=== PATIENT | female | born 1960 | race Caucasian/White ===

== ENCOUNTER 2016-10-07 18:36 | Emergency (ER) | payer OTHER ==
[2016-10-07 18:45] VITALS: BMI 38.7
[2016-10-07] MEDS ORDERED: ONDANSETRON 4 MG/2 ML VIAL IVPUSH STA (19:44)
[2016-10-07] MEDS ORDERED: morphine CARPU-JECT 2 MG/1 ML DISP.SYRIN IVPUSH ONE (19:44)
--- NOTE | 2016-10-07 19:44 | PDOC ---
History of Present Illness - General History Source: Patient Exam Limitations: No Limitations - History of Present Illness Initial Comments: 10/07/16 19:47 The patient is a 56-year-old female, with a significant past medical history of HTN and DM, who presents to the ED s/p slip and fall at pool today. There is question of loss of consciousness because she hit her head. Pt is complaining of headache, neck pain, right thoracic region pain, left knee pain, and difficulty breathing. She denies being dizzy prior to the fall. She denies having any other injuries or symptoms. <Nela Manning - Last Filed: 10/08/16 00:27> - General History Source: Patient <WillisHarley arce - Last Filed: 10/08/16 05:41> - General Chief Complaint: Injury Stated Complaint: PAIN Time Seen by Provider: 10/07/16 19:36 Past History <Nela Manning - Last Filed: 10/08/16 00:27> - Past Medical History Asthma: Yes Diabetes: Yes HTN: Yes - Surgical History Abdominal Surgery: Yes (HERNIA REPAIR X2) Appendectomy: Yes - Psycho/Social/Smoking Cessation Hx Anxiety: No Suicidal Ideation: No Smoking History: Current some day smoker Have you smoked in the past 12 months: Yes Number of Cigarettes Smoked Daily: 1 Information on smoking cessation initiated: No Hx Alcohol Use: No Drug/Substance Use Hx: No <Harley Hensley - Last Filed: 10/08/16 05:41> - Past Medical History Allergies/Adverse Reactions: Allergies Allergy/AdvReac Type Severity Reaction Status Date / Time No Known Allergies Allergy Verified 10/07/16 18:41 Home Medications: Ambulatory Orders Oxycodone HCl/Acetaminophen [Percocet 5-325 mg Tablet -] 1 - 2 tab PO Q4H #6 tablet 11/25/13 Amlodipine Besylate [Norvasc -] 2.5 mg PO DAILY 10/07/16 Canagliflozin/Metformin HCl [Invokamet 150-500 mg Tablet] 2 each PO DAILY Celecoxib [Celebrex] 200 mg PO DAILY 10/07/16 Gabapentin 800 mg PO TID 10/07/16 Insulin Glargine,Hum.rec.anlog [Lantus Solostar PEN (NF)] 56 units SQ BID Lisinopril/Hydrochlorothiazide [Lisinopril-Hctz 20-25 mg Tab] 1 each PO DAILY Metformin HCl [Metformin HCl ER] 1,000 mg PO BID 10/07/16 Repaglinide 2 mg PO TID 10/07/16 Albuterol Sulfate Inhaler - [Ventolin HFA Inhaler -] 2 inh IH Q6H #1 inh Azithromycin [Zithromax -] 250 mg PO UTDICT #6 tab 10/08/16 Ibuprofen 800 mg PO TID #30 tablet 10/08/16 Methylprednisolone [Medrol Dose Song] 4 mg PO ASDIR #21 tablet 10/08/16 Oxycodone HCl/Acetaminophen [Percocet 10-325 mg Tablet] 1 each PO QID #20 tablet MDD 4 10/08/16 Review of Systems - Review of Systems Able to Perform ROS?: Yes Comments:: 10/07/16 19:48 CONSTITUTIONAL: Absent: fever, chills, diaphoresis, generalized weakness, malaise, loss of appetite HEENT: Absent: rhinorrhea, nasal congestion, throat pain, throat swelling, difficulty swallowing, mouth swelling, ear pain, eye pain, visual Changes CARDIOVASCULAR: Absent: chest pain, syncope, palpitations, irregular heart rate, lightheadedness , peripheral edema RESPIRATORY: Present: shortness of breath Absent: cough, dyspnea with exertion, orthopnea, wheezing, stridor, hemoptysis GASTROINTESTINAL: Absent: abdominal pain, abdominal distension, nausea, vomiting, diarrhea, constipation, melena, hematochezia GENITOURINARY: Absent: dysuria, frequency, urgency, hesitancy, hematuria, flank pain, genital pain MUSCULOSKELETAL: Present: neck pain, right thoracic region pain, left knee pain Absent: arthralgia, joint swelling SKIN: Absent: rash, itching, pallor HEMATOLOGIC/IMMUNOLOGIC: Absent: easy bleeding, easy bruising, lymphadenopathy, frequent infections ENDOCRINE: Absent: unexplained weight gain, unexplained weight loss, heat intolerance, cold intolerance NEUROLOGIC: Present: headache Absent: focal weakness or paresthesias, dizziness, unsteady gait, seizure, mental status changes, bladder or bowel incontinence PSYCHIATRIC: Absent: anxiety, depression, suicidal or homicidal ideation, hallucinations. <Nela Manning - Last Filed: 10/08/16 00:27> *Physical Exam - Vital Signs Last Vital Signs Temp Pulse Resp BP Pulse Ox 97.8 F 83 20 120/54 94 L 10/07/16 18:42 10/07/16 18:42 10/07/16 18:42 10/07/16 18:42 10/07/16 18:42 - Physical Exam Comments: 10/07/16 19:49 Well developed, well nourished. Awake and alert. Mild distress. HEENT: Normocephalic, atraumatic. PERRLA, EOMI. No conjunctival pallor. Sclera are non- icteric. Moist mucous membranes. Oropharynx is clear. No racoon or magaña signs. NECK: Supple. No JVD. Carotid pulses 2+ and symmetric, without bruits. No thyromegaly. No lymphadenopathy. +Pt is wearing a c-collar but is experiencing mild paraspinal tenderness to the cervical spine. CARDIOVASCULAR: Regular rate and rhythm. No murmurs, rubs, or gallops. Distal pulses are 2+ and symmetric. PULMONARY: No evidence of respiratory distress. Lungs clear to auscultation bilaterally. No wheezing, rales or rhonchi. ABDOMINAL: Soft. Non-tender. Non-distended. No rebound or guarding. No organomegaly. Normoactive bowel sounds. MUSCULOSKELETAL Normal range of motion at all joints. +Pt is experiencing tenderness in the right lower thoracic region anteriorly but has no bony crepitus. EXTREMITIES: No cyanosis. No clubbing. No edema. No calf tenderness. SKIN: Warm and dry. Normal capillary refill. No rashes. No jaundice. NEUROLOGICAL: Alert, awake, appropriate. PSYCHIATRIC: Cooperative. Good eye contact. Appropriate mood and affect. <Nela Manning - Last Filed: 10/08/16 00:27> - Vital Signs Last Vital Signs Temp Pulse Resp BP Pulse Ox 97.8 F 83 20 120/54 94 L 10/07/16 18:42 10/07/16 18:42 10/07/16 18:42 10/07/16 18:42 10/07/16 18:42 <Harley Hensley - Last Filed: 10/08/16 05:41> Heart Score/ECG Review - ECG Intrepretation Comment:: 10/08/16 00:27 EKG was reviewed by Dr. Hensley at 22:42. Impression: Normal sinus rhythm. Low voltage QRS. Vent. rate: 60 bpm AK interval 142 ms QTc: 412 ms <Nela Manning - Last Filed: 10/08/16 00:27> ED Treatment Course - LABORATORY CBC & Chemistry Diagram: 10/07/16 22:35 10/07/16 22:35 <Nela Manning - Last Filed: 10/08/16 00:27> - LABORATORY CBC & Chemistry Diagram: 10/07/16 22:35 10/07/16 22:35 <Harley Hensley - Last Filed: 10/08/16 05:41> Medical Decision Making - Medical Decision Making 10/08/16 05:40 Dr. Hensley: The scribe's documentation has been prepared under my direction and personally reviewed by me in its entirery. I confirm that the note above accurately reflects all work, treatment, procedures, and medical decision making performed by me. Pt feeling better an would like to go home. Pt to follow up with her pcp and start medications for pain and Zpak for prophylaxis <Harley Hensley - Last Filed: 10/08/16 05:41> *DC/Admit/Observation/Transfer - Attestations Scribe Attestion: 10/07/16 19:51 Documentation prepared by Nela Manning, acting as medical screener for Harley Hensley MD. <Nela Manning - Last Filed: 10/08/16 00:27> - Discharge Dispostion Admit: No <Harley Hensley - Last Filed: 10/08/16 05:41> Diagnosis at time of Disposition: Asthma exacerbation Fall Qualifiers: Encounter type: initial encounter Qualified Code(s): W19.XXXA - Unspecified fall, initial encounter Right rib fracture Qualifiers: Encounter type: initial encounter Rib fracture type: single rib Fracture type: closed Qualified Code(s): S22.31XA - Fracture of one rib, right side, initial encounter for closed fracture - Prescriptions Prescriptions: Ibuprofen 800 mg PO TID #30 tablet Methylprednisolone [Medrol Dose Song] 4 mg PO ASDIR #21 tablet Oxycodone HCl/Acetaminophen [Percocet 10-325 mg Tablet] 1 each PO QID #20 tablet MDD 4 Albuterol Sulfate Inhaler - [Ventolin HFA Inhaler -] 2 inh IH Q6H #1 inh Azithromycin [Zithromax -] 250 mg PO UTDICT #6 tab - Referrals Referrals: STAFF,NOT ON [Primary Care Provider] -
[2016-10-07] MEDS ORDERED: morphine CARPU-JECT 2 MG/1 ML DISP.SYRIN ONE (19:50)
[2016-10-07] MEDS ORDERED: morphine CARPU-JECT 4 MG/1 ML DISP.SYRIN ONE (19:51)
[2016-10-07] MEDS ORDERED: ONDANSETRON 4 MG/2 ML VIAL ONE (19:51)
[2016-10-07] MEDS ORDERED: KETOROLAC TROMETHAMINE 30 MG/1 ML VIAL IVPUSH ONE (21:39)
[2016-10-07] MEDS ORDERED: KETOROLAC TROMETHAMINE 30 MG/1 ML VIAL ONE (21:43)
[2016-10-07] MEDS ORDERED: HYDROmorphone HCL CARPU-JECT 1 MG/1 ML DISP.SYRIN IVPUSH ONE (22:03)
[2016-10-07] MEDS ORDERED: HYDROmorphone HCL CARPU-JECT 1 MG/1 ML DISP.SYRIN ONE (22:35)
[2016-10-07 23:08] LABS: BASOPHIL 1.1 % (0-2.0); EOSINOPHIL 7.3 % (0-4.5); MCH 28.3 pg (25.7-33.7); MCHC 31.9 g/dl (32.0-36.0); MEAN CELL VOLUME 88.7 fl (80-96); MEAN PLT VOLUME 8.6 fl (7.5-11.1); NEUTROPHILS 55.8 % (42.8-82.8); PLATELET COUNT 296 K/MM3 (134-434); RDW 14.1 % (11.6-15.6); WHITE BLOOD COUNT 5.4 K/mm3 (4.0-10.0)
[2016-10-07 23:36] LABS: ALBUMIN 3.2 g/dl (3.4-5.0); ALK PHOS 111 U/L (45-117); ANION GAP 9 (8-16); BILIRUBIN,TOTAL 0.3 mg/dL (0.2-1.0); CALCIUM 9.4 mg/dL (8.5-10.1); CO2 26 mmol/L (21-32); CREATININE 1.6 mg/dL (0.55-1.02); GLUCOSE,RANDOM 289 mg/dL (74-106); SGOT/AST 15 U/L (15-37); SGPT/ALT 17 U/L (12-78); TOT PROT 6.7 g/dl (6.4-8.2)
[2016-10-08] MEDS ORDERED: methylPREDNISolone NA SUCC 125 MG/2 ML VIAL IVPB ONE (00:07)
[2016-10-08] MEDS ORDERED: ALBUTEROL SO4 2.5/IPRATROPIUM 0.5 INH SOL 3 ML VIAL.NEB. NEB STA (00:09)
[2016-10-08] MEDS ORDERED: methylPREDNISolone NA SUCC 125 MG/2 ML VIAL ONE (00:10)
[2016-10-08] MEDS ORDERED: HYDROmorphone HCL CARPU-JECT 1 MG/1 ML DISP.SYRIN IVPUSH ONE ×2 (01:36→05:40)
[2016-10-08] MEDS ORDERED: HYDROmorphone HCL CARPU-JECT 1 MG/1 ML DISP.SYRIN ONE (01:58)
--- NOTE | 2016-10-08 09:14 | EKG ---
Test Reason : Blood Pressure : / mmHG Vent. Rate : 073 BPM Atrial Rate : 073 BPM P-R Int : 148 ms QRS Dur : 086 ms QT Int : 414 ms P-R-T Axes : 066 -23 007 degrees QTc Int : 456 ms NORMAL SINUS RHYTHM WITH SINUS ARRHYTHMIA LOW VOLTAGE QRS NONSPECIFIC T WAVE ABNORMALITY NO PREVIOUS ECGS AVAILABLE Confirmed by YENNY PACHECO MD ([id number]) on 10/08/2016 9:13:54 AM Referred By: Confirmed By:YENNY PACHECO MD
[2016-10-08 09:24] VITALS: BP 121/60; PULSE 65; TEMP 97.4
== END 2016-10-08 09:24 | disposition home or self-care (01) ==
LOC: JER 18:36 → JERBED 10-08 00:10 → UNDOADMOB 10-08 00:10 → JERBED 10-08 00:21 → UNDOADMOB 10-08 00:21 → JER 10-08 09:24
PROC: 3E0F7GC Introduction of Other Therapeutic Substance into Respiratory Tract, Via Natural or Artificial Opening (ICD-10-PCS; principal; 2016-10-07)
PROC: 3E033NZ Introduction of Analgesics, Hypnotics, Sedatives into Peripheral Vein, Percutaneous Approach (ICD-10-PCS; 2016-10-07)
PROC: 3E0333Z Introduction of Anti-inflammatory into Peripheral Vein, Percutaneous Approach (ICD-10-PCS; 2016-10-07)
PROC: 3E033GC Introduction of Other Therapeutic Substance into Peripheral Vein, Percutaneous Approach (ICD-10-PCS; 2016-10-07)
DX: S22.31XA Fracture of one rib, right side, initial encounter for closed fracture (principal); J45.901 Unspecified asthma with (acute) exacerbation; W01.0XXA Fall on same level from slipping, tripping and stumbling without subsequent striking against object, initial encounter; Y93.11 Activity, swimming; Y92.34 Swimming pool (public) as the place of occurrence of the external cause; Y99.8 Other external cause status; I10 Essential (primary) hypertension; E11.9 Type 2 diabetes mellitus without complications; Z79.4 Long term (current) use of insulin; Z79.84 Long term (current) use of oral hypoglycemic drugs; J45.909 Unspecified asthma, uncomplicated
CPT/HCPCS: 36415; 70450-TC; 71010-TC; 71250-TC; 72125-TC; 73562-TC-LT; 80053; 85025; 85610; 86850; 86900; 86901; 93005; 93010; 99283-25

== ENCOUNTER 2016-12-22 04:21 | Emergency (ER) | payer OTHER ==
[2016-12-22 05:00] VITALS: BP 92/65; PULSE 86; TEMP 98.3; BMI 39.5
[2016-12-22 05:41] LABS: BASOPHIL 1.1 % (0-2.0); EOSINOPHIL 1.4 % (0-4.5); MCH 26.5 pg (25.7-33.7); MCHC 31.8 g/dl (32.0-36.0); MEAN CELL VOLUME 83.2 fl (80-96); MEAN PLT VOLUME 8.3 fl (7.5-11.1); NEUTROPHILS 72.7 % (42.8-82.8); PLATELET COUNT 485 K/MM3 (134-434); RDW 15.4 % (11.6-15.6); WHITE BLOOD COUNT 12.4 K/mm3 (4.0-10.0)
--- NOTE | 2016-12-22 05:53 | PDOC ---
History of Present Illness - General Chief Complaint: Pain Stated Complaint: RIB PAIN, CONGESTION Time Seen by Provider: 12/22/16 04:49 - History of Present Illness Initial Comments: 12/22/16 05:33 CHIEF COMPLAINT: cough, rib pain HISTORY OF PRESENT ILLNESS: 56 yo F with hx of insulin dependent DM and HTN presents to ED with cough and rib pain x "11 weeks." Patient states she slipped and fell at the pool 11 weeks ago and was diagnosed with a fractured rib on the right side. She reports that she has "not felt better ever since then " and states that she has seen her PCP "but he didn't do anything, he told me it would just get better on its own." She denies any fever but reports chills. PAST MEDICAL HISTORY: Denies past medical history FAMILY HISTORY: Denies SOCIAL HISTORY: Denies tobacco, alcohol, illicit drug use. SURGICAL HISTORY: Denies ALLERGIES: No known drug allergies REVIEW OF SYSTEMS General/Constitutional: Denies fever or chills. Denies weakness, weight change. HEENT: Denies change in vision. Denies ear pain or discharge. Denies sore throat. Cardiovascular: Denies chest pain or shortness of breath. Respiratory: Cough x 11 weeks. Gastrointestinal: Denies nausea, vomiting, diarrhea or constipation. Denies rectal bleeding. Genitourinary: Denies dysuria, frequency, or change in urination. Musculoskeletal: Rib pain s/p fall. Neurologic: Denies headache, vertigo, loss of consciousness, or loss of sensation. PHYSICAL EXAM General Appearance: Well-appearing, appropriately dressed. No apparent distress. HEENT: EOMI, PERRLA Respiratory/Chest: Lungs CTAB. No shortness of breath, chest tenderness, respiratory distress, accessory muscle use. No crackles, rales, rhonchi, stridor , wheezing, dullness Cardiovascular: RRR. S1, S2. Musculoskeletal/Extremities: Normal inspection. FROM of all extremities, normal capillary refill. Pelvis Stable. No CVA tenderness. No tenderness to extremities, pedal edema, swelling, erythema or deformity. Integumentary: Appropriate color, dry, warm. No cyanosis, erythema, jaundice or rash Neurologic: orthodontic laboratory technician II-XII intact. Fully oriented, alert. Appropriate mood/affect. Motor strength 5/5. No appreciable EOM palsy, facial droop or sensory deficit. 12/22/16 06:54 Past History - Past Medical History Allergies/Adverse Reactions: Allergies Allergy/AdvReac Type Severity Reaction Status Date / Time No Known Allergies Allergy Verified 12/22/16 05:04 Home Medications: Ambulatory Orders Amlodipine Besylate [Norvasc -] 2.5 mg PO DAILY 10/07/16 Canagliflozin/Metformin HCl [Invokamet 150-500 mg Tablet] 2 each PO DAILY Celecoxib [Celebrex] 200 mg PO DAILY 10/07/16 Gabapentin 800 mg PO TID 10/07/16 Insulin Glargine,Hum.rec.anlog [Lantus Solostar PEN (NF)] 56 units SQ BID Lisinopril/Hydrochlorothiazide [Lisinopril-Hctz 20-25 mg Tab] 1 each PO DAILY Metformin HCl [Metformin HCl ER] 1,000 mg PO BID 10/07/16 Repaglinide 2 mg PO TID 10/07/16 Albuterol Sulfate Inhaler - [Ventolin HFA Inhaler -] 2 inh IH Q6H #1 inh Ibuprofen 800 mg PO TID #30 tablet 10/08/16 Guaifenesin AC [Robitussin AC] 5 ml PO Q6H PRN #60 ml MDD 20 mL 12/22/16 Asthma: Yes Diabetes: Yes HTN: Yes - Surgical History Abdominal Surgery: Yes (HERNIA REPAIR X2) Appendectomy: Yes - Suicide/Smoking/Psychosocial Hx Smoking History: Never smoked Have you smoked in the past 12 months: Yes Number of Cigarettes Smoked Daily: 1 Hx Alcohol Use: No Drug/Substance Use Hx: No *Physical Exam - Vital Signs Last Vital Signs Temp Pulse Resp BP Pulse Ox 98.3 F 86 22 92/65 97 12/22/16 04:59 12/22/16 04:59 12/22/16 04:59 12/22/16 04:59 12/22/16 04:59 ED Treatment Course - LABORATORY CBC & Chemistry Diagram: 12/22/16 05:32 12/22/16 05:32 - RADIOLOGY Radiology Studies Ordered: Category Date Time Status CHEST PA & LAT [RAD] Stat Radiology 12/22/16 05:18 Taken Medical Decision Making - Medical Decision Making 12/22/16 06:56 56 yo F with hx of insulin dependent DM and HTN presents to ED with cough and rib pain x "11 weeks." -CXR -CBC, CMP Labs: WBC 12.4, otherwise unremarkable. Creatinine noted to be elevated to 1.5 but at baseline. CXR negative for infiltrate. Robitussin AC sent to pharm for symptomatic relief. Advised pt to f/u with PCP and of signs and symptoms for return to ER; patient verbalized understanding and agrees to plan. *DC/Admit/Observation/Transfer Diagnosis at time of Disposition: Cough Right rib fracture Qualifiers: Encounter type: sequela Rib fracture type: single rib Fracture type: closed Qualified Code(s): S22.31XS - Fracture of one rib, right side, sequela - Discharge Dispostion Admit: No - Prescriptions Prescriptions: Guaifenesin AC [Robitussin AC] 5 ml PO Q6H PRN #60 ml MDD 20 mL PRN Reason: Cough - Patient Instructions Printed Discharge Instructions: DI for Cough -- Adult, DI for Rib Fracture Additional Instructions: Please take medication as prescribed. Do not drive, drink alcohol, or operate machinery while taking this medication. Follow up with your primary care doctor by the end of the week. If you develop any new or worsening symptoms, please return to the ER.
[2016-12-22 06:10] LABS: ALBUMIN 3.4 g/dl (3.4-5.0); ANION GAP 12 (8-16); BILIRUBIN,TOTAL 0.3 mg/dL (0.2-1.0); CALCIUM 10.3 mg/dL (8.5-10.1); CO2 24 mmol/L (21-32); CREATININE 1.5 mg/dL (0.55-1.02); GLUCOSE,RANDOM 251 mg/dL (74-106); SGPT/ALT 16 U/L (12-78); TOT PROT 7.5 g/dl (6.4-8.2)
[2016-12-22 06:11] LABS: ALK PHOS 131 U/L (45-117)
[2016-12-22 06:12] LABS: SGOT/AST 23 U/L (15-37)
[2016-12-22] MEDS ORDERED: KETOROLAC TROMETHAMINE 30 MG/1 ML VIAL IVPUSH ONE (06:22)
[2016-12-22] MEDS ORDERED: KETOROLAC TROMETHAMINE 30 MG/1 ML VIAL ONE (06:31)
[2016-12-22] MEDS ORDERED: guaiFENesin/CODEINE 10 ML UNIT-DOSE CUPS PO ONE (06:37)
[2016-12-22] MEDS ORDERED: guaiFENesin/CODEINE 5 ML UNIT-DOSE CUPS PO ONE (06:54)
== END 2016-12-22 07:07 | disposition home or self-care (01) ==
LOC: JER 04:21
PROC: 3E0333Z Introduction of Anti-inflammatory into Peripheral Vein, Percutaneous Approach (ICD-10-PCS; principal; 2016-12-22)
DX: S22.31XD Fracture of one rib, right side, subsequent encounter for fracture with routine healing (principal); W18.39XD Other fall on same level, subsequent encounter; E11.9 Type 2 diabetes mellitus without complications; Z79.4 Long term (current) use of insulin; Z79.84 Long term (current) use of oral hypoglycemic drugs; J45.909 Unspecified asthma, uncomplicated
CPT/HCPCS: 36415; 71020-TC; 80053; 85025; 99281-25

== ENCOUNTER 2018-04-04 15:49 | Emergency (ER) | payer OTHER ==
--- NOTE | 2018-04-04 16:27 | PDOC ---
History of Present Illness - General Chief Complaint: Headache Stated Complaint: Blood Pressure Problem Time Seen by Provider: 04/04/18 16:27 History Source: Patient Exam Limitations: No Limitations - History of Present Illness Initial Comments: 04/04/18 17:17 58 year old female with PMH HTN, HLD, DM, atrial fibrillation (no AC), GERD, CVA with right sided weakness, osteoarthritis presented to ED for headache since last night. Pt stated her headache is located to her left lower head, radiating to her left neck, constant, no alleviating or aggravating factors, pounding. She admitted to chest pain since last night, left sided, intermittent , unable to quantify how long it lasts, described as heavy/sharp, no alleviating or aggravating factors. She stated her BP has been elevated to the 160s yesterday and today, she stated she took all of her prescribed medications for blood pressure. Allergies: NKDA PCP: Dr. Maza Past History - Past Medical History Allergies/Adverse Reactions: Allergies Allergy/AdvReac Type Severity Reaction Status Date / Time No Known Allergies Allergy Verified 12/22/16 05:04 Home Medications: Ambulatory Orders Albuterol Sulfate Inhaler - [Ventolin HFA Inhaler -] 2 inh IH Q6H #1 inh Aspirin 81 mg PO DAILY 04/04/18 Atorvastatin Calcium 80 mg PO HS 04/04/18 Celecoxib [Celebrex -] 200 mg PO BID 04/04/18 Cholecalciferol (Vitamin D3) [Vitamin D3 -] 5,000 unit PO DAILY 04/04/18 Fluoxetine HCl [Prozac -] 20 mg PO DAILY 04/04/18 Fluticasone/Salmeterol [Advair 250-50 Diskus] 1 each IH BID 04/04/18 Gabapentin [Neurontin -] 200 mg PO DAILY 04/04/18 Hydrochlorothiazide [Hctz -] 12.5 mg PO DAILY 04/04/18 Insulin (Levemir) [Levemir Vial] 22 unit SQ DAILY 04/04/18 Insulin Regular [NOVOLIN R VIAL *IVPUSH / ER / ICU Only*] 6 units SQ TID Linaclotide [Linzess] 290 mcg PO DAILY 04/04/18 Metformin HCl [Metformin HCl ER] 500 mg PO BID 04/04/18 Metoprolol Succinate [Toprol Xl -] 25 mg PO DAILY 04/04/18 Oxycodone HCl/Acetaminophen [Endocet 10-325 mg Tablet] 2 each PO QID PRN Pantoprazole Sodium [Protonix -] 40 mg PO DAILY 04/04/18 Polyethylene Glycol 3350 [Miralax (For Bowel Prep) -] 17 gm PO DAILY 04/04/18 Asthma: Yes Diabetes: Yes HTN: Yes - Surgical History Abdominal Surgery: Yes (HERNIA REPAIR X2) Appendectomy: Yes - Suicide/Smoking/Psychosocial Hx Smoking History: Never smoked Have you smoked in the past 12 months: Yes Number of Cigarettes Smoked Daily: 1 Hx Alcohol Use: No Drug/Substance Use Hx: No Review of Systems - Review of Systems Able to Perform ROS?: Yes Comments:: 04/04/18 17:20 General: denied fever, chills, night sweats. HEENT: denied sore throat, rhinorrhea, ear pain. Neck: admitted to neck pain. Heart: admitted to chest pain. denied palpitations, syncope, lower extremity swelling, diaphoresis. Respiratory: denied shortness of breath, cough, sputum production, hemoptysis. Abdomen: denied abdominal pain, nausea, vomiting, diarrhea, constipation, blood in stool. : denied dysuria, increased urinary frequency, hematuria, urinary incontinence , flank pain. Back: denied back pain. Musculoskeletal: denied joint pain, muscle pain, joint swelling. Neurological: admitted to headache. denied dizziness, numbness, tingling, weakness. Skin: denied rash, laceration, abrasion. *Physical Exam - Physical Exam Comments: 04/04/18 17:22 Constitutional: Well-nourished, Well-developed, appearing stated age. HEENT: head is normocephalic, atraumatic. EOMI. PERRLA. Neck: supple. Full ROM. no rigidity. brudinsky and kernigs negative. Heart: regular rhythm. no murmurs, rubs or gallops. Lungs: clear to auscultation bilaterally. no crackles, rhonchi or wheezing. no stridor. Abdomen: soft, nontender. normal bowel sounds. no rebound, guarding, masses. Extremities: Peripheral pulses intact. No lower extremity edema. Neurological: Alert. Oriented x3. CN2-12 intact. 5/5 strength all left extremities. Full sensation left extremities. No sensation to right side of body. decreased strength to RUE and RLE. Psych: awake, alert, oriented x3. Follows commands. Answers questions appropriately. Vital Signs - Vital Signs #2 Blood Pressure: 140/70 MAP: 93 BP Location: Right Arm Blood Pressure Position: Sitting ED Treatment Course - LABORATORY CBC & Chemistry Diagram: 04/04/18 17:13 04/04/18 17:13 Medical Decision Making - Medical Decision Making 04/04/18 17:14 58 year old female with above PMH presented to ED for headache associated with left sided neck pain and intermittent chest pain. Initial Vital Signs Temp Pulse Resp BP Pulse Ox 98.2 F 59 L 18 133/113 H 100 04/04/18 16:00 04/04/18 16:00 04/04/18 16:00 04/04/18 16:00 04/04/18 16:00 Afebrile. Mild bradycardia. No tachypnea. Diastolic HTN. No hypoxia on room air. EKG performed at 1805: rate 52, regular rhythm, left axis, normal intervals, nonspecific ST changes. Similar to prior 10/07/16. BP repeated: Vital Signs Temperature 98.2 F 04/04/18 16:00 Pulse Rate 59 L 04/04/18 16:00 Respiratory Rate 18 04/04/18 16:00 Blood Pressure 140/70 04/04/18 17:16 O2 Sat by Pulse Oximetry (%) 100 04/04/18 16:00 Mild systolic HTN. No diastolic HTN. Labs ordered: CBC, CMP, troponin Medications ordered: tylenol, reglan, benadryl, normal saline 1000 cc bolus Imaging ordered: CXR 04/04/18 18:01 CBC WBC 4.5 K/mm3 (4.0-10.0) 04/04/18 17:13 RBC 4.47 M/mm3 (3.60-5.2) 04/04/18 17:13 Hgb 11.1 GM/dL (10.7-15.3) 04/04/18 17:13 Hct 33.9 % (32.4-45.2) 04/04/18 17:13 MCV 76.0 fl (80-96) L 04/04/18 17:13 MCH 24.8 pg (25.7-33.7) L 04/04/18 17:13 MCHC 32.6 g/dl (32.0-36.0) 04/04/18 17:13 RDW 18.2 % (11.6-15.6) H 04/04/18 17:13 Plt Count 280 K/MM3 (134-434) D 04/04/18 17:13 MPV 9.7 fl (7.5-11.1) D 04/04/18 17:13 Absolute Neuts (auto) 2.2 K/mm3 (1.5-8.0) 04/04/18 17:13 Neutrophils % 49.9 % (42.8-82.8) D 04/04/18 17:13 Lymphocytes % 37.2 % (8-40) D 04/04/18 17:13 Monocytes % 8.2 % (3.8-10.2) 04/04/18 17:13 Eosinophils % 3.3 % (0-4.5) D 04/04/18 17:13 Basophils % 1.4 % (0-2.0) 04/04/18 17:13 Nucleated RBC % 0 % (0-0) 04/04/18 17:13 No leukocytosis. No anemia. CMP Sodium 137 mmol/L (136-145) 04/04/18 17:13 Potassium 4.7 mmol/L (3.5-5.1) 04/04/18 17:13 Chloride 102 mmol/L (98-107) 04/04/18 17:13 Carbon Dioxide 25 mmol/L (21-32) 04/04/18 17:13 Anion Gap 9 MMOL/L (8-16) 04/04/18 17:13 BUN 13 mg/dL (7-18) 04/04/18 17:13 Creatinine 0.9 mg/dL (0.55-1.3) 04/04/18 17:13 Creat Clearance w eGFR > 60 (>60) 04/04/18 17:13 Random Glucose 190 mg/dL (74-106) H 04/04/18 17:13 Calcium 9.9 mg/dL (8.5-10.1) 04/04/18 17:13 Troponin I < 0.02 ng/ml (0.00-0.05) 04/04/18 17:13 Normal electrolytes. No MICAELA. Normal troponin. Chest pain unlikely to be cardiac in origin. Troponin would be elevated by now since chest pain began last night. 04/04/18 18:23 Pt takes two 10/325 percocet daily. Stated she did not take it today. Complaining of chronic right sided pain secondary to stroke. - Morphine 4 mg ordered CXR report: cardiomegaly. no acute disease. 04/04/18 19:06 Pt reported 0/10 headache, 0/10 chest pain. Pt stated she would like to go home. Pt eating pretzels. Repeat BP: Vital Signs Temperature 98.2 F 04/04/18 16:00 Pulse Rate 51 L 04/04/18 19:07 Respiratory Rate 16 04/04/18 19:07 Blood Pressure 140/70 04/04/18 19:07 O2 Sat by Pulse Oximetry (%) 100 04/04/18 16:00 Right arm BP: 132/73 Pt is now pain free, BP is stable in both arms, dissection unlikely. Pt informed of results and need to follow up with PCP. Pt stated that she will follow up tomorrow. Pt discharged. *DC/Admit/Observation/Transfer Diagnosis at time of Disposition: Chest pain, Headache - Discharge Dispostion Disposition: HOME Condition at time of disposition: Improved Decision to Admit order: No - Referrals Referrals: ON STAFF,NOT [Primary Care Provider] - - Patient Instructions Printed Discharge Instructions: DI for Headache, DI for Atypical Chest Pain Additional Instructions: You were seen today for headache and chest pain. Your lab results were normal. Your chest X-ray showed no pneumonia. Take tylenol over the counter for your headache, take as advised on label. Follow up with your primary care doctor in 1 -2 days. Your care is not complete until you follow up. Return to the Emergency Department for chest pain, shortness of breath, increasing pain, pain radiating to your back, vomiting, blood pressure greater than 180/100 or any other new, worsening or concerning symptoms. - Post Discharge Activity Forms/Work/School Notes: Back to Work Vital Signs - Vital Signs Pulse Rate: 51 Respiratory Rate: 16 Blood Pressure: 142/76 BP Location: Left Arm
[2018-04-04 16:44] VITALS: TEMP 98.2; BMI 33.9
[2018-04-04] MEDS ORDERED: ACETAMINOPHEN 1000 MG/100 ML VIAL (NON FORMULARY) IVPB ONE (17:11)
[2018-04-04] MEDS ORDERED: METOCLOPRAMIDE HCL INJECTION 10 MG/2 ML VIAL IVPUSH ONE (17:11)
[2018-04-04] MEDS ORDERED: SODIUM CHLORIDE 1,000 ML IV STA (17:12)
[2018-04-04 17:19] LABS: BASO % 1.4 % (0-2.0); EOS % 3.3 % (0-4.5); HEMATOCRIT 33.9 % (32.4-45.2); HEMOGLOBIN 11.1 GM/dL (10.7-15.3); LYMPH % 37.2 % (8-40); MCH 24.8 pg (25.7-33.7); MCHC 32.6 g/dl (32.0-36.0); MEAN PLT VOLUME 9.7 fl (7.5-11.1); MONO % 8.2 % (3.8-10.2); NEUT % 49.9 % (42.8-82.8); PLATELET COUNT 280 K/MM3 (134-434); RBC 4.47 M/mm3 (3.60-5.2); RDW 18.2 % (11.6-15.6); WHITE BLOOD COUNT 4.5 K/mm3 (4.0-10.0)
--- NOTE | 2018-04-04 17:41 | PDOC ---
Attending Attestation - Resident Resident Name: Trini Liu - ED Attending Attestation I have performed the following: I have examined & evaluated the patient, The case was reviewed & discussed with the resident, I agree w/resident's findings & plan, Exceptions are as noted - Physicial Exam PE: 04/04/18 17:42 GENERAL: The patient is awake, alert, and fully oriented, Nontoxic - in no acute distress. HEAD: Normocephalic, atraumatic. EYES: extraocular movements intact, sclera anicteric, conjunctiva clear. ENT: Normal voice, Moist mucous membranes. NECK: Normal range of motion, supple LUNGS: Breath sounds equal, clear to auscultation bilaterally. No wheezes, no rhonchi, no rales. HEART: Regular rate and rhythm, normal S1 and S2 without murmur, rub or gallop. ABDOMEN: Soft, nontender, No guarding, no rebound. . No CVA tenderness EXTREMITIES: Normal range of motion, NEUROLOGICAL: No facial assymetry, moving all 4 extremities spontaneouisly, 5-/ 5 on RUE/RLE, 5/5 on LLE/LUE, deminsihed sensation on R arm and R leg, some + mild dysarthria noted (word finding difficulty - at baseline) PSYCH: Normal mood, normal affect. SKIN: Warm, Dry, normal turgor, - Medical Decision Making 04/04/18 18:31 58y F hx of pAfib, htn, glaucoma, tia with residual R sided sypmtoms, presents with complaint of hypertension. She had a mild headache that was gradualy onset in the L scalp that resolved, then came back again last night, without any new focal neuro complaints. pt also endorses mild chest pain since last night that has substantially improved that started at rest without associated sob, diaphresis, hemoptysis, leg swelling. she had her BP checked by a visitng nurse and was noted to be elevated at 160SBP so was referred to the ER. exam seems to be at baseline weakness (RLE/RUE) will treat her headche with tylenol, reglan will screen for acs with trop/ekg x 1 (cp started yesterday and has largely resolved) will eval for acute pulm disase with cxr will reassess if pt feeling improved anticipate dc with pmd fu 04/04/18 18:41 A portion of this note was documented by scribe services under my direction. I have reviewed the details of the note, within reason, and agree with the documentation with the following case summary and management plan written by me <Enrique Coker - Last Filed: 04/04/18 18:41> - HPI HPI: 04/04/18 19:18 The patient is a 58 year old female with a significant past medical history of diabetes, hypertension, asthma, afib, GERD, and TIA who presents to the emergency department with increased blood pressure this morning . The patient reports an increase in her blood pressure (160/90) this morning as checked by her home nurse. The patient also reports an episode of headache and chest pain since yesterday. She states that her headache is left sided, is mild, constant and gradual onset and she feels it on the inside. No associated n/v, vision changes, new focal neuro complaints. She reports that her chest pain feels pressure-like and sharp since yesterday is in the mid chest and is gradually improving, no associaetd sob, small, hemoptysis, leg swelling, diaphoresis, n/v. She denies any photophobia/phonophobia. It is noted that the patient had a stroke and subsequently has experienced chronic right sided pain and weakness which is unchanged from baseline. The patient denies any other symptoms. She denies any fever, chills, nausea, vomiting, diarrhea, constipation or urinary symptoms. She denies any shortness of breath, or dizziness. The patient denies any other complaints. Documentation prepared by Valeriano Bowers, acting as chief medical technologist for Enrique Coker MD. <Valeriano Bowers - Last Filed: 04/04/18 19:18> Heart Score/ECG Review - ECG Impressions Comment:: 04/04/18 18:40 Twelve-lead EKG was performed and reviewed by me. There is normal sinus rhythm with a HR of 52 TWI in inferior leads no signs of ZULEIKA or STD imp: sinus bradycardia <Enrique Coker - Last Filed: 04/04/18 18:41>
[2018-04-04 17:42] LABS: ANION GAP 9 MMOL/L (8-16); BLOOD UREA NITROGEN 13 mg/dL (7-18); CALCIUM 9.9 mg/dL (8.5-10.1); CHLORIDE 102 mmol/L (98-107); CO2 25 mmol/L (21-32); CREATININE 0.9 mg/dL (0.55-1.3); GLUCOSE,RANDOM 190 mg/dL (74-106); POTASSIUM 4.7 mmol/L (3.5-5.1); SODIUM 137 mmol/L (136-145)
[2018-04-04] MEDS ORDERED: morphine CARPU-JECT 4 MG/1 ML DISP.SYRIN IVPUSH ONE (18:23)
[2018-04-04 19:07] VITALS: BP 142/76; PULSE 51
--- NOTE | 2018-04-05 13:09 | EKG ---
Test Reason : Blood Pressure : / mmHG Vent. Rate : 052 BPM Atrial Rate : 052 BPM P-R Int : 160 ms QRS Dur : 084 ms QT Int : 454 ms P-R-T Axes : 021 -25 -11 degrees QTc Int : 422 ms SINUS BRADYCARDIA NONSPECIFIC T WAVE ABNORMALITY ABNORMAL ECG WHEN COMPARED WITH ECG OF 07-OCT-2016 22:42, T WAVE INVERSION NOW EVIDENT IN ANTERIOR LEADS Confirmed by YOLIS JAY, RADHA ([id number]) on 04/05/2018 1:08:52 PM Referred By: Confirmed By:RADHA LAGOS MD
== END 2018-04-04 19:18 | disposition home or self-care (01) ==
LOC: JER 15:49
PROC: 3E033NZ Introduction of Analgesics, Hypnotics, Sedatives into Peripheral Vein, Percutaneous Approach (ICD-10-PCS; principal; 2018-04-04)
PROC: 3E033NZ Introduction of Analgesics, Hypnotics, Sedatives into Peripheral Vein, Percutaneous Approach (ICD-10-PCS; 2018-04-04)
PROC: 3E033GC Introduction of Other Therapeutic Substance into Peripheral Vein, Percutaneous Approach (ICD-10-PCS; 2018-04-04)
PROC: 3E033GC Introduction of Other Therapeutic Substance into Peripheral Vein, Percutaneous Approach (ICD-10-PCS; 2018-04-04)
DX: R07.9 Chest pain, unspecified (principal); R51 Headache; I10 Essential (primary) hypertension; E11.9 Type 2 diabetes mellitus without complications; Z79.4 Long term (current) use of insulin; Z79.84 Long term (current) use of oral hypoglycemic drugs; E78.00 Pure hypercholesterolemia, unspecified; Z86.73 Personal history of transient ischemic attack (TIA), and cerebral infarction without residual deficits; K21.9 Gastro-esophageal reflux disease without esophagitis
CPT/HCPCS: 36415; 71045-TC-FY; 80048; 84484; 85025; 93005; 93010; 99282-25; J0131; J7030

== ENCOUNTER 2018-07-06 11:36 | Inpatient (IN) | payer OTHER ==
--- NOTE | 2018-07-06 11:56 | PDOC ---
History of Present Illness - General Chief Complaint: CVA/TIA Stated Complaint: R/O STROKE Time Seen by Provider: 07/06/18 11:55 History Source: Patient, Family Exam Limitations: Clinical Condition - History of Present Illness Initial Comments: 07/06/18 12:18 58 year old female with PMH CVA with residual right sided weakness, right sided facial droop, right sided numbness and expressive aphasia (2018), atrial fibrillation on Eliquis, HTN, HLD, IDDM, asthma presented to ED for increased right sided weakness after a fall out of bed this morning. Pt stated she woke up with increased right sided weakness at 1045 AM this morning, tried to get out of bed, and fell and hit her head. She denied LOC or vomiting. She then called her daughter to come see her. Daughter stated from the time that she spoke with her on the phone to the time she saw her the patient had increased expressive aphasia and was becoming increasingly tired. Daughter stated she feels her right sided weakness and facial drooping is increased from baseline. Per daughter, pt's baseline is A&Ox3, ambulates with a cane/walker, is able to shower/bath herself, but does not make her own meals. Daughter reported pt was palced on Amitryptiline x1 week ago, and it makes her drowsy. PCP: Neuro: Hattie Past History - Past Medical History Allergies/Adverse Reactions: Allergies Allergy/AdvReac Type Severity Reaction Status Date / Time No Known Allergies Allergy Verified 07/06/18 12:34 Home Medications: Ambulatory Orders Albuterol Sulfate Inhaler - [Ventolin HFA Inhaler -] 2 inh IH Q6H #1 inh Atorvastatin Calcium 80 mg PO HS 04/04/18 Celecoxib [Celebrex -] 200 mg PO BID 04/04/18 Fluoxetine HCl [Prozac -] 20 mg PO DAILY 04/04/18 Fluticasone/Salmeterol [Advair 250-50 Diskus] 1 each IH BID 04/04/18 Gabapentin [Neurontin -] 800 mg PO TID 04/04/18 Insulin (Levemir) [Levemir Vial] 25 unit SQ BID 04/04/18 Insulin Regular [NOVOLIN R VIAL *IVPUSH / ER / ICU Only*] 6 units SQ TID Linaclotide [Linzess] 290 mcg PO DAILY 04/04/18 Metoprolol Succinate [Toprol Xl -] 25 mg PO DAILY 04/04/18 Oxycodone HCl/Acetaminophen [Endocet 10-325 mg Tablet] 2 each PO QID PRN Pantoprazole Sodium [Protonix -] 40 mg PO DAILY 04/04/18 Polyethylene Glycol 3350 [Miralax (For Bowel Prep) -] 17 gm PO DAILY 04/04/18 metFORMIN HCL [Metformin HCl ER] 500 mg PO BID 04/04/18 Amitriptyline HCl [Elavil -] 50 mg PO HS 07/06/18 Apixaban [Eliquis] 5 mg PO BID 07/06/18 Chlorzoxazone 750 mg PO BID 07/06/18 Lisinopril 20 mg PO DAILY 07/06/18 Asthma: Yes CVA: Yes (09/12 rt sided residual) COPD: No Diabetes: Yes HTN: Yes Hypercholesterolemia: Yes - Surgical History Abdominal Surgery: Yes (HERNIA REPAIR X2) Appendectomy: Yes - Suicide/Smoking/Psychosocial Hx Smoking History: Never smoked Have you smoked in the past 12 months: Yes Number of Cigarettes Smoked Daily: 1 Hx Alcohol Use: No Drug/Substance Use Hx: No Review of Systems - Review of Systems Able to Perform ROS?: Yes Comments:: 07/06/18 12:29 General: denied fever, chills, generalized weakness. HEENT: denied sore throat, rhinorrhea, ear pain. Heart: denied chest pain, palpitations, syncope, diaphoresis. Respiratory: denied shortness of breath, cough, sputum production, hemoptysis. Abdomen: denied abdominal pain, nausea, vomiting, diarrhea, constipation, blood in stool. : denied dysuria, increased urinary frequency, hematuria, urinary incontinence , flank pain. Back: denied back pain. Musculoskeletal: denied joint pain, muscle pain, joint swelling. Neurological: admitted to weakness, facial drooping, aphasia, numbness. denied headache, dizziness, tingling. Skin: denied rash, laceration, abrasion. *Physical Exam - Physical Exam Comments: 07/06/18 12:29 Constitutional: Well-nourished, Well-developed, appearing stated age. obese. HEENT: head is normocephalic, atraumatic. EOMI. PERRLA. Neck: supple. Full ROM. Heart: regular rhythm. no murmurs, rubs or gallops. Lungs: clear to auscultation bilaterally. no crackles, rhonchi or wheezing. no stridor. Abdomen: soft, nontender. normal bowel sounds. no rebound, guarding, masses. Extremities: peripheral pulses intact. no lower extremity edema. Neurological: alert. oriented to person and place. CN2-12 intact. right sided facial drooping. 5/5 strength LUE and LLE. 0/5 strength RLE. 4/5 strength RUE. full sensation left sided extremities and left face. no sensation to right extremities or right face. gait not observed. Psych: intermittently drowsy, oriented x3. follows commands. answers questions appropriately intermittently. intermittent expressive aphasia. ED Treatment Course - LABORATORY CBC & Chemistry Diagram: 07/07/18 05:30 07/07/18 05:30 Medical Decision Making - Medical Decision Making 07/06/18 12:31 58 year old female with above PMH presented to ED for increasing right sided weakness, expressive aphasia and right sided facial droop since 1045 AM this morning, which resulted in her falling out of bed and hitting her head. Initial Vital Signs Temp Pulse Resp BP Pulse Ox 98.0 F 60 16 149/79 100 07/06/18 11:36 07/06/18 11:36 07/06/18 11:36 07/06/18 11:36 07/06/18 11:36 Afebrile. Borderline bradycardia. No tachypnea. Mild hypertension. No hypoxia on room air. Labs ordered: CBC, CMP, Mag, Phos, UA/UC, troponin, cholesterol, lipids, VBG Medications ordered: none Imaging ordered: CT head, CXR EKG performed at 1204: rate 54, regular rhythm, left axis, normal intervals, flipped T in III, biphasic T in aVF, otherwise no ST changes. 07/06/18 12:34 CBC WBC 6.6 K/mm3 (4.0-10.0) 07/06/18 12:14 RBC 3.94 M/mm3 (3.60-5.2) 07/06/18 12:14 Hgb 10.0 GM/dL (10.7-15.3) L 07/06/18 12:14 Hct 32.2 % (32.4-45.2) L 07/06/18 12:14 MCV 81.7 fl (80-96) 07/06/18 12:14 MCH 25.3 pg (25.7-33.7) L 07/06/18 12:14 MCHC 31.0 g/dl (32.0-36.0) L 07/06/18 12:14 RDW 19.4 % (11.6-15.6) H 07/06/18 12:14 Plt Count 325 K/MM3 (134-434) 07/06/18 12:14 MPV 8.4 fl (7.5-11.1) D 07/06/18 12:14 Absolute Neuts (auto) 4.2 K/mm3 (1.5-8.0) 07/06/18 12:14 Neutrophils % 62.8 % (42.8-82.8) D 07/06/18 12:14 Lymphocytes % 26.4 % (8-40) D 07/06/18 12:14 Monocytes % 7.8 % (3.8-10.2) 07/06/18 12:14 Eosinophils % 2.3 % (0-4.5) 07/06/18 12:14 Basophils % 0.7 % (0-2.0) 07/06/18 12:14 Nucleated RBC % 0 % (0-0) 07/06/18 12:14 No leukocytosis. Mild anemia. 07/06/18 13:00 CMP Sodium 144 mmol/L (136-145) 07/06/18 12:14 Potassium 3.8 mmol/L (3.5-5.1) 07/06/18 12:14 Chloride 110 mmol/L (98-107) H 07/06/18 12:14 Carbon Dioxide 27 mmol/L (21-32) 07/06/18 12:14 Anion Gap 7 MMOL/L (8-16) L 07/06/18 12:14 BUN 15 mg/dL (7-18) 07/06/18 12:14 Creatinine 0.9 mg/dL (0.55-1.3) 07/06/18 12:14 Creat Clearance w eGFR 64.31 (>60) 07/06/18 12:14 POC Glucometer 68 UNITS (80-120) 07/06/18 12:53 Random Glucose 64 mg/dL (74-106) L 07/06/18 12:14 Calcium 8.7 mg/dL (8.5-10.1) 07/06/18 12:14 Magnesium 1.7 mg/dL (1.8-2.4) L 07/06/18 12:14 Total Bilirubin 0.3 mg/dL (0.2-1) 07/06/18 12:14 AST 26 U/L (15-37) 07/06/18 12:14 ALT 20 U/L (13-61) 07/06/18 12:14 Alkaline Phosphatase 112 U/L (45-117) 07/06/18 12:14 Troponin I < 0.02 ng/ml (0.00-0.05) 07/06/18 12:14 Total Protein 6.7 g/dl (6.4-8.2) 07/06/18 12:14 Albumin 3.3 g/dl (3.4-5.0) L 07/06/18 12:14 Triglycerides 116 mg/dL (0-150) 07/06/18 12:14 Cholesterol 202 mg/dL (50-200) H 07/06/18 12:14 Total LDL Cholesterol 112 mg/dL (5-100) H 07/06/18 12:14 HDL Cholesterol 68 mg/dL (40-60) H 07/06/18 12:14 TSH 1.09 uIU/ml (0.358-3.74) 07/06/18 12:14 Mild hypomagnesmia. Normal sodium. No Martha. Hypoglycemia. Normal troponin. Elevated lipids. Normal TSH. CXR report: cardiomegaly with interstitial fluid. 07/06/18 13:43 Urine Test Results Urine Color Yellow 07/06/18 12:25 Urine Appearance Clear 07/06/18 12:25 Urine pH 6.5 (5.0-8.0) 07/06/18 12:25 Ur Specific [place] 1.015 (1.010-1.035) 07/06/18 12:25 Urine Protein Negative (NEGATIVE) 07/06/18 12:25 Urine Glucose (UA) Negative (NEGATIVE) 07/06/18 12:25 Urine Ketones Negative (NEGATIVE) 07/06/18 12:25 Urine Blood Negative (NEGATIVE) 07/06/18 12:25 Urine Nitrite Negative (NEGATIVE) 07/06/18 12:25 Urine Bilirubin Negative (NEGATIVE) 07/06/18 12:25 Ur Leukocyte Esterase Negative (NEGATIVE) 07/06/18 12:25 UA negative for UTI. 07/06/18 15:04 Pt now complaining of headache. 07/06/18 15:20 CT head no acute intracranial findings. No acute intracranial bleed. ASA ordered. I spoke with Dr. Ruiz about the patient, pt to be admitted to Dr. Moise' s service. Pending admission. *DC/Admit/Observation/Transfer Diagnosis at time of Disposition: Right sided weakness, Expressive aphasia, Altered mental status - Discharge Dispostion Condition at time of disposition: Stable Decision to Admit order: Yes - Referrals - Patient Instructions - Post Discharge Activity
--- NOTE | 2018-07-06 11:59 | PDOC ---
Attending Attestation - HPI HPI: 07/06/18 12:55 The patient is a 58-year-old female, with a past medical history of CVA (2018 with residual RT-sided weakness and RT-sided facial droop), afib (on Eliquis), HTN, HLD, IDDM, asthma, who presents to the ED s/p falling out of bed this morning. Daughter is at bedside and states that she received a call from the patient at 10:30 AM informing her of the fall. Daughter notes that the patient s RT-sided weakness and facial droop is worse than her baseline. On exam, the patient states that she woke up not feeling normal today and noted that she was having trouble speaking fluently. Daughter spoke to the patient on the phone last night and states that she was fine at that time. Patient is complaining of increased RT-sided weakness and pain to the LT side. The patient denies any fevers, chills, nausea, vomiting, diarrhea, constipation , or abdominal pain. Denies any chest pain or shortness of breath. Allergies: NKA Social History: None reported. Surgical History: Appendectomy, hernia repair. Neurologist: Dr. Kuhn - Physicial Exam PE: 07/06/18 12:55 GENERAL: Awake, alert, and fully oriented, in no acute distress HEAD: No signs of trauma EYES: PERRLA, EOMI, sclera anicteric, conjunctiva clear ENT: Auricles normal inspection, hearing grossly normal, nares patent, oropharynx clear without exudates. Moist mucosa NECK: Normal ROM, supple, no lymphadenopathy, JVD, or masses LUNGS: Breath sounds equal, clear to auscultation bilaterally. No wheezes, and no crackles HEART: Regular rate and rhythm, normal S1 and S2, no murmurs, rubs or gallops ABDOMEN: Soft, nontender, normoactive bowel sounds. No guarding, no rebound. No masses EXTREMITIES: Normal range of motion, no edema. No clubbing or cyanosis. No cords, erythema, or tenderness NEUROLOGICAL: Cranial nerves II through XII grossly intact. Normal speech. SKIN: Warm, Dry, normal turgor, no rashes or lesions noted <Nela Manning - Last Filed: 07/06/18 12:55> - Resident Resident Name: Trini Liu - Medical Decision Making 07/06/18 13:12 Pt presents to the ED complaining of worsening of her chronic R arm and leg weakness and increased sleepiness. Differential includes CVA, intracranial bleed , infection, electrolye imbalance will check labs and CT head, likely admit to medicine for CVA work up. 07/06/18 15:21 <Maisha Barker - Last Filed: 07/06/18 16:17> Attestations - Attestations 07/06/18 12:56 Documentation prepared by Nela Manning, acting as director of medical education for Maisha Barker MD. <Nela Manning - Last Filed: 07/06/18 12:55>
[2018-07-06 12:23] LABS: BASO % 0.7 % (0-2.0); EOS % 2.3 % (0-4.5); HEMATOCRIT 32.2 % (32.4-45.2); LYMPH % 26.4 % (8-40); MCH 25.3 pg (25.7-33.7); MEAN CELL VOLUME 81.7 fl (80-96); MEAN PLT VOLUME 8.4 fl (7.5-11.1); MONO % 7.8 % (3.8-10.2); NEUT % 62.8 % (42.8-82.8); PLATELET COUNT 325 K/MM3 (134-434); RBC 3.94 M/mm3 (3.60-5.2); RDW 19.4 % (11.6-15.6); WHITE BLOOD COUNT 6.6 K/mm3 (4.0-10.0)
[2018-07-06 12:34] VITALS: BMI 33.9
[2018-07-06 12:40] LABS: INR 0.89 (0.83-1.09); PROTHROMBIN TIME (PATIENT) 10.5 SEC (9.7-13.0)
[2018-07-06 12:43] LABS: ACTIVATED PTT 30.6 SECONDS (25.2-36.5)
[2018-07-06 12:56] LABS: ALBUMIN 3.3 g/dl (3.4-5.0); ALK PHOS 112 U/L (45-117); ANION GAP 7 MMOL/L (8-16); BILIRUBIN,TOTAL 0.3 mg/dL (0.2-1); BLOOD UREA NITROGEN 15 mg/dL (7-18); CALCIUM 8.7 mg/dL (8.5-10.1); CHLORIDE 110 mmol/L (98-107); CHOLESTEROL 202 mg/dL (50-200); CO2 27 mmol/L (21-32); CREATININE 0.9 mg/dL (0.55-1.3); GLUCOSE,RANDOM 64 mg/dL (74-106); HDL CHOLESTEROL 68 mg/dL (40-60); MAGNESIUM 1.7 mg/dL (1.8-2.4); POTASSIUM 3.8 mmol/L (3.5-5.1); SGOT/AST 26 U/L (15-37); SGPT/ALT 20 U/L (13-61); SODIUM 144 mmol/L (136-145); TOT PROT 6.7 g/dl (6.4-8.2); TRIGLYCERIDES 116 mg/dL (0-150)
[2018-07-06] MEDS ORDERED: DEXTROSE 50%-WATER - 25 GM/50 ML VIAL IVPUSH ONE (13:00)
[2018-07-06 13:37] LABS: PH,URINE 6.5 (5.0-8.0); URINE APPEARANCE CLEAR; URINE BILIRUBIN NEGATIVE (NEGATIVE); URINE COLOR YELLOW; URINE GLUCOSE (UA) NEGATIVE (NEGATIVE); URINE KETONE NEGATIVE (NEGATIVE); URINE LEUK ESTERASE NEGATIVE (NEGATIVE); URINE NITRITE NEGATIVE (NEGATIVE); URINE PROTEIN NEGATIVE (NEGATIVE); URINE UROBILINOGEN 0.2 mg/dL (0.2-1.0)
[2018-07-06] MEDS ORDERED: DEXTROSE 50%-WATER 25 GM/50 ML DISP.SYRIN ONE (15:02)
[2018-07-06] MEDS ORDERED: ACETAMINOPHEN 1000 MG/100 ML VIAL (NON FORMULARY) IVPB ONE (15:03)
[2018-07-06] MEDS ORDERED: ACETAMINOPHEN INJECTION 100 ML IVPB ONE (15:06)
[2018-07-06 15:13] LABS: VENOUS PC02 52.4 mmHg (41-51); VENOUS PH 7.36 (7.31-7.41)
[2018-07-06] MEDS ORDERED: ACETAMINOPHEN 325 MG TABLET (FP) PO PRN (15:13)
[2018-07-06 15:17] LABS: VENOUS PO2 28.1 mmHg (30-40)
[2018-07-06] MEDS ORDERED: ASPIRIN 81 MG CHEWABLE TABLETS PO ONE (15:19)
--- NOTE | 2018-07-06 16:18 | HP ---
CHIEF COMPLAINT: weakness HISTORY OF PRESENT ILLNESS: 58 year old female wit [place] hx of CVA (residual R sided weakness, expressive aphasia and facial droop) 1 year ago at [facility] on eliquis, hypertension, hyperlipidemia, diabetes mellitus, asthma was brought to the hospital for exacerbated R sided weakness and aphasia. Patient reports waking up this morning, getting out of bed and falling, hitting her head in the process. At baseline, patient reports that she is able to ambulate with a walker. She noticed that she was unable to use the right side of her body at all when she woke up, with increasing difficulty speaking. Also reports not being able to feel anything on the right side of the body. States that she has some mild epigastric discomfort and pain on her L arm and back. States that she has some urinary incontinence from years ago. Denies fevers, chills, nausea, vomiting, diarrhea, dysuria, fecal incontinence, shortness of breath, chest pain. Recently started amitriptyline ER course was notable for: (1) CT - for bleed, chronic cortical infarcts (2) troponin negative (3) elevated cholesterol Recent Travel: denies PAST MEDICAL HISTORY: CVA (residual R sided weakness, expressive aphasia and facial droop) 1 year ago at [facility] on eliquis, hypertension, hyperlipidemia, diabetes mellitus, asthma PAST SURGICAL HISTORY: L knee replacement last year, appendectomy many years ago , breast reduction Social History: Smoking: current smoker, smoked 35 years, reports 4-5 cigarettes a day Alcohol: social drinker Drugs: denies Family History: father with heart disease, mother diabetes, no history of cancer or strokes in the family 6 healthy siblings, 3 healthy children Allergies No Known Allergies Allergy (Verified 07/06/18 12:34) HOME MEDICATIONS: Home Medications Medication Instructions Recorded Albuterol Sulfate Inhaler - 2 inh IH Q6H #1 inh 10/08/16 [Ventolin HFA Inhaler -] Atorvastatin Calcium 80 mg PO HS 04/04/18 Celecoxib [Celebrex -] 200 mg PO BID 04/04/18 Fluoxetine HCl [Prozac -] 20 mg PO DAILY 04/04/18 Fluticasone/Salmeterol [Advair 1 each IH BID 04/04/18 250-50 Diskus] Gabapentin [Neurontin -] 800 mg PO TID 04/04/18 Insulin (Levemir) [Levemir Vial] 0 unit SQ ASDIR 04/04/18 Insulin Regular [NOVOLIN R VIAL 6 units SQ TID 04/04/18 *IVPUSH / ER / ICU Only*] Linaclotide [Linzess] 290 mcg PO DAILY 04/04/18 Metoprolol Succinate [Toprol Xl -] 25 mg PO DAILY 04/04/18 Oxycodone HCl/Acetaminophen 2 each PO QID PRN 04/04/18 [Endocet 10-325 mg Tablet] Pantoprazole Sodium [Protonix -] 40 mg PO DAILY 04/04/18 Polyethylene Glycol 3350 [Miralax 17 gm PO DAILY 04/04/18 (For Bowel Prep) -] metFORMIN HCL [Metformin HCl ER] 500 mg PO BID 04/04/18 Amitriptyline HCl [Elavil -] 50 mg PO HS 07/06/18 Apixaban [Eliquis] 5 mg PO BID 07/06/18 Chlorzoxazone 750 mg PO BID 07/06/18 Lisinopril 20 mg PO DAILY 07/06/18 REVIEW OF SYSTEMS CONSTITUTIONAL: Absent: fever, chills, diaphoresis, generalized weakness, malaise, loss of appetite, weight change HEENT: Absent: rhinorrhea, nasal congestion, throat pain, throat swelling, difficulty swallowing, mouth swelling, ear pain, eye pain, visual changes CARDIOVASCULAR: Absent: chest pain, syncope, palpitations, irregular heart rate, lightheadedness , peripheral edema RESPIRATORY: Absent: cough, shortness of breath, dyspnea with exertion, orthopnea, wheezing, stridor, hemoptysis GASTROINTESTINAL:abdominal pain Absent: abdominal distension, nausea, vomiting, diarrhea, constipation, melena , hematochezia GENITOURINARY: Absent: dysuria, frequency, urgency, hesitancy, hematuria, flank pain, genital pain MUSCULOSKELETAL: Absent: myalgia, arthralgia, joint swelling, back pain, neck pain SKIN: Absent: rash, itching, pallor HEMATOLOGIC/IMMUNOLOGIC: Absent: easy bleeding, easy bruising, lymphadenopathy, frequent infections ENDOCRINE: Absent: unexplained weight gain, unexplained weight loss, heat intolerance, cold intolerance NEUROLOGIC: headache, focal weakness or paresthesias, dizziness, unsteady gait, bladder or bowel incontinence Absent: seizure, mental status changes, PSYCHIATRIC: Absent: anxiety, depression, suicidal or homicidal ideation, hallucinations. PHYSICAL EXAMINATION Vital Signs - 24 hr 07/06/18 07/06/18 07/06/18 11:36 12:13 12:33 Temperature 98.0 F 98.0 F Pulse Rate 60 72 Pulse Rate [ 74 Apical] Respiratory 16 16 Rate Blood Pressure 149/79 Blood Pressure 179/93 H [Left Arm] O2 Sat by Pulse 100 98 98 Oximetry (%) GENERAL: A&Ox3, no acute distress EYES: pupils sluggish, EOMI ENT: Moist mucus membranes NECK: No JVD, no lymphadenopathy LUNGS: CTA, no wheezes HEART: RRR, no murmurs ABDOMEN: Soft, nontender, BS present MUSCULOSKELETAL: No CVA Tenderness EXTREMITIES: 2+ pulses, no edema. NEUROLOGICAL: CN II, V, VII NOT intact, decreased facial muscle strength on right, decreased sensation on R side of face, -4/5 motor strength RUE, decreased commissioned sales associate strength on right, decreased sensation on R 5/5 motor strength LUE -2/5 motor strength RLE, decreased sensation on R, 5/5 motor strength LLE -reflexes 2/4 LUE, 1/4 RUE, decreased in bilateral legs - (+) Dysmetria on Right - decreased response entirely to babinski on right -decreased pain response on right side of body, arm, face, and leg Laboratory Results - last 24 hr 07/06/18 07/06/18 07/06/18 12:14 12:14 12:14 WBC 6.6 RBC 3.94 Hgb 10.0 L Hct 32.2 L MCV 81.7 MCH 25.3 L MCHC 31.0 L RDW 19.4 H Plt Count 325 MPV 8.4 D Absolute Neuts (auto) 4.2 Neutrophils % 62.8 D Lymphocytes % 26.4 D Monocytes % 7.8 Eosinophils % 2.3 Basophils % 0.7 Nucleated RBC % 0 PT with INR 10.50 INR 0.89 PTT (Actin FS) 30.6 VBG pH POC VBG pCO2 POC VBG pO2 VBG HCO3 VBG O2 Sat (Mariela) VBG Base Excess Sodium 144 Potassium 3.8 Chloride 110 H Carbon Dioxide 27 Anion Gap 7 L BUN 15 Creatinine 0.9 Creat Clearance w eGFR 64.31 POC Glucometer Random Glucose 64 L Calcium 8.7 Magnesium 1.7 L Total Bilirubin 0.3 AST 26 ALT 20 Alkaline Phosphatase 112 Troponin I < 0.02 Total Protein 6.7 Albumin 3.3 L Triglycerides 116 Cholesterol 202 H Total LDL Cholesterol 112 H HDL Cholesterol 68 H TSH 1.09 Urine Color Urine Appearance Urine pH Ur Specific [place] Urine Protein Urine Glucose (UA) Urine Ketones Urine Blood Urine Nitrite Urine Bilirubin Urine Urobilinogen Ur Leukocyte Esterase 07/06/18 07/06/18 07/06/18 12:25 12:53 14:59 WBC RBC Hgb Hct MCV MCH MCHC RDW Plt Count MPV Absolute Neuts (auto) Neutrophils % Lymphocytes % Monocytes % Eosinophils % Basophils % Nucleated RBC % PT with INR INR PTT (Actin FS) VBG pH 7.36 POC VBG pCO2 52.4 H POC VBG pO2 28.1 L VBG HCO3 28.6 VBG O2 Sat (Mariela) 45.1 L VBG Base Excess 3.0 H Sodium Potassium Chloride Carbon Dioxide Anion Gap BUN Creatinine Creat Clearance w eGFR POC Glucometer 68 Random Glucose Calcium Magnesium Total Bilirubin AST ALT Alkaline Phosphatase Troponin I Total Protein Albumin Triglycerides Cholesterol Total LDL Cholesterol HDL Cholesterol TSH Urine Color Yellow Urine Appearance Clear Urine pH 6.5 Ur Specific [place] 1.015 Urine Protein Negative Urine Glucose (UA) Negative Urine Ketones Negative Urine Blood Negative Urine Nitrite Negative Urine Bilirubin Negative Urine Urobilinogen 0.2 Ur Leukocyte Esterase Negative ASSESSMENT/PLAN: 58 year old female wit [place] hx of CVA (residual R sided weakness, expressive aphasia and facial droop) 1 year ago at [facility] on eliquis, hypertension, hyperlipidemia, diabetes mellitus, asthma admitted for evaluation of acute CVA #Acute Cerebrovascular Accident: patient has an NIH SS of 9 due to exacerbated R sided weakness, sensory deficits, and positional deficits -CT showed no acute bleed, chronic cortical infarct sin superior aspect of frontal lobe -BP was 179/93 on admission, 139/80 during my exam -EKG - sinus bradycardia rate 56, T wave inversion in V3, V4 - unknown baseline -troponins negative -hold BP meds and can resume in AM -asa not given in ED -consulted neuro Dr. Kuhn, will get stat MRI/MRA brain and neck - if positive for ischemic CVA would start ASA -echo ordered -carotid duplex ordered -cholesterol high at 202 -atorvastatin 80 -physical therapy -speech and swallow consultation -passed bedside swallow evaluation in my presence -will trial puree diet until swallow evaluation #Atrial fibrillation: likely paroxysmal since patient is currnetly in sinus rhythm -on eliquis 5 PO BID -on metoprolol XL 25 daily #Diabetes: per patient, patient is on long acting insulin 25U BID and 6 U short acting TID before meals, as well as metformin 500 BID -keep patient on insulin but hold metformin -will start long acting in AM, hold PM dose until sugars are better known in hospital -keep on sliding scale ACHS -BGM ACHS -A1C in AM #Anemia: normocytic anemia -order iron studies, reticulocyte count #Hypertension: latest BP 139/80 -held antihypertensives #Hyperlipidemia: cholesterol high with a high LDL -atorvastatin 80 #FEN no standing fluids lytes: replete magnesium, then recheck in AM puree diet as patient passed bedside swallow #Prophylaxis -on eliquis 5 BID #Disposition -admit tele, anticipate discharge within 1-2 days -continue rest of home meds Visit type - Emergency Visit Emergency Visit: Yes Care time: The patient presented to the Emergency Department on the above date and was hospitalized for further evaluation of their emergent condition. - New Patient This patient is new to me today: Yes Date on this admission: 07/06/18 - Critical Care Critical Care patient: No
[2018-07-06] MEDS ORDERED: PATIENT'S OWN MEDICATION (NON-FORMULARY) (Oxycodone Hcl/Acetaminophen [Endocet 10-325 Mg T PO PRN ×2 (16:24→16:58)
[2018-07-06] MEDS: SODIUM CHLORIDE 1,000 ML IV SCH (16:26)
[2018-07-06] MEDS ORDERED: ASPIRIN 81 MG CHEWABLE TABLETS ONE (16:28)
[2018-07-06] MEDS ORDERED: PATIENT'S OWN MEDICATION (NON-FORMULARY) (Linaclotide [Linzess] 290 MCG) PO SCH (16:30)
[2018-07-06] MEDS ORDERED: INSULIN SLIDING SCALE (NOVOLOG) 1 VIAL SQ SCH (16:30)
[2018-07-06] MEDS ORDERED: ALBUTEROL SO4 8 GM HFA INHALER IH PRN (16:30)
--- NOTE | 2018-07-06 16:34 | EKG ---
Test Reason : Blood Pressure : / mmHG Vent. Rate : 056 BPM Atrial Rate : 056 BPM P-R Int : 146 ms QRS Dur : 090 ms QT Int : 412 ms P-R-T Axes : 034 -22 005 degrees QTc Int : 397 ms SINUS BRADYCARDIA POSSIBLE ANTERIOR INFARCT , AGE UNDETERMINED ABNORMAL ECG WHEN COMPARED WITH ECG OF 04-APR-2018 18:05, NO SIGNIFICANT CHANGE WAS FOUND Confirmed by SPEEDY KIRKLAND MD ([id number]) on 07/06/2018 4:34:25 PM Referred By: Confirmed By:SPEEDY KIRKLAND MD
[2018-07-06] MEDS ORDERED: MAGNESIUM SULF 50% (8.12 MEQ/2 ML-1 GM VIAL) IVPB ONE (16:55)
[2018-07-06] MEDS ORDERED: PANTOPRAZOLE 40 MG TABLET (FP) ONE (17:43)
[2018-07-06] MEDS ORDERED: LISINOPRIL 20 MG TABLET (FP) ONE (17:43)
[2018-07-06] MEDS ORDERED: MAGNESIUM 1GM/D5W - 1 GM/100 ML IVPB IVPB ONE (17:43)
[2018-07-06] MEDS: PANTOPRAZOLE 40 MG TABLET (FP) PO SCH (17:48)
[2018-07-06] MEDS: metoPROLOL SUCCINATE 25 MG TAB.SR.24H (FP) PO SCH (17:49)
[2018-07-06] MEDS: FLUoxetine HCL 20 MG CAPSULE (FP) PO SCH (17:49)
[2018-07-06] MEDS: LISINOPRIL 20 MG TABLET (FP) PO SCH (17:49)
--- NOTE | 2018-07-06 19:14 | PN ---
Teaching Attending Note Name of Resident: Zain Ruiz ATTENDING PHYSICIAN STATEMENT I saw and evaluated the patient. I reviewed the resident's note and discussed the case with the resident. I agree with the resident's findings and plan as documented. SUBJECTIVE: Complains of worsening R facial droop, abnormal speech, RUE/RLE weakness and altered sensation. Also coplains fo headache. no visual disturbance. Fall today - HI - no seizure, syncope, LOC. No preceding chest pain /palpitations OBJECTIVE: Afebrile, Hemodynamically Stable. Last Vital Signs Temp Pulse Resp BP Pulse Ox 98.0 F 72 16 124/78 100 07/06/18 12:33 07/06/18 18:10 07/06/18 18:10 07/06/18 18:10 07/06/18 18:10 HEENT- L facial brusiing just below lip. No bony tenderness. R facial droop, some drooling, abnormal speech, no receptve/expressive dysphasia Heart - S1, S2, RRR lungs - clear to auscultation Abdomen - High BMI, Soft, non-tender. Bowel Sounds normal. Extremities - no edema, no calf tendernes. Neuro - AAO x 3. HONEY. EOMI. R facial droop. Power 4/5 RUE/RLE. Altered sensation RUE/RLE Laboratory Results - last 24 hr 07/06/18 07/06/18 07/06/18 12:14 12:14 12:14 WBC 6.6 RBC 3.94 Hgb 10.0 L Hct 32.2 L MCV 81.7 MCH 25.3 L MCHC 31.0 L RDW 19.4 H Plt Count 325 MPV 8.4 D Absolute Neuts (auto) 4.2 Neutrophils % 62.8 D Lymphocytes % 26.4 D Monocytes % 7.8 Eosinophils % 2.3 Basophils % 0.7 Nucleated RBC % 0 PT with INR 10.50 INR 0.89 PTT (Actin FS) 30.6 VBG pH POC VBG pCO2 POC VBG pO2 VBG HCO3 VBG O2 Sat (Mariela) VBG Base Excess Sodium 144 Potassium 3.8 Chloride 110 H Carbon Dioxide 27 Anion Gap 7 L BUN 15 Creatinine 0.9 Creat Clearance w eGFR 64.31 POC Glucometer Random Glucose 64 L Calcium 8.7 Magnesium 1.7 L Total Bilirubin 0.3 AST 26 ALT 20 Alkaline Phosphatase 112 Troponin I < 0.02 Total Protein 6.7 Albumin 3.3 L Triglycerides 116 Cholesterol 202 H Total LDL Cholesterol 112 H HDL Cholesterol 68 H TSH 1.09 Urine Color Urine Appearance Urine pH Ur Specific [place] Urine Protein Urine Glucose (UA) Urine Ketones Urine Blood Urine Nitrite Urine Bilirubin Urine Urobilinogen Ur Leukocyte Esterase 07/06/18 07/06/18 07/06/18 12:25 12:53 14:59 WBC RBC Hgb Hct MCV MCH MCHC RDW Plt Count MPV Absolute Neuts (auto) Neutrophils % Lymphocytes % Monocytes % Eosinophils % Basophils % Nucleated RBC % PT with INR INR PTT (Actin FS) VBG pH 7.36 POC VBG pCO2 52.4 H POC VBG pO2 28.1 L VBG HCO3 28.6 VBG O2 Sat (Mariela) 45.1 L VBG Base Excess 3.0 H Sodium Potassium Chloride Carbon Dioxide Anion Gap BUN Creatinine Creat Clearance w eGFR POC Glucometer 68 Random Glucose Calcium Magnesium Total Bilirubin AST ALT Alkaline Phosphatase Troponin I Total Protein Albumin Triglycerides Cholesterol Total LDL Cholesterol HDL Cholesterol TSH Urine Color Yellow Urine Appearance Clear Urine pH 6.5 Ur Specific [place] 1.015 Urine Protein Negative Urine Glucose (UA) Negative Urine Ketones Negative Urine Blood Negative Urine Nitrite Negative Urine Bilirubin Negative Urine Urobilinogen 0.2 Ur Leukocyte Esterase Negative 07/06/18 18:00 WBC RBC Hgb Hct MCV MCH MCHC RDW Plt Count MPV Absolute Neuts (auto) Neutrophils % Lymphocytes % Monocytes % Eosinophils % Basophils % Nucleated RBC % PT with INR INR PTT (Actin FS) VBG pH POC VBG pCO2 POC VBG pO2 VBG HCO3 VBG O2 Sat (Mariela) VBG Base Excess Sodium Potassium Chloride Carbon Dioxide Anion Gap BUN Creatinine Creat Clearance w eGFR POC Glucometer Random Glucose Calcium Magnesium Total Bilirubin AST ALT Alkaline Phosphatase Troponin I < 0.02 Total Protein Albumin Triglycerides Cholesterol Total LDL Cholesterol HDL Cholesterol TSH Urine Color Urine Appearance Urine pH Ur Specific [place] Urine Protein Urine Glucose (UA) Urine Ketones Urine Blood Urine Nitrite Urine Bilirubin Urine Urobilinogen Ur Leukocyte Esterase Current Medications Generic Name Dose Route Start Last Admin Trade Name Freq PRN Reason Stop Dose Admin Acetaminophen 650 mg 07/06/18 15:13 Tylenol - PO Q4H PRN PAIN SCALE 1-5 Acetaminophen 650 mg 07/06/18 17:01 Tylenol - PO Q6H PRN PAIN SCALE 7-10 Albuterol Sulfate 2 puff 07/06/18 16:30 Ventolin Hfa Inhaler - IH Q6H PRN SHORTNESS OF BREATH/WHEEZING Amitriptyline HCl 50 mg 07/06/18 22:00 Elavil - PO HS [facility] Apixaban 5 mg 07/06/18 22:00 Eliquis - PO BID [facility] Atorvastatin Calcium 80 mg 07/06/18 22:00 Lipitor - PO HS [facility] Budesonide/Formoterol Fumarate 2 puff 07/06/18 22:00 Symbicort 80/4.5mcg - IH BID [facility] Celecoxib 200 mg 07/06/18 22:00 Celebrex - PO BID [facility] Cyclobenzaprine HCl 5 mg 07/06/18 22:00 Cyclobenzaprine Hcl PO TID [facility] Fluoxetine HCl 20 mg 07/06/18 16:45 07/06/18 17:49 Prozac - PO Not Given DAILY [facility] Gabapentin 800 mg 07/06/18 22:00 Neurontin - PO TID [facility] Sodium Chloride 1,000 mls @ 125 mls/hr 07/06/18 15:15 07/06/18 16:26 Normal Saline - IV 125 mls/hr ASDIR [facility] Administration Insulin Aspart 1 vial 07/06/18 22:00 Novolog Vial Sliding Scale - SQ ACHS [facility] Protocol Insulin Detemir 25 units 07/07/18 07:00 Levemir Vial SQ AM [facility] Lisinopril 20 mg 07/06/18 16:45 07/06/18 17:49 Prinivil PO 20 mg DAILY [facility] Administration Metoprolol Succinate 25 mg 07/06/18 16:30 07/06/18 17:49 Toprol Xl - PO 25 mg DAILY [facility] Administration Non-Formulary Medication 290 mcg 07/06/18 16:30 Linaclotide [Linzess] PO DAILY [facility] Oxycodone HCl 10 mg 07/06/18 17:01 Roxicodone - PO Q6H PRN PAIN SCALE 7-10 Pantoprazole Sodium 40 mg 07/06/18 16:30 07/06/18 17:48 Protonix - PO 40 mg DAILY [facility] Administration Home Medications Medication Instructions Recorded Albuterol Sulfate Inhaler - 2 inh IH Q6H #1 inh 10/08/16 [Ventolin HFA Inhaler -] Atorvastatin Calcium 80 mg PO HS 04/04/18 Celecoxib [Celebrex -] 200 mg PO BID 04/04/18 Fluoxetine HCl [Prozac -] 20 mg PO DAILY 04/04/18 Fluticasone/Salmeterol [Advair 1 each IH BID 04/04/18 250-50 Diskus] Gabapentin [Neurontin -] 800 mg PO TID 04/04/18 Insulin (Levemir) [Levemir Vial] 25 unit SQ BID 04/04/18 Insulin Regular [NOVOLIN R VIAL 6 units SQ TID 04/04/18 *IVPUSH / ER / ICU Only*] Linaclotide [Linzess] 290 mcg PO DAILY 04/04/18 Metoprolol Succinate [Toprol Xl -] 25 mg PO DAILY 04/04/18 Oxycodone HCl/Acetaminophen 2 each PO QID PRN 04/04/18 [Endocet 10-325 mg Tablet] Pantoprazole Sodium [Protonix -] 40 mg PO DAILY 04/04/18 Polyethylene Glycol 3350 [Miralax 17 gm PO DAILY 04/04/18 (For Bowel Prep) -] metFORMIN HCL [Metformin HCl ER] 500 mg PO BID 04/04/18 Amitriptyline HCl [Elavil -] 50 mg PO HS 07/06/18 Apixaban [Eliquis] 5 mg PO BID 07/06/18 Chlorzoxazone 750 mg PO BID 07/06/18 Lisinopril 20 mg PO DAILY 07/06/18 ASSESSMENT AND PLAN: 58 year old female with history of CVA (residual R sided weakness, dysarthria, R facial droop), Atrial fibrillation (on eliquis), HLD, DM 2, Asthma, IBS, brought to ED with complaints of worsening R facial droop, worsening dysarthria , altered R sided sensation, and power RUE/RLE, and slip of of bed with head injury to left face. No preceding chest pain/palpitations/ lightheadedness. No LOC. Normally ambulated with cane/walker and lives with her daughter. 1. Worsening lateralizing Neurological Signs - rule out new CVA CT Head - no acute intracranial findings. Chronic cortical infarcts. Will pursue CVA work-up with MRI/MRA, Carotid Duplex, Echo Neurology consulted - advised to hold off intensification of AC regimen pending MRI result. Continue Eliquis. Speech Eval and PT requested. Neurochecks. Permissive Hypertension - for resumption of BP meds in AM. Continue Atorvastatin 80mg. Urine Culture requested. 2. Paroxysmal Atrial Fibrillation Now in SR Continue Eliquis Resume Metoprolol in AM 3. DM 2 - Normally on Metformin and Levemir 25 units BID and 6 units TIDAC. Will resume in AM with Novolog sliding scale coverage. 4. HTN - will allow for uncontrolled BP up to SBP 180/105 Resume anti-hypertensives in AM - Metoprolol, Lisinopril 5. HLD - Continue Atorvastatin 6. COPD - Stable, no evidence of acute exacerbation. Continue Advair, Albuterol PRN. 7. Smoker - counselled. Will prescribe Nicotine Patch. DVT Px - on Eliquis
[2018-07-06] MEDS: INSULIN SLIDING SCALE (NOVOLOG) 1 VIAL SQ SCH (21:43)
[2018-07-06] MEDS ORDERED: AMITRIPTYLINE HCL 25 MG TABLET (FP) PO SCH (22:00)
[2018-07-06] MEDS ORDERED: AMITRIPTYLINE HCL 50 MG TABLET PO SCH (22:00)
[2018-07-06] MEDS ORDERED: ATORVASTATIN CA 80 MG TABLET (FP) PO SCH (22:00)
[2018-07-06] MEDS ORDERED: CHLORZOXAZONE 750 MG PO SCH (22:00)
[2018-07-06] MEDS: GABAPENTIN 400 MG CAPSULE (FP) PO SCH (22:02)
[2018-07-06] MEDS: oxyCODONE HCL 5 MG TABLET PO PRN (22:02)
[2018-07-06] MEDS: ATORVASTATIN CA 80 MG TABLET (FP) PO SCH (22:02)
[2018-07-06] MEDS: CELECOXIB 200 MG CAPSULE PO SCH (22:03)
[2018-07-06] MEDS: APIXABAN 5 MG TABLET PO SCH (22:03)
[2018-07-06] MEDS: CYCLOBENZAPRINE HCL 5 MG TABLET PO SCH (22:03)
[2018-07-06] MEDS: NICOTINE 7 MG/24 HOURS TOPICAL PATCH TD SCH (22:04)
[2018-07-06] MEDS ORDERED: POLYETHYLENE GLYCOL 3350 119 GM BTL PO ONE (23:12)
[2018-07-06] MEDS: BUDESONIDE/FORMETEROL FUMARATE 80/4.5 mcg INHALER IH SCH (23:47)
[2018-07-07] MEDS: GABAPENTIN 400 MG CAPSULE (FP) PO SCH ×3 (06:24→22:15)
[2018-07-07] MEDS: oxyCODONE HCL 5 MG TABLET PO PRN ×3 (06:25→16:58)
[2018-07-07] MEDS: ACETAMINOPHEN 325 MG TABLET (FP) PO PRN ×2 (06:26→16:59)
[2018-07-07] MEDS: INSULIN SLIDING SCALE (NOVOLOG) 1 VIAL SQ SCH ×4 (06:30→22:17)
[2018-07-07] MEDS: INSULIN (LEVEMIR) 100 UNITS/ML UNITS SQ SCH (06:30)
[2018-07-07] MEDS: CYCLOBENZAPRINE HCL 5 MG TABLET PO SCH ×3 (06:36→22:15)
[2018-07-07 06:58] LABS: INR 1.04 (0.83-1.09); PROTHROMBIN TIME (PATIENT) 12.3 SEC (9.7-13.0)
[2018-07-07 07:39] LABS: ALBUMIN 2.8 g/dl (3.4-5.0); ALK PHOS 89 U/L (45-117); ANION GAP 7 MMOL/L (8-16); BILIRUBIN,TOTAL 0.3 mg/dL (0.2-1); BLOOD UREA NITROGEN 11 mg/dL (7-18); CALCIUM 8.3 mg/dL (8.5-10.1); CHLORIDE 109 mmol/L (98-107); CO2 28 mmol/L (21-32); CREATININE 0.9 mg/dL (0.55-1.3); GLUCOSE,RANDOM 131 mg/dL (74-106); MAGNESIUM 1.8 mg/dL (1.8-2.4); PHOSPHOROUS 3.1 mg/dL (2.5-4.9); POTASSIUM 3.4 mmol/L (3.5-5.1); SGOT/AST 19 U/L (15-37); SGPT/ALT 15 U/L (13-61); SODIUM 143 mmol/L (136-145); TOT PROT 5.7 g/dl (6.4-8.2)
[2018-07-07 08:11] LABS: CHOLESTEROL 166 mg/dL (50-200); HDL CHOLESTEROL 48 mg/dL (40-60); TRIGLYCERIDES 190 mg/dL (0-150)
[2018-07-07 08:56] LABS: EOS % 3.3 % (0-4.5); HEMATOCRIT 29.1 % (32.4-45.2); HEMOGLOBIN 9.2 GM/dL (10.7-15.3); LYMPH % 40.4 % (8-40); MCH 25.2 pg (25.7-33.7); MCHC 31.6 g/dl (32.0-36.0); MEAN CELL VOLUME 79.7 fl (80-96); MEAN PLT VOLUME 8.9 fl (7.5-11.1); MONO % 8.3 % (3.8-10.2); PLATELET COUNT 312 K/MM3 (134-434); RBC 3.66 M/mm3 (3.60-5.2); RDW 19.1 % (11.6-15.6); RETICULOCYTES 1.66 % (0.5-1.5); WHITE BLOOD COUNT 5.2 K/mm3 (4.0-10.0)
[2018-07-07] MEDS ORDERED: POTASSIUM CHLORIDE TABS 20 MEQ TABLET.ER (FP) PO ONE (09:00)
--- NOTE | 2018-07-07 10:04 | CONSULT ---
Admitting History and Physical - Primary Care Physician PCP: Joaquin Moise - Admission History of Present Illness: Per EMR- 58 year old female with history of CVA (residual R sided weakness, dysarthria, R facial droop), Atrial fibrillation (on eliquis), HLD, DM 2, Asthma, IBS, brought to ED with complaints of worsening R facial droop, worsening dysarthria , altered R sided sensation, and power RUE/RLE, and slip of of bed with head injury to left face. CT/MRI head (-) acute CVA Selected Entries 07/06/18 07/06/18 07/06/18 11:36 12:33 19:30 Temperature 98.0 F 98.0 F 98.2 F 07/07/18 03:37 Temperature 98.3 F Laboratory Tests 07/07/18 05:30 WBC 5.2 This is my first consult with this pt. History Source: Patient, Medical Record Limitations to Obtaining History: Clinical Condition - Smoking History Smoking history: Never smoked Have you smoked in the past 12 months: Yes Aproximately how many cigarettes per day: 1 - Alcohol/Substance Use Hx Alcohol Use: No History - Admission Reason For Visit: EXPRESSIVE APHASIA,AMS, WEAKNESS OF RT SIDE OF BOD - Diagnostics X-ray: Report Reviewed CT Scan: Report Reviewed MRI: Report Reviewed - General Mental Status: Alert and Oriented, Awake and Alert, Able to Follow Commands Attention: Intact Ability to Follow Directions: Good Head/Neck Control: WFL - Hearing Hearing: Normal Speech Evaluation - Communication Primary Language: PRYDEINIG Communication: Yes: Aphasia Oral Expression Ability: Yes: Mild Impairment - Speech Production Able to Make Needs Known: Yes: Mildly Impaired, Moderately Impaired Intelligibility: Yes: WNL - Speech Characteristics Voice Loudness: Normal Voice Pitch: Yes: Normal Voice Phonatory-based Quality: Yes: Normal Speech Pattern: Impaired Speech Clarity: < 100% Nasal Resonance: Normal Articulation: Yes: Precise Dysfluency: Yes: Clonic Rate of Speech: Too Slow - Language/Auditory Comprehension Follows: Yes: 1 Stage Simple Commands Observation: Able to respond to yes/no queries: Yes, Yes/No Confusion: No, Comprehends Conversational Speech: Yes - Language/Verbal Expression Aphasia: Yes: Nonfluent Able to Respond to Simple Queries: Yes: Mildly Impaired, Moderately Impaired Able to Communicate Wants and Needs: Yes: Mildly Impaired, Moderately Impaired Functional Communication Status: Yes: Mildly Impaired, Moderately Impaired - Memory/Perception residential Memory: Yes: WNL Short Term Memory: Yes: WNL - Swallow Evaluation/Bedside Assessment Current Nutritional Intake: Dysphagia Pureed, Thin Liquids Oral Secretions: Yes: WFL Facial Symmetry at Rest: Facial Droop Right (slight) Facial Symmetry on Retraction: Symmetrical Against Resistance Opening: Normal Against Resistance Closing: Normal Pucker Lips: Normal Smile: Normal Lingual Movement: Normal, Symmetric Lingual Speed of Movement: Normal Lingual Movement Strgth Against Opposition: Normal Lingual Movement Characteristics: Normal Velopharyngeal Movement: Normal Laryngeal Elevation: WFL Laryngeal Movement: Able to Palpate Rate of Intake: WFL Labial Seal: WFL Chewing: WFL Oral Prep Time: WFL A-P Transit: WFL Pocketing: None Timing of Swallow: Delayed Coughing/Throat Clear: No Change in Voice: No Recommendations - Speech Evaluation, Impression/Plan Impression: Pt with h/o CVA/Aphasia, admitted following fall with reported speech changes.MRI/CT head (-). Speech fluency is impaired with anomia and fair functional communication.Swallowing is intact. Pt appears depressed and admitted to feeling depressed when asked, becoming tearful. - Disposition Discharge to: Home with Assist, Rehabilitation Center, To be Determined (Pt would like continued speech therapy/PT upon d/c. She recieves speech tx 1 day a week at home.) - Dysphagia Impressions/Plan Swallowing Skills: WFL Dysphagia Impressions: No Impairment *Silent aspiration: cannot be R/O at bedside - Recommendations Diet Consistency: Regular Medication Administration: Whole with water Liquids: Thin Liquids
[2018-07-07] MEDS: BUDESONIDE/FORMETEROL FUMARATE 80/4.5 mcg INHALER IH SCH ×2 (10:09→22:16)
[2018-07-07] MEDS: metoPROLOL SUCCINATE 25 MG TAB.SR.24H (FP) PO SCH (10:39)
[2018-07-07] MEDS: PANTOPRAZOLE 40 MG TABLET (FP) PO SCH (10:40)
[2018-07-07] MEDS: FLUoxetine HCL 20 MG CAPSULE (FP) PO SCH (10:40)
[2018-07-07] MEDS: APIXABAN 5 MG TABLET PO SCH ×2 (10:40→22:14)
[2018-07-07] MEDS: NICOTINE 7 MG/24 HOURS TOPICAL PATCH TD SCH (10:41)
[2018-07-07] MEDS: LISINOPRIL 20 MG TABLET (FP) PO SCH (11:57)
[2018-07-07] MEDS: CELECOXIB 200 MG CAPSULE PO SCH ×2 (11:58→22:15)
--- NOTE | 2018-07-07 14:33 | ECHO ---
Name: GRASTY, BHARGAV Exam:Adult Echocardiogram Study Date: 07/07/2018 11:27 AM Age: 58 yrs Reason For Study: CVA hx stroke Height: 66 in Weight: 210 lb BSA: 2.0 m2 MMode/2D Measurements & Calculations IVSd: 0.88 cm Ao root diam: 2.5 cm LVIDd: 5.7 cm LA dimension: 3.7 cm LVIDs: 3.2 cm LVPWd: 0.90 cm LVPWs: 1.9 cm EDV(Teich): 157.1 ml ESV(Teich): 42.3 ml LVOT diam: 2.1 cm Doppler Measurements & Calculations MV E max ferny: 112.5 cm/sec Ao V2 max: 167.2 cm/sec MV A max ferny: 70.6 cm/sec Ao max P.2 mmHg MV E/A: 1.6 Ao V2 mean: 108.4 cm/sec MV dec time: 0.22 sec Ao mean P.6 mmHg Ao V2 VTI: 38.5 cm KIYA(I,D): 2.2 cm2 KIYA(V,D): 2.1 cm2 LV V1 max P.8 mmHg SV(LVOT): 84.9 ml LV V1 mean P.2 mmHg LV V1 max: 97.7 cm/sec LV V1 mean: 69.7 cm/sec LV V1 VTI: 23.8 cm TR max ferny: 256.9 cm/sec PA V2 max: 98.4 cm/sec TR max P.4 mmHg PA max P.9 mmHg PA acc slope: 175.5 cm/sec2 PA acc time: 0.32 sec Med Peak E' Ferny: 4.9 cm/sec PA pr(Accel): -65.2 mmHg Med E/e': 22.8 Lat Peak E' Ferny: 10.2 cm/sec Lat E/e': 11.0 Procedure A two-dimensional transthoracic echocardiogram with color flow and Doppler was performed. Left Ventricle The left ventricular size, thickness and function are normal. The left ventricular ejection fraction is normal. Left Ventricular Filling pattern is normal for age. The left ventricular wall motion is elma l. Right Ventricle The right ventricle is normal in size and function. Atria Normal left and right atrial size and function. Mitral Valve There is moderate mitral valve thickening. There is no mitral valve stenosis. There is trace to mild mitral regurgitation. Tricuspid Valve There is mild tricuspid valve thickening. There is no tricuspid stenosis. There is mild to moderate t ricuspid regurgitation. Right ventricular systolic pressure is normal. Aortic Valve The aortic valve is normal in structure and function. No hemodynamically significant valvular aortic stenosis. Trace aortic regurgitation. Pulmonic Valve The pulmonic valve is not well visualized. Great Vessels The aortic root is normal size. There is aortic root sclerosis/calcification. Pericardium/Pleura There is no pericardial effusion. Interpretation Summary The left ventricular size, thickness and function are normal The left ventricular ejection fraction is normal. The left ventricular wall motion is normal. There is trace to mild mitral regurgitation. There is aortic root sclerosis/calcification. There is mild to moderate tricuspid regurgitation. Right ventricular systolic pressure is normal. There is moderate mitral valve thickening. Left Ventricular Filling pattern is normal for age. MD Lenny Girard 07/07/2018 02:33 PM
--- NOTE | 2018-07-07 15:05 | DS ---
Physical Exam: SUBJECTIVE: Patient seen and examined OBJECTIVE: Vital Signs Period Temp Pulse Resp BP Sys/Stokes Pulse Ox Last 24 Hr 98.2 F-98.3 F 16-78 16-20 122-162/62-83 98-100 PHYSICAL EXAM GENERAL: The patient is awake, alert, and fully oriented, in no acute distress. HEAD: Normal with no signs of trauma. EYES: PERRL, extraocular movements intact, sclera anicteric, conjunctiva clear. ENT: Ears normal, nares patent, oropharynx clear without exudates, moist mucous membranes. NECK: Trachea midline, full range of motion, supple. LUNGS: Breath sounds equal, clear to auscultation bilaterally, no wheezes, no crackles, no accessory muscle use. HEART: Regular rate and rhythm, S1, S2 without murmur, rub or gallop. ABDOMEN: Soft, nontender, nondistended, normoactive bowel sounds, no guarding, no rebound, no hepatosplenomegaly, no masses. EXTREMITIES: 2+ pulses, warm, well-perfused, no edema. NEUROLOGICAL: Cranial nerves II through XII grossly intact. Normal speech, gait not observed. PSYCH: Normal mood, normal affect. SKIN: Warm, dry, normal turgor, no rashes or lesions noted. LABS Laboratory Results - last 24 hr 07/06/18 07/06/18 07/06/18 14:59 18:00 21:23 WBC RBC Hgb Hct MCV MCH MCHC RDW Plt Count MPV Absolute Neuts (auto) Neutrophils % Lymphocytes % Monocytes % Eosinophils % Basophils % Nucleated RBC % Retic Count PT with INR INR PTT (Actin FS) VBG pH 7.36 POC VBG pCO2 52.4 H POC VBG pO2 28.1 L VBG HCO3 28.6 VBG O2 Sat (Mariela) 45.1 L VBG Base Excess 3.0 H Sodium Potassium Chloride Carbon Dioxide Anion Gap BUN Creatinine Creat Clearance w eGFR POC Glucometer 63 Random Glucose Hemoglobin A1c % Calcium Phosphorus Magnesium Ferritin Total Bilirubin AST ALT Alkaline Phosphatase Troponin I < 0.02 Total Protein Albumin Triglycerides Cholesterol Total LDL Cholesterol HDL Cholesterol Vitamin B12 TSH 07/06/18 07/07/18 07/07/18 23:46 05:30 05:30 WBC RBC Hgb Hct MCV MCH MCHC RDW Plt Count MPV Absolute Neuts (auto) Neutrophils % Lymphocytes % Monocytes % Eosinophils % Basophils % Nucleated RBC % Retic Count PT with INR 12.30 INR 1.04 PTT (Actin FS) 33.0 VBG pH POC VBG pCO2 POC VBG pO2 VBG HCO3 VBG O2 Sat (Mariela) VBG Base Excess Sodium 143 Potassium 3.4 L Chloride 109 H Carbon Dioxide 28 Anion Gap 7 L BUN 11 Creatinine 0.9 Creat Clearance w eGFR 64.31 POC Glucometer 142 Random Glucose 131 H Hemoglobin A1c % Calcium 8.3 L Phosphorus 3.1 Magnesium 1.8 Ferritin 5.9 L Total Bilirubin 0.3 AST 19 ALT 15 Alkaline Phosphatase 89 Troponin I Total Protein 5.7 L Albumin 2.8 L Triglycerides 190 H Cholesterol 166 Total LDL Cholesterol 92 HDL Cholesterol 48 Vitamin B12 318 TSH 1.55 07/07/18 07/07/18 07/07/18 05:30 05:30 06:19 WBC 5.2 RBC 3.66 Hgb 9.2 L Hct 29.1 L MCV 79.7 L MCH 25.2 L MCHC 31.6 L RDW 19.1 H Plt Count 312 MPV 8.9 Absolute Neuts (auto) 2.4 Neutrophils % 47.0 D Lymphocytes % 40.4 H D Monocytes % 8.3 Eosinophils % 3.3 Basophils % 1.0 Nucleated RBC % 0 Retic Count 1.66 H PT with INR INR PTT (Actin FS) VBG pH POC VBG pCO2 POC VBG pO2 VBG HCO3 VBG O2 Sat (Mariela) VBG Base Excess Sodium Potassium Chloride Carbon Dioxide Anion Gap BUN Creatinine Creat Clearance w eGFR POC Glucometer 139 Random Glucose Hemoglobin A1c % 8.0 H Calcium Phosphorus Magnesium Ferritin Total Bilirubin AST ALT Alkaline Phosphatase Troponin I Total Protein Albumin Triglycerides Cholesterol Total LDL Cholesterol HDL Cholesterol Vitamin B12 TSH 07/07/18 11:56 WBC RBC Hgb Hct MCV MCH MCHC RDW Plt Count MPV Absolute Neuts (auto) Neutrophils % Lymphocytes % Monocytes % Eosinophils % Basophils % Nucleated RBC % Retic Count PT with INR INR PTT (Actin FS) VBG pH POC VBG pCO2 POC VBG pO2 VBG HCO3 VBG O2 Sat (Mariela) VBG Base Excess Sodium Potassium Chloride Carbon Dioxide Anion Gap BUN Creatinine Creat Clearance w eGFR POC Glucometer 175 Random Glucose Hemoglobin A1c % Calcium Phosphorus Magnesium Ferritin Total Bilirubin AST ALT Alkaline Phosphatase Troponin I Total Protein Albumin Triglycerides Cholesterol Total LDL Cholesterol HDL Cholesterol Vitamin B12 TSH HOSPITAL COURSE: Date of Admission:07/06/18 Date of Discharge: 07/07/18 Discharge Summary Reason For Visit: EXPRESSIVE APHASIA,AMS, WEAKNESS OF RT SIDE OF BOD Current Active Problems Altered mental status (Acute) Expressive aphasia (Acute) Right sided weakness (Acute) Condition: Stable - Instructions Diet, Activity, Other Instructions: You came in for increased weakness, numbness and expressive dysphasia. We observed you and continued to your home medications We imaged your head and found no acute or immediate causes for concern. We have started you on a new medication Aspirin 81 mg Daily Please follow up with your Primary Care Physician in 1 week. If you do not have one we have provided one (Dr. Bonilla) for you. Please follow up with your Neurologist within 1 week. Please return to the ED if you are having worsening weakness, numbness, dysphasia, or any concerning symptoms. Referrals: Gurpreet Bonilla MD [Staff Physician] - 1 Week Marcel Kuhn MD [Staff Physician] - 1 Week Disposition: HOME - Home Medications Comprehensive Discharge Medication List: Ambulatory Orders Albuterol Sulfate Inhaler - [Ventolin HFA Inhaler -] 2 inh IH Q6H #1 inh Atorvastatin Calcium 80 mg PO HS 04/04/18 Celecoxib [Celebrex -] 200 mg PO BID 04/04/18 Fluoxetine HCl [Prozac -] 20 mg PO DAILY 04/04/18 Fluticasone/Salmeterol [Advair 250-50 Diskus] 1 each IH BID 04/04/18 Gabapentin [Neurontin -] 800 mg PO TID 04/04/18 Insulin (Levemir) [Levemir Vial] 25 unit SQ BID 04/04/18 Insulin Regular [NOVOLIN R VIAL *IVPUSH / ER / ICU Only*] 6 units SQ TID Linaclotide [Linzess] 290 mcg PO DAILY 04/04/18 Metoprolol Succinate [Toprol Xl -] 25 mg PO DAILY 04/04/18 Oxycodone HCl/Acetaminophen [Endocet 10-325 mg Tablet] 2 each PO QID PRN Pantoprazole Sodium [Protonix -] 40 mg PO DAILY 04/04/18 Polyethylene Glycol 3350 [Miralax (For Bowel Prep) -] 17 gm PO DAILY 04/04/18 metFORMIN HCL [Metformin HCl ER] 500 mg PO BID 04/04/18 Amitriptyline HCl [Elavil -] 50 mg PO HS 07/06/18 Apixaban [Eliquis] 5 mg PO BID 07/06/18 Chlorzoxazone 750 mg PO BID 07/06/18 Lisinopril 20 mg PO DAILY 07/06/18 Aspirin [ASA -] 81 mg PO DAILY #30 tab.chew 07/07/18
[2018-07-07] MEDS ORDERED: traMADol HCL 50 MG TABLET PO ONE (15:40)
--- NOTE | 2018-07-07 16:37 | PN ---
Physical Exam: SUBJECTIVE: Patient seen and examined. Pt. endorses mild headache. Pt. endorses sensation weakness in right upper and lower extremities got better. Pt. denies nausea, vomiting. Pt. denies worsening or improving expressive dysphasia. Pt. denies fever chills or difficulty swallowing. Pt. later endorsed worsening headache and decreased vision out of left eye. Stat Head CT and 100mg Tramadol ordered. OBJECTIVE: Vital Signs Period Temp Pulse Resp BP Sys/Stokes Pulse Ox Last 24 Hr 98.2 F-98.3 F 66-78 16-20 124-162/62-83 98-100 GENERAL: The patient is in no acute distress, sleeping on arrival. HEAD: Normal with no signs of trauma. EYES: Sclera anicteric, conjunctiva clear. No ptosis. ENT: Ears normal, nares patent, oropharynx clear without exudates, moist mucous membranes. NECK: No carotid bruit. LUNGS: Breath sounds equal, clear to auscultation bilaterally, no wheezes, no crackles, no accessory muscle use. HEART: Regular rate and rhythm, S1, S2 without murmur ABDOMEN: Soft, nontender, nondistended, normoactive bowel sounds, no guarding, no rebound EXTREMITIES: 2+ radial pulses, warm, well-perfused, no edema. NEUROLOGICAL: Dysphasic speech same as yesterday, Decreased sensation on right side of face, improved but not not back to previous baseline of sensation in right upper and lower extremities. Improved sensation. Motor function: 2/5 RLE, 4/5 RUE, 5/5 LLE, 2/5 LUE; Dysmetria improved on right as compared to yesterday gait not observed. PSYCH: Appropriate mood and affect for condition Laboratory Results - last 24 hr 07/06/18 07/06/18 07/06/18 18:00 21:23 23:46 WBC RBC Hgb Hct MCV MCH MCHC RDW Plt Count MPV Absolute Neuts (auto) Neutrophils % Lymphocytes % Monocytes % Eosinophils % Basophils % Nucleated RBC % Retic Count PT with INR INR PTT (Actin FS) Sodium Potassium Chloride Carbon Dioxide Anion Gap BUN Creatinine Creat Clearance w eGFR POC Glucometer 63 142 Random Glucose Hemoglobin A1c % Calcium Phosphorus Magnesium Ferritin Total Bilirubin AST ALT Alkaline Phosphatase Troponin I < 0.02 Total Protein Albumin Triglycerides Cholesterol Total LDL Cholesterol HDL Cholesterol Vitamin B12 TSH 07/07/18 07/07/1819 05:30 05:30 05:30 WBC RBC Hgb Hct MCV MCH MCHC RDW Plt Count MPV Absolute Neuts (auto) Neutrophils % Lymphocytes % Monocytes % Eosinophils % Basophils % Nucleated RBC % Retic Count PT with INR 12.30 INR 1.04 PTT (Actin FS) 33.0 Sodium 143 Potassium 3.4 L Chloride 109 H Carbon Dioxide 28 Anion Gap 7 L BUN 11 Creatinine 0.9 Creat Clearance w eGFR 64.31 POC Glucometer Random Glucose 131 H Hemoglobin A1c % 8.0 H Calcium 8.3 L Phosphorus 3.1 Magnesium 1.8 Ferritin 5.9 L Total Bilirubin 0.3 AST 19 ALT 15 Alkaline Phosphatase 89 Troponin I Total Protein 5.7 L Albumin 2.8 L Triglycerides 190 H Cholesterol 166 Total LDL Cholesterol 92 HDL Cholesterol 48 Vitamin B12 318 TSH 1.55 07/07/18 07/07/18 07/07/18 05:30 06:19 11:56 WBC 5.2 RBC 3.66 Hgb 9.2 L Hct 29.1 L MCV 79.7 L MCH 25.2 L MCHC 31.6 L RDW 19.1 H Plt Count 312 MPV 8.9 Absolute Neuts (auto) 2.4 Neutrophils % 47.0 D Lymphocytes % 40.4 H D Monocytes % 8.3 Eosinophils % 3.3 Basophils % 1.0 Nucleated RBC % 0 Retic Count 1.66 H PT with INR INR PTT (Actin FS) Sodium Potassium Chloride Carbon Dioxide Anion Gap BUN Creatinine Creat Clearance w eGFR POC Glucometer 139 175 Random Glucose Hemoglobin A1c % Calcium Phosphorus Magnesium Ferritin Total Bilirubin AST ALT Alkaline Phosphatase Troponin I Total Protein Albumin Triglycerides Cholesterol Total LDL Cholesterol HDL Cholesterol Vitamin B12 TSH Home Medications Medication Instructions Recorded Albuterol Sulfate Inhaler - 2 inh IH Q6H #1 inh 10/08/16 [Ventolin HFA Inhaler -] Atorvastatin Calcium 80 mg PO HS 04/04/18 Celecoxib [Celebrex -] 200 mg PO BID 04/04/18 Fluoxetine HCl [Prozac -] 20 mg PO DAILY 04/04/18 Fluticasone/Salmeterol [Advair 1 each IH BID 04/04/18 250-50 Diskus] Gabapentin [Neurontin -] 800 mg PO TID 04/04/18 Insulin (Levemir) [Levemir Vial] 25 unit SQ BID 04/04/18 Insulin Regular [NOVOLIN R VIAL 6 units SQ TID 04/04/18 *IVPUSH / ER / ICU Only*] Linaclotide [Linzess] 290 mcg PO DAILY 04/04/18 Metoprolol Succinate [Toprol Xl -] 25 mg PO DAILY 04/04/18 Oxycodone HCl/Acetaminophen 2 each PO QID PRN 04/04/18 [Endocet 10-325 mg Tablet] Pantoprazole Sodium [Protonix -] 40 mg PO DAILY 04/04/18 Polyethylene Glycol 3350 [Miralax 17 gm PO DAILY 04/04/18 (For Bowel Prep) -] metFORMIN HCL [Metformin HCl ER] 500 mg PO BID 04/04/18 Amitriptyline HCl [Elavil -] 50 mg PO HS 07/06/18 Apixaban [Eliquis] 5 mg PO BID 07/06/18 Chlorzoxazone 750 mg PO BID 07/06/18 Lisinopril 20 mg PO DAILY 07/06/18 Aspirin [ASA -] 81 mg PO DAILY #30 tab.chew 07/07/18 Active Medications Current Medications Acetaminophen (Tylenol -) 650 mg PO Q4H PRN PRN Reason: PAIN SCALE 1-5 Acetaminophen (Tylenol -) 650 mg PO Q6H PRN PRN Reason: PAIN SCALE 7-10 Last Admin: 07/07/18 06:26 Dose: 650 mg Albuterol Sulfate (Ventolin Hfa Inhaler -) 2 puff IH Q6H PRN PRN Reason: SHORTNESS OF BREATH/WHEEZING Amitriptyline HCl (Elavil -) 50 mg PO [facility] Last Admin: 07/06/18 22:02 Dose: 50 mg Apixaban (Eliquis -) 5 mg PO BID [facility] Last Admin: 07/07/18 10:40 Dose: 5 mg Atorvastatin Calcium (Lipitor -) 80 mg PO [facility] Last Admin: 07/06/18 22:02 Dose: 80 mg Budesonide/Formoterol Fumarate (Symbicort 80/4.5mcg -) 2 puff IH BID [facility] Last Admin: 07/07/18 10:09 Dose: 2 puff Celecoxib (Celebrex -) 200 mg PO BID [facility] Last Admin: 07/07/18 11:58 Dose: 200 mg Cyclobenzaprine HCl (Cyclobenzaprine Hcl) 5 mg PO TID [facility] Last Admin: 07/07/18 13:52 Dose: 5 mg Fluoxetine HCl (Prozac -) 20 mg PO DAILY [facility] Last Admin: 07/07/18 10:40 Dose: 20 mg Gabapentin (Neurontin -) 800 mg PO TID [facility] Last Admin: 07/07/18 13:51 Dose: 800 mg Sodium Chloride (Normal Saline -) 1,000 mls @ 125 mls/hr IV ASDIR [facility] Last Admin: 07/06/18 16:26 Dose: 125 mls/hr Insulin Aspart (Novolog Vial Sliding Scale -) 1 vial SQ ACHS [facility]; Protocol Last Admin: 07/07/18 12:09 Dose: 2 units Insulin Detemir (Levemir Vial) 25 units SQ AM [facility] Last Admin: 07/07/18 06:30 Dose: Not Given Lisinopril (Prinivil) 20 mg PO DAILY [facility] Last Admin: 07/07/18 11:57 Dose: 20 mg Metoprolol Succinate (Toprol Xl -) 25 mg PO DAILY [facility] Last Admin: 07/07/18 10:39 Dose: 25 mg Nicotine (Nicoderm Patch -) 7 mg TD DAILY [facility] Last Admin: 07/07/18 10:41 Dose: 7 mg Non-Formulary Medication (Linaclotide [Linzess]) 290 mcg PO DAILY [facility] Oxycodone HCl (Roxicodone -) 10 mg PO Q6H PRN PRN Reason: PAIN SCALE 7-10 Last Admin: 07/07/18 11:53 Dose: 10 mg Pantoprazole Sodium (Protonix -) 40 mg PO DAILY [facility] Last Admin: 07/07/18 10:40 Dose: 40 mg ASSESSMENT/PLAN: A 58 y.o. F with Hx. of CVA (residual R sided weakness, expressive dysphasia and facial droop in 2018), Afib(on Eliquis), HTN, HLD, DM, admitted for evaluation of acute CVA #Acute Cerebrovascular Accident: Patient has an NIHSS of 9-->9 due to exacerbated R sided weakness, sensory deficits, and positional deficits Initial Head CT showed no acute bleed, chronic cortical infarct sin superior aspect of frontal lobe, No change on Rpt. Head CT EKG -sinus bradycardia rate 56, T wave inversion in V3, V4 - unknown baseline troponins negative C/w antihypertensives Neuro consult Dr. Kuhn appreciated - will start ASA 81 mg on D/c MRI brain and neck negative for acute pathology, MRA showed faint vertebral artery flow, dominant left vertebral artery Echo: mild-mod TR, mod mitral valve thickening, normal LVEF Carotid duplex negative for acute pathology Cholesterol high at 202 Atorvastatin 80 Physical therapy Speech and swallow consultation appreciated can advance diet #Atrial fibrillation: likely paroxysmal since patient was currently in sinus rhythm on initial examination C/w Eliquis 5mg PO BID C/w Metoprolol XL 25mg daily #Diabetes: per patient, patient is on long acting insulin 25U BID and 6 U short acting TID before meals, as well as metformin 500 BID Hold home oral medications c/w long acting in AM, hold PM dose until sugars are better known in hospital c/w sliding scale ACHS BGM ACHS A1c: 8.0% #Anemia: normocytic anemia f/u iron studies, reticulocyte count #Hypertension: latest BP 139/80 held antihypertensives #Hyperlipidemia: cholesterol high with a high LDL atorvastatin 80 #FEN no standing fluids monitor electrolytes and replete as needed puree diet as patient passed bedside swallow #Prophylaxis c/w eliquis 5 BID Visit type - Emergency Visit Emergency Visit: Yes ED Registration Date: 07/06/18 Care time: The patient presented to the Emergency Department on the above date and was hospitalized for further evaluation of their emergent condition. - New Patient This patient is new to me today: No - Critical Care Critical Care patient: No - Discharge Referral Referred to [facility] No
--- NOTE | 2018-07-07 18:11 | PN ---
Teaching Attending Note Name of Resident: Kem Neville ATTENDING PHYSICIAN STATEMENT I saw and evaluated the patient. I reviewed the resident's note and discussed the case with the resident. I agree with the resident's findings and plan as documented. SUBJECTIVE: Feeling much improved. Symptoms resolving. Feels back to baseline. OBJECTIVE: Afebrile, Hemodynamically Stable. Last Vital Signs Temp Pulse Resp BP Pulse Ox 99.3 F 63 20 126/77 98 07/07/18 14:00 07/07/18 14:00 07/07/18 14:00 07/07/18 14:00 07/07/18 09:00 HEENT- L facial bruising just below lip. No bony tenderness. Mild R facial droop Heart - S1, S2, RRR lungs - clear to auscultation Abdomen - High BMI, Soft, non-tender. Bowel Sounds normal. Extremities - no edema, no calf tendernes. Neuro - AAO x 3. HONEY. EOMI. R facial droop. Power 4/5 RUE/RLE. Altered sensation RUE/RLE Laboratory Results - last 24 hr 07/06/18 07/06/18 07/06/18 18:00 21:23 23:46 WBC RBC Hgb Hct MCV MCH MCHC RDW Plt Count MPV Absolute Neuts (auto) Neutrophils % Lymphocytes % Monocytes % Eosinophils % Basophils % Nucleated RBC % Retic Count PT with INR INR PTT (Actin FS) Sodium Potassium Chloride Carbon Dioxide Anion Gap BUN Creatinine Creat Clearance w eGFR POC Glucometer 63 142 Random Glucose Hemoglobin A1c % Calcium Phosphorus Magnesium Ferritin Total Bilirubin AST ALT Alkaline Phosphatase Troponin I < 0.02 Total Protein Albumin Triglycerides Cholesterol Total LDL Cholesterol HDL Cholesterol Vitamin B12 TSH 07/07/18 07/07/18 07/07/18 05:30 05:30 05:30 WBC RBC Hgb Hct MCV MCH MCHC RDW Plt Count MPV Absolute Neuts (auto) Neutrophils % Lymphocytes % Monocytes % Eosinophils % Basophils % Nucleated RBC % Retic Count PT with INR 12.30 INR 1.04 PTT (Actin FS) 33.0 Sodium 143 Potassium 3.4 L Chloride 109 H Carbon Dioxide 28 Anion Gap 7 L BUN 11 Creatinine 0.9 Creat Clearance w eGFR 64.31 POC Glucometer Random Glucose 131 H Hemoglobin A1c % 8.0 H Calcium 8.3 L Phosphorus 3.1 Magnesium 1.8 Ferritin 5.9 L Total Bilirubin 0.3 AST 19 ALT 15 Alkaline Phosphatase 89 Troponin I Total Protein 5.7 L Albumin 2.8 L Triglycerides 190 H Cholesterol 166 Total LDL Cholesterol 92 HDL Cholesterol 48 Vitamin B12 318 TSH 1.55 07/07/18 07/07/18 07/07/18 05:30 06:19 11:56 WBC 5.2 RBC 3.66 Hgb 9.2 L Hct 29.1 L MCV 79.7 L MCH 25.2 L MCHC 31.6 L RDW 19.1 H Plt Count 312 MPV 8.9 Absolute Neuts (auto) 2.4 Neutrophils % 47.0 D Lymphocytes % 40.4 H D Monocytes % 8.3 Eosinophils % 3.3 Basophils % 1.0 Nucleated RBC % 0 Retic Count 1.66 H PT with INR INR PTT (Actin FS) Sodium Potassium Chloride Carbon Dioxide Anion Gap BUN Creatinine Creat Clearance w eGFR POC Glucometer 139 175 Random Glucose Hemoglobin A1c % Calcium Phosphorus Magnesium Ferritin Total Bilirubin AST ALT Alkaline Phosphatase Troponin I Total Protein Albumin Triglycerides Cholesterol Total LDL Cholesterol HDL Cholesterol Vitamin B12 TSH 07/07/18 16:45 WBC RBC Hgb Hct MCV MCH MCHC RDW Plt Count MPV Absolute Neuts (auto) Neutrophils % Lymphocytes % Monocytes % Eosinophils % Basophils % Nucleated RBC % Retic Count PT with INR INR PTT (Actin FS) Sodium Potassium Chloride Carbon Dioxide Anion Gap BUN Creatinine Creat Clearance w eGFR POC Glucometer 201 Random Glucose Hemoglobin A1c % Calcium Phosphorus Magnesium Ferritin Total Bilirubin AST ALT Alkaline Phosphatase Troponin I Total Protein Albumin Triglycerides Cholesterol Total LDL Cholesterol HDL Cholesterol Vitamin B12 TSH Current Medications Generic Name Dose Route Start Last Admin Trade Name Freq PRN Reason Stop Dose Admin Acetaminophen 650 mg 07/06/18 15:13 Tylenol - PO Q4H PRN PAIN SCALE 1-5 Acetaminophen 650 mg 07/06/18 17:01 07/07/18 16:59 Tylenol - PO 650 mg Q6H PRN Administration PAIN SCALE 7-10 Albuterol Sulfate 2 puff 07/06/18 16:30 Ventolin Hfa Inhaler - IH Q6H PRN SHORTNESS OF BREATH/WHEEZING Amitriptyline HCl 50 mg 07/06/18 22:00 07/06/18 22:02 Elavil - PO 50 mg HS [facility] Administration Apixaban 5 mg 07/06/18 22:00 07/07/18 10:40 Eliquis - PO 5 mg BID [facility] Administration Atorvastatin Calcium 80 mg 07/06/18 22:00 07/06/18 22:02 Lipitor - PO 80 mg HS [facility] Administration Budesonide/Formoterol Fumarate 2 puff 07/06/18 22:00 07/07/18 10:09 Symbicort 80/4.5mcg - IH 2 puff BID [facility] Administration Celecoxib 200 mg 07/06/18 22:00 07/07/18 11:58 Celebrex - PO 200 mg BID [facility] Administration Cyclobenzaprine HCl 5 mg 07/06/18 22:00 07/07/18 13:52 Cyclobenzaprine Hcl PO 5 mg TID [facility] Administration Fluoxetine HCl 20 mg 07/06/18 16:45 07/07/18 10:40 Prozac - PO 20 mg DAILY [facility] Administration Gabapentin 800 mg 07/06/18 22:00 07/07/18 13:51 Neurontin - PO 800 mg TID [facility] Administration Sodium Chloride 1,000 mls @ 125 mls/hr 07/06/18 15:15 07/06/18 16:26 Normal Saline - IV 125 mls/hr ASDIR [facility] Administration Insulin Aspart 1 vial 07/06/18 22:00 07/07/18 16:58 Novolog Vial Sliding Scale - SQ 4 units ACHS [facility] Administration Protocol Insulin Detemir 25 units 07/07/18 07:00 07/07/18 06:30 Levemir Vial SQ Not Given AM [facility] Lisinopril 20 mg 07/06/18 16:45 07/07/18 11:57 Prinivil PO 20 mg DAILY [facility] Administration Metoprolol Succinate 25 mg 07/06/18 16:30 07/07/18 10:39 Toprol Xl - PO 25 mg DAILY [facility] Administration Nicotine 7 mg 07/06/18 19:30 07/07/18 10:41 Nicoderm Patch - TD 7 mg DAILY [facility] Administration Non-Formulary Medication 290 mcg 07/06/18 16:30 Linaclotide [Linzess] PO DAILY [facility] Oxycodone HCl 10 mg 07/06/18 17:01 07/07/18 16:58 Roxicodone - PO 10 mg Q6H PRN Administration PAIN SCALE 7-10 Pantoprazole Sodium 40 mg 07/06/18 16:30 07/07/18 10:40 Protonix - PO 40 mg DAILY [facility] Administration ASSESSMENT AND PLAN: 58 year old female with history of CVA (residual R sided weakness, dysarthria, R facial droop), Atrial fibrillation (on eliquis), HLD, DM 2, Asthma, IBS, brought to ED with complaints of worsening R facial droop, worsening dysarthria , altered R sided sensation, and power RUE/RLE, and slip of of bed with head injury to left face. No preceding chest pain/palpitations/ lightheadedness. No LOC. Normally ambulated with cane/walker and lives with her daughter. 1. Worsening lateralizing Neurological Signs - new CVA excluded - lateralizing symptoms resolved CT Head - no acute intracranial findings. Chronic cortical infarcts. MRI/MRA Brain - Chronic infarcts L frontal/parietal lobes, Faint flow R vertebral artery Carotid Duplex - plaques without significant stenosis. Echo - normal LV function. Awaiting Neurology consult. Continue Eliquis. Urine Cx neg Continue Atorvastatin 2. Headache Repeat CT Brain - no acute findings, chronic infarct/encephalomalacia L frontal lobe. 3. Paroxysmal Atrial Fibrillation In SR Continue Eliquis Resumed on Metoprolol. 3. DM 2 - Normally on Metformin and Levemir 25 units BID and 6 units TIDAC. Will slowly up-titrate insulin requirements. 4. HTN - resumed on Metoprolol, Lisinopril 5. HLD - Continue Atorvastatin 6. COPD - Stable, no evidence of acute exacerbation. Continue Advair, Albuterol PRN. 7. Smoker - counselled. Will prescribe Nicotine Patch. 8. B12 and Iron deficiency Anemia - for out-patient follow up and work-up. Will supplement with cyanocobalamin and Ferous Sulfate. Neurological Stale. Awaiting Neuro eval, and Neurology review of MRI/MRA Brain prior to DC.
--- NOTE | 2018-07-07 19:39 | PN ---
Progress Note, Physician History of Present Illness: EVENTS NOTED AND CHART REVIEWED i SPOKE TO THE RESIDENT THIS MORNING REGARDING THE PATIENT He informed me that the patient will be discharged this afternoon and there is no need for me to come and see the patient He informed me that the patient had no further events neurologically and she stable I instructed the resident to start the patient on baby aspirin I reviewed the MRI of the brain which showed no evidence of acute pathology The reading of the MRA is totally out of control and does not reflect the real pathology to the patient presented with I called the head of radiology to put an addendum for the reading - Current Medication List Current Medications: Active Medications Acetaminophen (Tylenol -) 650 mg PO Q4H PRN PRN Reason: PAIN SCALE 1-5 Acetaminophen (Tylenol -) 650 mg PO Q6H PRN PRN Reason: PAIN SCALE 7-10 Last Admin: 07/07/18 16:59 Dose: 650 mg Albuterol Sulfate (Ventolin Hfa Inhaler -) 2 puff IH Q6H PRN PRN Reason: SHORTNESS OF BREATH/WHEEZING Amitriptyline HCl (Elavil -) 50 mg PO HS [facility] Last Admin: 07/06/18 22:02 Dose: 50 mg Apixaban (Eliquis -) 5 mg PO BID [facility] Last Admin: 07/07/18 10:40 Dose: 5 mg Atorvastatin Calcium (Lipitor -) 80 mg PO [facility] Last Admin: 07/06/18 22:02 Dose: 80 mg Budesonide/Formoterol Fumarate (Symbicort 80/4.5mcg -) 2 puff IH BID [facility] Last Admin: 07/07/18 10:09 Dose: 2 puff Celecoxib (Celebrex -) 200 mg PO BID [facility] Last Admin: 07/07/18 11:58 Dose: 200 mg Cyclobenzaprine HCl (Cyclobenzaprine Hcl) 5 mg PO TID [facility] Last Admin: 07/07/18 13:52 Dose: 5 mg Fluoxetine HCl (Prozac -) 20 mg PO DAILY [facility] Last Admin: 07/07/18 10:40 Dose: 20 mg Gabapentin (Neurontin -) 800 mg PO TID [facility] Last Admin: 07/07/18 13:51 Dose: 800 mg Sodium Chloride (Normal Saline -) 1,000 mls @ 125 mls/hr IV ASDIR [facility] Last Admin: 07/06/18 16:26 Dose: 125 mls/hr Insulin Aspart (Novolog Vial Sliding Scale -) 1 vial SQ ACHS [facility]; Protocol Last Admin: 07/07/18 16:58 Dose: 4 units Insulin Detemir (Levemir Vial) 25 units SQ AM [facility] Last Admin: 07/07/18 06:30 Dose: Not Given Lisinopril (Prinivil) 20 mg PO DAILY [facility] Last Admin: 07/07/18 11:57 Dose: 20 mg Metoprolol Succinate (Toprol Xl -) 25 mg PO DAILY [facility] Last Admin: 07/07/18 10:39 Dose: 25 mg Nicotine (Nicoderm Patch -) 7 mg TD DAILY [facility] Last Admin: 07/07/18 10:41 Dose: 7 mg Non-Formulary Medication (Linaclotide [Linzess]) 290 mcg PO DAILY [facility] Oxycodone HCl (Roxicodone -) 10 mg PO Q6H PRN PRN Reason: PAIN SCALE 7-10 Last Admin: 07/07/18 16:58 Dose: 10 mg Pantoprazole Sodium (Protonix -) 40 mg PO DAILY [facility] Last Admin: 07/07/18 10:40 Dose: 40 mg - Objective Vital Signs: Vital Signs Temperature 99.3 F 07/07/18 14:00 Pulse Rate 63 07/07/18 14:00 Respiratory Rate 20 07/07/18 14:00 Blood Pressure 126/77 07/07/18 14:00 O2 Sat by Pulse Oximetry (%) 98 07/07/18 09:00 Labs: CBC, BMP 07/07/18 05:30 07/07/18 05:30 INR, PTT INR 1.04 (0.83-1.09) 07/07/18 05:30 Problem List - Problems (1) Altered mental status Assessment/Plan: neurologically stable to go home Baby ASA AC Neuro follow up in one week Code(s): R41.82 - ALTERED MENTAL STATUS, UNSPECIFIED
[2018-07-07] MEDS: SODIUM CHLORIDE 1,000 ML IV SCH (21:50)
[2018-07-07] MEDS ORDERED: AMITRIPTYLINE HCL 25 MG TABLET (FP) PO SCH (22:00)
[2018-07-07] MEDS: ACETAMINOPHEN/CAFFEINE/BUTALBITAL 1 TAB PO PRN (22:15)
[2018-07-07] MEDS: ATORVASTATIN CA 80 MG TABLET (FP) PO SCH (22:15)
[2018-07-08 04:12] LABS: SERUM IRON SATURATION 6 % (15-55); TOTAL IRON BINDING CAPACITY 416 ug/dL (250-450); UIBC 390 ug/dL (131-425)
[2018-07-08] MEDS: CYCLOBENZAPRINE HCL 5 MG TABLET PO SCH ×2 (07:03→13:10)
[2018-07-08] MEDS: ACETAMINOPHEN/CAFFEINE/BUTALBITAL 1 TAB PO PRN (07:03)
[2018-07-08] MEDS: GABAPENTIN 400 MG CAPSULE (FP) PO SCH ×2 (07:04→13:11)
[2018-07-08] MEDS: INSULIN (LEVEMIR) 100 UNITS/ML UNITS SQ SCH (07:04)
[2018-07-08] MEDS: INSULIN SLIDING SCALE (NOVOLOG) 1 VIAL SQ SCH ×2 (07:04→11:16)
[2018-07-08 08:16] LABS: BASO % 1.6 % (0-2.0); EOS % 3.1 % (0-4.5); HEMATOCRIT 28.8 % (32.4-45.2); LYMPH % 43.5 % (8-40); MCHC 31.4 g/dl (32.0-36.0); MEAN CELL VOLUME 79.8 fl (80-96); MEAN PLT VOLUME 8.5 fl (7.5-11.1); MONO % 9.5 % (3.8-10.2); NEUT % 42.3 % (42.8-82.8); PLATELET COUNT 352 K/MM3 (134-434); RBC 3.61 M/mm3 (3.60-5.2); RDW 19.2 % (11.6-15.6); WHITE BLOOD COUNT 4.9 K/mm3 (4.0-10.0)
[2018-07-08 08:29] LABS: ANION GAP 6 MMOL/L (8-16); BLOOD UREA NITROGEN 14 mg/dL (7-18); CALCIUM 9.1 mg/dL (8.5-10.1); CHLORIDE 108 mmol/L (98-107); CO2 28 mmol/L (21-32); GLUCOSE,RANDOM 157 mg/dL (74-106); MAGNESIUM 1.6 mg/dL (1.8-2.4); PHOSPHOROUS 3.8 mg/dL (2.5-4.9); POTASSIUM 4.2 mmol/L (3.5-5.1); SODIUM 141 mmol/L (136-145)
[2018-07-08] MEDS ORDERED: MAGNESIUM OXIDE 400 MG TABLET (FP) PO ONE (08:56)
[2018-07-08] MEDS ORDERED: MAGNESIUM SULF 50% (8.12 MEQ/2 ML-1 GM VIAL) IVPB ONE (09:10)
[2018-07-08] MEDS: PANTOPRAZOLE 40 MG TABLET (FP) PO SCH (09:32)
[2018-07-08] MEDS: metoPROLOL SUCCINATE 25 MG TAB.SR.24H (FP) PO SCH (09:32)
[2018-07-08] MEDS: LISINOPRIL 20 MG TABLET (FP) PO SCH (09:32)
[2018-07-08] MEDS: FLUoxetine HCL 20 MG CAPSULE (FP) PO SCH (09:32)
[2018-07-08] MEDS: APIXABAN 5 MG TABLET PO SCH (09:33)
[2018-07-08] MEDS: NICOTINE 7 MG/24 HOURS TOPICAL PATCH TD SCH (09:33)
[2018-07-08 10:29] VITALS: BP 149/78; PULSE 65; TEMP 98
[2018-07-08] MEDS: CELECOXIB 200 MG CAPSULE PO SCH (11:08)
[2018-07-08] MEDS: BUDESONIDE/FORMETEROL FUMARATE 80/4.5 mcg INHALER IH SCH (11:09)
[2018-07-08] MEDS: ACETAMINOPHEN 325 MG TABLET (FP) PO PRN (11:14)
[2018-07-08] MEDS: oxyCODONE HCL 5 MG TABLET PO PRN (11:15)
--- NOTE | 2018-07-08 13:20 | PN ---
Teaching Attending Note Name of Resident: Kem Neville ATTENDING PHYSICIAN STATEMENT I saw and evaluated the patient. I reviewed the resident's note and discussed the case with the resident. I agree with the resident's findings and plan as documented. SUBJECTIVE: Feeling much improved, back to baseline. Symptoms resolved. OBJECTIVE: Afebrile, Hemodynamically Stable. Last Vital Signs Temp Pulse Resp BP Pulse Ox 98 F 65 18 149/78 96 07/08/18 10:00 07/08/18 10:00 07/08/18 10:00 07/08/18 10:00 07/08/18 09:00 HEENT- L facial bruising just below lip. No bony tenderness. Mild R facial droop Heart - S1, S2, RRR lungs - clear to auscultation Abdomen - High BMI, Soft, non-tender. Bowel Sounds normal. Extremities - no edema, no calf tenderness. Neuro - AAO x 3. HONEY. EOMI. R facial droop. Power 4/5 RUE/RLE. Altered sensation RUE/RLE Laboratory Results - last 24 hr 07/07/18 07/07/18 07/07/18 05:30 16:45 22:13 WBC RBC Hgb Hct MCV MCH MCHC RDW Plt Count MPV Absolute Neuts (auto) Neutrophils % Lymphocytes % Monocytes % Eosinophils % Basophils % Nucleated RBC % Sodium Potassium Chloride Carbon Dioxide Anion Gap BUN Creatinine Creat Clearance w eGFR POC Glucometer 201 257 Random Glucose Calcium Phosphorus Magnesium Iron 26 L TIBC 416 Iron Saturation 6 L 07/08/18 07/08/18 07/08/18 05:53 06:40 06:40 WBC 4.9 RBC 3.61 Hgb 9.0 L Hct 28.8 L MCV 79.8 L MCH 25.0 L MCHC 31.4 L RDW 19.2 H Plt Count 352 MPV 8.5 Absolute Neuts (auto) 2.1 Neutrophils % 42.3 L Lymphocytes % 43.5 H Monocytes % 9.5 Eosinophils % 3.1 Basophils % 1.6 Nucleated RBC % 0 Sodium 141 Potassium 4.2 Chloride 108 H Carbon Dioxide 28 Anion Gap 6 L BUN 14 Creatinine 1.0 Creat Clearance w eGFR 56.95 POC Glucometer 151 Random Glucose 157 H Calcium 9.1 Phosphorus 3.8 Magnesium 1.6 L Iron TIBC Iron Saturation 07/08/18 10:56 WBC RBC Hgb Hct MCV MCH MCHC RDW Plt Count MPV Absolute Neuts (auto) Neutrophils % Lymphocytes % Monocytes % Eosinophils % Basophils % Nucleated RBC % Sodium Potassium Chloride Carbon Dioxide Anion Gap BUN Creatinine Creat Clearance w eGFR POC Glucometer 222 Random Glucose Calcium Phosphorus Magnesium Iron TIBC Iron Saturation Current Medications Generic Name Dose Route Start Last Admin Trade Name Freq PRN Reason Stop Dose Admin Acetaminophen 650 mg 07/06/18 15:13 Tylenol - PO Q4H PRN PAIN SCALE 1-5 Acetaminophen 650 mg 07/06/18 17:01 07/08/18 11:14 Tylenol - PO 650 mg Q6H PRN Administration PAIN SCALE 7-10 Acetaminophen/Butalbital/Caffeine 1 tablet 07/07/18 20:25 07/08/18 07:03 Fioricet - PO 07/10/18 20:25 1 tablet Q6H PRN Administration FEVER Albuterol Sulfate 2 puff 07/06/18 16:30 Ventolin Hfa Inhaler - IH Q6H PRN SHORTNESS OF BREATH/WHEEZING Amitriptyline HCl 100 mg 07/07/18 22:00 07/07/18 22:14 Elavil - PO 100 mg HS [facility] Administration Apixaban 5 mg 07/06/18 22:00 07/08/18 09:33 Eliquis - PO 5 mg BID [facility] Administration Atorvastatin Calcium 80 mg 07/06/18 22:00 07/07/18 22:15 Lipitor - PO 80 mg HS [facility] Administration Budesonide/Formoterol Fumarate 2 puff 07/06/18 22:00 07/08/18 11:09 Symbicort 80/4.5mcg - IH 2 puff BID [facility] Administration Cyclobenzaprine HCl 5 mg 07/06/18 22:00 07/08/18 13:10 Cyclobenzaprine Hcl PO 5 mg TID [facility] Administration Fluoxetine HCl 20 mg 07/06/18 16:45 07/08/18 09:32 Prozac - PO 20 mg DAILY [facility] Administration Gabapentin 800 mg 07/06/18 22:00 07/08/18 13:11 Neurontin - PO 800 mg TID [facility] Administration Sodium Chloride 1,000 mls @ 125 mls/hr 07/06/18 15:15 07/07/18 21:50 Normal Saline - IV Not Given ASDIR [facility] Insulin Aspart 1 vial 07/06/18 22:00 07/08/18 11:16 Novolog Vial Sliding Scale - SQ 4 units ACHS [facility] Administration Protocol Insulin Detemir 25 units 07/07/18 07:00 07/08/18 07:04 Levemir Vial SQ 25 units AM [facility] Administration Lisinopril 20 mg 07/06/18 16:45 07/08/18 09:32 Prinivil PO 20 mg DAILY [facility] Administration Metoprolol Succinate 25 mg 07/06/18 16:30 07/08/18 09:32 Toprol Xl - PO 25 mg DAILY [facility] Administration Nicotine 7 mg 07/06/18 19:30 07/08/18 09:33 Nicoderm Patch - TD 7 mg DAILY [facility] Administration Non-Formulary Medication 290 mcg 07/06/18 16:30 Linaclotide [Linzess] PO DAILY [facility] Oxycodone HCl 10 mg 07/06/18 17:01 07/08/18 11:15 Roxicodone - PO 10 mg Q6H PRN Administration PAIN SCALE 7-10 Pantoprazole Sodium 40 mg 07/06/18 16:30 07/08/18 09:32 Protonix - PO 40 mg DAILY [facility] Administration ASSESSMENT AND PLAN: 58 year old female with history of CVA (residual R sided weakness, dysarthria, R facial droop), Atrial fibrillation (on eliquis), HLD, DM 2, Asthma, IBS, brought to ED with complaints of worsening R facial droop, worsening dysarthria/ expressive dysphasia, altered R sided sensation, and power RUE/RLE, and slip of of bed with head injury to left face. No preceding chest pain/ palpitations/lightheadedness. No LOC. Normally ambulated with cane/walker and lives with her daughter. 1. Worsening lateralizing Neurological Signs - new CVA excluded - lateralizing symptoms resolved, back at baseline CT Head - no acute intracranial findings. Chronic cortical infarcts. MRI/MRA Brain - Chronic infarcts L frontal/parietal lobes, Faint flow R vertebral artery - incorrect interpretation as per Neurology. Carotid Duplex - plaques without significant stenosis. Echo - normal LV function. Neurology evaluated, Aspirin added to Eliquis and patient cleared for discharge home with out-patient Neuro follow up. Urine Cx neg Continue Atorvastatin 2. Headache Repeat CT Brain - no acute findings, chronic infarct/encephalomalacia L frontal lobe. Started on Amitriptylline and Fioricet prn by Neuro 3. Paroxysmal Atrial Fibrillation In SR Continue Eliquis Resumed on Metoprolol. 3. DM 2 - Normally on Metformin and Levemir 25 units BID and 6 units TIDAC. Can continue on discharge. 4. HTN - resumed on Metoprolol, Lisinopril 5. HLD - Continue Atorvastatin 6. COPD - Stable, no evidence of acute exacerbation. Continue Advair, Albuterol PRN. 7. Smoker - counselled. 8. B12 and Iron deficiency Anemia - for out-patient follow up and work-up. Will supplement with cyanocobalamin and Ferrous Sulfate. 9. Hypomagnesemia - repleted. Neurological Stale. Medically stable for discharge.
[2018-07-08] MEDS ORDERED: PT OWN MED DRAWER 7, Y5N ONE (14:22)
== END 2018-07-08 14:38 | disposition home or self-care (01) | DRG 914 ==
LOC: JER 11:36 → JERBED 14:53 → J4W 20:05
DX: S09.8XXA Other specified injuries of head, initial encounter (principal); I69.351 Hemiplegia and hemiparesis following cerebral infarction affecting right dominant side; R29.810 Facial weakness; R53.1 Weakness; R47.02 Dysphasia; I10 Essential (primary) hypertension; J44.9 Chronic obstructive pulmonary disease, unspecified; I48.0 Paroxysmal atrial fibrillation; E78.5 Hyperlipidemia, unspecified; E11.9 Type 2 diabetes mellitus without complications; R51 Headache; I69.322 Dysarthria following cerebral infarction; D50.9 Iron deficiency anemia, unspecified; E83.42 Hypomagnesemia; R41.82 Altered mental status, unspecified; W19.XXXA Unspecified fall, initial encounter; Y93.9 Activity, unspecified; Y92.092 Bedroom in other non-institutional residence as the place of occurrence of the external cause; Y99.9 Unspecified external cause status; E66.9 Obesity, unspecified; Z68.33 Body mass index [BMI] 33.0-33.9, adult
CPT/HCPCS: 36415; 70450-TC; 70544-TC; 70551-TC; 71045-TC-FY; 80048; 80053; 80061; 81003; 82607; 82728; 82803; 82962; 83036; 83540; 83550; 83721; 83735; 84100; 84443; 84484; 85025; 85044; 85610; 85730; 87086; 93005; 93010; 93306-TC; 93880-TC; 97116-GP; 97161-GP; 99285-25; J0131; J7030

== ENCOUNTER 2019-04-03 12:00 | Inpatient (IN) | payer OTHER ==
[2019-04-03] MEDS ORDERED: EPHEDRINE SULFATE/0.9% NACL/PF 50 MG/10 ML SYRINGE NR ONE (15:26)
[2019-04-03] MEDS ORDERED: LIDOCAINE HCL/PF 2% SDV 5ML VIAL ONE ×3 (15:26→17:24)
[2019-04-03] MEDS ORDERED: LIDOCAINE HCL 2% JELLY (5 ML/TUBE) ONE ×2 (15:26→17:24)
[2019-04-03] MEDS ORDERED: PROPOFOL 20 ML ONE ×2 (15:27)
[2019-04-03] MEDS ORDERED: MIDAZOLAM HCL 2 MG/2 ML SINGLE DOSE VIAL ONE (15:27)
--- NOTE | 2019-04-03 16:02 | CONS ---
DATE OF CONSULTATION: DATE OF DISCHARGE: 04/03/2019 The patient is a 59-year-old female with history of frequency, urgency and dyspareunia. The patient also has a history of diabetes, high blood pressure, asthma and glaucoma. She is status post a CVA with some right-sided somewhat. She has history of bilateral knee replacements. She does smoke daily. Denies ethanol. The patient is on multiple medications, including Advair, atorvastatin, Celebrex, Eliquis, Zoloft, Flonase, Neurontin, lisinopril, metformin, metoprolol, a PPI and MiraLAX. She has been off Eliquis for the past week. She has taken a Celebrex for her knee pain. PHYSICAL EXAMINATION: General: She is well-developed and oriented. Chest: Clear. Heart: Regular. Abdomen: Globus and soft. There is no CVA tenderness. Pelvic: Exam revealed normal vaginal mucosa. There were posterior adhesions, mostly at the level of the right ureterovesical junction. There is tenderness to deep palpation. There is no evidence of cystorectocele. Steven test is negative. IMPRESSION: Vaginal adhesions and possible suture granuloma. PLAN: Vaginal exploration and excision of granuloma. Josi [id number]
[2019-04-03] MEDS ORDERED: ceFAZolin SODIUM 1 GM VIAL IVPB ONE (16:45)
[2019-04-03] MEDS ORDERED: LIDOCAINE 1%/EPI 1:100000 (20 ML MULTI DOSE VIAL) INF ONE (17:05)
[2019-04-03] MEDS ORDERED: BACITRACIN 15 GM TUBE TOPICAL OINTMENT ONE (17:08)
[2019-04-03] MEDS ORDERED: PROMETHAZINE HCL 25 MG/1 ML VIAL IVPUSH PRN (17:13)
[2019-04-03] MEDS ORDERED: ONDANSETRON 4 MG/2 ML VIAL IVPUSH PRN (17:13)
[2019-04-03] MEDS ORDERED: oxyCODONE HCL 5 MG TABLET PO PRN (17:13)
[2019-04-03] MEDS ORDERED: ceFAZolin SODIUM 1 GM VIAL ONE (17:24)
--- NOTE | 2019-04-03 17:30 | PN ---
Progress Note (short form) - Note Progress Note: Consult dictated. Pt s/p cystocele repair and lysis of adhesions. Campbell is patent and urine is clear. Abdomen is soft/NT. Plan: Will observe patient for 24 hours. Will d/c vaginal packing in am and keep Campbell to leg bag. Will follow in office on 04/05/2019 3 pm. Pt may commence her anticoagulation medication as of tomorrow am.
--- NOTE | 2019-04-03 17:30 | OP ---
Operative Note - Note: Operative Date: 04/03/19 Pre-Operative Diagnosis: Cystocele/Vaginal adhesions and vaginal stenosis. Operation: Vaginal exploration/lysis of adhesions/repair of cystocele Findings: Vaginal stenosis with multiple posterior roof adhesions Post-Operative Diagnosis: Same as Pre-op Surgeon: Travis Sifuentes Anesthesia: General Estimated Blood Loss (mls): 200 Drains & Tubes with Location: 18 fr camacho to gravity. 1 inch idoform vaginal packing Operative Report Dictated: Yes
--- NOTE | 2019-04-03 17:59 | HP ---
DATE OF ADMISSION: 04/03/2019 PREOPERATIVE DIAGNOSIS: Stress urinary incontinence and vaginal discomfort. POSTOPERATIVE DIAGNOSIS: Vaginal adhesions and cystocele. OPERATIVE PROCEDURE: Lysis of vaginal adhesions and cystocele repair. ANESTHESIA: General. DESCRIPTION OF PROCEDURE: Under the above stated anesthesia, the patient was prepped and draped in the usual sterile manner. She was placed in the dorsal lithotomy position. Stay sutures were placed on either side of the labia majora. An 18-[place] Campbell catheter was placed into the urethra. A weighted vaginal speculum was placed on the floor of the vagina. Inspection of the roof of the vagina revealed a grade 2 cystocele. There were adhesions in the posterior vault that connected the roof of the vagina to the lateral pelvic wall. Using sharp dissection, the adhesions were lysed. Hemostasis was secured with electrocoagulation. A midline incision was made in the roof of the vagina. This was done after injecting Vasopressin for control of bleeding. Using both blunt and sharp dissection, right and left vaginal flaps were performed. The dissection was carried to the tendinous arc on the right and left sides of the vaginal roof. No. 2-Vicryl sutures were placed into the right tendinous arc and then into the left side and tied down, approximating both the right and left tendinous arcs. Three sutures in total were done. No active bleeding was noted. The roof of the vagina was closed with running 3-0 Vicryl suture ligatures. A vaginal pack was placed. The Campbell was connected to a leg bag. The patient tolerated the procedure well. Josi [id number]
[2019-04-03] MEDS ORDERED: LACTATED RINGERS SOLUTION 1,000 ML IV SCH (19:30)
[2019-04-03] MEDS ORDERED: POLYETHYLENE GLYCOL 3350 119 GM BTL PO ONE (20:04)
[2019-04-03] MEDS ORDERED: ALBUTEROL SO4 0.083% IH SOL 2.5 MG/3 ML VIAL.NEB. NEB PRN (20:07)
[2019-04-03] MEDS ORDERED: SODIUM CHLORIDE 0.9% 1000 ML INFUS.BAG IV SCH (20:15)
--- NOTE | 2019-04-03 20:15 | CONSULT ---
Consultation: REQUESTING PROVIDER: Dr Will Sifuentes CONSULT REQUEST: We have been asked to medically evaluate this patient for management of her comorbidities. HISTORY OF PRESENT ILLNESS: 59 F h/o CVA w/ R sided residual deficit, T2DM, HTN, HLD, obesity, peptic ulcer disease UGIB requiring sclerotherapy in 02/2019, DVT and PE several years ago, recently taken off of Eliquis due to UGIB requiring ICU hospitalization at [facility], presents s/p cystocele repair and removal of adhesions POD 0. Patient endorses adequate pain control, sitting up in bed, NAD. Denies SOB/CP /dizziness/abdominal pain. Her last BM 3-4 days ago, suffers from chronic constipation. Of note, patient was admitted to ICU at [facility] due to UGIB, on EGD was found multiple ulcers that required sclerotherapy, she was also treated for aspiration PNA and was discharged 4 days later. At that time patient was taking her Eliquis and Ibuprofen for joint pain. Patient currently denies hematochezia, hemoptysis, hematuria. REVIEW OF SYSTEMS: CONSTITUTIONAL: Absent: fever, chills, diaphoresis, generalized weakness, malaise, loss of appetite, weight change HEENT: Absent: rhinorrhea, nasal congestion, throat pain, throat swelling, difficulty swallowing, mouth swelling, ear pain, eye pain, visual changes CARDIOVASCULAR: Absent: chest pain, syncope, palpitations, irregular heart rate, lightheadedness , peripheral edema RESPIRATORY: Absent: cough, shortness of breath, dyspnea with exertion, orthopnea, wheezing, stridor, hemoptysis GASTROINTESTINAL: Absent: abdominal pain, abdominal distension, nausea, vomiting, diarrhea, constipation, melena, hematochezia GENITOURINARY: Absent: dysuria, frequency, urgency, hesitancy, hematuria, flank pain, genital pain MUSCULOSKELETAL: Absent: myalgia, arthralgia, joint swelling, back pain, neck pain SKIN: Absent: rash, itching, pallor HEMATOLOGIC/IMMUNOLOGIC: Absent: easy bleeding, easy bruising, lymphadenopathy, frequent infections ENDOCRINE: Absent: unexplained weight gain, unexplained weight loss, heat intolerance, cold intolerance NEUROLOGIC: Absent: headache, focal weakness or paresthesias, dizziness, unsteady gait, seizure, mental status changes, bladder or bowel incontinence PSYCHIATRIC: Absent: anxiety, depression, suicidal or homicidal ideation, hallucinations. PHYSICAL EXAMINATION Vital Signs - 24 hr 04/03/19 04/03/19 04/03/19 13:38 17:30 17:45 Temperature 97.5 F L 98.1 F Pulse Rate 71 92 H 98 H Respiratory 16 16 21 H Rate Blood Pressure 134/78 113/87 100/60 O2 Sat by Pulse 98 100 98 Oximetry (%) 04/03/19 04/03/19 04/03/19 18:00 18:15 18:30 Temperature Pulse Rate 89 93 H 96 H Respiratory 11 10 17 Rate Blood Pressure 100/80 100/73 100/69 O2 Sat by Pulse 98 96 100 Oximetry (%) 04/03/19 04/03/19 04/03/19 18:45 19:00 19:15 Temperature Pulse Rate 91 H 84 83 Respiratory 10 10 12 Rate Blood Pressure 98/62 111/60 112/65 O2 Sat by Pulse 98 98 100 Oximetry (%) GA: comfortable, AAox3, speaking in full sentences HEENT NC/AT, EOMI, no scleral icterus, dry MM, neck supple Chest CTAB, no wheezing or crackles CVS S1, S2+, RRR, no m/r/g appreciated Abd obese, Soft, NT, no guarding, no HSM Ext NO LE edema, no calf tenderness, moving all 4 ext. camacho to gravity draining yellow-clear urine, no suprapubic tenderness Laboratory Results - last 24 hr 04/03/19 13:17 POC Glucometer 146 Active Medications Generic Name Dose Route Start Last Admin Trade Name Freq PRN Reason Stop Dose Admin Albuterol Sulfate 1 amp 04/03/19 20:07 Ventolin 0.083% Nebulizer Soln - NEB Q4H PRN SHORT OF BREATH/WHEEZING Atorvastatin Calcium 80 mg 04/04/19 10:00 Lipitor - PO DAILY [facility] Docusate Sodium 100 mg 04/03/19 20:15 Colace - PO DAILY [facility] Fentanyl 50 mcg 04/03/19 17:13 04/03/19 17:55 Sublimaze Injection - IVPUSH 50 mcg Q5M PRN Administration PAIN-PACU ORDER X 4 DOSES ONLY Fluoxetine HCl 20 mg 04/04/19 10:00 Prozac - PO DAILY [facility] Lisinopril 20 mg 04/04/19 10:00 Prinivil PO DAILY [facility] Metoprolol Succinate 25 mg 04/04/19 10:00 Toprol Xl - PO DAILY [facility] Ondansetron HCl 4 mg 04/03/19 17:13 Zofran Injection IVPUSH Q6H PRN NAUSEA AND/OR VOMITING Oxycodone HCl 5 mg 04/03/19 17:13 Roxicodone - PO Q4H PRN PAIN LEVEL 1-5 Oxycodone HCl 10 mg 04/03/19 17:13 Roxicodone - PO Q4H PRN PAIN LEVEL 6-10 Pantoprazole Sodium 40 mg 04/03/19 20:15 Protonix - PO DAILY [facility] Polyethylene Glycol 17 gm 04/03/19 20:04 Miralax (For Daily Use) - PO 04/03/19 20:05 ONCE ONE Promethazine HCl 12.5 mg 04/03/19 17:13 Phenergan Injection - IVPUSH Q6H PRN NAUSEA-FOR RESCUE AFTER 15 MIN Senna 1 tab 04/03/19 22:00 Senna - PO HS [facility] Sodium Chloride 75 ml 04/03/19 20:15 Normal Saline - IV DAILY [facility] ASSESSMENT/PLAN: 59 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 S/p cystocele and removal of adhesions POD 0 comfortable, denies pain, cont. PO pain meds, IV tylenol for breakthrough pain AVOID NSAID medications keep camacho to gravity, vaginal packing to be removed in AM as per Urology recommendations DVT/PE previously on Eliquis SCD/TEDs for now for DVT ppx AVOID anticoagulation and NSAIDs in view of recent UGIB, will start PPI for GI prophylaxis Follow up with outside PCP on discharge HTN resume home medications Metoprolol, Lisinopril Depression No SI/HI COnt. Prozac HLD resume Atorvastatin Chronic constipation Judicious use of opioids for pain control, utilize IV tylenol instead aggressive bowel regimen senna, docusate, Miralax and fleet enema if patient doesn't go by the morning Asthma not in acute exacerbation Albuterol PRN T2DM ISS for now, monitor FS Diabetic/Na restricted diet DVT ppx: SCD/MIGUEL's, early ambulation, avoid anticoagulation GI ppx: PPI FEN: IVF/chem/DM/Na diet Dispo: We will continue to follow the patient. Thank you for this consultative opportunity. Guille Singh M.D. [facility] Medical Visit type - Emergency Visit Emergency Visit: No - New Patient This patient is new to me today: Yes Date on this admission: 04/03/19 - Critical Care Critical Care patient: No
[2019-04-03] MEDS: PANTOPRAZOLE 40 MG TABLET PO SCH (21:54)
[2019-04-03] MEDS: DOCUSATE SODIUM 100 MG CAPSULE (FP) PO SCH (21:54)
[2019-04-03] MEDS: SENNOSIDES 8.6MG TABLET (FP) PO SCH (21:54)
[2019-04-03] MEDS: oxyCODONE HCL 5 MG TABLET PO PRN (21:59)
[2019-04-03] MEDS ORDERED: SODIUM CHLORIDE 1,000 ML IV SCH (22:45)
[2019-04-04] MEDS: oxyCODONE HCL 5 MG TABLET PO PRN ×3 (01:39→17:00)
[2019-04-04 08:22] LABS: BASO % 0.9 % (0-2.0); EOS % 3.8 % (0-4.5); HEMATOCRIT 33.8 % (32.4-45.2); HEMOGLOBIN 10.9 GM/dL (10.7-15.3); LYMPH % 26.1 % (8-40); MCH 27.9 pg (25.7-33.7); MCHC 32.2 g/dl (32.0-36.0); MEAN CELL VOLUME 86.7 fl (80-96); MEAN PLT VOLUME 11.4 fl (7.5-11.1); MONO % 7.3 % (3.8-10.2); NEUT % 61.9 % (42.8-82.8); PLATELET COUNT 92 K/MM3 (134-434); RDW 17.8 % (11.6-15.6)
[2019-04-04] MEDS: PANTOPRAZOLE 40 MG TABLET PO SCH ×2 (08:36→09:54)
[2019-04-04] MEDS: FLUoxetine HCL 20 MG CAPSULE PO SCH ×2 (08:37→09:54)
[2019-04-04] MEDS: DOCUSATE SODIUM 100 MG CAPSULE (FP) PO SCH ×2 (08:37→09:54)
[2019-04-04] MEDS: metoPROLOL SUCCINATE 25 MG TAB.SR.24H (FP) PO SCH ×2 (08:37→09:54)
[2019-04-04] MEDS: LISINOPRIL 20 MG TABLET (FP) PO SCH ×2 (08:37→09:54)
[2019-04-04 09:06] LABS: BLOOD UREA NITROGEN 13.6 mg/dL (7-18); CALCIUM 8.4 mg/dL (8.5-10.1); CREATININE 0.8 mg/dL (0.55-1.3); POTASSIUM 3.2 mmol/L (3.5-5.1)
[2019-04-04] MEDS ORDERED: POTASSIUM CHLORIDE TABS 20 MEQ TABLET.ER (FP) PO ONE (10:45)
[2019-04-04] MEDS ORDERED: MORPHINE SULFATE 2 MG/ML VIAL IVPUSH ONE (11:00)
--- NOTE | 2019-04-04 11:44 | PN ---
Progress Note (short form) - Note Progress Note: POD#1 S/P VAGINAL EXPLORATION AND CYSTOCELE REPAIR,VSS, WBC=7,000, AFEBRILE, COSTA IS PATENT AND URINE IS CLEAR .PLAN-D/C VAGINAL PACK AND COSTA. WILL D/C HOME AFTER PT. VOIDS.
--- NOTE | 2019-04-04 12:36 | PN ---
Physical Exam: SUBJECTIVE: Patient seen and examined at the bedside. denies any shortness of breath, no chest pain or malaise. pain improving. OBJECTIVE: hypokalemia repleted thrombocytopenia of unknown etiology, patient had normal platelet count last year. Patient is a 59 year old female with a significant past medical history of CVA with right sided sided residual deficit, diabetes II (on home insulin), hypertension, hld, morbid obesity, peptic ulcer disease UGIB requiring sclerotherapy in 02/2019 at [facility]. Her other history includes DVT and PE several years ago and recently taken off of Eliquis due to UGIB requiring ICU hospitalization at [facility]. She is s/p cystocele repair and removal of adhesions POD [address] Sifuentes. Patient had surgical packing removed today by Dr. Sifuentes and her vaginal pad is currently dry without any evidence of bleeding. She has not yet urinated and therefore will bladder and monitor output. Period Temp Pulse Resp BP Sys/Stokes Pulse Ox Last 24 Hr 97.4 F-98.1 F 58-98 10-21 98-141/55-87 96-100 GENERAL: The patient is awake, alert, and fully oriented, in no acute distress. tolerating room air. HEAD: Normal with no signs of trauma. EYES: PERRL, extraocular movements intact, sclera anicteric, conjunctiva clear. No ptosis. ENT: Ears normal, nares patent, oropharynx clear without exudates, moist mucous membranes. NECK: Trachea midline, full range of motion, supple. LUNGS: Breath sounds equal, clear to auscultation bilaterally, no wheezes HEART: Regular rate and rhythm ABDOMEN: Soft, nontender, nondistended, normoactive bowel sounds EXTREMITIES: no edema. NEUROLOGICAL: Normal speech, gait not observed. PSYCH: Normal mood, normal affect. SKIN: Warm, dry, normal turgor, no rashes or lesions noted Laboratory Results - last 24 hr 04/03/19 04/03/19 04/04/19 13:17 22:17 06:08 WBC RBC Hgb Hct MCV MCH MCHC RDW Plt Count MPV Absolute Neuts (auto) Neutrophils % Lymphocytes % Monocytes % Eosinophils % Basophils % Nucleated RBC % Sodium Potassium Chloride Carbon Dioxide Anion Gap BUN Creatinine Est GFR (CKD-EPI)AfAm Est GFR (CKD-EPI)NonAf POC Glucometer 146 245 110 Random Glucose Calcium 04/04/19 04/04/19 04/04/19 07:05 07:05 11:40 WBC 7.0 RBC 3.90 Hgb 10.9 Hct 33.8 D MCV 86.7 MCH 27.9 D MCHC 32.2 RDW 17.8 H Plt Count 92 L D MPV 11.4 H D Absolute Neuts (auto) 4.3 Neutrophils % 61.9 D Lymphocytes % 26.1 D Monocytes % 7.3 Eosinophils % 3.8 Basophils % 0.9 Nucleated RBC % 0 Sodium 139 Potassium 3.2 L Chloride 106 Carbon Dioxide 24 Anion Gap 9 BUN 13.6 Creatinine 0.8 Est GFR (CKD-EPI)AfAm 93.53 Est GFR (CKD-EPI)NonAf 80.70 POC Glucometer 133 Random Glucose 114 H Calcium 8.4 L Active Medications Generic Name Dose Route Start Last Admin Trade Name Freq PRN Reason Stop Dose Admin Albuterol Sulfate 1 amp 04/03/19 20:07 04/03/19 22:13 Ventolin 0.083% Nebulizer Soln - NEB 1 amp Q4H PRN Administration SHORT OF BREATH/WHEEZING Atorvastatin Calcium 80 mg 04/04/19 22:00 Lipitor - PO HS [facility] Docusate Sodium 100 mg 04/03/19 20:15 04/04/19 09:54 Colace - PO Not Given DAILY [facility] Fluoxetine HCl 20 mg 04/04/19 10:00 04/04/19 09:54 Prozac - PO Not Given DAILY [facility] Sodium Chloride 1,000 mls @ 75 mls/hr 04/03/19 22:45 04/03/19 21:00 Normal Saline - IV 75 mls/hr ASDIR [facility] Administration Lisinopril 20 mg 04/04/19 10:00 04/04/19 09:54 Prinivil PO Not Given DAILY [facility] Metoprolol Succinate 25 mg 04/04/19 10:00 04/04/19 09:54 Toprol Xl - PO Not Given DAILY [facility] Ondansetron HCl 4 mg 04/03/19 17:13 Zofran Injection IVPUSH Q6H PRN NAUSEA AND/OR VOMITING Oxycodone HCl 5 mg 04/03/19 17:13 Roxicodone - PO Q4H PRN PAIN LEVEL 1-5 Oxycodone HCl 10 mg 04/03/19 17:13 04/04/19 08:38 Roxicodone - PO 10 mg Q4H PRN Administration PAIN LEVEL 6-10 Pantoprazole Sodium 40 mg 04/03/19 20:15 04/04/19 09:54 Protonix - PO Not Given DAILY [facility] Promethazine HCl 12.5 mg 04/03/19 17:13 Phenergan Injection - IVPUSH Q6H PRN NAUSEA-FOR RESCUE AFTER 15 MIN Senna 1 tab 04/03/19 22:00 04/03/19 21:54 Senna - PO 1 tab HS [facility] Administration ASSESSMENT/PLAN: Problem List - Problems (1) Cystocele Assessment/Plan: POD#1 Patient is s/p vaginal exploration and cystocele repair post op monitoring: pain management, incentive spirometer, monitor urine output , monitor for any signs of bleeding. early ambulation, physical therapy camacho removed by urologist Code(s): TRI2609 - (2) Diabetes Assessment/Plan: reports elevated blood sugars at home, hmga1c ordered mantain bgms <180 fasting Code(s): E11.9 - TYPE 2 DIABETES MELLITUS WITHOUT COMPLICATIONS (3) Thrombocytopenia Assessment/Plan: platelets 92, repeat labs to confirm show them at 94. platelets within normal limits on last admission 05/2018. Unclear etiology. will need hematology consult as an outpatient. repeat cbc in a.m. and monitor bleeding precautions. hmg/hct stable. Code(s): D69.6 - THROMBOCYTOPENIA, UNSPECIFIED (4) History of CVA (cerebrovascular accident) Assessment/Plan: on lipitor 80 hs not on asa due to recent history of upper gi bleed will order physical therapy for right sided weakness Code(s): Z86.73 - PRSNL HX OF TIA (TIA), AND CEREB INFRC W/O RESID DEFICITS (5) DVT (deep venous thrombosis) Assessment/Plan: was on eliquis but stopped recently at [facility] due to acute upper gi bleed. Code(s): I82.409 - ACUTE EMBOLISM AND THOMBOS UNSP DEEP VN UNSP LOWER EXTREMITY Qualifiers: Laterality: unspecified laterality (6) Pulmonary embolism Assessment/Plan: was on eliquis but stopped recently at [facility] due to acute upper gi bleed no shortness of breath will refer to her PCP to determine if and when patient can restart anticoagulation hematology outpatient follow up Code(s): I26.99 - OTHER PULMONARY EMBOLISM WITHOUT ACUTE COR PULMONALE (7) Hypertension Assessment/Plan: controlled on Metoprolol, Lisinopril Code(s): I10 - ESSENTIAL (PRIMARY) HYPERTENSION (8) HLD (hyperlipidemia) Assessment/Plan: on lipitor 80 Code(s): E78.5 - HYPERLIPIDEMIA, UNSPECIFIED (9) DVT prophylaxis Assessment/Plan: SCDs only, had recent ugib last month and now with thrombocytopenia Code(s): Z29.9 - ENCOUNTER FOR PROPHYLACTIC MEASURES, UNSPECIFIED (10) Prophylactic measure Assessment/Plan: fen diabetic diet repeat labs in a.m. monitor K full code protonix daily Code(s): Z29.9 - ENCOUNTER FOR PROPHYLACTIC MEASURES, UNSPECIFIED Visit type - Emergency Visit Emergency Visit: No - New Patient This patient is new to me today: Yes Date on this admission: 04/04/19 - Critical Care Critical Care patient: No - Discharge Referral Referred to [facility] Med P.C.: No
[2019-04-04 13:57] LABS: BILIRUBIN,TOTAL 0.3 mg/dL (0.2-1); BLOOD UREA NITROGEN 13.6 mg/dL (7-18); CALCIUM 8.2 mg/dL (8.5-10.1); CREATININE 0.9 mg/dL (0.55-1.3); POTASSIUM 3.5 mmol/L (3.5-5.1); TOT PROT 6.2 g/dl (6.4-8.2)
[2019-04-04] MEDS: SODIUM CHLORIDE 1,000 ML IV SCH (18:38)
[2019-04-04] MEDS: MORPHINE SULFATE 2 MG/ML VIAL IVPUSH ONE (21:25)
[2019-04-04] MEDS: ATORVASTATIN CA 80 MG TABLET (FP) PO SCH (21:25)
[2019-04-04] MEDS: SENNOSIDES 8.6MG TABLET (FP) PO SCH (21:25)
[2019-04-05] MEDS: MORPHINE SULFATE 2 MG/ML VIAL IVPUSH ONE (00:44)
[2019-04-05] MEDS: SODIUM CHLORIDE 1,000 ML IV SCH (04:32)
[2019-04-05 10:06] LABS: BASO % 0.9 % (0-2.0); EOS % 2.9 % (0-4.5); HEMATOCRIT 32.7 % (32.4-45.2); HEMOGLOBIN 10.5 GM/dL (10.7-15.3); LYMPH % 24.6 % (8-40); MCH 28.1 pg (25.7-33.7); MCHC 32.2 g/dl (32.0-36.0); MEAN CELL VOLUME 87.3 fl (80-96); MEAN PLT VOLUME 11.8 fl (7.5-11.1); MONO % 6.8 % (3.8-10.2); NEUT % 64.8 % (42.8-82.8); PLATELET COUNT 74 K/MM3 (134-434); RBC 3.74 M/mm3 (3.60-5.2); RDW 17.8 % (11.6-15.6)
[2019-04-05] MEDS: FLUoxetine HCL 20 MG CAPSULE PO SCH (10:35)
[2019-04-05] MEDS: metoPROLOL SUCCINATE 25 MG TAB.SR.24H (FP) PO SCH (10:35)
[2019-04-05] MEDS: PANTOPRAZOLE 40 MG TABLET PO SCH (10:35)
[2019-04-05] MEDS: LISINOPRIL 20 MG TABLET (FP) PO SCH (10:35)
[2019-04-05] MEDS: DOCUSATE SODIUM 100 MG CAPSULE (FP) PO SCH (10:35)
[2019-04-05 10:38] LABS: ALBUMIN 2.8 g/dl (3.4-5.0); BILIRUBIN,TOTAL 0.3 mg/dL (0.2-1); BLOOD UREA NITROGEN 13.5 mg/dL (7-18); CALCIUM 8.3 mg/dL (8.5-10.1); CREATININE 0.8 mg/dL (0.55-1.3); MAGNESIUM 1.5 mg/dL (1.8-2.4); POTASSIUM 3.6 mmol/L (3.5-5.1); TOT PROT 5.8 g/dl (6.4-8.2)
[2019-04-05] MEDS: oxyCODONE HCL 5 MG TABLET PO PRN ×2 (10:46→22:05)
[2019-04-05] MEDS ORDERED: MAGNESIUM OXIDE 400 MG TABLET (FP) PO ONE (10:48)
--- NOTE | 2019-04-05 11:16 | PN ---
Physical Exam: SUBJECTIVE: Patient seen and examined at the bedside. awake, no difficulty urinating, having some cramps. denies shortness of breath. OBJECTIVE: platelets continue to trend down, will attempt to obtain records from her previous admission at [facility] patient urinated twice but voids not measured, does not have a vaginal pad and oneyda on bed without evidence of blood. thrombocytopenia of unknown etiology, patient had normal platelet count last year. platelets now 74. patient with recent episode of gi bleed at [facility]. ordered b12, folate, tsh, t4. may need imaging of spleen, abd ct 06/13 with normal spleen. Patient is a 59 year old female with a significant past medical history of CVA with right sided sided residual deficit, diabetes II (on home insulin), hypertension, hld, morbid obesity, peptic ulcer disease UGIB requiring sclerotherapy in 02/2019 at [facility]. Her other history includes DVT and PE several years ago and recently taken off of Eliquis due to UGIB requiring ICU hospitalization at [facility]. She is s/p cystocele repair and removal of adhesions POD [address] Sifuentes. Patient had surgical packing removed on 04/04/[address] Sifuentes Vital Signs Period Temp Pulse Resp BP Sys/Stokes Pulse Ox Last 24 Hr 98.0 F-98.1 F 60-80 14-20 92-146/43-70 96-96 GENERAL: The patient is awake, alert, and fully oriented, in no acute distress. tolerating room air. denies any bleeding. HEAD: Normal with no signs of trauma. EYES: PERRL, extraocular movements intact, sclera anicteric, conjunctiva clear. No ptosis. ENT: Ears normal, nares patent, oropharynx clear without exudates, moist mucous membranes. NECK: Trachea midline, full range of motion, supple. LUNGS: Breath sounds equal, clear to auscultation bilaterally, no wheezes HEART: Regular rate and rhythm ABDOMEN: Soft, nontender, nondistended, normoactive bowel sounds EXTREMITIES: no edema. NEUROLOGICAL: Normal speech, gait not observed. PSYCH: Normal mood, normal affect. SKIN: Warm, dry, normal turgor, no rashes or lesions noted Laboratory Results - last 24 hr 04/04/19 04/04/19 04/04/19 11:40 12:48 12:48 WBC RBC Hgb Hct MCV MCH MCHC RDW Plt Count 94 L MPV Absolute Neuts (auto) Neutrophils % Lymphocytes % Monocytes % Eosinophils % Basophils % Nucleated RBC % Sodium 140 Potassium 3.5 Chloride 107 Carbon Dioxide 28 Anion Gap 5 L BUN 13.6 Creatinine 0.9 Est GFR (CKD-EPI)AfAm 81.11 Est GFR (CKD-EPI)NonAf 69.99 POC Glucometer 133 Random Glucose 113 H Hemoglobin A1c % Calcium 8.2 L Magnesium Total Bilirubin 0.3 AST 14 L ALT 14 Alkaline Phosphatase 103 Total Protein 6.2 L Albumin 3.0 L 04/04/19 04/04/19 04/04/19 12:48 16:32 21:28 WBC RBC Hgb Hct MCV MCH MCHC RDW Plt Count MPV Absolute Neuts (auto) Neutrophils % Lymphocytes % Monocytes % Eosinophils % Basophils % Nucleated RBC % Sodium Potassium Chloride Carbon Dioxide Anion Gap BUN Creatinine Est GFR (CKD-EPI)AfAm Est GFR (CKD-EPI)NonAf POC Glucometer 124 164 Random Glucose Hemoglobin A1c % 7.0 H Calcium Magnesium Total Bilirubin AST ALT Alkaline Phosphatase Total Protein Albumin 04/05/19 04/05/19 04/05/19 06:19 09:13 09:13 WBC 7.0 RBC 3.74 Hgb 10.5 L Hct 32.7 MCV 87.3 MCH 28.1 MCHC 32.2 RDW 17.8 H Plt Count 74 L D MPV 11.8 H Absolute Neuts (auto) 4.5 Neutrophils % 64.8 Lymphocytes % 24.6 Monocytes % 6.8 Eosinophils % 2.9 Basophils % 0.9 Nucleated RBC % 0 Sodium 140 Potassium 3.6 Chloride 109 H Carbon Dioxide 25 Anion Gap 6 L BUN 13.5 Creatinine 0.8 Est GFR (CKD-EPI)AfAm 93.53 Est GFR (CKD-EPI)NonAf 80.70 POC Glucometer 120 Random Glucose 163 H Hemoglobin A1c % Calcium 8.3 L Magnesium 1.5 L Total Bilirubin 0.3 AST 11 L ALT 12 L Alkaline Phosphatase 97 Total Protein 5.8 L Albumin 2.8 L 04/05/19 11:12 WBC RBC Hgb Hct MCV MCH MCHC RDW Plt Count MPV Absolute Neuts (auto) Neutrophils % Lymphocytes % Monocytes % Eosinophils % Basophils % Nucleated RBC % Sodium Potassium Chloride Carbon Dioxide Anion Gap BUN Creatinine Est GFR (CKD-EPI)AfAm Est GFR (CKD-EPI)NonAf POC Glucometer 135 Random Glucose Hemoglobin A1c % Calcium Magnesium Total Bilirubin AST ALT Alkaline Phosphatase Total Protein Albumin Active Medications Generic Name Dose Route Start Last Admin Trade Name Freq PRN Reason Stop Dose Admin Albuterol Sulfate 1 amp 04/03/19 20:07 04/03/19 22:13 Ventolin 0.083% Nebulizer Soln - NEB 1 amp Q4H PRN Administration SHORT OF BREATH/WHEEZING Atorvastatin Calcium 80 mg 04/04/19 22:00 04/04/19 21:25 Lipitor - PO 80 mg HS [facility] Administration Docusate Sodium 100 mg 04/03/19 20:15 04/05/19 10:35 Colace - PO 100 mg DAILY [facility] Administration Fluoxetine HCl 20 mg 04/04/19 10:00 04/05/19 10:35 Prozac - PO 20 mg DAILY [facility] Administration Sodium Chloride 1,000 mls @ 100 mls/hr 04/04/19 18:27 04/05/19 04:32 Normal Saline - IV 100 mls/hr ASDIR [facility] Administration Lisinopril 20 mg 04/04/19 10:00 04/05/19 10:35 Prinivil PO 20 mg DAILY [facility] Administration Metoprolol Succinate 25 mg 04/04/19 10:00 04/05/19 10:35 Toprol Xl - PO 25 mg DAILY [facility] Administration Ondansetron HCl 4 mg 04/03/19 17:13 Zofran Injection IVPUSH Q6H PRN NAUSEA AND/OR VOMITING Oxycodone HCl 5 mg 04/03/19 17:13 Roxicodone - PO Q4H PRN PAIN LEVEL 1-5 Oxycodone HCl 10 mg 04/03/19 17:13 04/05/19 10:46 Roxicodone - PO 10 mg Q4H PRN Administration PAIN LEVEL 6-10 Pantoprazole Sodium 40 mg 04/03/19 20:15 04/05/19 10:35 Protonix - PO 40 mg DAILY [facility] Administration Promethazine HCl 12.5 mg 04/03/19 17:13 Phenergan Injection - IVPUSH Q6H PRN NAUSEA-FOR RESCUE AFTER 15 MIN Senna 1 tab 04/03/19 22:00 04/04/19 21:25 Senna - PO 1 tab HS [facility] Administration ASSESSMENT/PLAN: Problem List - Problems (1) Cystocele Assessment/Plan: POD#2 Patient is s/p vaginal exploration and cystocele repair post op monitoring: pain management, incentive spirometer, monitor urine output , monitor for any signs of bleeding. early ambulation, physical therapy camacho removed by urologist and patient is voiding Code(s): [id number] - (2) Diabetes Assessment/Plan: reports elevated blood sugars at home, hmga1c 7.0 mantain bgms <180 fasting on novolog ss Code(s): E11.9 - TYPE 2 DIABETES MELLITUS WITHOUT COMPLICATIONS (3) Thrombocytopenia Assessment/Plan: platelets 92>74, no signs of bleeding noted. ordered b12, folate, tsh normal spleen on 05/2018 abd/ct hematology consulted. obtain records from [facility] (recent admission 02/2019) Code(s): D69.6 - THROMBOCYTOPENIA, UNSPECIFIED (4) History of CVA (cerebrovascular accident) Assessment/Plan: on lipitor 80 hs not on asa due to recent history of upper gi bleed will order physical therapy for right sided weakness Code(s): Z86.73 - PRSNL HX OF TIA (TIA), AND CEREB INFRC W/O RESID DEFICITS (5) DVT (deep venous thrombosis) Assessment/Plan: was on eliquis but stopped recently at [facility] due to acute upper gi bleed. Code(s): I82.409 - ACUTE EMBOLISM AND THOMBOS UNSP DEEP VN UNSP LOWER EXTREMITY Qualifiers: Laterality: unspecified laterality (6) Pulmonary embolism Assessment/Plan: was on eliquis but stopped recently at [facility] due to acute upper gi bleed no shortness of breath will refer to her PCP to determine if and when patient can restart anticoagulation Code(s): I26.99 - OTHER PULMONARY EMBOLISM WITHOUT ACUTE COR PULMONALE (7) Hypertension Assessment/Plan: controlled on Metoprolol, Lisinopril Code(s): I10 - ESSENTIAL (PRIMARY) HYPERTENSION (8) HLD (hyperlipidemia) Assessment/Plan: on lipitor 80 Code(s): E78.5 - HYPERLIPIDEMIA, UNSPECIFIED (9) DVT prophylaxis Assessment/Plan: SCDs only, had recent ugib last month and now with thrombocytopenia Code(s): Z29.9 - ENCOUNTER FOR PROPHYLACTIC MEASURES, UNSPECIFIED (10) Prophylactic measure Assessment/Plan: fen diabetic diet repeat labs in a.m. monitor K full code protonix daily Code(s): Z29.9 - ENCOUNTER FOR PROPHYLACTIC MEASURES, UNSPECIFIED Visit type - Emergency Visit Emergency Visit: Yes ED Registration Date: 04/03/19 Care time: The patient presented to the Emergency Department on the above date and was hospitalized for further evaluation of their emergent condition. - New Patient This patient is new to me today: No - Critical Care Critical Care patient: No - Discharge Referral Referred to [facility] Med P.C.: No
[2019-04-05] MEDS ORDERED: POLYETHYLENE GLYCOL 3350 119 GM BTL PO ONE (13:15)
--- NOTE | 2019-04-05 14:16 | CONSULT ---
Consultation: REQUESTING PROVIDER:Amara Oconnor [employer] CONSULT REQUEST: We have been asked to medically evaluate this patient for ( Thrombocytopenia ). HISTORY OF PRESENT ILLNESS: 59 F h/o CVA w/ R sided residual deficit, T2DM, HTN, HLD, obesity, peptic ulcer disease UGIB requiring sclerotherapy in 02/2019, DVT and PE several years ago, recently taken off of Eliquis due to UGIB requiring ICU hospitalization at [facility], presents s/p cystocele repair and removal of adhesions POD 0. Patient endorses adequate pain control, sitting up in bed, NAD. Denies SOB/CP /dizziness/abdominal pain. Her last BM 3-4 days ago, suffers from chronic constipation. Of note, patient was admitted to ICU at [facility] due to UGIB, on EGD was found multiple ulcers that required sclerotherapy, she was also treated for aspiration PNA and was discharged 4 days later. At that time patient was taking her Eliquis and Ibuprofen for joint pain. Patient currently denies hematochezia, hemoptysis, hematuria. reports easy bleedinga nd easy bruising was on Eliquis for PE/DVT that stop recently due to GI bleed deneis any family history of cancer or blood disease she used to have heavy periods due to fibroid improve with ablation per pt she reports smoking 1/2 PPD since age 16 but denies any drug or alcohol use she work office job , live with her daughter denies any fever , chills, N/V/D/ but reports constipation. deneis any chest pain or sob , dnies any abdominal pain REVIEW OF SYSTEMS: CONSTITUTIONAL: Absent: fever, chills, diaphoresis, generalized weakness, malaise, loss of appetite, weight change lost 100 pound HEENT: Absent: rhinorrhea, nasal congestion, throat pain, throat swelling, difficulty swallowing, mouth swelling, ear pain, eye pain, visual changes CARDIOVASCULAR: Absent: chest pain, syncope, palpitations, irregular heart rate, lightheadedness , peripheral edema RESPIRATORY: Absent: cough, shortness of breath, dyspnea with exertion, orthopnea, wheezing, stridor, hemoptysis GASTROINTESTINAL: Absent: abdominal pain, abdominal distension, nausea, vomiting, diarrhea, constipation, melena, hematochezia GENITOURINARY: Absent: dysuria, frequency, urgency, hesitancy, hematuria, flank pain, genital pain MUSCULOSKELETAL: Absent: myalgia, arthralgia, joint swelling, back pain, neck pain SKIN: Absent: rash, itching, pallor HEMATOLOGIC/IMMUNOLOGIC: Absent: easy bleeding, easy bruising, lymphadenopathy, frequent infections ENDOCRINE: Absent: unexplained weight gain, unexplained weight loss, heat intolerance, cold intolerance NEUROLOGIC: Absent: headache, focal weakness or paresthesias, dizziness, unsteady gait, seizure, mental status changes, bladder or bowel incontinence PSYCHIATRIC: Absent: anxiety, depression, suicidal or homicidal ideation, hallucinations. PHYSICAL EXAMINATION Vital Signs - 24 hr 04/04/19 04/04/19 04/04/19 14:33 14:46 21:00 Temperature 98.0 F 98.0 F Pulse Rate 65 65 Respiratory 18 18 20 Rate Blood Pressure 113/62 113/62 O2 Sat by Pulse 96 96 Oximetry (%) 04/04/19 04/05/19 04/05/19 23:47 00:44 05:50 Temperature 98.1 F 98.0 F Pulse Rate 60 80 63 Respiratory 20 20 20 Rate Blood Pressure 92/43 L 146/67 102/70 O2 Sat by Pulse Oximetry (%) 04/05/19 04/05/19 07:50 09:00 Temperature 98.0 F Pulse Rate 79 Respiratory 14 Rate Blood Pressure 116/63 O2 Sat by Pulse 96 Oximetry (%) GA: comfortable, AAox3, HEENT NC/AT, EOMI, no scleral icterus, M MM, neck supple, no lyphadenopathy appreciated Chest: CTAB, no wheezing or crackles CVS :S1, S2+, RRR, no m/r/g appreciated Abd: obese, Soft, NT,RUQ tenderness no guarding, Ext : NO LE edema, no calf tenderness, moving all 4 ext. 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 , residual right side weakness breast surgery scar B/L , some Later breast fibrosis and tenderness to palpation B/L Laboratory Results - last 24 hr 04/04/19 04/04/19 04/04/19 12:48 16:32 21:28 WBC RBC Hgb Hct MCV MCH MCHC RDW Plt Count MPV Absolute Neuts (auto) Neutrophils % Lymphocytes % Monocytes % Eosinophils % Basophils % Nucleated RBC % Sodium Potassium Chloride Carbon Dioxide Anion Gap BUN Creatinine Est GFR (CKD-EPI)AfAm Est GFR (CKD-EPI)NonAf POC Glucometer 124 164 Random Glucose Hemoglobin A1c % 7.0 H Calcium Magnesium Total Bilirubin AST ALT Alkaline Phosphatase Total Protein Albumin Vitamin B12 Serum Folate TSH Free T4 04/05/19 04/05/19 04/05/19 06:19 09:13 09:13 WBC 7.0 RBC 3.74 Hgb 10.5 L Hct 32.7 MCV 87.3 MCH 28.1 MCHC 32.2 RDW 17.8 H Plt Count 74 L D MPV 11.8 H Absolute Neuts (auto) 4.5 Neutrophils % 64.8 Lymphocytes % 24.6 Monocytes % 6.8 Eosinophils % 2.9 Basophils % 0.9 Nucleated RBC % 0 Sodium 140 Potassium 3.6 Chloride 109 H Carbon Dioxide 25 Anion Gap 6 L BUN 13.5 Creatinine 0.8 Est GFR (CKD-EPI)AfAm 93.53 Est GFR (CKD-EPI)NonAf 80.70 POC Glucometer 120 Random Glucose 163 H Hemoglobin A1c % Calcium 8.3 L Magnesium 1.5 L Total Bilirubin 0.3 AST 11 L ALT 12 L Alkaline Phosphatase 97 Total Protein 5.8 L Albumin 2.8 L Vitamin B12 296 Serum Folate 7 TSH 2.12 Free T4 1.18 04/05/19 11:12 WBC RBC Hgb Hct MCV MCH MCHC RDW Plt Count MPV Absolute Neuts (auto) Neutrophils % Lymphocytes % Monocytes % Eosinophils % Basophils % Nucleated RBC % Sodium Potassium Chloride Carbon Dioxide Anion Gap BUN Creatinine Est GFR (CKD-EPI)AfAm Est GFR (CKD-EPI)NonAf POC Glucometer 135 Random Glucose Hemoglobin A1c % Calcium Magnesium Total Bilirubin AST ALT Alkaline Phosphatase Total Protein Albumin Vitamin B12 Serum Folate TSH Free T4 Active Medications Generic Name Dose Route Start Last Admin Trade Name Freq PRN Reason Stop Dose Admin Albuterol Sulfate 1 amp 04/03/19 20:07 04/03/19 22:13 Ventolin 0.083% Nebulizer Soln - NEB 1 amp Q4H PRN Administration SHORT OF BREATH/WHEEZING Atorvastatin Calcium 80 mg 04/04/19 22:00 04/04/19 21:25 Lipitor - PO 80 mg HS [facility] Administration Docusate Sodium 100 mg 04/03/19 20:15 04/05/19 10:35 Colace - PO 100 mg DAILY [facility] Administration Fluoxetine HCl 20 mg 04/04/19 10:00 04/05/19 10:35 Prozac - PO 20 mg DAILY [facility] Administration Lisinopril 20 mg 04/04/19 10:00 04/05/19 10:35 Prinivil PO 20 mg DAILY [facility] Administration Metoprolol Succinate 25 mg 04/04/19 10:00 04/05/19 10:35 Toprol Xl - PO 25 mg DAILY [facility] Administration Ondansetron HCl 4 mg 04/03/19 17:13 Zofran Injection IVPUSH Q6H PRN NAUSEA AND/OR VOMITING Oxycodone HCl 5 mg 04/03/19 17:13 Roxicodone - PO Q4H PRN PAIN LEVEL 1-5 Oxycodone HCl 10 mg 04/03/19 17:13 04/05/19 10:46 Roxicodone - PO 10 mg Q4H PRN Administration PAIN LEVEL 6-10 Pantoprazole Sodium 40 mg 04/03/19 20:15 04/05/19 10:35 Protonix - PO 40 mg DAILY [facility] Administration Promethazine HCl 12.5 mg 04/03/19 17:13 Phenergan Injection - IVPUSH Q6H PRN NAUSEA-FOR RESCUE AFTER 15 MIN Senna 1 tab 04/03/19 22:00 04/04/19 21:25 Senna - PO 1 tab HS [facility] Administration CBC, BMP 04/05/19 09:13 04/05/19 09:13 ASSESSMENT/PLAN: 59 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 we were cosnulted for thrombocytopenia # Thrombocytopenia Acute , R.O infection process will send UA , urine cx , CAR , , VS hIT and SHAKIRA , can not R.O MEdiciation side effects like Fluxitine as some cases reports thrombocytopenia , Cannot rule out post-transfusion thrombocytopenia B12, FA WNL TSH WNL PT, PTT Fibrinogen ESR, CRP monitor CBC daily Avoid NSAIDS or AC # left renal angiomyolipoma from CT [address] [facility] to [facility] any change s in size or texture # B/L breast tenderness on the lateral side with some fibrosis could be due to breast reduction surgery will do Mammogram to R.O any nodularity #S/p cystocele and removal of adhesions POD 2 #history of DVT/PE previously on Eliquis SCD/TEDs for now for DVT ppx AVOID anticoagulation and NSAIDs in view of recent UGIB, will start PPI for GI prophylaxis # HTN #Depression on Prozac which might cause thrombocytopenia #HLD #Chronic constipation #Asthma #T2DM per primary team Dispo: We will continue to follow the patient. Thank you for this consultative opportunity. Visit type - Emergency Visit Emergency Visit: Yes ED Registration Date: 04/03/19 Care time: The patient presented to the Emergency Department on the above date and was hospitalized for further evaluation of their emergent condition. - New Patient This patient is new to me today: Yes Date on this admission: 04/04/19 - Critical Care Critical Care patient: No ATTENDING PHYSICIAN STATEMENT I saw and evaluated the patient. I reviewed the resident's note and discussed the case with the resident. I agree with the resident's findings and plan as documented. SUBJECTIVE: OBJECTIVE: ASSESSMENT AND PLAN:
--- NOTE | 2019-04-05 21:13 | PN ---
Teaching Attending Note Name of Resident: Edi Baptiste ATTENDING PHYSICIAN STATEMENT I saw and evaluated the patient. I reviewed the resident's note and discussed the case with the resident. I agree with the resident's findings and plan as documented. SUBJECTIVE: Doing well. Very nice, pleasant and cooperative OBJECTIVE: Last Vital Signs Temp Pulse Resp BP Pulse Ox 98.1 F 63 17 114/64 96 04/05/19 14:47 04/05/19 14:47 04/05/19 14:47 04/05/19 14:47 04/05/19 09:00 Gen: NAD HEENT: MMM CVS: S1,S2 Lungs: CTAB, Ant Extremities: No edema Neuro: RUE 4/ Psych: Conversant 04/05/19 09:13 04/05/19 09:13 Current Medications Albuterol Sulfate (Ventolin 0.083% Nebulizer Soln -) 1 amp NEB Q4H PRN PRN Reason: SHORT OF BREATH/WHEEZING Last Admin: 04/03/19 22:13 Dose: 1 amp Atorvastatin Calcium (Lipitor -) 80 mg PO HS [facility] Last Admin: 04/04/19 21:25 Dose: 80 mg Docusate Sodium (Colace -) 100 mg PO DAILY [facility] Last Admin: 04/05/19 10:35 Dose: 100 mg Fluoxetine HCl (Prozac -) 20 mg PO DAILY [facility] Last Admin: 04/05/19 10:35 Dose: 20 mg Lisinopril (Prinivil) 20 mg PO DAILY [facility] Last Admin: 04/05/19 10:35 Dose: 20 mg Metoprolol Succinate (Toprol Xl -) 25 mg PO DAILY [facility] Last Admin: 04/05/19 10:35 Dose: 25 mg Ondansetron HCl (Zofran Injection) 4 mg IVPUSH Q6H PRN PRN Reason: NAUSEA AND/OR VOMITING Oxycodone HCl (Roxicodone -) 5 mg PO Q4H PRN PRN Reason: PAIN LEVEL 1-5 Oxycodone HCl (Roxicodone -) 10 mg PO Q4H PRN PRN Reason: PAIN LEVEL 6-10 Last Admin: 04/05/19 10:46 Dose: 10 mg Pantoprazole Sodium (Protonix -) 40 mg PO DAILY [facility] Last Admin: 04/05/19 10:35 Dose: 40 mg Promethazine HCl (Phenergan Injection -) 12.5 mg IVPUSH Q6H PRN PRN Reason: NAUSEA-FOR RESCUE AFTER 15 MIN Senna (Senna -) 1 tab PO HS [facility] Last Admin: 04/04/19 21:25 Dose: 1 tab ASSESSMENT/PLAN: 59 F h/o DVT/PE 10-15 years ago, previously on Eliquis but was stopped due to UGIB, HTN, HLD, obesity, CVA w/ R side deficits, asthma, s/p cystocele and removal of adhesion, tolerated surgery well, denies pain at present. Hematology consulted for thrombocytopenia Recommend: 1) Will repeat platelet count in AM in Blue Tube (citrate) to rule out pseudothrombocytopenia (due to EDTA) 2) HIT testing, PT/INR, PTT, Fibrinogen, Antiphospholipid syndrome testing (anti -cardiolipin antibodies, anti-beta2 glycoprotein I, Lupus anticoagulant with dRVVT), HIV and Hepatitis C testing if not done before. May need to consider outpatient follow-up for hypercoagulable syndrome testing. 3) Cannot rule out medication induced, post-surgery. 4) LDH, Haptoglobin 5) Cannot rule out post-transfusion thrombocytopenia (although rare) 6) Will consider PB flow if no improvement 7) If deeper thrombocytopenia (~ 60,000) and any evidence of acute thrombosis with enhanced suspicion for HIT will need to strongly consider Argatroban (risk benefit given recent GI bleed). We could not calculate 4T score appropriately due to lack of prior labs 8) Rest as per Dr. Baptiste's note 9) Thank you for this consultation
[2019-04-05] MEDS: ATORVASTATIN CA 80 MG TABLET (FP) PO SCH (21:50)
[2019-04-05] MEDS: SENNOSIDES 8.6MG TABLET (FP) PO SCH (21:50)
[2019-04-06] MEDS: oxyCODONE HCL 5 MG TABLET PO PRN ×3 (08:39→21:06)
[2019-04-06 08:57] LABS: BASO % 0.6 % (0-2.0); EOS % 2.7 % (0-4.5); HEMATOCRIT 35.4 % (32.4-45.2); HEMOGLOBIN 11.4 GM/dL (10.7-15.3); LYMPH % 12.4 % (8-40); MCH 27.9 pg (25.7-33.7); MCHC 32.2 g/dl (32.0-36.0); MEAN CELL VOLUME 86.4 fl (80-96); MEAN PLT VOLUME 11.7 fl (7.5-11.1); MONO % 4.1 % (3.8-10.2); NEUT % 80.2 % (42.8-82.8); PLATELET COUNT 80 K/MM3 (134-434); RDW 17.4 % (11.6-15.6); WHITE BLOOD COUNT 8.6 K/mm3 (4.0-10.0)
[2019-04-06 09:16] LABS: ALBUMIN 3.1 g/dl (3.4-5.0); BILIRUBIN,TOTAL 0.4 mg/dL (0.2-1); BLOOD UREA NITROGEN 12.8 mg/dL (7-18); CALCIUM 9.4 mg/dL (8.5-10.1); CREATININE 0.8 mg/dL (0.55-1.3); MAGNESIUM 1.5 mg/dL (1.8-2.4); POTASSIUM 3.4 mmol/L (3.5-5.1); TOT PROT 6.3 g/dl (6.4-8.2)
[2019-04-06 09:19] LABS: INR 0.93 (0.83-1.09)
[2019-04-06 09:22] LABS: ACTIVATED PTT 32.3 SECONDS (25.2-36.5)
[2019-04-06] MEDS ORDERED: POTASSIUM CHLORIDE TABS 20 MEQ TABLET.ER (FP) PO ONE (09:37)
[2019-04-06] MEDS: LISINOPRIL 20 MG TABLET (FP) PO SCH (10:20)
[2019-04-06] MEDS: PANTOPRAZOLE 40 MG TABLET PO SCH (10:20)
[2019-04-06] MEDS: metoPROLOL SUCCINATE 25 MG TAB.SR.24H (FP) PO SCH (10:20)
[2019-04-06] MEDS: DOCUSATE SODIUM 100 MG CAPSULE (FP) PO SCH (10:20)
[2019-04-06] MEDS: FLUoxetine HCL 20 MG CAPSULE PO SCH (10:20)
--- NOTE | 2019-04-06 11:33 | PN ---
Physical Exam: SUBJECTIVE: Patient seen and examined at the bedside. feels well, denies any vaginal bleeding, only scant amount overnight, none now. + constipation OBJECTIVE: Patient is a 59 year old female with a significant past medical history of CVA with right sided sided residual deficit, diabetes II (on home insulin), hypertension, hld, morbid obesity, peptic ulcer disease UGIB requiring sclerotherapy in 02/2019 at [facility]. Her other history includes DVT and PE several years ago and recently taken off of Eliquis due to UGIB requiring ICU hospitalization at [facility]. She is s/p cystocele repair and removal of adhesions POD with Dr. Sifuentes. Incidentally found to have thrombocytopenia on routine labs. Platelets continued to trend down and being monitored closely as she is a high risk for bleeding. Hematology following and labs pending. Patient reports incomplete emptying of her bladder, will have primary RN check post void residual. cancelled mammogram for patient as it can be done as an outpatient Vital Signs Period Temp Pulse Resp BP Sys/Stokes Pulse Ox Last 24 Hr 97.8 F-98.1 F 54-63 17-20 114-126/60-78 96 GENERAL: The patient is awake, alert, and fully oriented, in no acute distress. tolerating room air. denies any bleeding. eating well, HEAD: Normal with no signs of trauma. EYES: PERRL, extraocular movements intact, sclera anicteric, conjunctiva clear. No ptosis. ENT: Ears normal, nares patent, oropharynx clear without exudates, moist mucous membranes. NECK: Trachea midline, full range of motion, supple. LUNGS: Breath sounds equal, clear to auscultation bilaterally, no wheezes HEART: Regular rate and rhythm ABDOMEN: Soft, nontender, nondistended, normoactive bowel sounds EXTREMITIES: no edema. NEUROLOGICAL: Normal speech, gait not observed. PSYCH: Normal mood, normal affect. SKIN: Warm, dry, normal turgor, no rashes or lesions noted Laboratory Results - last 24 hr 04/05/19 04/05/19 04/05/19 09:13 09:13 16:27 WBC RBC Hgb Hct MCV MCH MCHC RDW Plt Count MPV Absolute Neuts (auto) Neutrophils % Lymphocytes % Monocytes % Eosinophils % Basophils % Nucleated RBC % Plt Clumps, Citrate Platelet Comment ESR PT with INR INR PTT (Actin FS) Fibrinogen Sodium 140 Potassium 3.6 Chloride 109 H Carbon Dioxide 25 Anion Gap 6 L BUN 13.5 Creatinine 0.8 Est GFR (CKD-EPI)AfAm 93.53 Est GFR (CKD-EPI)NonAf 80.70 POC Glucometer 175 Random Glucose 163 H Calcium 8.3 L Magnesium 1.5 L Total Bilirubin 0.3 AST 11 L ALT 12 L Alkaline Phosphatase 97 C-Reactive Protein Total Protein 5.8 L Albumin 2.8 L Vitamin B12 296 Serum Folate 7 TSH 2.12 Free T4 1.18 04/06/19 04/06/19 04/06/19 06:17 08:00 08:00 WBC RBC Hgb Hct MCV MCH MCHC RDW Plt Count MPV Absolute Neuts (auto) Neutrophils % Lymphocytes % Monocytes % Eosinophils % Basophils % Nucleated RBC % Plt Clumps, Citrate Platelet Comment ESR 39 H PT with INR INR PTT (Actin FS) Fibrinogen Sodium 138 Potassium 3.4 L Chloride 105 Carbon Dioxide 27 Anion Gap 6 L BUN 12.8 Creatinine 0.8 Est GFR (CKD-EPI)AfAm 93.53 Est GFR (CKD-EPI)NonAf 80.70 POC Glucometer 80 Random Glucose 195 H Calcium 9.4 Magnesium 1.5 L Total Bilirubin 0.4 AST 16 ALT 15 Alkaline Phosphatase 113 C-Reactive Protein 1.7 H Total Protein 6.3 L Albumin 3.1 L Vitamin B12 Serum Folate TSH Free T4 04/06/19 04/06/19 04/06/19 08:00 08:00 08:00 WBC 8.6 RBC 4.10 Hgb 11.4 Hct 35.4 MCV 86.4 MCH 27.9 MCHC 32.2 RDW 17.4 H Plt Count 80 L MPV 11.7 H Absolute Neuts (auto) 6.9 Neutrophils % 80.2 D Lymphocytes % 12.4 D Monocytes % 4.1 Eosinophils % 2.7 Basophils % 0.6 Nucleated RBC % 0 Plt Clumps, Citrate Platelet Comment ESR PT with INR 11.00 INR 0.93 PTT (Actin FS) 32.3 Fibrinogen > 500.0 H Sodium Potassium Chloride Carbon Dioxide Anion Gap BUN Creatinine Est GFR (CKD-EPI)AfAm Est GFR (CKD-EPI)NonAf POC Glucometer Random Glucose Calcium Magnesium Total Bilirubin AST ALT Alkaline Phosphatase C-Reactive Protein Total Protein Albumin Vitamin B12 Serum Folate TSH Free T4 04/06/19 08:00 WBC RBC Hgb Hct MCV MCH MCHC RDW Plt Count MPV Absolute Neuts (auto) Neutrophils % Lymphocytes % Monocytes % Eosinophils % Basophils % Nucleated RBC % Plt Clumps, Citrate 57.0 L Platelet Comment ESR PT with INR INR PTT (Actin FS) Fibrinogen Sodium Potassium Chloride Carbon Dioxide Anion Gap BUN Creatinine Est GFR (CKD-EPI)AfAm Est GFR (CKD-EPI)NonAf POC Glucometer Random Glucose Calcium Magnesium Total Bilirubin AST ALT Alkaline Phosphatase C-Reactive Protein Total Protein Albumin Vitamin B12 Serum Folate TSH Free T4 Active Medications Generic Name Dose Route Start Last Admin Trade Name Freq PRN Reason Stop Dose Admin Albuterol Sulfate 1 amp 04/03/19 20:07 04/03/19 22:13 Ventolin 0.083% Nebulizer Soln - NEB 1 amp Q4H PRN Administration SHORT OF BREATH/WHEEZING Atorvastatin Calcium 80 mg 04/04/19 22:00 04/05/19 21:50 Lipitor - PO 80 mg HS [facility] Administration Docusate Sodium 100 mg 04/03/19 20:15 04/06/19 10:20 Colace - PO 100 mg DAILY [facility] Administration Fluoxetine HCl 20 mg 04/04/19 10:00 04/06/19 10:20 Prozac - PO 20 mg DAILY [facility] Administration Lisinopril 20 mg 04/04/19 10:00 04/06/19 10:20 Prinivil PO 20 mg DAILY [facility] Administration Metoprolol Succinate 25 mg 04/04/19 10:00 04/06/19 10:20 Toprol Xl - PO 25 mg DAILY [facility] Administration Ondansetron HCl 4 mg 04/03/19 17:13 Zofran Injection IVPUSH Q6H PRN NAUSEA AND/OR VOMITING Oxycodone HCl 5 mg 04/03/19 17:13 Roxicodone - PO Q4H PRN PAIN LEVEL 1-5 Oxycodone HCl 10 mg 04/03/19 17:13 04/06/19 08:39 Roxicodone - PO 10 mg Q4H PRN Administration PAIN LEVEL 6-10 Pantoprazole Sodium 40 mg 04/03/19 20:15 04/06/19 10:20 Protonix - PO 40 mg DAILY [facility] Administration Promethazine HCl 12.5 mg 04/03/19 17:13 Phenergan Injection - IVPUSH Q6H PRN NAUSEA-FOR RESCUE AFTER 15 MIN Senna 1 tab 04/03/19 22:00 04/05/19 21:50 Senna - PO 1 tab HS [facility] Administration ASSESSMENT/PLAN: Problem List - Problems (1) Cystocele Assessment/Plan: POD#3 Patient is s/p vaginal exploration and cystocele repair post op monitoring: pain management, incentive spirometer, monitor urine output , monitor for any signs of bleeding. early ambulation, physical therapy camacho removed by urologist and patient is voiding will do a post void residual Code(s): VLK1413 - (2) Diabetes Assessment/Plan: reports elevated blood sugars at home, hmga1c 7.0 mantain bgms <180 fasting on novolog ss Code(s): E11.9 - TYPE 2 DIABETES MELLITUS WITHOUT COMPLICATIONS (3) Thrombocytopenia Assessment/Plan: platelets 92>74>80, no signs of bleeding noted. normal spleen on 05/2018 abd/ct hematology consulted, notes reviewed attemptiong to obtain records from [facility] (recent admission 2018) Code(s): D69.6 - THROMBOCYTOPENIA, UNSPECIFIED (4) History of CVA (cerebrovascular accident) Assessment/Plan: on lipitor 80 hs not on asa due to recent history of upper gi bleed will order physical therapy for right sided weakness Code(s): Z86.73 - PRSNL HX OF TIA (TIA), AND CEREB INFRC W/O RESID DEFICITS (5) DVT (deep venous thrombosis) Assessment/Plan: was on eliquis but stopped recently at [facility] due to acute upper gi bleed. Code(s): I82.409 - ACUTE EMBOLISM AND THOMBOS UNSP DEEP VN UNSP LOWER EXTREMITY Qualifiers: Laterality: unspecified laterality (6) Pulmonary embolism Assessment/Plan: was on eliquis but stopped recently at [facility] due to acute upper gi bleed no shortness of breath will refer to her PCP to determine if and when patient can restart anticoagulation Code(s): I26.99 - OTHER PULMONARY EMBOLISM WITHOUT ACUTE COR PULMONALE (7) Hypertension Assessment/Plan: controlled on Metoprolol, Lisinopril Code(s): I10 - ESSENTIAL (PRIMARY) HYPERTENSION (8) HLD (hyperlipidemia) Assessment/Plan: on lipitor 80 Code(s): E78.5 - HYPERLIPIDEMIA, UNSPECIFIED (9) DVT prophylaxis Assessment/Plan: SCDs only, had recent ugib last month and now with thrombocytopenia Code(s): Z29.9 - ENCOUNTER FOR PROPHYLACTIC MEASURES, UNSPECIFIED (10) Prophylactic measure Assessment/Plan: fen diabetic diet repeat labs in a.m. monitor K full code protonix daily Code(s): Z29.9 - ENCOUNTER FOR PROPHYLACTIC MEASURES, UNSPECIFIED Visit type - Emergency Visit Emergency Visit: Yes ED Registration Date: 04/03/19 Care time: The patient presented to the Emergency Department on the above date and was hospitalized for further evaluation of their emergent condition. - New Patient This patient is new to me today: No - Critical Care Critical Care patient: No - Discharge Referral Referred to [facility] Med P.C.: No
[2019-04-06] MEDS ORDERED: BISACODYL 10 MG SUPP.RECT RC ONE (11:48)
[2019-04-06] MEDS: CEPHALEXIN MONOHYDRATE 500 MG CAPSULE (UD) PO SCH ×2 (14:40→21:06)
--- NOTE | 2019-04-06 16:41 | PN ---
Progress Note (short form) - Note Progress Note: Patient seen and examined Previously in 06/2018 - normal platelet count on 04/04/2019 at 7:05 AM ( pre surgery- platelets -92K) Current platelets remain at 80K In blue toe --> no change - i.e. not pseudothrombocytopenia Normal coags- against DIC remainder of work up pending Timing against HIT Last Vital Signs Temp Pulse Resp BP Pulse Ox 97.8 F 60 20 111/61 100 04/06/19 14:37 04/06/19 14:37 04/06/19 14:37 04/06/19 14:37 04/06/19 09:00 Cor: RSR, No murmurs, No gallops Lungs: Clear to P&A Abd: Soft, Normal bowel sounds, No organomegaly Ext:No significant edema Skin: No rashes, Integument intact Current Medications Generic Name Dose Route Start Last Admin Trade Name Freq PRN Reason Stop Dose Admin Albuterol Sulfate 1 amp 04/03/19 20:07 04/03/19 22:13 Ventolin 0.083% Nebulizer Soln - NEB 1 amp Q4H PRN Administration SHORT OF BREATH/WHEEZING Atorvastatin Calcium 80 mg 04/04/19 22:00 04/05/19 21:50 Lipitor - PO 80 mg HS [facility] Administration Cephalexin HCl 500 mg 04/06/19 14:00 04/06/19 14:40 Keflex - PO 500 mg TID [facility] Administration Docusate Sodium 100 mg 04/03/19 20:15 04/06/19 10:20 Colace - PO 100 mg DAILY [facility] Administration Fluoxetine HCl 20 mg 04/04/19 10:00 04/06/19 10:20 Prozac - PO 20 mg DAILY [facility] Administration Insulin Aspart 1 vial 04/06/19 16:30 Novolog Vial Sliding Scale - SQ ACHS [facility] Protocol Lisinopril 20 mg 04/04/19 10:00 04/06/19 10:20 Prinivil PO 20 mg DAILY [facility] Administration Metoprolol Succinate 25 mg 04/04/19 10:00 04/06/19 10:20 Toprol Xl - PO 25 mg DAILY [facility] Administration Ondansetron HCl 4 mg 04/03/19 17:13 Zofran Injection IVPUSH Q6H PRN NAUSEA AND/OR VOMITING Oxycodone HCl 5 mg 04/03/19 17:13 Roxicodone - PO Q4H PRN PAIN LEVEL 1-5 Oxycodone HCl 10 mg 04/03/19 17:13 04/06/19 15:05 Roxicodone - PO 10 mg Q4H PRN Administration PAIN LEVEL 6-10 Pantoprazole Sodium 40 mg 04/03/19 20:15 04/06/19 10:20 Protonix - PO 40 mg DAILY [facility] Administration Promethazine HCl 12.5 mg 04/03/19 17:13 Phenergan Injection - IVPUSH Q6H PRN NAUSEA-FOR RESCUE AFTER 15 MIN Senna 1 tab 04/03/19 22:00 04/05/19 21:50 Senna - PO 1 tab HS [facility] Administration Impression: Thrombocytopenia which seems to have been present PRIOR to surgery and before any exposures to anticoagulants. Past hx of DVT Past hx of GI bleed S/P surgery. Plan: as before - work up for thrombocytopenia underway.
[2019-04-06] MEDS: INSULIN SLIDING SCALE (NOVOLOG) 1 VIAL SQ SCH ×2 (17:06→21:07)
[2019-04-06 18:10] LABS: EPI CELLS 5.6 /HPF (0-5/HPF); HYALINE CASTS 9 /lpf (0-8); PH,URINE 6.5 (5.0-8.0); URINE APPEARANCE CLEAR; URINE BACTERIA 86.4 /hpf (NEGATIVE); URINE BILIRUBIN NEGATIVE (NEGATIVE); URINE COLOR YELLOW; URINE GLUCOSE (UA) 2+ (NEGATIVE); URINE KETONE NEGATIVE (NEGATIVE); URINE LEUK ESTERASE 1+ (NEGATIVE); URINE NITRITE NEGATIVE (NEGATIVE); URINE PROTEIN 1+ (NEGATIVE); URINE RBC 58 /hpf (0-4); URINE WBC 22 /hpf (0-5)
[2019-04-06] MEDS: ATORVASTATIN CA 80 MG TABLET (FP) PO SCH (21:06)
[2019-04-06] MEDS: SENNOSIDES 8.6MG TABLET (FP) PO SCH (21:06)
[2019-04-07] MEDS: oxyCODONE HCL 5 MG TABLET PO PRN ×3 (02:05→14:54)
[2019-04-07] MEDS: CEPHALEXIN MONOHYDRATE 500 MG CAPSULE (UD) PO SCH ×3 (06:07→21:20)
[2019-04-07] MEDS: INSULIN SLIDING SCALE (NOVOLOG) 1 VIAL SQ SCH ×4 (06:07→21:20)
[2019-04-07 08:10] LABS: BASO % 0.9 % (0-2.0); HEMATOCRIT 33.3 % (32.4-45.2); HEMOGLOBIN 10.9 GM/dL (10.7-15.3); LYMPH % 32.7 % (8-40); MCH 28.2 pg (25.7-33.7); MCHC 32.7 g/dl (32.0-36.0); MEAN CELL VOLUME 86.2 fl (80-96); MEAN PLT VOLUME 11.5 fl (7.5-11.1); NEUT % 53.4 % (42.8-82.8); PLATELET COUNT 78 K/MM3 (134-434); RBC 3.86 M/mm3 (3.60-5.2); RDW 17.3 % (11.6-15.6); WHITE BLOOD COUNT 5.5 K/mm3 (4.0-10.0)
[2019-04-07 08:41] LABS: ALBUMIN 3.1 g/dl (3.4-5.0); BILIRUBIN,TOTAL 0.4 mg/dL (0.2-1); BLOOD UREA NITROGEN 15.6 mg/dL (7-18); CREATININE 0.8 mg/dL (0.55-1.3); MAGNESIUM 1.4 mg/dL (1.8-2.4); POTASSIUM 3.9 mmol/L (3.5-5.1); TOT PROT 6.1 g/dl (6.4-8.2)
[2019-04-07] MEDS: PANTOPRAZOLE 40 MG TABLET PO SCH (10:04)
[2019-04-07] MEDS: metoPROLOL SUCCINATE 25 MG TAB.SR.24H (FP) PO SCH (10:04)
[2019-04-07] MEDS: MAGNESIUM OXIDE 400 MG TABLET (FP) PO SCH ×2 (10:04→21:20)
[2019-04-07] MEDS: LISINOPRIL 20 MG TABLET (FP) PO SCH (10:04)
[2019-04-07] MEDS: DOCUSATE SODIUM 100 MG CAPSULE (FP) PO SCH (10:04)
[2019-04-07] MEDS: FLUoxetine HCL 20 MG CAPSULE PO SCH (10:04)
--- NOTE | 2019-04-07 15:18 | PN ---
Physical Exam: SUBJECTIVE: Patient seen and examined, she reports vaginal bleeding but only changed her pad 3 times yesterday. her pcp: shmuel phelps [phone]. 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 Her other history includes DVT (1988) and PE (1990) and recently taken off of Eliquis due to UGIB requiring ICU hospitalization at [facility]. She is s/p cystocele repair and removal of adhesions POD with Dr. Sifuentes. found to have thrombocytopenia on routine labs. Platelets trend down and being monitored closely as she is a high risk for bleeding. Hematology following and labs pending. ----- Patient admitted at [facility] from 03/02/2019 to 03/07/2019 for coffee ground emesis in the setting of hypotension. Was on eliquis for dvt/pe and ibuprophen for chronic pain. noted to have multiple episodes of dark/coffee ground emesis and was intubated for worsening mentation and to protect airway and for hypovolemic/hemorrhagic shock 2/2 to massive upper gi bleed. she was transfused a total of 5 units of prbc and 2 units of ffp and 1 unit of platelets. also treated with protonix drip. hospital stay complicated with aspiration pneumonia. she was subsequently discharged on 03/07/2019 with GI close follow up but has not yet seen GI. Platelets were within normal ranges during that stay. Vital Signs Period Temp Pulse Resp BP Sys/Stokes Pulse Ox Last 24 Hr 97.8 F-99.1 F 57-73 19-20 115-134/64-76 100-100 GENERAL: The patient is awake, alert, and fully oriented, in no acute distress. tolerating room air. denies any bleeding. eating well, HEAD: Normal with no signs of trauma. EYES: PERRL, extraocular movements intact, sclera anicteric, conjunctiva clear. No ptosis. ENT: Ears normal, nares patent, oropharynx clear without exudates, moist mucous membranes. NECK: Trachea midline, full range of motion, supple. LUNGS: Breath sounds equal, clear to auscultation bilaterally, no wheezes HEART: Regular rate and rhythm ABDOMEN: Soft, nontender, nondistended, normoactive bowel sounds EXTREMITIES: no edema. NEUROLOGICAL: Normal speech, gait not observed. PSYCH: Normal mood, normal affect. SKIN: Warm, dry, normal turgor, no rashes or lesions noted Laboratory Results - last 24 hr 04/06/19 04/06/19 04/06/19 12:30 17:04 21:04 WBC RBC Hgb Hct MCV MCH MCHC RDW Plt Count MPV Absolute Neuts (auto) Neutrophils % Lymphocytes % Monocytes % Eosinophils % Basophils % Nucleated RBC % Sodium Potassium Chloride Carbon Dioxide Anion Gap BUN Creatinine Est GFR (CKD-EPI)AfAm Est GFR (CKD-EPI)NonAf POC Glucometer 149 233 Random Glucose Calcium Magnesium Total Bilirubin AST ALT Alkaline Phosphatase Total Protein Albumin Urine Color Yellow Urine Appearance Clear Urine pH 6.5 Ur Specific Zullinger 1.025 Urine Protein 1+ H Urine Glucose (UA) 2+ H Urine Ketones Negative Urine Blood 2+ H Urine Nitrite Negative Urine Bilirubin Negative Urine Urobilinogen 1.0 Ur Leukocyte Esterase 1+ H Urine WBC (Auto) 22 Urine RBC (Auto) 58 Urine Casts (Auto) 9 U Epithel Cells (Auto) 5.6 Urine Bacteria (Auto) 86.4 04/07/19 04/07/19 04/07/19 05:52 07:25 07:25 WBC 5.5 RBC 3.86 Hgb 10.9 Hct 33.3 MCV 86.2 MCH 28.2 MCHC 32.7 RDW 17.3 H Plt Count 78 L MPV 11.5 H Absolute Neuts (auto) 2.9 Neutrophils % 53.4 D Lymphocytes % 32.7 D Monocytes % 8.0 D Eosinophils % 5.0 H D Basophils % 0.9 Nucleated RBC % 0 Sodium 139 Potassium 3.9 Chloride 106 Carbon Dioxide 27 Anion Gap 6 L BUN 15.6 Creatinine 0.8 Est GFR (CKD-EPI)AfAm 93.53 Est GFR (CKD-EPI)NonAf 80.70 POC Glucometer 301 Random Glucose 153 H Calcium 9.0 Magnesium 1.4 L Total Bilirubin 0.4 AST 14 L ALT 17 Alkaline Phosphatase 120 H Total Protein 6.1 L Albumin 3.1 L Urine Color Urine Appearance Urine pH Ur Specific Zullinger Urine Protein Urine Glucose (UA) Urine Ketones Urine Blood Urine Nitrite Urine Bilirubin Urine Urobilinogen Ur Leukocyte Esterase Urine WBC (Auto) Urine RBC (Auto) Urine Casts (Auto) U Epithel Cells (Auto) Urine Bacteria (Auto) 04/07/19 11:10 WBC RBC Hgb Hct MCV MCH MCHC RDW Plt Count MPV Absolute Neuts (auto) Neutrophils % Lymphocytes % Monocytes % Eosinophils % Basophils % Nucleated RBC % Sodium Potassium Chloride Carbon Dioxide Anion Gap BUN Creatinine Est GFR (CKD-EPI)AfAm Est GFR (CKD-EPI)NonAf POC Glucometer 119 Random Glucose Calcium Magnesium Total Bilirubin AST ALT Alkaline Phosphatase Total Protein Albumin Urine Color Urine Appearance Urine pH Ur Specific Zullinger Urine Protein Urine Glucose (UA) Urine Ketones Urine Blood Urine Nitrite Urine Bilirubin Urine Urobilinogen Ur Leukocyte Esterase Urine WBC (Auto) Urine RBC (Auto) Urine Casts (Auto) U Epithel Cells (Auto) Urine Bacteria (Auto) Active Medications Generic Name Dose Route Start Last Admin Trade Name Freq PRN Reason Stop Dose Admin Albuterol Sulfate 1 amp 04/03/19 20:07 04/03/19 22:13 Ventolin 0.083% Nebulizer Soln - NEB 1 amp Q4H PRN Administration SHORT OF BREATH/WHEEZING Atorvastatin Calcium 80 mg 04/04/19 22:00 04/06/19 21:06 Lipitor - PO 80 mg HS CHINMAY Administration Cephalexin HCl 500 mg 04/06/19 14:00 04/07/19 14:54 Keflex - PO 500 mg TID CHINMAY Administration Docusate Sodium 100 mg 04/03/19 20:15 04/07/19 10:04 Colace - PO 100 mg DAILY CHINMAY Administration Fluoxetine HCl 20 mg 04/04/19 10:00 04/07/19 10:04 Prozac - PO 20 mg DAILY CHINMAY Administration Insulin Aspart 1 vial 04/06/19 16:30 04/07/19 11:05 Novolog Vial Sliding Scale - SQ Not Given ACHS CHINMAY Protocol Lisinopril 20 mg 04/04/19 10:00 04/07/19 10:04 Prinivil PO 20 mg DAILY CHINMAY Administration Magnesium Oxide 400 mg 04/07/19 10:00 04/07/19 10:04 Mag-Ox - PO 400 mg BID CHINMAY Administration Metoprolol Succinate 25 mg 04/04/19 10:00 04/07/19 10:04 Toprol Xl - PO 25 mg DAILY CHINMAY Administration Ondansetron HCl 4 mg 04/03/19 17:13 Zofran Injection IVPUSH Q6H PRN NAUSEA AND/OR VOMITING Oxycodone HCl 5 mg 04/03/19 17:13 Roxicodone - PO Q4H PRN PAIN LEVEL 1-5 Oxycodone HCl 10 mg 04/03/19 17:13 04/07/19 14:54 Roxicodone - PO 10 mg Q4H PRN Administration PAIN LEVEL 6-10 Pantoprazole Sodium 40 mg 04/03/19 20:15 04/07/19 10:04 Protonix - PO 40 mg DAILY CHINMAY Administration Promethazine HCl 12.5 mg 04/03/19 17:13 Phenergan Injection - IVPUSH Q6H PRN NAUSEA-FOR RESCUE AFTER 15 MIN Senna 1 tab 04/03/19 22:00 04/06/19 21:06 Senna - PO 1 tab HS CHINMAY Administration ASSESSMENT/PLAN: Problem List - Problems (1) Cystocele Assessment/Plan: POD#4 Patient is s/p vaginal exploration and cystocele repair camacho removed by urologist and patient is voiding Code(s): [id number] - (2) Diabetes Assessment/Plan: reports elevated blood sugars at home, hmga1c 7.0 mantain bgms <180 fasting on novolog ss Code(s): E11.9 - TYPE 2 DIABETES MELLITUS WITHOUT COMPLICATIONS (3) Thrombocytopenia Assessment/Plan: platelets 78, some vaginal bleeding post surgery, hmg/hmt stable. repeat labs in a.m. and refer to hematology outpatient. will need to follow up with pcp Code(s): D69.6 - THROMBOCYTOPENIA, UNSPECIFIED (4) History of CVA (cerebrovascular accident) Assessment/Plan: on lipitor 80 hs not on asa due to recent history of upper gi bleed will order physical therapy for right sided weakness Code(s): Z86.73 - PRSNL HX OF TIA (TIA), AND CEREB INFRC W/O RESID DEFICITS (5) DVT (deep venous thrombosis) Assessment/Plan: was on eliquis but stopped recently at [facility] due to acute upper gi bleed. Code(s): I82.409 - ACUTE EMBOLISM AND THOMBOS UNSP DEEP VN UNSP LOWER EXTREMITY Qualifiers: Laterality: unspecified laterality (6) Pulmonary embolism Assessment/Plan: was on eliquis but stopped recently at [facility] due to acute upper gi bleed Code(s): I26.99 - OTHER PULMONARY EMBOLISM WITHOUT ACUTE COR PULMONALE (7) Hypertension Assessment/Plan: controlled on Metoprolol, Lisinopril Code(s): I10 - ESSENTIAL (PRIMARY) HYPERTENSION (8) HLD (hyperlipidemia) Assessment/Plan: on lipitor 80 Code(s): E78.5 - HYPERLIPIDEMIA, UNSPECIFIED (9) DVT prophylaxis Assessment/Plan: SCDs only, had recent ugib last month and now with thrombocytopenia Code(s): Z29.9 - ENCOUNTER FOR PROPHYLACTIC MEASURES, UNSPECIFIED (10) Prophylactic measure Assessment/Plan: fen diabetic diet repeat labs in a.m. monitor K full code protonix daily Code(s): Z29.9 - ENCOUNTER FOR PROPHYLACTIC MEASURES, UNSPECIFIED Visit type - Emergency Visit Emergency Visit: Yes ED Registration Date: 04/03/19 Care time: The patient presented to the Emergency Department on the above date and was hospitalized for further evaluation of their emergent condition. - New Patient This patient is new to me today: No - Critical Care Critical Care patient: No - Discharge Referral Referred to [facility] Med P.C.: No
[2019-04-07] MEDS: SENNOSIDES 8.6MG TABLET (FP) PO SCH (21:20)
[2019-04-07] MEDS: ATORVASTATIN CA 80 MG TABLET (FP) PO SCH (21:20)
[2019-04-08] MEDS: oxyCODONE HCL 5 MG TABLET PO PRN ×4 (00:47→22:02)
[2019-04-08] MEDS: CEPHALEXIN MONOHYDRATE 500 MG CAPSULE (UD) PO SCH ×3 (05:35→22:03)
[2019-04-08] MEDS: INSULIN SLIDING SCALE (NOVOLOG) 1 VIAL SQ SCH ×4 (06:25→22:03)
[2019-04-08 07:36] LABS: BILIRUBIN,TOTAL 0.2 mg/dL (0.2-1); BLOOD UREA NITROGEN 17.2 mg/dL (7-18); CALCIUM 9.1 mg/dL (8.5-10.1); CREATININE 0.9 mg/dL (0.55-1.3); MAGNESIUM 1.5 mg/dL (1.8-2.4); POTASSIUM 3.9 mmol/L (3.5-5.1); TOT PROT 6.2 g/dl (6.4-8.2)
[2019-04-08 07:49] LABS: BASO % 0.9 % (0-2.0); HEMATOCRIT 32.3 % (32.4-45.2); HEMOGLOBIN 10.4 GM/dL (10.7-15.3); MCH 27.8 pg (25.7-33.7); MCHC 32.2 g/dl (32.0-36.0); MEAN CELL VOLUME 86.4 fl (80-96); MONO % 8.6 % (3.8-10.2); NEUT % 55.5 % (42.8-82.8); PLATELET COUNT 79 K/MM3 (134-434); RBC 3.74 M/mm3 (3.60-5.2); RDW 16.9 % (11.6-15.6); WHITE BLOOD COUNT 6.2 K/mm3 (4.0-10.0)
[2019-04-08] MEDS: FLUoxetine HCL 20 MG CAPSULE PO SCH (09:22)
[2019-04-08] MEDS: MAGNESIUM OXIDE 400 MG TABLET (FP) PO SCH ×2 (09:22→22:03)
[2019-04-08] MEDS: PANTOPRAZOLE 40 MG TABLET PO SCH (09:22)
[2019-04-08] MEDS: LISINOPRIL 20 MG TABLET (FP) PO SCH (09:22)
[2019-04-08] MEDS: DOCUSATE SODIUM 100 MG CAPSULE (FP) PO SCH (09:22)
[2019-04-08] MEDS: metoPROLOL SUCCINATE 25 MG TAB.SR.24H (FP) PO SCH (09:22)
[2019-04-08 13:51] LABS: ANISOCYTOSIS 1+; MACROCYTOSIS 0; PLATELET ESTIMATE DECREASED
--- NOTE | 2019-04-08 15:53 | PN ---
Physical Exam: SUBJECTIVE: Patient seen and examined OBJECTIVE: Patient is a 59 year old female with a significant past medical history of CVA with right sided sided residual deficit, diabetes II (on home insulin), hypertension, hld, morbid obesity, peptic ulcer disease UGIB requiring sclerotherapy in 02/2019 at [facility]. Her other history includes DVT (1988) and PE (1990) and recently taken off of Eliquis due to UGIB requiring ICU hospitalization at [facility]. She is s/p cystocele repair and removal of adhesions POD with Dr. Sifuentes. found to have thrombocytopenia on routine labs. Platelets trend down and being monitored closely as she is a high risk for bleeding. Hematology following. Vital Signs Period Temp Pulse Resp BP Sys/Stokes Pulse Ox Last 24 Hr 98.3 F-98.8 F 57-65 18-20 112-117/62-66 98-100 GENERAL: The patient is awake, alert, and fully oriented, in no acute distress. tolerating room air. denies any bleeding. eating well, HEAD: Normal with no signs of trauma. EYES: PERRL, extraocular movements intact, sclera anicteric, conjunctiva clear. No ptosis. ENT: Ears normal, nares patent, oropharynx clear without exudates, moist mucous membranes. NECK: Trachea midline, full range of motion, supple. LUNGS: Breath sounds equal, clear to auscultation bilaterally, no wheezes HEART: Regular rate and rhythm ABDOMEN: Soft, nontender, nondistended, normoactive bowel sounds EXTREMITIES: no edema. NEUROLOGICAL: Normal speech, gait not observed. PSYCH: Normal mood, normal affect. SKIN: Warm, dry, normal turgor, no rashes or lesions noted Laboratory Results - last 24 hr 04/07/19 04/07/19 04/08/19 17:12 21:17 05:33 WBC RBC Hgb Hct MCV MCH MCHC RDW Plt Count MPV Absolute Neuts (auto) Neutrophils % Neutrophils % (Manual) Band Neutrophils % Lymphocytes % Lymphocytes % (Manual) Monocytes % Monocytes % (Manual) Eosinophils % Eosinophils % (Manual) Basophils % Basophils % (Manual) Myelocytes % (Man) Promyelocytes % (Man) Blast Cells % (Manual) Nucleated RBC % Metamyelocytes Hypochromia Platelet Estimate Polychromasia Poikilocytosis Anisocytosis Microcytosis Macrocytosis Sodium Potassium Chloride Carbon Dioxide Anion Gap BUN Creatinine Est GFR (CKD-EPI)AfAm Est GFR (CKD-EPI)NonAf POC Glucometer 175 188 197 Random Glucose Calcium Magnesium Total Bilirubin AST ALT Alkaline Phosphatase Total Protein Albumin 04/08/19 04/08/19 04/08/19 06:38 06:38 11:00 WBC 6.2 RBC 3.74 Hgb 10.4 L Hct 32.3 L MCV 86.4 MCH 27.8 MCHC 32.2 RDW 16.9 H Plt Count 79 L MPV 12.0 H Absolute Neuts (auto) 3.5 Neutrophils % 55.5 Neutrophils % (Manual) 58.7 Band Neutrophils % 1.0 Lymphocytes % 30.0 Lymphocytes % (Manual) 29.8 Monocytes % 8.6 Monocytes % (Manual) 7 Eosinophils % 5.0 H Eosinophils % (Manual) 3.8 Basophils % 0.9 Basophils % (Manual) 0.0 Myelocytes % (Man) 0 Promyelocytes % (Man) 0 Blast Cells % (Manual) 0 Nucleated RBC % 1 H Metamyelocytes 0 Hypochromia 1+ Platelet Estimate Decreased Polychromasia 1+ Poikilocytosis 1+ Anisocytosis 1+ Microcytosis 0 Macrocytosis 0 Sodium 137 Potassium 3.9 Chloride 104 Carbon Dioxide 28 Anion Gap 5 L BUN 17.2 Creatinine 0.9 Est GFR (CKD-EPI)AfAm 81.11 Est GFR (CKD-EPI)NonAf 69.99 POC Glucometer 179 Random Glucose 163 H Calcium 9.1 Magnesium 1.5 L Total Bilirubin 0.2 AST 18 ALT 18 Alkaline Phosphatase 116 Total Protein 6.2 L Albumin 3.0 L Active Medications Generic Name Dose Route Start Last Admin Trade Name Freq PRN Reason Stop Dose Admin Albuterol Sulfate 1 amp 04/03/19 20:07 04/03/19 22:13 Ventolin 0.083% Nebulizer Soln - NEB 1 amp Q4H PRN Administration SHORT OF BREATH/WHEEZING Amitriptyline HCl 50 mg 04/08/19 22:00 Elavil - PO HS CHINMAY Atorvastatin Calcium 80 mg 04/04/19 22:00 04/07/19 21:20 Lipitor - PO 80 mg HS CHINMAY Administration Buspirone HCl 30 mg 04/08/19 22:00 Buspar - PO BID CHINMAY Cephalexin HCl 500 mg 04/06/19 14:00 04/08/19 13:01 Keflex - PO 500 mg TID CHINMAY Administration Docusate Sodium 100 mg 04/03/19 20:15 04/08/19 09:22 Colace - PO 100 mg DAILY CHINMAY Administration Fluoxetine HCl 20 mg 04/04/19 10:00 04/08/19 09:22 Prozac - PO 20 mg DAILY CHINMAY Administration Insulin Aspart 1 vial 04/06/19 16:30 04/08/19 11:09 Novolog Vial Sliding Scale - SQ 2 units ACHS CHINMAY Administration Protocol Lisinopril 20 mg 04/04/19 10:00 04/08/19 09:22 Prinivil PO 20 mg DAILY CHINMAY Administration Magnesium Oxide 400 mg 04/07/19 10:00 04/08/19 09:22 Mag-Ox - PO 400 mg BID CHINMAY Administration Metoprolol Succinate 25 mg 04/04/19 10:00 04/08/19 09:22 Toprol Xl - PO 25 mg DAILY CHINMAY Administration Ondansetron HCl 4 mg 04/03/19 17:13 Zofran Injection IVPUSH Q6H PRN NAUSEA AND/OR VOMITING Oxycodone HCl 5 mg 04/03/19 17:13 Roxicodone - PO Q4H PRN PAIN LEVEL 1-5 Oxycodone HCl 10 mg 04/03/19 17:13 04/08/19 15:04 Roxicodone - PO 10 mg Q4H PRN Administration PAIN LEVEL 6-10 Pantoprazole Sodium 40 mg 04/03/19 20:15 04/08/19 09:22 Protonix - PO 40 mg DAILY CHINMAY Administration Promethazine HCl 12.5 mg 04/03/19 17:13 Phenergan Injection - IVPUSH Q6H PRN NAUSEA-FOR RESCUE AFTER 15 MIN Senna 1 tab 04/03/19 22:00 04/07/19 21:20 Senna - PO 1 tab HS CHINMAY Administration ASSESSMENT/PLAN: Problem List - Problems (1) Cystocele Assessment/Plan: POD#5 Patient is s/p vaginal exploration and cystocele repair camacho removed by urologist and patient is voiding Code(s): GXT1205 - (2) Diabetes Assessment/Plan: reports elevated blood sugars at home, hmga1c 7.0 mantain bgms <180 fasting on novolog ss Code(s): E11.9 - TYPE 2 DIABETES MELLITUS WITHOUT COMPLICATIONS (3) Thrombocytopenia Assessment/Plan: platelets 78, some vaginal bleeding post surgery, hmg/hmt stable. repeat labs in a.m. and refer to hematology outpatient. will need to follow up with pcp Code(s): D69.6 - THROMBOCYTOPENIA, UNSPECIFIED (4) History of CVA (cerebrovascular accident) Assessment/Plan: on lipitor 80 hs not on asa due to recent history of upper gi bleed will order physical therapy for right sided weakness Code(s): Z86.73 - PRSNL HX OF TIA (TIA), AND CEREB INFRC W/O RESID DEFICITS (5) DVT (deep venous thrombosis) Assessment/Plan: was on eliquis but stopped recently at [facility] due to acute upper gi bleed. Code(s): I82.409 - ACUTE EMBOLISM AND THOMBOS UNSP DEEP VN UNSP LOWER EXTREMITY Qualifiers: Laterality: unspecified laterality (6) Pulmonary embolism Assessment/Plan: was on eliquis but stopped recently at [facility] due to acute upper gi bleed Code(s): I26.99 - OTHER PULMONARY EMBOLISM WITHOUT ACUTE COR PULMONALE (7) Hypertension Assessment/Plan: controlled on Metoprolol, Lisinopril Code(s): I10 - ESSENTIAL (PRIMARY) HYPERTENSION (8) HLD (hyperlipidemia) Assessment/Plan: on lipitor 80 Code(s): E78.5 - HYPERLIPIDEMIA, UNSPECIFIED (9) DVT prophylaxis Assessment/Plan: SCDs only, had recent ugib last month and now with thrombocytopenia Code(s): Z29.9 - ENCOUNTER FOR PROPHYLACTIC MEASURES, UNSPECIFIED (10) Prophylactic measure Assessment/Plan: fen diabetic diet repeat labs in a.m. monitor K full code protonix daily Code(s): Z29.9 - ENCOUNTER FOR PROPHYLACTIC MEASURES, UNSPECIFIED Visit type - Emergency Visit Emergency Visit: Yes ED Registration Date: 04/03/19 Care time: The patient presented to the Emergency Department on the above date and was hospitalized for further evaluation of their emergent condition. - New Patient This patient is new to me today: No - Critical Care Critical Care patient: No - Discharge Referral Referred to [facility] Med P.C.: No
[2019-04-08] MEDS ORDERED: busPIRone HCL 10 MG TABLET (FP) PO SCH (22:00)
[2019-04-08] MEDS ORDERED: AMITRIPTYLINE HCL 25 MG TABLET PO SCH (22:00)
[2019-04-08] MEDS: SENNOSIDES 8.6MG TABLET (FP) PO SCH (22:02)
[2019-04-08] MEDS: ATORVASTATIN CA 80 MG TABLET (FP) PO SCH (22:03)
[2019-04-09] MEDS: oxyCODONE HCL 5 MG TABLET PO PRN ×4 (02:23→21:57)
[2019-04-09] MEDS: CEPHALEXIN MONOHYDRATE 500 MG CAPSULE (UD) PO SCH ×3 (05:27→21:45)
[2019-04-09] MEDS: INSULIN SLIDING SCALE (NOVOLOG) 1 VIAL SQ SCH ×4 (07:13→21:45)
[2019-04-09 08:17] LABS: BASO % 1.3 % (0-2.0); EOS % 5.6 % (0-4.5); HEMATOCRIT 33.2 % (32.4-45.2); LYMPH % 27.7 % (8-40); MCH 28.5 pg (25.7-33.7); MCHC 33.1 g/dl (32.0-36.0); MEAN CELL VOLUME 86.2 fl (80-96); MEAN PLT VOLUME 11.6 fl (7.5-11.1); MONO % 7.2 % (3.8-10.2); NEUT % 58.2 % (42.8-82.8); PLATELET COUNT 64 K/MM3 (134-434); RBC 3.85 M/mm3 (3.60-5.2); RDW 17.4 % (11.6-15.6); WHITE BLOOD COUNT 5.8 K/mm3 (4.0-10.0)
[2019-04-09 08:53] LABS: ALBUMIN 3.1 g/dl (3.4-5.0); BILIRUBIN,TOTAL 0.3 mg/dL (0.2-1); BLOOD UREA NITROGEN 17.8 mg/dL (7-18); CALCIUM 9.1 mg/dL (8.5-10.1); CREATININE 0.9 mg/dL (0.55-1.3); MAGNESIUM 1.6 mg/dL (1.8-2.4); TOT PROT 6.5 g/dl (6.4-8.2)
[2019-04-09] MEDS: PANTOPRAZOLE 40 MG TABLET PO SCH (09:26)
[2019-04-09] MEDS: metoPROLOL SUCCINATE 25 MG TAB.SR.24H (FP) PO SCH (09:26)
[2019-04-09] MEDS: FLUoxetine HCL 20 MG CAPSULE PO SCH (09:26)
[2019-04-09] MEDS: MAGNESIUM OXIDE 400 MG TABLET (FP) PO SCH ×2 (09:27→21:45)
[2019-04-09] MEDS: LISINOPRIL 20 MG TABLET (FP) PO SCH (09:27)
[2019-04-09] MEDS: DOCUSATE SODIUM 100 MG CAPSULE (FP) PO SCH (09:27)
[2019-04-09 11:02] LABS: ANISOCYTOSIS 0; MACROCYTOSIS 0; PLATELET ESTIMATE DECREASED
[2019-04-09] MEDS ORDERED: ACETAMINOPHEN 1000 MG/100 ML VIAL (NON FORMULARY) IVPB ONE (11:28)
--- NOTE | 2019-04-09 11:29 | PN ---
Physical Exam: SUBJECTIVE: Patient seen and examined, denies any further vaginal bleeding. having a flare of RA of left hand. will give tylenol iv x 1 now. 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 Her other history includes DVT (1988) and PE (1990) and recently taken off of Eliquis due to UGIB requiring ICU hospitalization at [facility]. She is s/p cystocele repair and removal of adhesions POD with Dr. Sifuentes. found to have thrombocytopenia on routine labs. Platelets trend down and being monitored closely as she is a high risk for bleeding. Hematology following. Patient admitted at [facility] ([facility]) from 03/02/2019 to 03/07/2019 for coffee ground emesis in the setting of hypotension. Was on eliquis for dvt/pe and ibuprophen for chronic pain. noted to have multiple episodes of dark/coffee ground emesis and was intubated for worsening mentation and to protect airway and for hypovolemic/hemorrhagic shock 2/2 to massive upper gi bleed. she was transfused a total of 5 units of prbc and 2 units of ffp and 1 unit of platelets. also treated with protonix drip. hospital stay complicated with aspiration pneumonia. she was subsequently discharged on 03/07/2019 with GI close follow up but has not yet seen GI. Platelets were within normal ranges during that stay. platelets 94>64. no signs of bleeding. no past hx of itp, has hx of cva, and recent ugib at [facility] Vital Signs Period Temp Pulse Resp BP Sys/Stokes Pulse Ox Last 24 Hr 98.1 F-98.6 F 58-75 16-20 99-114/54-75 98 GENERAL: The patient is awake, alert, and fully oriented, in no acute distress. tolerating room air. denies any bleeding. eating well, HEAD: Normal with no signs of trauma. EYES: PERRL, extraocular movements intact, sclera anicteric, conjunctiva clear. No ptosis. ENT: Ears normal, nares patent, oropharynx clear without exudates, moist mucous membranes. NECK: Trachea midline, full range of motion, supple. LUNGS: Breath sounds equal, clear to auscultation bilaterally, no wheezes HEART: Regular rate and rhythm ABDOMEN: Soft, nontender, nondistended, normoactive bowel sounds EXTREMITIES: no edema. left hand pain NEUROLOGICAL: Normal speech, gait not observed. PSYCH: Normal mood, normal affect. SKIN: Warm, dry, normal turgor, no rashes or lesions noted Laboratory Results - last 24 hr 04/06/19 04/08/19 04/08/19 08:00 06:38 16:20 WBC RBC Hgb Hct MCV MCH MCHC RDW Plt Count MPV Absolute Neuts (auto) Neutrophils % Neutrophils % (Manual) 58.7 Band Neutrophils % 1.0 Lymphocytes % Lymphocytes % (Manual) 29.8 Monocytes % Monocytes % (Manual) 7 Eosinophils % Eosinophils % (Manual) 3.8 Basophils % Basophils % (Manual) 0.0 Myelocytes % (Man) 0 Promyelocytes % (Man) 0 Blast Cells % (Manual) 0 Nucleated RBC % 1 H Metamyelocytes 0 Hypochromia 1+ Platelet Estimate Decreased Polychromasia 1+ Poikilocytosis 1+ Anisocytosis 1+ Microcytosis 0 Macrocytosis 0 Sodium Potassium Chloride Carbon Dioxide Anion Gap BUN Creatinine Est GFR (CKD-EPI)AfAm Est GFR (CKD-EPI)NonAf POC Glucometer 154 Random Glucose Calcium Magnesium Total Bilirubin AST ALT Alkaline Phosphatase Total Protein Albumin Heparin-Ind Plt Ab Scrn 0.388 04/08/19 04/09/19 04/09/19 22:01 05:23 07:39 WBC 5.8 RBC 3.85 Hgb 11.0 Hct 33.2 MCV 86.2 MCH 28.5 MCHC 33.1 RDW 17.4 H Plt Count 64 L MPV 11.6 H Absolute Neuts (auto) 3.4 Neutrophils % 58.2 Neutrophils % (Manual) 52.6 Band Neutrophils % 0.0 Lymphocytes % 27.7 Lymphocytes % (Manual) 20.6 D Monocytes % 7.2 Monocytes % (Manual) 7 Eosinophils % 5.6 H Eosinophils % (Manual) 12.4 H D Basophils % 1.3 Basophils % (Manual) 0.0 Myelocytes % (Man) 1 D Promyelocytes % (Man) 0 Blast Cells % (Manual) 0 Nucleated RBC % 0 Metamyelocytes 0 Hypochromia 0 Platelet Estimate Decreased Polychromasia 0 Poikilocytosis 0 Anisocytosis 0 Microcytosis 0 Macrocytosis 0 Sodium Potassium Chloride Carbon Dioxide Anion Gap BUN Creatinine Est GFR (CKD-EPI)AfAm Est GFR (CKD-EPI)NonAf POC Glucometer 236 262 Random Glucose Calcium Magnesium Total Bilirubin AST ALT Alkaline Phosphatase Total Protein Albumin Heparin-Ind Plt Ab Scrn 04/09/19 04/09/19 07:39 10:51 WBC RBC Hgb Hct MCV MCH MCHC RDW Plt Count MPV Absolute Neuts (auto) Neutrophils % Neutrophils % (Manual) Band Neutrophils % Lymphocytes % Lymphocytes % (Manual) Monocytes % Monocytes % (Manual) Eosinophils % Eosinophils % (Manual) Basophils % Basophils % (Manual) Myelocytes % (Man) Promyelocytes % (Man) Blast Cells % (Manual) Nucleated RBC % Metamyelocytes Hypochromia Platelet Estimate Polychromasia Poikilocytosis Anisocytosis Microcytosis Macrocytosis Sodium 136 Potassium 4.0 Chloride 102 Carbon Dioxide 27 Anion Gap 6 L BUN 17.8 Creatinine 0.9 Est GFR (CKD-EPI)AfAm 81.11 Est GFR (CKD-EPI)NonAf 69.99 POC Glucometer 178 Random Glucose 203 H Calcium 9.1 Magnesium 1.6 L Total Bilirubin 0.3 AST 22 ALT 17 Alkaline Phosphatase 126 H Total Protein 6.5 Albumin 3.1 L Heparin-Ind Plt Ab Scrn Active Medications Generic Name Dose Route Start Last Admin Trade Name Freq PRN Reason Stop Dose Admin Acetaminophen 1,000 mg 04/09/19 11:28 Ofirmev Injection - IVPB 04/09/19 11:29 ONCE ONE Albuterol Sulfate 1 amp 04/03/19 20:07 04/03/19 22:13 Ventolin 0.083% Nebulizer Soln - NEB 1 amp Q4H PRN Administration SHORT OF BREATH/WHEEZING Amitriptyline HCl 50 mg 04/08/19 22:00 Elavil - PO HS CHINMAY Atorvastatin Calcium 80 mg 04/04/19 22:00 04/08/19 22:03 Lipitor - PO 80 mg HS CHINMAY Administration Buspirone HCl 30 mg 04/08/19 22:00 Buspar - PO BID CHINMAY Cephalexin HCl 500 mg 04/06/19 14:00 04/09/19 05:27 Keflex - PO 500 mg TID CHINMAY Administration Docusate Sodium 100 mg 04/03/19 20:15 04/09/19 09:27 Colace - PO 100 mg DAILY CHINMAY Administration Fluoxetine HCl 20 mg 04/04/19 10:00 04/09/19 09:26 Prozac - PO 20 mg DAILY CHINMAY Administration Insulin Aspart 1 vial 04/06/19 16:30 04/09/19 10:58 Novolog Vial Sliding Scale - SQ 2 units ACHS CHINMAY Administration Protocol Lisinopril 20 mg 04/04/19 10:00 04/09/19 09:27 Prinivil PO 20 mg DAILY CHINMAY Administration Magnesium Oxide 400 mg 04/07/19 10:00 04/09/19 09:27 Mag-Ox - PO 400 mg BID CHINMAY Administration Metoprolol Succinate 25 mg 04/04/19 10:00 04/09/19 09:26 Toprol Xl - PO 25 mg DAILY CHINMAY Administration Ondansetron HCl 4 mg 04/03/19 17:13 Zofran Injection IVPUSH Q6H PRN NAUSEA AND/OR VOMITING Oxycodone HCl 5 mg 04/03/19 17:13 Roxicodone - PO Q4H PRN PAIN LEVEL 1-5 Oxycodone HCl 10 mg 04/03/19 17:13 04/09/19 08:44 Roxicodone - PO 10 mg Q4H PRN Administration PAIN LEVEL 6-10 Pantoprazole Sodium 40 mg 04/03/19 20:15 04/09/19 09:26 Protonix - PO 40 mg DAILY CHINMAY Administration Promethazine HCl 12.5 mg 04/03/19 17:13 Phenergan Injection - IVPUSH Q6H PRN NAUSEA-FOR RESCUE AFTER 15 MIN Senna 1 tab 04/03/19 22:00 04/08/19 22:02 Senna - PO 1 tab HS CHINMAY Administration ASSESSMENT/PLAN: Problem List - Problems (1) Cystocele Assessment/Plan: Patient is s/p vaginal exploration and cystocele repair camacho removed by urologist and patient is voiding no further bleeding, hmg/hct stable. Code(s): ERC2456 - (2) Diabetes Assessment/Plan: reports elevated blood sugars at home, hmga1c 7.0 mantain bgms <180 fasting on novolog ss Code(s): E11.9 - TYPE 2 DIABETES MELLITUS WITHOUT COMPLICATIONS (3) Thrombocytopenia Assessment/Plan: platelets 94>64, workup for thrombocytopenia pending wll need referral to hematology when discharged will need to follow up with pcp (attempted to make f/u appt, but kept on hold) Code(s): D69.6 - THROMBOCYTOPENIA, UNSPECIFIED (4) History of CVA (cerebrovascular accident) Assessment/Plan: on lipitor 80 hs not on asa due to recent history of upper gi bleed will order physical therapy for right sided weakness Code(s): Z86.73 - PRSNL HX OF TIA (TIA), AND CEREB INFRC W/O RESID DEFICITS (5) DVT (deep venous thrombosis) Assessment/Plan: was on eliquis but stopped recently at [facility] due to acute upper gi bleed. Code(s): I82.409 - ACUTE EMBOLISM AND THOMBOS UNSP DEEP VN UNSP LOWER EXTREMITY Qualifiers: Laterality: unspecified laterality (6) Pulmonary embolism Assessment/Plan: was on eliquis but stopped recently at [facility] due to acute upper gi bleed Code(s): I26.99 - OTHER PULMONARY EMBOLISM WITHOUT ACUTE COR PULMONALE (7) Hypertension Assessment/Plan: controlled on Metoprolol, Lisinopril Code(s): I10 - ESSENTIAL (PRIMARY) HYPERTENSION (8) HLD (hyperlipidemia) Assessment/Plan: on lipitor 80 Code(s): E78.5 - HYPERLIPIDEMIA, UNSPECIFIED (9) DVT prophylaxis Assessment/Plan: SCDs only, had recent ugib last month and now with thrombocytopenia Code(s): Z29.9 - ENCOUNTER FOR PROPHYLACTIC MEASURES, UNSPECIFIED (10) Prophylactic measure Assessment/Plan: fen diabetic diet repeat labs in a.m. monitor K full code protonix daily Code(s): Z29.9 - ENCOUNTER FOR PROPHYLACTIC MEASURES, UNSPECIFIED Visit type - Emergency Visit Emergency Visit: Yes ED Registration Date: 04/03/19 Care time: The patient presented to the Emergency Department on the above date and was hospitalized for further evaluation of their emergent condition. - New Patient This patient is new to me today: No - Critical Care Critical Care patient: No - Discharge Referral Referred to [facility] Med P.C.: No
[2019-04-09] MEDS: POLYETHYLENE GLYCOL 3350 119 GM BTL PO SCH (15:17)
--- NOTE | 2019-04-09 16:35 | PN ---
Progress Note (short form) - Note Progress Note: ID consult dictated imp/reccd 59 yo female admitted for urologic surgery with dr braxton on 04/03 noted to have Thrombocytoopenia (new) recently in hospital 03/02 to 03/07 for UGI bleed requiring ICU admit, 3 unit PRBC, s/p EGD with esophagitic and multiple gastric ulcers treated for aspiration pneumonia as well now with progressively decreasing platelet count on keflex post op asked to evaluate no fevers normal WBC cxray no infiltrate progressive thrombocytopenia- doubt infection without fever or leukocytosis not sure why she is on keflex- would d/w dr braxton check HIV (she consents) nothing to suggest UTI at this time Problem List - Problems (1) Thrombocytopenia Code(s): D69.6 - THROMBOCYTOPENIA, UNSPECIFIED (2) Cystocele Code(s): [id number] -
--- NOTE | 2019-04-09 17:40 | PN ---
Progress Note (short form) - Note Progress Note: Patient seen and examined Feels ok Last Vital Signs Temp Pulse Resp BP Pulse Ox 98.3 F 80 16 102/67 98 04/09/19 15:11 04/09/19 15:11 04/09/19 15:11 04/09/19 15:11 04/09/19 09:00 Cor: RSR, No murmurs, No gallops Lungs: Clear to P&A Abd: Soft, Normal bowel sounds, No organomegaly Ext:No significant edema Labs/Meds reviewed A/P 59 yo female admitted for urologic surgery with dr braxton on 04/03 noted to have Thrombocytoopenia (new) recently in hospital 03/02 to 03/07 for UGI bleed requiring ICU admit, 3 unit PRBC, s/p EGD with esophagitic and multiple gastric ulcers treated for aspiration pneumonia as well Past hx of DVT Past hx of GI bleed HIT negative new onst thrombocytopenia -- + antiplatelet abs ? ITP Seen by ID --no obvious infection B ---- will dose B12 folate/TSH --normal will check flow/FISH/cytogenetics Iron deficiency --mild anemia . will dose venofer CT a/p --ground glass opacities in lungs. Repeat was recommended Will repeat CT chest
[2019-04-09] MEDS ORDERED: CYANOCOBALAMIN (VITAMIN B-12) 1000 MCG/1 ML VIAL IM ONE (18:00)
[2019-04-09] MEDS ORDERED: IRON SUCROSE INJECTION 200 MG in SODIUM CHLORIDE 90 ML IVPB ONE (18:01)
--- NOTE | 2019-04-09 21:03 | CONS ---
INFECTIOUS DISEASE CONSULTATION DATE OF CONSULTATION: DATE OF DICTATION: 04/09/2019 This is a 59-year-old woman who was admitted for urologic surgery with Dr. Sifuentes on April 03. She was noted to have thrombocytopenia at that time, which was new. She was recently in the hospital March 02 through March 07 for upper GI bleeding. She was on anticoagulation as well as Motrin and Celebrex at that time. She required ICU admission, 3 units of blood. She required intubation, and she had endoscopy with esophagitis and multiple gastric ulcers. She was treated for aspiration pneumonia as well and discharged on the . Through the course of this admission from the , she has had progressively decreasing platelet count. She denies any fevers and chills. Of note, she was placed by Dr. Sifuentes on Keflex postoperatively. I am asked to see her to evaluate for infectious causes of her declining platelet count. She denies any fevers. She denies any chills. She is moving her bowels, and she otherwise feels well. PAST MEDICAL HISTORY: Extensive. She has a history of prior CVA with right- sided residual deficit. She has type 2 diabetes. She has a history of hypertension, hyperlipidemia, obesity, peptic ulcer disease, DVT, and PE. She has had also this prior urologic surgery done in October. She reports that many years ago, after the stroke, she was in a alf, and she developed a flesh-eating infection on a decubitus ulcer requiring admission and treatment, which has resolved completely. This urologic surgery was planned because she has a history of frequency, urgency, and dyspareunia and was felt to have vaginal adhesions and possible suture granuloma. SURGICAL HISTORY: Notable for knee replacement and, as stated before, she apparently had a decubitus that was debrided and treated. She has a history as well of appendectomy many years ago, breast reduction, and left knee replacement. SOCIAL HISTORY: She is a social drinker. She lives at home with her son. She is an active smoker. She smokes half a pack per day. She works at an office job. FAMILY HISTORY: Notable for father with heart disease, mother with diabetes. No history of cancer or stroke. ALLERGIES: She has no known drug allergies. MEDICATIONS: At home include metformin, MiraLAX, oxycodone, Remeron, Toprol, lisinopril, insulin, gabapentin, Advair, Prozac, Feosol, famotidine, B12, atorvastatin, and her Eliquis apparently and Celebrex and ibuprofen have been discontinued. REVIEW OF SYSTEMS: She has no cough. She has no shortness of breath. She has no dysuria. PHYSICAL EXAMINATION: General: She is a pleasant woman in no acute distress. Vital Signs: Temperature is 98.3, pulse of 80, blood pressure 102/67, respiratory rate 16. HEENT: She is normocephalic. Her eyes are anicteric. Neck: Supple. Lungs: Clear to auscultation. Heart: Regular rate and rhythm. Abdomen: Soft, nontender. Extremities: Without edema. Skin: She has no skin breakdown. LABORATORY DATA: Her white count is 5.8, hemoglobin 11, platelets are 64,000 with 12% eosinophils today. Her BUN is 6 and creatinine 0.9. Her alkaline phosphatase is 126. Albumin is 3.1. Her urine culture done on the tenth has 10,000-20,000 E. coli and 60,000-70,000 enterococcus which I do not feel represents a UTI. Imaging is as previously stated. She had a chest x-ray done that showed an enlarged heart, but no pneumonia. In summary, this is a 59-year-old woman with progressive thrombocytopenia. I doubt infection without fever or leukocytosis. s/p cystocele repai history of UGI bleed history orCVA history of PE /DVT Not sure why she is on Keflex. Would discuss with Dr. Sifuenets to see if this could be stopped. Would check her HIV; she consents. There is nothing to suggest any UTI or bacterial infection at this time. Would observe off antibiotics. VERNA ALCARAZ M.D. [id number]
[2019-04-09] MEDS ORDERED: INSULIN (NOVOLOG) ASPART 100 UNITS/ML 10ML VIAL ONE (21:41)
[2019-04-09] MEDS: SENNOSIDES 8.6MG TABLET (FP) PO SCH (21:45)
[2019-04-09] MEDS: ATORVASTATIN CA 80 MG TABLET (FP) PO SCH (21:45)
[2019-04-10] MEDS: oxyCODONE HCL 5 MG TABLET PO PRN ×5 (02:06→19:10)
[2019-04-10] MEDS: INSULIN SLIDING SCALE (NOVOLOG) 1 VIAL SQ SCH ×4 (06:21→22:45)
[2019-04-10] MEDS: CEPHALEXIN MONOHYDRATE 500 MG CAPSULE (UD) PO SCH (06:22)
[2019-04-10] MEDS ORDERED: INSULIN (NOVOLOG) ASPART 100 UNITS/ML 10ML VIAL ONE ×3 (06:24→22:03)
--- NOTE | 2019-04-10 08:08 | PN ---
Progress Note (short form) - Note Progress Note: UROLOGY NOTE: Pt voiding well. Abd soft, wound clean and dry. Urologically clear for discharge. D/C'ed ABx.
[2019-04-10 09:30] LABS: BASO % 1.2 % (0-2.0); EOS % 6.5 % (0-4.5); HEMATOCRIT 35.1 % (32.4-45.2); HEMOGLOBIN 11.8 GM/dL (10.7-15.3); MCH 28.7 pg (25.7-33.7); MCHC 33.5 g/dl (32.0-36.0); MEAN CELL VOLUME 85.8 fl (80-96); MEAN PLT VOLUME 11.8 fl (7.5-11.1); MONO % 7.5 % (3.8-10.2); NEUT % 57.8 % (42.8-82.8); PLATELET COUNT 71 K/MM3 (134-434); RBC 4.09 M/mm3 (3.60-5.2); RDW 17.2 % (11.6-15.6); WHITE BLOOD COUNT 6.2 K/mm3 (4.0-10.0)
[2019-04-10] MEDS: MAGNESIUM OXIDE 400 MG TABLET (FP) PO SCH ×2 (09:39→22:07)
[2019-04-10] MEDS: FLUoxetine HCL 20 MG CAPSULE PO SCH (09:39)
[2019-04-10] MEDS: DOCUSATE SODIUM 100 MG CAPSULE (FP) PO SCH (09:39)
[2019-04-10] MEDS: PANTOPRAZOLE 40 MG TABLET PO SCH (09:39)
[2019-04-10] MEDS: POLYETHYLENE GLYCOL 3350 119 GM BTL PO SCH (09:44)
--- NOTE | 2019-04-10 09:46 | PN ---
Physical Exam: SUBJECTIVE: Patient seen and examined at the bedside. reports vaginal bleeding today, 3 pads in last 24 hours. no dizziness, no nausea or vomiting. 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 Her other history includes DVT (1988) and PE (1990) and recently taken off of Eliquis due to UGIB requiring ICU hospitalization at [facility]. She is s/p cystocele repair and removal of adhesions POD with Dr. Sifuentes. here was found to have thrombocytopenia on routine labs. Platelets trend down and being monitored closely as she is a high risk for bleeding. Hematology following. per [facility] discharge paper work in chart: Patient admitted at [facility] from 03/02/2019 to 03/07/2019 for coffee ground emesis in the setting of hypotension. Was on eliquis for dvt/pe and ibuprophen for chronic pain. admitted for multiple episodes of dark/coffee ground emesis and was intubated for worsening mentation and to protect airway and for hypovolemic/hemorrhagic shock 2/2 to massive upper gi bleed. she was transfused a total of 5 units of prbc and 2 units of ffp and 1 unit of platelets. also treated with protonix drip. hospital stay complicated with aspiration pneumonia. she was subsequently discharged on 03/07/2019 with GI close follow up but has not yet seen GI. Platelets were within normal ranges during that stay. platelets 94>71. no signs of active bleeding, no petechie Period Temp Pulse Resp BP Sys/Stokes Pulse Ox Last 24 Hr 97.8 F-98.3 F 58-80 16-18 102-129/67-84 98 GENERAL: The patient is awake, alert, and fully oriented, in no acute distress. tolerating room air. eating well, HEAD: Normal with no signs of trauma. EYES: PERRL, extraocular movements intact, sclera anicteric, conjunctiva clear. No ptosis. ENT: Ears normal, nares patent, oropharynx clear without exudates, moist mucous membranes. NECK: Trachea midline, full range of motion, supple. LUNGS: Breath sounds equal, clear to auscultation bilaterally, no wheezes HEART: Regular rate and rhythm ABDOMEN: Soft, nontender, nondistended, normoactive bowel sounds EXTREMITIES: no edema. left hand pain NEUROLOGICAL: Normal speech, gait not observed. PSYCH: Normal mood, normal affect. SKIN: Warm, dry, normal turgor, no rashes or lesions noted Laboratory Results - last 24 hr 04/06/19 04/09/19 04/09/19 08:00 07:39 10:51 WBC RBC Hgb Hct MCV MCH MCHC RDW Plt Count MPV Absolute Neuts (auto) Neutrophils % Neutrophils % (Manual) 52.6 Band Neutrophils % 0.0 Lymphocytes % Lymphocytes % (Manual) 20.6 D Monocytes % Monocytes % (Manual) 7 Eosinophils % Eosinophils % (Manual) 12.4 H D Basophils % Basophils % (Manual) 0.0 Myelocytes % (Man) 1 D Promyelocytes % (Man) 0 Blast Cells % (Manual) 0 Nucleated RBC % Metamyelocytes 0 Hypochromia 0 Platelet Estimate Decreased Polychromasia 0 Poikilocytosis 0 Anisocytosis 0 Microcytosis 0 Macrocytosis 0 POC Glucometer 178 Anti-Plt GP Ib/IX Negative Anti-Plt GP IV Negative GP Ia/IIa Positive H Plasma Anti-Plt IIb/IIIa Negative HLA Class I Antibody Positive H 04/09/19 04/09/19 04/10/19 16:45 21:43 05:49 WBC RBC Hgb Hct MCV MCH MCHC RDW Plt Count MPV Absolute Neuts (auto) Neutrophils % Neutrophils % (Manual) Band Neutrophils % Lymphocytes % Lymphocytes % (Manual) Monocytes % Monocytes % (Manual) Eosinophils % Eosinophils % (Manual) Basophils % Basophils % (Manual) Myelocytes % (Man) Promyelocytes % (Man) Blast Cells % (Manual) Nucleated RBC % Metamyelocytes Hypochromia Platelet Estimate Polychromasia Poikilocytosis Anisocytosis Microcytosis Macrocytosis POC Glucometer 250 233 242 Anti-Plt GP Ib/IX Anti-Plt GP IV GP Ia/IIa Plasma Anti-Plt IIb/IIIa HLA Class I Antibody 04/10/19 08:13 WBC 6.2 RBC 4.09 Hgb 11.8 Hct 35.1 MCV 85.8 MCH 28.7 MCHC 33.5 RDW 17.2 H Plt Count 71 L MPV 11.8 H Absolute Neuts (auto) 3.6 Neutrophils % 57.8 Neutrophils % (Manual) Band Neutrophils % Lymphocytes % 27.0 Lymphocytes % (Manual) Monocytes % 7.5 Monocytes % (Manual) Eosinophils % 6.5 H Eosinophils % (Manual) Basophils % 1.2 Basophils % (Manual) Myelocytes % (Man) Promyelocytes % (Man) Blast Cells % (Manual) Nucleated RBC % 0 Metamyelocytes Hypochromia Platelet Estimate Polychromasia Poikilocytosis Anisocytosis Microcytosis Macrocytosis POC Glucometer Anti-Plt GP Ib/IX Anti-Plt GP IV GP Ia/IIa Plasma Anti-Plt IIb/IIIa HLA Class I Antibody Active Medications Generic Name Dose Route Start Last Admin Trade Name Freq PRN Reason Stop Dose Admin Albuterol Sulfate 1 amp 04/03/19 20:07 04/03/19 22:13 Ventolin 0.083% Nebulizer Soln - NEB 1 amp Q4H PRN Administration SHORT OF BREATH/WHEEZING Amitriptyline HCl 50 mg 04/08/19 22:00 Elavil - PO HS CHINMAY Atorvastatin Calcium 80 mg 04/04/19 22:00 04/09/19 21:45 Lipitor - PO 80 mg HS CHINMAY Administration Buspirone HCl 30 mg 04/08/19 22:00 Buspar - PO BID CHINMAY Cyanocobalamin 1,000 mcg 04/10/19 10:00 Vitamin B12 Injection - IM 04/10/19 10:01 ONCE ONE Docusate Sodium 100 mg 04/03/19 20:15 04/10/19 09:39 Colace - PO 100 mg DAILY CHINMAY Administration Fluoxetine HCl 20 mg 04/04/19 10:00 04/10/19 09:39 Prozac - PO 20 mg DAILY CHINMAY Administration Iron Sucrose 200 mg/ Sodium 110 mls @ 110 mls/hr 04/10/19 10:00 Chloride IVPB 04/10/19 10:59 ONCE ONE Insulin Aspart 1 vial 04/06/19 16:30 04/10/19 06:21 Novolog Vial Sliding Scale - SQ 4 units ACHS CHINMAY Administration Protocol Lisinopril 20 mg 04/04/19 10:00 04/09/19 09:27 Prinivil PO 20 mg DAILY CHINMAY Administration Magnesium Oxide 400 mg 04/07/19 10:00 04/10/19 09:39 Mag-Ox - PO 400 mg BID CHINMAY Administration Metoprolol Succinate 25 mg 04/04/19 10:00 04/09/19 09:26 Toprol Xl - PO 25 mg DAILY CHINMAY Administration Ondansetron HCl 4 mg 04/03/19 17:13 Zofran Injection IVPUSH Q6H PRN NAUSEA AND/OR VOMITING Oxycodone HCl 5 mg 04/03/19 17:13 Roxicodone - PO Q4H PRN PAIN LEVEL 1-5 Oxycodone HCl 10 mg 04/03/19 17:13 04/10/19 06:25 Roxicodone - PO 10 mg Q4H PRN Administration PAIN LEVEL 6-10 Pantoprazole Sodium 40 mg 04/03/19 20:15 04/10/19 09:39 Protonix - PO 40 mg DAILY CHINMAY Administration Polyethylene Glycol 17 gm 04/09/19 15:00 04/10/19 09:44 Miralax (For Daily Use) - PO 17 gm DAILY CHINMAY Administration Promethazine HCl 12.5 mg 04/03/19 17:13 Phenergan Injection - IVPUSH Q6H PRN NAUSEA-FOR RESCUE AFTER 15 MIN Senna 1 tab 04/03/19 22:00 04/09/19 21:45 Senna - PO 1 tab HS CHINMAY Administration ASSESSMENT/PLAN: Problem List - Problems (1) Cystocele Assessment/Plan: Patient is s/p vaginal exploration and cystocele repair on 04/02/2019 camacho removed by urologist and patient is voiding without difficulty no further bleeding, hmg/hct stable urology outpatient follow up Code(s): SIQ1103 - (2) Diabetes Assessment/Plan: reports elevated blood sugars at home, hmga1c 7.0 mantain bgms <180 fasting on novolog ss Code(s): E11.9 - TYPE 2 DIABETES MELLITUS WITHOUT COMPLICATIONS (3) Thrombocytopenia Assessment/Plan: platelets 94>64>71 thrombocytopenia of unknown etiology patient is a high risk for bleeding, had massive bleed 02/2019 at [facility] and now off all anticoagulation. Was previously on eliquis for CVA. workup for thrombocytopenia pending. being ruled out for lupus by rheumatology. wll need referral to hematology when discharged will need to follow up with pcp (attempted to make f/u appt, but kept on hold) Code(s): D69.6 - THROMBOCYTOPENIA, UNSPECIFIED (4) History of CVA (cerebrovascular accident) Assessment/Plan: on lipitor 80 hs not on asa due to recent history of upper gi bleed will order physical therapy for right sided weakness Code(s): Z86.73 - PRSNL HX OF TIA (TIA), AND CEREB INFRC W/O RESID DEFICITS (5) DVT (deep venous thrombosis) Assessment/Plan: was on eliquis but stopped recently at [facility] due to acute upper gi bleed. Code(s): I82.409 - ACUTE EMBOLISM AND THOMBOS UNSP DEEP VN UNSP LOWER EXTREMITY Qualifiers: Laterality: unspecified laterality (6) Pulmonary embolism Assessment/Plan: was on eliquis but stopped recently at [facility] due to acute upper gi bleed Code(s): I26.99 - OTHER PULMONARY EMBOLISM WITHOUT ACUTE COR PULMONALE (7) Hypertension Assessment/Plan: controlled on Metoprolol, Lisinopril Code(s): I10 - ESSENTIAL (PRIMARY) HYPERTENSION (8) HLD (hyperlipidemia) Assessment/Plan: on lipitor 80 Code(s): E78.5 - HYPERLIPIDEMIA, UNSPECIFIED (9) DVT prophylaxis Assessment/Plan: SCDs only, had recent ugib last month and now with thrombocytopenia Code(s): Z29.9 - ENCOUNTER FOR PROPHYLACTIC MEASURES, UNSPECIFIED (10) Prophylactic measure Assessment/Plan: fen diabetic diet repeat labs in a.m. monitor K full code protonix daily Code(s): Z29.9 - ENCOUNTER FOR PROPHYLACTIC MEASURES, UNSPECIFIED Visit type - Emergency Visit Emergency Visit: Yes ED Registration Date: 04/03/19 Care time: The patient presented to the Emergency Department on the above date and was hospitalized for further evaluation of their emergent condition. - New Patient This patient is new to me today: No - Critical Care Critical Care patient: No - Discharge Referral Referred to [facility] Med P.C.: No
[2019-04-10] MEDS ORDERED: IRON SUCROSE INJECTION 200 MG in SODIUM CHLORIDE 100 ML IVPB ONE (10:00)
[2019-04-10] MEDS ORDERED: CYANOCOBALAMIN (VITAMIN B-12) 1000 MCG/1 ML VIAL IM ONE (10:00)
[2019-04-10] MEDS ORDERED: PT OWN MED DRAWER 7, Y5N ONE (10:11)
[2019-04-10 10:13] LABS: ALBUMIN 3.6 g/dl (3.4-5.0); BILIRUBIN,TOTAL 0.3 mg/dL (0.2-1); BLOOD UREA NITROGEN 15.4 mg/dL (7-18); CALCIUM 9.9 mg/dL (8.5-10.1); CREATININE 0.9 mg/dL (0.55-1.3); MAGNESIUM 1.5 mg/dL (1.8-2.4); TOT PROT 7.1 g/dl (6.4-8.2)
[2019-04-10 10:14] LABS: LDH 245 U/L (84-246)
[2019-04-10] MEDS ORDERED: MAGNESIUM OXIDE 400 MG TABLET (FP) PO ONE (10:23)
--- NOTE | 2019-04-10 11:33 | CONSULT ---
Consult Consult Specialty:: Rheumatology - History of Present Illness History of Present Illness: 59 y/o female with PMHx of diabetes type II, hypertension, hyperlipidemia, obesity, peptic ulcer disease, DVT and PE, s/p left TKR, CVA with right-sided residual deficit, GI bleeding (03/07/19) 2o to gastric ulcers and complicated with pneumonia, admitted for cystocele repair and lysis of vaginal adhesions. She had surgery on April [address] Sifuentes. Since 04/04/19 she has had thrombocytopenia. Rule out CTD. The patient reports a senior living history of arthralgia in knees, low back and left 1st MCP. She has a 1 year history if dry eyes, dry mouth and since February 2019 she has had malaise, hair loss and questionable shortness of breath. She denies Raynauds phenomenon, skin rash, oral ulcers, abdominal pain or fever. Laboratory work-up revealed platelets on 07/08/18: 352, 04/04/19: 92 and today: 71. ESR 39 CBC today : WBC 6.2, Hgb 11.8, HCT 35,1 and platelets 71. Creatinine 0.9, AST 22, ALT 22, Alk P 146. Urinalysis with protein 1+, glucose 2+ and blood 2+. Rheumatoid factor negative and ANTHONY pending. Anti-platelets GP 1b/IV and anti-GP IV were negative. GP Ia and IIa positive and anti- platelets IIb and IIIa negative. HIV 1 and 2 negative. - History Source History Provided By: Patient, Medical Record - Alcohol/Substance Use Hx Alcohol Use: No - Smoking History Smoking history: Current every day smoker Have you smoked in the past 12 months: Yes Aproximately how many cigarettes per day: 4 Home Medications - Allergies Allergies/Adverse Reactions: Allergies Allergy/AdvReac Type Severity Reaction Status Date / Time No Known Allergies Allergy Verified 04/03/19 13:53 - Home Medications Home Medications: Ambulatory Orders Albuterol Sulfate Inhaler - [Ventolin HFA Inhaler -] 2 inh IH Q6H #1 inh Fluoxetine HCl [Prozac -] 20 mg PO DAILY 04/04/18 Fluticasone/Salmeterol [Advair 250-50 Diskus] 1 each IH BID 04/04/18 Gabapentin [Neurontin -] 800 mg PO TID 04/04/18 Metoprolol Succinate [Toprol XL -] 25 mg PO DAILY 04/04/18 Oxycodone HCl/Acetaminophen [Endocet 10-325 mg Tablet] 2 each PO QID PRN Polyethylene Glycol 3350 [Miralax 255 gm Btl -] 17 gm PO DAILY 04/04/18 metFORMIN HCL [Metformin ER Gastric] 500 mg PO BID 04/04/18 Apixaban [Eliquis] 5 mg PO BID 07/06/18 Chlorzoxazone 750 mg PO BID 07/06/18 Lisinopril 20 mg PO DAILY 07/06/18 Aspirin [ASA -] 81 mg PO DAILY #30 tab.chew 07/07/18 Cyanocobalamin (Vitamin B-12) [B-12] 1,000 mcg PO DAILY 30 Days #30 tablet.er Ferrous Sulfate [Feosol] 325 mg PO BID 30 Days #60 tablet 07/07/18 Amitriptyline HCl [Elavil -] 50 mg PO HS #30 tablet 07/08/18 Atorvastatin Ca [Lipitor] 80 mg PO HS 30 Days tablet 07/08/18 Butalb/Acetaminophen/Caffeine [Fioricet 50-300-40 mg Capsule] 1 each PO Q8H PRN 4 Days #10 capsule MDD 3 tabs 07/08/18 Ammonium Lactate [Skin Treatment] 400 gm TP 04/03/19 Aspirin [ASA -] 81 mg PO DAILY 04/03/19 Bimatoprost [Lumigan] 1 drop IO DAILY 04/03/19 Celecoxib [Celebrex] 200 mg PO DAILY 04/03/19 Famotidine 20 mg PO BID 04/03/19 Ibuprofen 800 mg PO DAILY 04/03/19 Insulin Glargine,Hum.rec.anlog [Lantus] 58 unit SQ BID 04/03/19 Insulin Lispro [Humalog] 6 unit SQ TID 04/03/19 Magnesium Oxide [Magox 400] 400 mg PO TID 04/03/19 Mirtazapine [Remeron -] 7.5 mg PO DAILY 04/03/19 Amitriptyline HCl [Elavil -] 50 mg PO HS 04/08/19 Buspirone HCl 30 mg PO BID 04/08/19 Review of Systems - Review of Systems Constitutional: reports: Malaise Eyes: reports: No Symptoms HENT: reports: No Symptoms Neck: reports: No Symptoms Cardiovascular: reports: No Symptoms Respiratory: reports: SOB Gastrointestinal: reports: Abdominal Pain Genitourinary: reports: Other (See HPI) Musculoskeletal: reports: Other (See HPI) Physical Exam Vital Signs: Vital Signs Temperature 98.1 F 04/10/19 05:26 Pulse Rate 68 04/10/19 05:26 Respiratory Rate 18 04/10/19 05:26 Blood Pressure 118/84 04/10/19 05:26 O2 Sat by Pulse Oximetry (%) 98 04/09/19 21:00 Constitutional: Yes: No Distress Eyes: Yes: WNL HENT: Yes: WNL Neck: Yes: WNL Cardiovascular: Yes: WNL Respiratory: Yes: WNL Gastrointestinal: Yes: WNL Musculoskeletal: Yes: WNL Labs: CBC, BMP 04/10/19 08:13 04/10/19 08:13 Laboratory Tests 04/06/19 04/06/19 04/06/19 08:00 08:00 08:00 ESR 39 H PT with INR 11.00 INR 0.93 PTT (Actin FS) 32.3 Fibrinogen Calcium Magnesium Total Bilirubin AST ALT Alkaline Phosphatase LD Total Total Protein Albumin Urine Appearance Urine pH Ur Specific Monroe Urine Protein Urine Glucose (UA) Urine Ketones Urine Blood Urine Nitrite Urine Bilirubin Urine Urobilinogen Ur Leukocyte Esterase Urine WBC (Auto) Urine RBC (Auto) Urine Casts (Auto) Anti-Plt GP Ib/IX Anti-Plt GP IV GP Ia/IIa Plasma Anti-Plt IIb/IIIa Heparin-Ind Plt Ab Scrn 0.388 HLA Class I Antibody HIV 1&2 Antibody Screen HIV P24 Antigen 04/06/19 04/06/19 04/06/19 08:00 08:00 12:30 ESR PT with INR INR PTT (Actin FS) Fibrinogen > 500.0 H Calcium Magnesium Total Bilirubin AST ALT Alkaline Phosphatase LD Total Total Protein Albumin Urine Appearance Clear Urine pH 6.5 Ur Specific Monroe 1.025 Urine Protein 1+ H Urine Glucose (UA) 2+ H Urine Ketones Negative Urine Blood 2+ H Urine Nitrite Negative Urine Bilirubin Negative Urine Urobilinogen 1.0 Ur Leukocyte Esterase 1+ H Urine WBC (Auto) 22 Urine RBC (Auto) 58 Urine Casts (Auto) 9 Anti-Plt GP Ib/IX Negative Anti-Plt GP IV Negative GP Ia/IIa Positive H Plasma Anti-Plt IIb/IIIa Negative Heparin-Ind Plt Ab Scrn HLA Class I Antibody Positive H HIV 1&2 Antibody Screen HIV P24 Antigen 04/10/19 04/10/19 04/10/19 08:13 08:13 08:13 ESR PT with INR INR PTT (Actin FS) Fibrinogen Calcium 9.9 Magnesium 1.5 L Total Bilirubin 0.3 AST 22 ALT 22 Alkaline Phosphatase 146 H LD Total 245 Total Protein 7.1 Albumin 3.6 Urine Appearance Urine pH Ur Specific Monroe Urine Protein Urine Glucose (UA) Urine Ketones Urine Blood Urine Nitrite Urine Bilirubin Urine Urobilinogen Ur Leukocyte Esterase Urine WBC (Auto) Urine RBC (Auto) Urine Casts (Auto) Anti-Plt GP Ib/IX Anti-Plt GP IV GP Ia/IIa Plasma Anti-Plt IIb/IIIa Heparin-Ind Plt Ab Scrn HLA Class I Antibody HIV 1&2 Antibody Screen Negative HIV P24 Antigen Negative Problem List - Problems (1) Thrombocytopenia Assessment/Plan: Thrombocytopenia, Sicca syndrome, and hair loss. Rule out Lupus. Plan: serology and complement. I did not prescribe medications. Code(s): D69.6 - THROMBOCYTOPENIA, UNSPECIFIED
[2019-04-10] MEDS: metoPROLOL SUCCINATE 25 MG TAB.SR.24H (FP) PO SCH (12:17)
[2019-04-10] MEDS: LISINOPRIL 20 MG TABLET (FP) PO SCH (12:18)
[2019-04-10 14:52] LABS: ANISOCYTOSIS 1+; MACROCYTOSIS 0; PLATELET ESTIMATE DECREASED
[2019-04-10] MEDS: SENNOSIDES 8.6MG TABLET (FP) PO SCH (22:07)
[2019-04-10] MEDS: ATORVASTATIN CA 80 MG TABLET (FP) PO SCH (22:07)
[2019-04-11] MEDS: oxyCODONE HCL 5 MG TABLET PO PRN ×3 (02:31→21:16)
[2019-04-11] MEDS: INSULIN SLIDING SCALE (NOVOLOG) 1 VIAL SQ SCH ×3 (06:48→21:16)
[2019-04-11 09:31] LABS: BASO % 1.2 % (0-2.0); EOS % 6.6 % (0-4.5); HEMATOCRIT 32.5 % (32.4-45.2); HEMOGLOBIN 10.6 GM/dL (10.7-15.3); LYMPH % 28.1 % (8-40); MCH 28.3 pg (25.7-33.7); MCHC 32.7 g/dl (32.0-36.0); MEAN CELL VOLUME 86.5 fl (80-96); MEAN PLT VOLUME 11.8 fl (7.5-11.1); NEUT % 56.1 % (42.8-82.8); PLATELET COUNT 65 K/MM3 (134-434); RBC 3.76 M/mm3 (3.60-5.2); WHITE BLOOD COUNT 5.9 K/mm3 (4.0-10.0)
[2019-04-11 10:07] LABS: ALBUMIN 3.2 g/dl (3.4-5.0); BILIRUBIN,TOTAL 0.3 mg/dL (0.2-1); BLOOD UREA NITROGEN 16.5 mg/dL (7-18); CALCIUM 9.2 mg/dL (8.5-10.1); MAGNESIUM 1.6 mg/dL (1.8-2.4); POTASSIUM 3.8 mmol/L (3.5-5.1); TOT PROT 6.4 g/dl (6.4-8.2)
[2019-04-11] MEDS ORDERED: INSULIN (NOVOLOG) ASPART 100 UNITS/ML 10ML VIAL ONE ×2 (10:16→21:15)
[2019-04-11] MEDS: FLUoxetine HCL 20 MG CAPSULE PO SCH (10:19)
[2019-04-11] MEDS: LISINOPRIL 20 MG TABLET (FP) PO SCH (10:19)
[2019-04-11] MEDS: DOCUSATE SODIUM 100 MG CAPSULE (FP) PO SCH (10:19)
[2019-04-11] MEDS: MAGNESIUM OXIDE 400 MG TABLET (FP) PO SCH ×2 (10:20→21:17)
[2019-04-11] MEDS: metoPROLOL SUCCINATE 25 MG TAB.SR.24H (FP) PO SCH (10:20)
[2019-04-11] MEDS: PANTOPRAZOLE 40 MG TABLET PO SCH (10:20)
[2019-04-11] MEDS: POLYETHYLENE GLYCOL 3350 119 GM BTL PO SCH (10:24)
[2019-04-11 11:18] LABS: URINE APPEARANCE Clear; URINE BILIRUBIN Negative (NEGATIVE); URINE COLOR Yellow; URINE GLUCOSE (UA) Negative (NEGATIVE); URINE KETONE Negative (NEGATIVE); URINE LEUK ESTERASE Trace (NEGATIVE); URINE NITRITE Negative (NEGATIVE); URINE PROTEIN Negative (NEGATIVE); URINE UROBILINOGEN 0.2 mg/dL (0.2-1.0)
[2019-04-11 11:40] LABS: EPI CELLS 0.7 /HPF (0-5/HPF); HYALINE CASTS 0.35 /lpf (0-8); URINE BACTERIA 9.3 /hpf (NEGATIVE); URINE WBC 2.7 /hpf (0-5)
--- NOTE | 2019-04-11 13:41 | PN ---
Physical Exam: SUBJECTIVE: Patient seen and examined at the bedside. daughter in attendance. per daughter, patient is on buspar, elavil and prozac at home. she also reports that patient has a poor appetite at home and often can go 3 to 4 days without eating. daughter and patient both agree to follow up with PCP on discharge as well as follow up with Dr. Viera. 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 Her other history includes DVT (1988) and PE (1990) and recently taken off of Eliquis due to UGIB requiring ICU hospitalization at [facility]. She is s/p cystocele repair and removal of adhesions POD with Dr. Sifuentes on 04/03/2019. and was found to have thrombocytopenia on routine labs. Platelets trend down and being monitored closely as she is a high risk for bleeding. Hematology following. per [facility] discharge paper work in chart: Patient admitted at [facility] from 03/02/2019 to 03/07/2019 for coffee ground emesis in the setting of hypotension. Was on eliquis for dvt/pe and ibuprophen for chronic pain. admitted for multiple episodes of dark/coffee ground emesis and was intubated for worsening mentation and to protect airway and for hypovolemic/hemorrhagic shock 2/2 to massive upper gi bleed. she was transfused a total of 5 units of prbc and 2 units of ffp and 1 unit of platelets. also treated with protonix drip. hospital stay complicated with aspiration pneumonia. she was subsequently discharged on 03/07/2019 with GI close follow up. Platelets were within normal ranges during that stay. platelets 94>65. no signs of active bleeding, no petechie. patient platelets on previous admission 2017 at [facility] were within normal limits. Vital Signs Period Temp Pulse Resp BP Sys/Stokes Pulse Ox Last 24 Hr 98.1 F-98.6 F 53-76 18-20 94-115/58-66 98 GENERAL: The patient is awake, alert, and fully oriented, in no acute distress. tolerating room air. eating well, HEAD: Normal with no signs of trauma. EYES: PERRL, extraocular movements intact, sclera anicteric, conjunctiva clear. No ptosis. ENT: Ears normal, nares patent, oropharynx clear without exudates, moist mucous membranes. NECK: Trachea midline, full range of motion, supple. LUNGS: Breath sounds equal, clear to auscultation bilaterally, no wheezes HEART: Regular rate and rhythm ABDOMEN: Soft, nontender, nondistended, normoactive bowel sounds EXTREMITIES: no edema. left hand pain NEUROLOGICAL: Normal speech, gait not observed. PSYCH: Normal mood, normal affect. SKIN: Warm, dry, normal turgor, no rashes or lesions noted Laboratory Results - last 24 hr 04/10/19 04/10/19 04/10/19 08:13 16:48 22:22 WBC RBC Hgb Hct MCV MCH MCHC RDW Plt Count MPV Absolute Neuts (auto) Neutrophils % Neutrophils % (Manual) 67.7 Band Neutrophils % 0.0 Lymphocytes % Lymphocytes % (Manual) 15.2 D Monocytes % Monocytes % (Manual) 8 Eosinophils % Eosinophils % (Manual) 3.0 Basophils % Basophils % (Manual) 1.0 D Myelocytes % (Man) 1 Promyelocytes % (Man) 0 Blast Cells % (Manual) 0 Nucleated RBC % Metamyelocytes 0 Hypochromia 0 Platelet Estimate Decreased Polychromasia 0 Poikilocytosis 0 Anisocytosis 1+ Microcytosis 1+ Macrocytosis 0 Sodium Potassium Chloride Carbon Dioxide Anion Gap BUN Creatinine Est GFR (CKD-EPI)AfAm Est GFR (CKD-EPI)NonAf POC Glucometer 145 302 Random Glucose Calcium Magnesium Total Bilirubin AST ALT Alkaline Phosphatase Total Protein Albumin Urine Color Urine Appearance Urine pH Ur Specific [place] Urine Protein Urine Glucose (UA) Urine Ketones Urine Blood Urine Nitrite Urine Bilirubin Urine Urobilinogen Ur Leukocyte Esterase Urine WBC (Auto) Urine RBC (Auto) Urine Casts (Auto) U Epithel Cells (Auto) Urine Bacteria (Auto) 04/11/19 04/11/19 04/11/19 04:00 06:00 06:44 WBC RBC Hgb Hct MCV MCH MCHC RDW Plt Count MPV Absolute Neuts (auto) Neutrophils % Neutrophils % (Manual) Band Neutrophils % Lymphocytes % Lymphocytes % (Manual) Monocytes % Monocytes % (Manual) Eosinophils % Eosinophils % (Manual) Basophils % Basophils % (Manual) Myelocytes % (Man) Promyelocytes % (Man) Blast Cells % (Manual) Nucleated RBC % Metamyelocytes Hypochromia Platelet Estimate Polychromasia Poikilocytosis Anisocytosis Microcytosis Macrocytosis Sodium 135 L Potassium 3.8 Chloride 102 Carbon Dioxide 29 Anion Gap 4 L BUN 16.5 Creatinine 1.0 Est GFR (CKD-EPI)AfAm 71.41 Est GFR (CKD-EPI)NonAf 61.62 POC Glucometer 184 Random Glucose 200 H Calcium 9.2 Magnesium 1.6 L Total Bilirubin 0.3 AST 20 ALT 23 Alkaline Phosphatase 136 H Total Protein 6.4 Albumin 3.2 L Urine Color Yellow Urine Appearance Clear Urine pH 7.0 Ur Specific [place] 1.020 Urine Protein Negative Urine Glucose (UA) Negative Urine Ketones Negative Urine Blood Trace-intact Urine Nitrite Negative Urine Bilirubin Negative Urine Urobilinogen 0.2 Ur Leukocyte Esterase Trace Urine WBC (Auto) 2.7 Urine RBC (Auto) 4.0 Urine Casts (Auto) 0.35 U Epithel Cells (Auto) 0.7 Urine Bacteria (Auto) 9.3 04/11/19 04/11/19 08:56 11:03 WBC 5.9 RBC 3.76 Hgb 10.6 L Hct 32.5 MCV 86.5 MCH 28.3 MCHC 32.7 RDW 17.0 H Plt Count 65 L MPV 11.8 H Absolute Neuts (auto) 3.3 Neutrophils % 56.1 Neutrophils % (Manual) Band Neutrophils % Lymphocytes % 28.1 Lymphocytes % (Manual) Monocytes % 8.0 Monocytes % (Manual) Eosinophils % 6.6 H Eosinophils % (Manual) Basophils % 1.2 Basophils % (Manual) Myelocytes % (Man) Promyelocytes % (Man) Blast Cells % (Manual) Nucleated RBC % 0 Metamyelocytes Hypochromia Platelet Estimate Polychromasia Poikilocytosis Anisocytosis Microcytosis Macrocytosis Sodium Potassium Chloride Carbon Dioxide Anion Gap BUN Creatinine Est GFR (CKD-EPI)AfAm Est GFR (CKD-EPI)NonAf POC Glucometer 229 Random Glucose Calcium Magnesium Total Bilirubin AST ALT Alkaline Phosphatase Total Protein Albumin Urine Color Urine Appearance Urine pH Ur Specific [place] Urine Protein Urine Glucose (UA) Urine Ketones Urine Blood Urine Nitrite Urine Bilirubin Urine Urobilinogen Ur Leukocyte Esterase Urine WBC (Auto) Urine RBC (Auto) Urine Casts (Auto) U Epithel Cells (Auto) Urine Bacteria (Auto) Active Medications Generic Name Dose Route Start Last Admin Trade Name Freq PRN Reason Stop Dose Admin Albuterol Sulfate 1 amp 04/03/19 20:07 04/03/19 22:13 Ventolin 0.083% Nebulizer Soln - NEB 1 amp Q4H PRN Administration SHORT OF BREATH/WHEEZING Amitriptyline HCl 50 mg 04/11/19 22:00 Elavil - PO HS [facility] Atorvastatin Calcium 80 mg 04/04/19 22:00 04/10/19 22:07 Lipitor - PO 80 mg HS [facility] Administration Buspirone HCl 30 mg 04/11/19 22:00 Buspar - PO BID [facility] Docusate Sodium 100 mg 04/03/19 20:15 04/11/19 10:19 Colace - PO 100 mg DAILY [facility] Administration Fluoxetine HCl 20 mg 04/04/19 10:00 04/11/19 10:19 Prozac - PO 20 mg DAILY [facility] Administration Insulin Aspart 1 vial 04/06/19 16:30 04/11/19 11:05 Novolog Vial Sliding Scale - SQ 4 units ACHS [facility] Administration Protocol Lidocaine 1 patch 04/11/19 13:00 Lidoderm Patch - TP DAILY [facility] Lisinopril 20 mg 04/04/19 10:00 04/11/19 10:19 Prinivil PO 20 mg DAILY [facility] Administration Magnesium Oxide 400 mg 04/07/19 10:00 04/11/19 10:20 Mag-Ox - PO 400 mg BID [facility] Administration Metoprolol Succinate 25 mg 04/04/19 10:00 04/11/19 10:20 Toprol Xl - PO 25 mg DAILY [facility] Administration Miscellaneous 1 each 04/11/19 22:00 Lidoderm Patch Removal MC DAILY@2200 [facility] Ondansetron HCl 4 mg 04/03/19 17:13 Zofran Injection IVPUSH Q6H PRN NAUSEA AND/OR VOMITING Oxycodone HCl 5 mg 04/03/19 17:13 Roxicodone - PO Q4H PRN PAIN LEVEL 1-5 Oxycodone HCl 10 mg 04/03/19 17:13 04/11/19 10:32 Roxicodone - PO 10 mg Q4H PRN Administration PAIN LEVEL 6-10 Pantoprazole Sodium 40 mg 04/03/19 20:15 04/11/19 10:20 Protonix - PO 40 mg DAILY [facility] Administration Polyethylene Glycol 17 gm 04/09/19 15:00 04/11/19 10:24 Miralax (For Daily Use) - PO 17 gm DAILY [facility] Administration Promethazine HCl 12.5 mg 04/03/19 17:13 Phenergan Injection - IVPUSH Q6H PRN NAUSEA-FOR RESCUE AFTER 15 MIN Senna 1 tab 04/03/19 22:00 04/10/19 22:07 Senna - PO 1 tab HS [facility] Administration ASSESSMENT/PLAN: Problem List - Problems (1) Thrombocytopenia Assessment/Plan: platelets 94>65 thrombocytopenia of unknown etiology patient is a high risk for bleeding, had massive bleed 02/2019 at [facility] and now off all anticoagulation. Was previously on eliquis for CVA. workup for thrombocytopenia pending. being ruled out for lupus by rheumatology. wll need referral to hematology and rheumatology when discharged Code(s): D69.6 - THROMBOCYTOPENIA, UNSPECIFIED (2) Cystocele Assessment/Plan: Patient is s/p vaginal exploration and cystocele repair on 04/03/2019 camacho removed by urologist and patient is voiding without difficulty no further bleeding, hmg/hct stable urology outpatient follow up Code(s): JXJ8342 - (3) Diabetes Assessment/Plan: reports elevated blood sugars at home, hmga1c 7.0 mantain bgms <180 fasting on novolog ss Code(s): E11.9 - TYPE 2 DIABETES MELLITUS WITHOUT COMPLICATIONS (4) History of CVA (cerebrovascular accident) Assessment/Plan: on lipitor 80 hs not on asa due to recent history of upper gi bleed will order physical therapy for right sided weakness Code(s): Z86.73 - PRSNL HX OF TIA (TIA), AND CEREB INFRC W/O RESID DEFICITS (5) DVT (deep venous thrombosis) Assessment/Plan: was on eliquis but stopped recently at [facility] due to acute upper gi bleed. Code(s): I82.409 - ACUTE EMBOLISM AND THOMBOS UNSP DEEP VN UNSP LOWER EXTREMITY Qualifiers: Laterality: unspecified laterality (6) Pulmonary embolism Assessment/Plan: was on eliquis but stopped recently at [facility] due to acute upper gi bleed Code(s): I26.99 - OTHER PULMONARY EMBOLISM WITHOUT ACUTE COR PULMONALE (7) Hypertension Assessment/Plan: controlled on Metoprolol, Lisinopril Code(s): I10 - ESSENTIAL (PRIMARY) HYPERTENSION (8) HLD (hyperlipidemia) Assessment/Plan: on lipitor 80 Code(s): E78.5 - HYPERLIPIDEMIA, UNSPECIFIED (9) DVT prophylaxis Assessment/Plan: SCDs only, had recent ugib last month and now with thrombocytopenia Code(s): Z29.9 - ENCOUNTER FOR PROPHYLACTIC MEASURES, UNSPECIFIED (10) Prophylactic measure Assessment/Plan: fen diabetic diet repeat labs in a.m. monitor K full code protonix daily Code(s): Z29.9 - ENCOUNTER FOR PROPHYLACTIC MEASURES, UNSPECIFIED Visit type - Emergency Visit Emergency Visit: Yes ED Registration Date: 04/03/19 Care time: The patient presented to the Emergency Department on the above date and was hospitalized for further evaluation of their emergent condition. - New Patient This patient is new to me today: No - Critical Care Critical Care patient: No - Discharge Referral Referred to [facility] Med P.C.: No
[2019-04-11 17:07] LABS: FREE KAPPA,SERUM 28.9 mg/L (3.3-19.4)
[2019-04-11] MEDS ORDERED: PT OWN MED DRAWER 7, Y5N ONE (21:08)
[2019-04-11] MEDS: SENNOSIDES 8.6MG TABLET (FP) PO SCH (21:16)
[2019-04-11] MEDS: ATORVASTATIN CA 80 MG TABLET (FP) PO SCH (21:17)
[2019-04-11] MEDS: AMITRIPTYLINE HCL 25 MG TABLET PO SCH (21:17)
[2019-04-11] MEDS: busPIRone HCL 10 MG TABLET (FP) PO SCH (21:17)
[2019-04-12] MEDS: oxyCODONE HCL 5 MG TABLET PO PRN ×4 (06:27→18:23)
[2019-04-12] MEDS: INSULIN SLIDING SCALE (NOVOLOG) 1 VIAL SQ SCH ×5 (06:27→21:06)
[2019-04-12] MEDS: LIDOCAINE PATCH REMOVAL MC SCH ×2 (07:59→21:19)
[2019-04-12] MEDS: LIDOCAINE 5% TOPICAL PATCH TP SCH ×2 (08:00→10:41)
--- NOTE | 2019-04-12 08:11 | PN ---
Progress Note, Physician Chief Complaint: Pending hematologic w/u results. States he had light vaginal bleeding. No c/o pain History of Present Illness: Patient is a 59 year old female with a significant past medical history of CVA with right sided sided residual deficit, DM II (on home insulin), HTN, HLD, morbid obesity, peptic ulcer disease UGIB requiring sclerotherapy in 02/2019 at [facility], past DVT(1988) and PE (1990) and recently taken off of Eliquis due to UGIB requiring ICU hospitalization She is s/p cystocele repair and removal of adhesions POD #[address] Sifuentes and was found to have thrombocytopenia per [facility] discharge paper work in chart: Patient admitted at [facility] from 03/02/2019 to 03/07/2019 for coffee ground emesis in the setting of hypotension. Was on eliquis for dvt/pe and ibuprophen for chronic pain. admitted for multiple episodes of dark/coffee ground emesis and was intubated for worsening mentation and to protect airway and for hypovolemic/hemorrhagic shock 2/2 to massive upper gi bleed. she was transfused a total of 5 units of prbc and 2 units of ffp and 1 unit of platelets. also treated with protonix drip. hospital stay complicated with aspiration pneumonia. she was subsequently discharged on 03/07/2019 with GI close follow up. Platelets were within normal ranges during that stay. platelets 94>65. no signs of active bleeding, no petechie. patient platelets on previous admission 2017 at [facility] were within normal limits - Current Medication List Current Medications: Active Medications Albuterol Sulfate (Ventolin 0.083% Nebulizer Soln -) 1 amp NEB Q4H PRN PRN Reason: SHORT OF BREATH/WHEEZING Last Admin: 04/03/19 22:13 Dose: 1 amp Amitriptyline HCl (Elavil -) 50 mg PO HS [facility] Last Admin: 04/11/19 21:17 Dose: 50 mg Atorvastatin Calcium (Lipitor -) 80 mg PO HS [facility] Last Admin: 04/11/19 21:17 Dose: 80 mg Buspirone HCl (Buspar -) 30 mg PO BID [facility] Last Admin: 04/11/19 21:17 Dose: 30 mg Docusate Sodium (Colace -) 100 mg PO DAILY [facility] Last Admin: 04/11/19 10:19 Dose: 100 mg Fluoxetine HCl (Prozac -) 20 mg PO DAILY [facility] Last Admin: 04/11/19 10:19 Dose: 20 mg Insulin Aspart (Novolog Vial Sliding Scale -) 1 vial SQ ACHS [facility]; Protocol Last Admin: 04/12/19 08:00 Dose: Not Given Lidocaine (Lidoderm Patch -) 1 patch TP DAILY [facility] Last Admin: 04/12/19 08:00 Dose: Not Given Lisinopril (Prinivil) 20 mg PO DAILY [facility] Last Admin: 04/11/19 10:19 Dose: 20 mg Magnesium Oxide (Mag-Ox -) 400 mg PO BID [facility] Last Admin: 04/11/19 21:17 Dose: 400 mg Metoprolol Succinate (Toprol Xl -) 25 mg PO DAILY [facility] Last Admin: 04/11/19 10:20 Dose: 25 mg Miscellaneous (Lidoderm Patch Removal) 1 each MC DAILY@2200 [facility] Last Admin: 04/12/19 07:59 Dose: Not Given Ondansetron HCl (Zofran Injection) 4 mg IVPUSH Q6H PRN PRN Reason: NAUSEA AND/OR VOMITING Oxycodone HCl (Roxicodone -) 5 mg PO Q4H PRN PRN Reason: PAIN LEVEL 1-5 Oxycodone HCl (Roxicodone -) 10 mg PO Q4H PRN PRN Reason: PAIN LEVEL 6-10 Last Admin: 04/12/19 06:27 Dose: 10 mg Pantoprazole Sodium (Protonix -) 40 mg PO DAILY [facility] Last Admin: 04/11/19 10:20 Dose: 40 mg Polyethylene Glycol (Miralax (For Daily Use) -) 17 gm PO DAILY [facility] Last Admin: 04/11/19 10:24 Dose: 17 gm Promethazine HCl (Phenergan Injection -) 12.5 mg IVPUSH Q6H PRN PRN Reason: NAUSEA-FOR RESCUE AFTER 15 MIN Senna (Senna -) 1 tab PO HS [facility] Last Admin: 04/11/19 21:16 Dose: 1 tab - Objective Vital Signs: Vital Signs Temperature 98.1 F 04/12/19 05:25 Pulse Rate 66 04/12/19 05:25 Respiratory Rate 20 04/12/19 05:25 Blood Pressure 117/71 04/12/19 05:25 O2 Sat by Pulse Oximetry (%) 98 04/11/19 21:00 Constitutional: Yes: Well Nourished, No Distress, Calm Eyes: Yes: WNL, Conjunctiva Clear HENT: Yes: WNL, Atraumatic, Normocephalic Neck: Yes: WNL, Supple, Trachea Midline Cardiovascular: Yes: WNL, Regular Rate and Rhythm Respiratory: Yes: WNL, Regular, CTA Bilaterally Gastrointestinal: Yes: WNL, Normal Bowel Sounds ...Rectal Exam: Yes: Deferred Genitourinary: Yes: WNL, Vaginal Bleeding (light) Breast(s): Yes: WNL Musculoskeletal: Yes: WNL Extremities: Yes: WNL Edema: No Peripheral Pulses WNL: Yes Peripheral Pulses: Left Radial: 2+, Right Radial: 2+, Left Doralis Pedis: 2+, Right Dorsalis Pedis: 2+, Left Femoral: 2+, Right Femoral: 2+ Integumentary: Yes: WNL Neurological: Yes: WNL, Alert, Oriented ...Motor Strength: WNL Psychiatric: Yes: WNL Additional Findings/Remarks: GENERAL: The patient is awake, alert, and fully oriented, in no acute distress. tolerating room air. eating well, HEAD: Normal with no signs of trauma. EYES: PERRL, extraocular movements intact, sclera anicteric, conjunctiva clear. No ptosis. ENT: Ears normal, nares patent, oropharynx clear without exudates, moist mucous membranes. NECK: Trachea midline, full range of motion, supple. LUNGS: Breath sounds equal, clear to auscultation bilaterally, no wheezes HEART: Regular rate and rhythm ABDOMEN: Soft, nontender, nondistended, normoactive bowel sounds EXTREMITIES: no edema. left hand pain NEUROLOGICAL: Normal speech, gait not observed. PSYCH: Normal mood, normal affect. SKIN: Warm, dry, normal turgor, no rashes or lesions noted Labs: CBC, BMP 04/11/19 08:56 04/11/19 06:00 INR, PTT INR 0.93 (0.83-1.09) 04/06/19 08:00 Fibrinogen > 500.0 mg/dL (238-498) H 04/06/19 08:00 Problem List - Problems (1) History of DVT (deep vein thrombosis) [facility] Code[facility]s): Z86.718 - PERSONAL HISTORY OF OTHER VENOUS THROMBOSIS AND EMBOLISM (2) Hx pulmonary embolism Assessment/Plan: closely monitor Code(s): Z86.711 - PERSONAL HISTORY OF PULMONARY EMBOLISM (3) Cystocele Assessment/Plan: Patient is s/p vaginal exploration and cystocele repair on 04/03/2019 urology outpatient follow up Code(s): [id number] - (4) Diabetes Assessment/Plan: BGM AC/HS with novolog sliding scale well controlled diabetic diet Code(s): E11.9 - TYPE 2 DIABETES MELLITUS WITHOUT COMPLICATIONS (5) HLD (hyperlipidemia) Assessment/Plan: c/w atorvastatin Code(s): E78.5 - HYPERLIPIDEMIA, UNSPECIFIED (6) History of CVA (cerebrovascular accident) Assessment/Plan: c/w statin no asa r/t GIB Code(s): Z86.73 - PRSNL HX OF TIA (TIA), AND CEREB INFRC W/O RESID DEFICITS (7) Hypertension Assessment/Plan: c/w lisinipril,metoprolol Code(s): I10 - ESSENTIAL (PRIMARY) HYPERTENSION (8) Thrombocytopenia Assessment/Plan: platelets 73>65 thrombocytopenia of unknown etiology patient is a high risk for bleeding, workup for thrombocytopenia pending being ruled out for lupus by rheumatology. will need referral to hematology and rheumatology when discharged Code(s): D69.6 - THROMBOCYTOPENIA, UNSPECIFIED (9) Prophylactic measure Assessment/Plan: FEN Fluids: adequate PO intake Electrolytes: monitor & replete as needed Nutrition: diabetic diet DVT scd oob/ambulation Dispo Maintain as inpatient full code discharge planning Code(s): Z29.9 - ENCOUNTER FOR PROPHYLACTIC MEASURES, UNSPECIFIED Visit type - Emergency Visit Emergency Visit: Yes ED Registration Date: 04/03/19 Care time: The patient presented to the Emergency Department on the above date and was hospitalized for further evaluation of their emergent condition. - New Patient This patient is new to me today: Yes Date on this admission: 04/12/19 - Critical Care Critical Care patient: No - Discharge Referral Referred to [facility] Med P.C.: No
[2019-04-12 09:24] LABS: BASO % 1.1 % (0-2.0); EOS % 4.5 % (0-4.5); HEMATOCRIT 36.4 % (32.4-45.2); HEMOGLOBIN 12.2 GM/dL (10.7-15.3); LYMPH % 26.7 % (8-40); MCH 28.7 pg (25.7-33.7); MCHC 33.4 g/dl (32.0-36.0); MEAN PLT VOLUME 12.3 fl (7.5-11.1); MONO % 7.9 % (3.8-10.2); NEUT % 59.8 % (42.8-82.8); PLATELET COUNT 73 K/MM3 (134-434); RBC 4.24 M/mm3 (3.60-5.2); RDW 17.4 % (11.6-15.6); WHITE BLOOD COUNT 6.6 K/mm3 (4.0-10.0)
[2019-04-12 09:54] LABS: ALBUMIN 3.4 g/dl (3.4-5.0); BILIRUBIN,TOTAL 0.4 mg/dL (0.2-1); CREATININE 0.8 mg/dL (0.55-1.3); MAGNESIUM 1.7 mg/dL (1.8-2.4); POTASSIUM 3.9 mmol/L (3.5-5.1)
[2019-04-12] MEDS: FLUoxetine HCL 20 MG CAPSULE PO SCH (10:39)
[2019-04-12] MEDS: DOCUSATE SODIUM 100 MG CAPSULE (FP) PO SCH (10:39)
[2019-04-12] MEDS: MAGNESIUM OXIDE 400 MG TABLET (FP) PO SCH ×2 (10:39→21:05)
[2019-04-12] MEDS: metoPROLOL SUCCINATE 25 MG TAB.SR.24H (FP) PO SCH (10:39)
[2019-04-12] MEDS: LISINOPRIL 20 MG TABLET (FP) PO SCH (10:39)
[2019-04-12] MEDS: PANTOPRAZOLE 40 MG TABLET PO SCH (10:39)
[2019-04-12] MEDS: busPIRone HCL 10 MG TABLET (FP) PO SCH ×2 (10:41→21:10)
[2019-04-12] MEDS: POLYETHYLENE GLYCOL 3350 119 GM BTL PO SCH (10:42)
--- NOTE | 2019-04-12 13:47 | PN ---
Physical Exam: SUBJECTIVE: Patient seen and examined reports abdominal pain and knee pain had BM OBJECTIVE: Vital Signs Period Temp Pulse Resp BP Sys/Stokes Pulse Ox Last 24 Hr 97.0 F-98.4 F 57-66 17-20 112-117/53-71 98 GA: comfortable, AAox3, HEENT NC/AT, EOMI, no scleral icterus, M MM, neck supple, no lyphadenopathy appreciated Chest: CTAB, no wheezing or crackles CVS :S1, S2+, RRR, no m/r/g appreciated Abd: obese, Soft, NT,RUQ tenderness no guarding, Ext : NO LE edema, no calf tenderness, moving all 4 ext. 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 , residual right side weakness breast surgery scar B/L , some Later breast fibrosis and tenderness to palpation B/L Laboratory Results - last 24 hr 04/10/19 04/10/19 04/10/19 08:13 08:13 14:00 WBC RBC Hgb Hct MCV MCH MCHC RDW Plt Count MPV Absolute Neuts (auto) Neutrophils % Lymphocytes % Monocytes % Eosinophils % Basophils % Nucleated RBC % Sodium Potassium Chloride Carbon Dioxide Anion Gap BUN Creatinine Est GFR (CKD-EPI)AfAm Est GFR (CKD-EPI)NonAf POC Glucometer Random Glucose Calcium Magnesium Total Bilirubin AST ALT Alkaline Phosphatase Total Protein Albumin Beta Globulins 1.1 NELDA & SPEP Interp Total Protein (NELDA) 6.8 Albumin (NELDA) 3.5 Albumin/Globulin (NELDA) 1.1 Uunhf-8-Draqlydnk NELDA 0.3 Bxoqf-2-Xvfxeerwz NELDA 0.8 Gamma Globulins (NELDA) 1.1 NELDA M-Delfino Not observed NELDA Comments IEP IgG 1119 IEP IgA 179 IEP IgM 103 Sm ([place]) Antibody <0.2 POSITION CLERK Antibody <0.2 Double Strand DNA Ab Complement C3 155 Complement C4 52 H Free [place] LC, Quant 28.9 H Free Lambda LC, Quant 15.9 Free [place]/Lambda Ratio 1.82 H 04/11/19 04/11/19 04/12/19 08:56 21:13 06:12 WBC RBC Hgb Hct MCV MCH MCHC RDW Plt Count MPV Absolute Neuts (auto) Neutrophils % Lymphocytes % Monocytes % Eosinophils % Basophils % Nucleated RBC % Sodium Potassium Chloride Carbon Dioxide Anion Gap BUN Creatinine Est GFR (CKD-EPI)AfAm Est GFR (CKD-EPI)NonAf POC Glucometer 289 170 Random Glucose Calcium Magnesium Total Bilirubin AST ALT Alkaline Phosphatase Total Protein Albumin Beta Globulins NELDA & SPEP Interp Total Protein (NELDA) Albumin (NELDA) Albumin/Globulin (NELDA) Duebx-4-Yzxhshqpr NELDA Vmfky-4-Orzwxudqa NEDLA Gamma Globulins (NELDA) NELDA M-Delfino NELDA Comments IEP IgG IEP IgA IEP IgM Sm ([place]) Antibody POSITION CLERK Antibody Double Strand DNA Ab 2 Complement C3 Complement C4 Free [place] LC, Quant Free Lambda LC, Quant Free [place]/Lambda Ratio 04/12/19 04/12/19 04/12/19 08:35 08:35 11:25 WBC 6.6 RBC 4.24 Hgb 12.2 Hct 36.4 MCV 86.0 MCH 28.7 MCHC 33.4 RDW 17.4 H Plt Count 73 L MPV 12.3 H Absolute Neuts (auto) 3.9 Neutrophils % 59.8 Lymphocytes % 26.7 Monocytes % 7.9 Eosinophils % 4.5 Basophils % 1.1 Nucleated RBC % 0 Sodium 138 Potassium 3.9 Chloride 102 Carbon Dioxide 32 Anion Gap 4 L BUN 11.0 Creatinine 0.8 Est GFR (CKD-EPI)AfAm 93.53 Est GFR (CKD-EPI)NonAf 80.70 POC Glucometer 240 Random Glucose 136 H Calcium 10.0 Magnesium 1.7 L Total Bilirubin 0.4 AST 16 ALT 21 Alkaline Phosphatase 142 H Total Protein 7.0 Albumin 3.4 Beta Globulins NELDA & SPEP Interp Total Protein (NELDA) Albumin (NELDA) Albumin/Globulin (NELDA) Ixfid-7-Yzkcjzvyd NELDA Gdspb-5-Xaiuzgwjn NELDA Gamma Globulins (NELDA) NELDA M-Delfino NELDA Comments IEP IgG IEP IgA IEP IgM Sm ([place]) Antibody POSITION CLERK Antibody Double Strand DNA Ab Complement C3 Complement C4 Free [place] LC, Quant Free Lambda LC, Quant Free [place]/Lambda Ratio Active Medications Generic Name Dose Route Start Last Admin Trade Name Freq PRN Reason Stop Dose Admin Albuterol Sulfate 1 amp 04/03/19 20:07 04/03/19 22:13 Ventolin 0.083% Nebulizer Soln - NEB 1 amp Q4H PRN Administration SHORT OF BREATH/WHEEZING Amitriptyline HCl 50 mg 04/11/19 22:00 04/11/19 21:17 Elavil - PO 50 mg HS [facility] Administration Atorvastatin Calcium 80 mg 04/04/19 22:00 04/11/19 21:17 Lipitor - PO 80 mg HS [facility] Administration Buspirone HCl 30 mg 04/11/19 22:00 04/12/19 10:41 Buspar - PO 30 mg BID [facility] Administration Docusate Sodium 100 mg 04/03/19 20:15 04/12/19 10:39 Colace - PO 100 mg DAILY [facility] Administration Fluoxetine HCl 20 mg 04/04/19 10:00 04/12/19 10:39 Prozac - PO 20 mg DAILY [facility] Administration Insulin Aspart 1 vial 04/06/19 16:30 04/12/19 11:35 Novolog Vial Sliding Scale - SQ 4 units ACHS [facility] Administration Protocol Insulin Detemir 10 units 04/12/19 22:00 Levemir Vial SQ BID@0700,2200 [facility] Lidocaine 1 patch 04/11/19 13:00 04/12/19 10:41 Lidoderm Patch - TP 1 patch DAILY [facility] Administration Lisinopril 20 mg 04/04/19 10:00 04/12/19 10:39 Prinivil PO 20 mg DAILY [facility] Administration Magnesium Oxide 400 mg 04/07/19 10:00 04/12/19 10:39 Mag-Ox - PO 400 mg BID [facility] Administration Metoprolol Succinate 25 mg 04/04/19 10:00 04/12/19 10:39 Toprol Xl - PO 25 mg DAILY [facility] Administration Miscellaneous 1 each 04/11/19 22:00 04/12/19 07:59 Lidoderm Patch Removal MC Not Given DAILY@2200 [facility] Ondansetron HCl 4 mg 04/03/19 17:13 Zofran Injection IVPUSH Q6H PRN NAUSEA AND/OR VOMITING Oxycodone HCl 5 mg 04/03/19 17:13 Roxicodone - PO Q4H PRN PAIN LEVEL 1-5 Oxycodone HCl 10 mg 04/03/19 17:13 04/12/19 10:39 Roxicodone - PO 10 mg Q4H PRN Administration PAIN LEVEL 6-10 Pantoprazole Sodium 40 mg 04/03/19 20:15 04/12/19 10:39 Protonix - PO 40 mg DAILY [facility] Administration Polyethylene Glycol 17 gm 04/09/19 15:00 04/12/19 10:42 Miralax (For Daily Use) - PO 17 gm DAILY [facility] Administration Promethazine HCl 12.5 mg 04/03/19 17:13 Phenergan Injection - IVPUSH Q6H PRN NAUSEA-FOR RESCUE AFTER 15 MIN Senna 1 tab 04/03/19 22:00 04/11/19 21:16 Senna - PO 1 tab HS [facility] Administration CBC, BMP 04/12/19 08:35 04/12/19 08:35 ASSESSMENT/PLAN: 59 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 we were cosnulted for thrombocytopenia # Thrombocytopenia Acute , R.O infection process will send UA , urine cx , CAR , , unlikely hIT- , can not R.O MEdiciation side effects like Fluxitine as some cases reports thrombocytopenia , Cannot rule out post-transfusion thrombocytopenia , antiplt positive B12, FA WNL TSH WNL PT, PTT Fibrinogen 500 ESR, CRP elevated monitor CBC daily Avoid NSAIDS or AC free kapa Lc 28.9 kapa lamda ratio elevated 1.82 follow fish flow and cytogenetics Iron deficiency --mild anemia . will dose venofer per Dr Durán Peripheral blood flow revealing a B-Cell process, either indolent of systemic low level disease. CD20+, CD5+ and CD23+ and CD10-. 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 Platelets stable at this time. She will need to be ruled out of active malignancy (CLL/SLL, Mantle Cell Lymphoma, etc) by obtaining a PET/CT Scan and a bone marrow biopsy both of them outpatient. 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 [address] [facility] any change s in size or texture # B/L breast tenderness on the lateral side with some fibrosis could be due to breast reduction surgery will do Mammogram to R.O any nodularity #S/p cystocele and removal of adhesions POD 2 #history of DVT/PE previously on Eliquis SCD/TEDs for now for DVT ppx AVOID anticoagulation and NSAIDs in view of recent UGIB, will start PPI for GI prophylaxis # HTN #Depression on Prozac which might cause thrombocytopenia #HLD #Chronic constipation #Asthma #T2DM per primary team Visit type - Emergency Visit Emergency Visit: Yes ED Registration Date: 04/03/19 Care time: The patient presented to the Emergency Department on the above date and was hospitalized for further evaluation of their emergent condition. - New Patient This patient is new to me today: No - Critical Care Critical Care patient: No - Discharge Referral Referred to [facility] Med P.C.: No ATTENDING PHYSICIAN STATEMENT I saw and evaluated the patient. I reviewed the resident's note and discussed the case with the resident. I agree with the resident's findings and plan as documented. SUBJECTIVE: OBJECTIVE: ASSESSMENT AND PLAN:
--- NOTE | 2019-04-12 16:25 | PATH ---
Surgical Pathology Report Patient Name: BHARGAV DEMPSEY [facility]. Rec. #: [id number] /Age/Gender: 1960 (Age: 59) / F Account: [id number] Location: [address] [place] [address] Taken: 04/10/2019 Received: 04/10/2019 Reported: 04/12/2019 Physicians: Joann Kohler M.D. Specimen(s) Received PERIPHERAL BLOOD Clinical History Thrombocytopenia Final Diagnosis COMPREHENSIVE FLOW PANEL performed and interpreted at [place], [place] ([id number]) shows the following: INTERPRETATION: LOW-LEVEL LIGHT CHAIN-RESTRICTED B-CELL POPULATION. SEE COMMENT. Comment: The presence of a low-level light-chain restricted B-cell population may represent indolent monoclonal B-cell lymphocytosis or possibly minimal involvement by a systemic B-cell lymphoproliferative disorder. Correlate with clinical history and other laboratory testing for further evaluation. Phenotype: A minor population of CD20+ (dim) B cells detected that coexpress cytoplasmic kappa light chain, CD5 and CD23, and is negative for CD10, comprising 4% of all analyzed white blood cells. Other lymphocytes include polyclonal B cells, NK cells and immunophenotypically normal CD4+ and CD8+ T cells in normal proportions. Granulocytes are immunophenotypically mature. 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 No evidence of deletion 5q or monosomy 5 is present. No evidence of deletion 7q or monosomy 7 is present. No evidence of trisomy 8 (+8) is present. No evidence of a rearrangement of 11q23. No evidence of a deletion of the p53 (17p13) locus. No evidence of deletion 20q12 is present. See Emer[facility] reports for additional details. Electronically Signed Jenny Arana M.D. Addendum Reported: 04/13/2019 Addendum Diagnosis N.H.L. Fish Panel performed and interpreted at [place], [place] ([id number]) shows the following: INTERPRETATION: No IGH/BCL2 t(14;18) translocation is detected. No CCND1/IGH t(11;14) translocation is detected. No MYC (8q24) rearrangement is detected. No BCL6 (3q27) rearrangement is detected. Comments: Deletion 13q has been reported in morphologically unremarkable marrows with unexplained cytopenias, myelodysplastic syndrome, therapy related myelodysplastic syndrome and AML. Correlation with pending cytogenetics is recommended. Eleven multiplex probe stain procedures were performed. See [facility] report for additional details. Jenny Arana M.D. Addendum Reported: 04/17/2019 Addendum Diagnosis CYTOGENETIC KARYOTYPE ANALYSIS performed and interpreted at [facility], [place] [id number]) shows the following: RESULTS: Tissue Culture Failure INTERPRETATION: This unstimulated peripheral blood specimen did not produce any analyzable metaphase cells and, therefore chromosome analysis is not possible. A bone marrow aspirate, when clinically appropriate, is recommended. See [facility] report for additional details. Jenny Arana M.D. Gross Description Received are 2 green top tubes of peripheral blood which are sent to [facility]. 04/10/2019 saudi04/10/2019
--- NOTE | 2019-04-12 19:42 | PN ---
Teaching Attending Note Name of Resident: Edi Baptiste ATTENDING PHYSICIAN STATEMENT I saw and evaluated the patient. I reviewed the resident's note and discussed the case with the resident. I agree with the resident's findings and plan as documented. SUBJECTIVE: Abdominal discomfort. No bleeding. 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 Hematology consulted for thrombocytopenia Recommend: 1) Peripheral blood flow revealing a B-Cell process, either indolent of systemic low level disease. CD20+, CD5+ and CD23+ and CD10-. 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 Platelets stable at this time. She will need to be ruled out of active malignancy (CLL/SLL, Mantle Cell Lymphoma, etc) by obtaining a PET/CT Scan and a bone marrow biopsy both of them outpatient. At this time her thrombocytopenia is stable 2) Rest per Dr. Baptiste's note 3) Thank you for this consultation
[2019-04-12] MEDS ORDERED: INSULIN (NOVOLOG) ASPART 100 UNITS/ML 10ML VIAL ONE (21:04)
[2019-04-12] MEDS: SENNOSIDES 8.6MG TABLET (FP) PO SCH (21:05)
[2019-04-12] MEDS: ATORVASTATIN CA 80 MG TABLET (FP) PO SCH (21:05)
[2019-04-12] MEDS: INSULIN (LEVEMIR) 100 UNITS/ML UNITS SQ SCH (21:05)
[2019-04-12] MEDS: AMITRIPTYLINE HCL 25 MG TABLET PO SCH (21:10)
[2019-04-13] MEDS: INSULIN (LEVEMIR) 100 UNITS/ML UNITS SQ SCH ×2 (06:26→21:27)
[2019-04-13] MEDS: INSULIN SLIDING SCALE (NOVOLOG) 1 VIAL SQ SCH ×4 (06:27→21:27)
--- NOTE | 2019-04-13 08:15 | PN ---
Progress Note, Physician Chief Complaint: Pending hematologic w/u results. States vaginal bleeding is very light. No c/o pain . Plt count stable in mid 70s Awaiting hematology clearance for discharge. History of Present Illness: Patient is a 59 year old female with a significant past medical history of CVA with right sided sided residual deficit, DM II (on home insulin), HTN, HLD, morbid obesity, peptic ulcer disease UGIB requiring sclerotherapy in 02/2019 at [facility], past DVT(1988) and PE (1990) and recently taken off of Eliquis due to UGIB requiring ICU hospitalization She is s/p cystocele repair and removal of adhesions POD #[address] Sifuentes and was found to have thrombocytopenia per [facility] discharge paper work in chart: Patient admitted at [facility] from 03/02/2019 to 03/07/2019 for coffee ground emesis in the setting of hypotension. Was on eliquis for dvt/pe and ibuprophen for chronic pain. admitted for multiple episodes of dark/coffee ground emesis and was intubated for worsening mentation and to protect airway and for hypovolemic/hemorrhagic shock 2/2 to massive upper gi bleed. she was transfused a total of 5 units of prbc and 2 units of ffp and 1 unit of platelets. also treated with protonix drip. hospital stay complicated with aspiration pneumonia. she was subsequently discharged on 03/07/2019 with GI close follow up. Platelets were within normal ranges during that stay. platelets 94>65. no signs of active bleeding, no petechie. patient platelets on previous admission [address] [facility] were within normal limits - Current Medication List Current Medications: Active Medications Albuterol Sulfate (Ventolin 0.083% Nebulizer Soln -) 1 amp NEB Q4H PRN PRN Reason: SHORT OF BREATH/WHEEZING Last Admin: 04/03/19 22:13 Dose: 1 amp Amitriptyline HCl (Elavil -) 50 mg PO [facility] Last Admin: 04/12/19 21:10 Dose: 50 mg Atorvastatin Calcium (Lipitor -) 80 mg PO HS [facility] Last Admin: 04/12/19 21:05 Dose: 80 mg Buspirone HCl (Buspar -) 30 mg PO BID [facility] Last Admin: 04/12/19 21:10 Dose: 30 mg Docusate Sodium (Colace -) 100 mg PO DAILY [facility] Last Admin: 04/12/19 10:39 Dose: 100 mg Fluoxetine HCl (Prozac -) 20 mg PO DAILY [facility] Last Admin: 04/12/19 10:39 Dose: 20 mg Insulin Aspart (Novolog Vial Sliding Scale -) 1 vial SQ ACHS [facility]; Protocol Last Admin: 04/13/19 06:27 Dose: 2 units Insulin Detemir (Levemir Vial) 10 units SQ BID@0700,2200 [facility] Last Admin: 04/13/19 06:26 Dose: 10 units Lidocaine (Lidoderm Patch -) 1 patch TP DAILY [facility] Last Admin: 04/12/19 10:41 Dose: 1 patch Lisinopril (Prinivil) 20 mg PO DAILY [facility] Last Admin: 04/12/19 10:39 Dose: 20 mg Magnesium Oxide (Mag-Ox -) 400 mg PO BID [facility] Last Admin: 04/12/19 21:05 Dose: 400 mg Metoprolol Succinate (Toprol Xl -) 25 mg PO DAILY [facility] Last Admin: 04/12/19 10:39 Dose: 25 mg Miscellaneous (Lidoderm Patch Removal) 1 each MC DAILY@2200 [facility] Last Admin: 04/12/19 21:19 Dose: 1 each Ondansetron HCl (Zofran Injection) 4 mg IVPUSH Q6H PRN PRN Reason: NAUSEA AND/OR VOMITING Oxycodone HCl (Roxicodone -) 5 mg PO Q4H PRN PRN Reason: PAIN LEVEL 1-5 Oxycodone HCl (Roxicodone -) 10 mg PO Q4H PRN PRN Reason: PAIN LEVEL 6-10 Last Admin: 04/12/19 18:23 Dose: 10 mg Pantoprazole Sodium (Protonix -) 40 mg PO DAILY [facility] Last Admin: 04/12/19 10:39 Dose: 40 mg Polyethylene Glycol (Miralax (For Daily Use) -) 17 gm PO DAILY [facility] Last Admin: 04/12/19 10:42 Dose: 17 gm Promethazine HCl (Phenergan Injection -) 12.5 mg IVPUSH Q6H PRN PRN Reason: NAUSEA-FOR RESCUE AFTER 15 MIN Senna (Senna -) 1 tab PO HS [facility] Last Admin: 04/12/19 21:05 Dose: 1 tab - Objective Vital Signs: Vital Signs Temperature 97.8 F 04/13/19 07:28 Pulse Rate 68 04/13/19 07:28 Respiratory Rate 16 04/13/19 07:28 Blood Pressure 125/68 04/13/19 07:28 O2 Sat by Pulse Oximetry (%) 96 04/12/19 20:24 Additional Findings/Remarks: Constitutional: Yes: Well Nourished, No Distress, Calm Eyes: Yes: WNL, Conjunctiva Clear HENT: Yes: WNL, Atraumatic, Normocephalic Neck: Yes: WNL, Supple, Trachea Midline Cardiovascular: Yes: WNL, Regular Rate and Rhythm Respiratory: Yes: WNL, Regular, CTA Bilaterally Gastrointestinal: Yes: WNL, Normal Bowel Sounds ...Rectal Exam: Yes: Deferred Genitourinary: Yes: WNL, Vaginal Bleeding (light) Breast(s): Yes: WNL Musculoskeletal: Yes: WNL Extremities: Yes: WNL Edema: No Peripheral Pulses WNL: Yes Peripheral Pulses: Left Radial: 2+, Right Radial: 2+, Left Doralis Pedis: 2+, Right Dorsalis Pedis: 2+, Left Femoral: 2+, Right Femoral: 2+ Integumentary: Yes: WNL Neurological: Yes: WNL, Alert, Oriented ...Motor Strength: WNL Psychiatric: Yes: WNL Labs: CBC, BMP 04/12/19 08:35 04/12/19 08:35 INR, PTT INR 0.93 (0.83-1.09) 04/06/19 08:00 Fibrinogen > 500.0 mg/dL (238-498) H 04/06/19 08:00 Problem List - Problems (1) History of DVT (deep vein thrombosis) Assessment/Plan: off eliquis closely monitor Code(s): Z86.718 - PERSONAL HISTORY OF OTHER VENOUS THROMBOSIS AND EMBOLISM (2) Hx pulmonary embolism Assessment/Plan: closely monitor Code(s): Z86.711 - PERSONAL HISTORY OF PULMONARY EMBOLISM (3) Cystocele Assessment/Plan: Patient is s/p vaginal exploration and cystocele repair on 04/03/2019 urology outpatient follow up Code(s): KIW0965 - (4) Diabetes Assessment/Plan: BGM AC/HS with novolog sliding scale well controlled diabetic diet Code(s): E11.9 - TYPE 2 DIABETES MELLITUS WITHOUT COMPLICATIONS (5) HLD (hyperlipidemia) Assessment/Plan: c/w atorvastatin Code(s): E78.5 - HYPERLIPIDEMIA, UNSPECIFIED (6) History of CVA (cerebrovascular accident) Assessment/Plan: c/w statin no asa r/t GIB Code(s): Z86.73 - PRSNL HX OF TIA (TIA), AND CEREB INFRC W/O RESID DEFICITS (7) Hypertension Assessment/Plan: c/w lisinipril,metoprolol Code(s): I10 - ESSENTIAL (PRIMARY) HYPERTENSION (8) Thrombocytopenia Assessment/Plan: platelets 75 thrombocytopenia of unknown etiology patient is a high risk for bleeding, workup for thrombocytopenia pending being ruled out for lupus by rheumatology. will need referral to hematology and rheumatology when discharged she will need to be ruled out of active malignancy (CLL/SLL, Mantle Cell Lymphoma, etc) by obtaining a PET/CT Scan and a bone marrow biopsy both of them outpatient. Code(s): D69.6 - THROMBOCYTOPENIA, UNSPECIFIED (9) Prophylactic measure Assessment/Plan: FEN Fluids: adequate PO intake Electrolytes: monitor & replete as needed Nutrition: diabetic diet DVT scd oob/ambulation Dispo Maintain as inpatient full code discharge planning Code(s): Z29.9 - ENCOUNTER FOR PROPHYLACTIC MEASURES, UNSPECIFIED (10) Hemangioma of liver Assessment/Plan: echogenic area in right lobe of liver most likely a hemangioma follow up MRI as outpatient Code(s): D18.03 - HEMANGIOMA OF INTRA-ABDOMINAL STRUCTURES Visit type - Emergency Visit Emergency Visit: Yes ED Registration Date: 04/03/19 Care time: The patient presented to the Emergency Department on the above date and was hospitalized for further evaluation of their emergent condition. - New Patient This patient is new to me today: No - Critical Care Critical Care patient: No - Discharge Referral Referred to [facility] Med P.C.: No
--- NOTE | 2019-04-13 08:19 | DS ---
Physical Exam: SUBJECTIVE: Patient seen and examined Medically stable for discharge to home with close follow up with Automatic Wheel Line Operator OBJECTIVE: Vital Signs Period Temp Pulse Resp BP Sys/Stokes Pulse Ox Last 24 Hr 97.0 F-98.1 F 55-68 16-20 105-125/53-68 94-96 PHYSICAL EXAM Constitutional: Yes: Well Nourished, No Distress, Calm Eyes: Yes: WNL, Conjunctiva Clear HENT: Yes: WNL, Atraumatic, Normocephalic Neck: Yes: WNL, Supple, Trachea Midline Cardiovascular: Yes: WNL, Regular Rate and Rhythm Respiratory: Yes: WNL, Regular, CTA Bilaterally Gastrointestinal: Yes: WNL, Normal Bowel Sounds ...Rectal Exam: Yes: Deferred Genitourinary: Yes: WNL, Vaginal Bleeding (light) Breast(s): Yes: WNL Musculoskeletal: Yes: WNL Extremities: Yes: WNL Edema: No Peripheral Pulses WNL: Yes Peripheral Pulses: Left Radial: 2+, Right Radial: 2+, Left Doralis Pedis: 2+, Right Dorsalis Pedis: 2+, Left Femoral: 2+, Right Femoral: 2+ Integumentary: Yes: WNL Neurological: Yes: WNL, Alert, Oriented ...Motor Strength: WNL Psychiatric: Yes: WNL LABS Laboratory Results - last 24 hr 04/10/19 04/10/19 04/11/19 08:13 14:00 08:56 WBC RBC Hgb Hct MCV MCH MCHC RDW Plt Count MPV Absolute Neuts (auto) Neutrophils % Lymphocytes % Monocytes % Eosinophils % Basophils % Nucleated RBC % Sodium Potassium Chloride Carbon Dioxide Anion Gap BUN Creatinine Est GFR (CKD-EPI)AfAm Est GFR (CKD-EPI)NonAf POC Glucometer Random Glucose Calcium Magnesium Total Bilirubin AST ALT Alkaline Phosphatase Total Protein Albumin ANTHONY Screen Positive H ANTHONY Homogeneous Pattern TNP ANTHONY Nucleolar Pattern TNP ANTHONY Spindle Chip Pattern TNP ANTHONY Midbody Pattern TNP ANTHONY Centriole Pattern TNP ANTHONY Nuclear Dot Pattern 1:640 H ANTHONY PCNA Pattern TNP ANTHONY Nuclear Membr Pat TNP ANTHONY Speckled Pattern TNP ANTHONY Centromere Pattern TNP Sm (Dunlap) Antibody <0.2 BLACKTOP SPREADER Antibody <0.2 Double Strand DNA Ab 2 Smooth Musc &BLACKTOP SPREADER Intrp 9 Tot Complement (CH50) > 60 04/12/19 04/12/19 04/12/19 08:35 08:35 11:25 WBC 6.6 RBC 4.24 Hgb 12.2 Hct 36.4 MCV 86.0 MCH 28.7 MCHC 33.4 RDW 17.4 H Plt Count 73 L MPV 12.3 H Absolute Neuts (auto) 3.9 Neutrophils % 59.8 Lymphocytes % 26.7 Monocytes % 7.9 Eosinophils % 4.5 Basophils % 1.1 Nucleated RBC % 0 Sodium 138 Potassium 3.9 Chloride 102 Carbon Dioxide 32 Anion Gap 4 L BUN 11.0 Creatinine 0.8 Est GFR (CKD-EPI)AfAm 93.53 Est GFR (CKD-EPI)NonAf 80.70 POC Glucometer 240 Random Glucose 136 H Calcium 10.0 Magnesium 1.7 L Total Bilirubin 0.4 AST 16 ALT 21 Alkaline Phosphatase 142 H Total Protein 7.0 Albumin 3.4 ANTHONY Screen ANTHONY Homogeneous Pattern ANTHONY Nucleolar Pattern ANTHONY Spindle Chip Pattern ANTHONY Midbody Pattern ANTHONY Centriole Pattern ANTHONY Nuclear Dot Pattern ANTHONY PCNA Pattern ANTHONY Nuclear Membr Pat ANTHONY Speckled Pattern ANTHONY Centromere Pattern Sm ([place]lap) Antibody BLACKTOP SPREADER Antibody Double Strand DNA Ab Smooth Musc &BLACKTOP SPREADER Intrp Tot Complement (CH50) 04/12/19 04/12/19 04/13/19 16:29 21:02 06:24 WBC RBC Hgb Hct MCV MCH MCHC RDW Plt Count MPV Absolute Neuts (auto) Neutrophils % Lymphocytes % Monocytes % Eosinophils % Basophils % Nucleated RBC % Sodium Potassium Chloride Carbon Dioxide Anion Gap BUN Creatinine Est GFR (CKD-EPI)AfAm Est GFR (CKD-EPI)NonAf POC Glucometer 252 270 159 Random Glucose Calcium Magnesium Total Bilirubin AST ALT Alkaline Phosphatase Total Protein Albumin ANTHONY Screen ANTHONY Homogeneous Pattern ANTHONY Nucleolar Pattern ANTHONY Spindle Chip Pattern ANTHONY Midbody Pattern ANTHONY Centriole Pattern ANTHONY Nuclear Dot Pattern ANTHONY PCNA Pattern ANTHONY Nuclear Membr Pat ANTHONY Speckled Pattern ANTHONY Centromere Pattern Sm ([place]) Antibody BLACKTOP SPREADER Antibody Double Strand DNA Ab Smooth Musc &BLACKTOP SPREADER Intrp Tot Complement (CH50) HOSPITAL COURSE: Date of Admission:04/03/19 Date of Discharge: 04/13/19 Problem List - Problems (1) History of DVT (deep vein thrombosis) Assessment/Plan: off eliquis closely monitor with metaphysics teacher after dc Code(s): Z86.718 - PERSONAL HISTORY OF OTHER VENOUS THROMBOSIS AND EMBOLISM (2) Hx pulmonary embolism Assessment/Plan: closely monitor Code(s): Z86.711 - PERSONAL HISTORY OF PULMONARY EMBOLISM (3) Cystocele Assessment/Plan: Patient is s/p vaginal exploration and cystocele repair on 04/03/2019 urology outpatient follow up with Dr Sifuentes Code(s): [id number] - (4) Diabetes Assessment/Plan: BGM AC/HS with novolog sliding scale during stay Resume long acting insulin on dc well controlled diabetic diet Code(s): E11.9 - TYPE 2 DIABETES MELLITUS WITHOUT COMPLICATIONS (5) HLD (hyperlipidemia) Assessment/Plan: c/w atorvastatin Code(s): E78.5 - HYPERLIPIDEMIA, UNSPECIFIED (6) History of CVA (cerebrovascular accident) Assessment/Plan: c/w statin no asa r/t GIB Code(s): Z86.73 - PRSNL HX OF TIA (TIA), AND CEREB INFRC W/O RESID DEFICITS (7) Hypertension Assessment/Plan: c/w lisinipril,metoprolol Code(s): I10 - ESSENTIAL (PRIMARY) HYPERTENSION (8) Thrombocytopenia Assessment/Plan: platelets 75 todat thrombocytopenia of unknown etiology patient is a high risk for bleeding, workup for thrombocytopenia pending being ruled out for lupus by rheumatology. will need referral to hematology and rheumatology when discharged she will need to be ruled out of active malignancy (CLL/SLL, Mantle Cell Lymphoma, etc) by obtaining a PET/CT Scan and a bone marrow biopsy both of them outpatient. (9) Prophylactic measure Assessment/Plan: FEN Fluids: adequate PO intake Electrolytes: stable Nutrition: diabetic diet DVT oob/ambulation Dispo Maintain as inpatient full code discharge planning Code(s): Z29.9 - ENCOUNTER FOR PROPHYLACTIC MEASURES, UNSPECIFIED Visit type Medically stable for discharge to home with close follow up with Automatic Wheel Line Operator Minutes to complete discharge: 45 Discharge Summary Problems reviewed: Yes Reason For Visit: FEMALE STRESS INCONTINENCE Current Active Problems Cystocele (Acute) DVT (deep venous thrombosis) (Acute) DVT prophylaxis (Acute) Diabetes (Acute) HLD (hyperlipidemia) (Acute) History of CVA (cerebrovascular accident) (Acute) History of DVT (deep vein thrombosis) (Acute) Hx pulmonary embolism (Acute) Hypertension (Acute) Prophylactic measure (Acute) Pulmonary embolism (Acute) Thrombocytopenia (Acute) Hospital Course: HOSPITAL COURSE: Date of Admission:04/03/19 Date of Discharge: 04/13/19 Problem List - Problems (1) History of DVT (deep vein thrombosis) Assessment/Plan: off eliquis closely monitor with metaphysics teacher after dc Code(s): Z86.718 - PERSONAL HISTORY OF OTHER VENOUS THROMBOSIS AND EMBOLISM (2) Hx pulmonary embolism Assessment/Plan: closely monitor Code(s): Z86.711 - PERSONAL HISTORY OF PULMONARY EMBOLISM (3) Cystocele Assessment/Plan: Patient is s/p vaginal exploration and cystocele repair on 04/03/2019 urology outpatient follow up with Dr Sifuentes Code(s): [id number] - (4) Diabetes Assessment/Plan: BGM AC/HS with novolog sliding scale during stay Resume long acting insulin on dc well controlled diabetic diet Code(s): E11.9 - TYPE 2 DIABETES MELLITUS WITHOUT COMPLICATIONS (5) HLD (hyperlipidemia) Assessment/Plan: c/w atorvastatin Code(s): E78.5 - HYPERLIPIDEMIA, UNSPECIFIED (6) History of CVA (cerebrovascular accident) Assessment/Plan: c/w statin no asa r/t GIB Code(s): Z86.73 - PRSNL HX OF TIA (TIA), AND CEREB INFRC W/O RESID DEFICITS (7) Hypertension Assessment/Plan: c/w lisinipril,metoprolol Code(s): I10 - ESSENTIAL (PRIMARY) HYPERTENSION (8) Thrombocytopenia Assessment/Plan: platelets 75 todat thrombocytopenia of unknown etiology patient is a high risk for bleeding, workup for thrombocytopenia pending being ruled out for lupus by rheumatology. will need referral to hematology and rheumatology when discharged she will need to be ruled out of active malignancy (CLL/SLL, Mantle Cell Lymphoma, etc) by obtaining a PET/CT Scan and a bone marrow biopsy both of them outpatient. (9) Prophylactic measure Assessment/Plan: FEN Fluids: adequate PO intake Electrolytes: stable Nutrition: diabetic diet DVT oob/ambulation Dispo Maintain as inpatient full code discharge planning Code(s): Z29.9 - ENCOUNTER FOR PROPHYLACTIC MEASURES, UNSPECIFIED Visit type Medically stable for discharge to home with close follow up with Automatic Wheel Line Operator Condition: Improved - Instructions Diet, Activity, Other Instructions: DISCHARGE YOUR VISIT You came to the hospital because you had a cystocele repair and lysis of adhesions with Dr Sifuentes. After the surgery your platelet count dropped. A hematological workup was done and you need to be followed closely with Dr Khoury/ Kirsten in the office. You will need to have a bone marrow biposy and a PET /CT scan as an outpatient. An ultrasound was done that showed a lesion in the right part of your liver. This is most likely a benign hemangioma (non cancerous ) but you will need to have an MRI with contrast to follow this closely. You also need to have a CT scan of your abdomen and chest-you can schedule this hem you see Dr Curtis MEDICATIONS Please continue to take your home medications as prescribed. There was some changes made to your medications STOP the following NO motrin, ibuprofen, eleve ot any non steroidal antiimflammatory (NSAIDS) NO aspirin NO eliquis ot any blood thinners DIET Continue your home diet ADDITIONAL CARE Please make an appointment to see your primary care provider, 2 week from today. Call to make an appointment with Dr Khoury/Dr Curtis for follow up. Call Dr Sifuentes for a post-op appointment ADDITIONAL INFORMATION Please call 911 or come directly to the emergency department if you experience unusual headache, vision change, shortness of breath, chest pain, numbness, tingling, loss of alertness/awareness, loss of function, unusual bleeding or any alarming symptoms. Thank you for allowing me to care for you. David Carpenter, [facility], [facility] [phone] Referrals: Joann Kohler MD [Staff Physician] - Enrique Khoury MD [Staff Physician] - 1 Week (Call for appoitment with Dr Khoury/Kirsten for 1 week) Travis Sifuentes MD [Staff Physician] - (Call for appoitment for post-op apponitment) Disposition: HOME - Home Medications Comprehensive Discharge Medication List: Ambulatory Orders Albuterol Sulfate Inhaler - [Ventolin HFA Inhaler -] 2 inh IH Q6H #1 inh Fluoxetine HCl [Prozac -] 20 mg PO DAILY 04/04/18 Fluticasone/Salmeterol [Advair 250-50 Diskus] 1 each IH BID 04/04/18 Gabapentin [Neurontin -] 800 mg PO TID 04/04/18 Metoprolol Succinate [Toprol XL -] 25 mg PO DAILY 04/04/18 Oxycodone HCl/Acetaminophen [Endocet 10-325 mg Tablet] 2 each PO QID PRN Polyethylene Glycol 3350 [Miralax 255 gm Btl -] 17 gm PO DAILY 04/04/18 metFORMIN HCL [Metformin ER Gastric] 500 mg PO BID 04/04/18 Apixaban [Eliquis] 5 mg PO BID 07/06/18 Chlorzoxazone 750 mg PO BID 07/06/18 Lisinopril 20 mg PO DAILY 07/06/18 Aspirin [ASA -] 81 mg PO DAILY #30 tab.chew 07/07/18 Cyanocobalamin (Vitamin B-12) [B-12] 1,000 mcg PO DAILY 30 Days #30 tablet.er Ferrous Sulfate [Feosol] 325 mg PO BID 30 Days #60 tablet 07/07/18 Amitriptyline HCl [Elavil -] 50 mg PO HS #30 tablet 07/08/18 Atorvastatin Ca [Lipitor] 80 mg PO HS 30 Days tablet 07/08/18 Butalb/Acetaminophen/Caffeine [Fioricet 50-300-40 mg Capsule] 1 each PO Q8H PRN 4 Days #10 capsule MDD 3 tabs 07/08/18 Ammonium Lactate [Skin Treatment] 400 gm TP 04/03/19 Aspirin [ASA -] 81 mg PO DAILY 04/03/19 Bimatoprost [Lumigan] 1 drop IO DAILY 04/03/19 Celecoxib [Celebrex] 200 mg PO DAILY 04/03/19 Famotidine 20 mg PO BID 04/03/19 Ibuprofen 800 mg PO DAILY 04/03/19 Insulin Glargine,Hum.rec.anlog [Lantus] 58 unit SQ BID 04/03/19 Insulin Lispro [Humalog] 6 unit SQ TID 04/03/19 Magnesium Oxide [Magox 400] 400 mg PO TID 04/03/19 Mirtazapine [Remeron -] 7.5 mg PO DAILY 04/03/19 Amitriptyline HCl [Elavil -] 50 mg PO HS 04/08/19 Buspirone HCl 30 mg PO BID 04/08/19 Prescription Drug Monitoring Program (I-STOP) results: I-STOP reviewed and no issues identified Problem List - Problems (1) History of DVT (deep vein thrombosis) Code(s): Z86.718 - PERSONAL HISTORY OF OTHER VENOUS THROMBOSIS AND EMBOLISM (2) Hx pulmonary embolism Code(s): Z86.711 - PERSONAL HISTORY OF PULMONARY EMBOLISM (3) Cystocele Code(s): [id number] - (4) Diabetes Code(s): E11.9 - TYPE 2 DIABETES MELLITUS WITHOUT COMPLICATIONS (5) HLD (hyperlipidemia) Code(s): E78.5 - HYPERLIPIDEMIA, UNSPECIFIED (6) History of CVA (cerebrovascular accident) Code(s): Z86.73 - PRSNL HX OF TIA (TIA), AND CEREB INFRC W/O RESID DEFICITS (7) Hypertension Code(s): I10 - ESSENTIAL (PRIMARY) HYPERTENSION (8) Thrombocytopenia Code(s): D69.6 - THROMBOCYTOPENIA, UNSPECIFIED (9) Prophylactic measure Code(s): Z29.9 - ENCOUNTER FOR PROPHYLACTIC MEASURES, UNSPECIFIED This patient is new to me today: No Emergency Visit: Yes ED Registration Date: 04/03/19 Care time: The patient presented to the Emergency Department on the above date and was hospitalized for further evaluation of their emergent condition. Critical Care patient: No - Discharge Referral Referred to [facility] Med P.C.: No
--- NOTE | 2019-04-13 09:25 | PN ---
DATE OF VISIT: 04/12/2019 DATE OF DICTATION: 04/12/2019 SUBJECTIVE: This is postoperative day 7. Patient underwent vaginal exploration, lysis of adhesions, and cystocele repair on April 05, 2019. She is afebrile. The wound is clean and dry. Patient is voiding well. A urine culture grew out E. coli and Enterococcus faecalis. The patient's white count is 6.6. Her BUN 11 and creatinine 0.8. Her maximum temperature is 98.1, blood pressure 116/63. IMPRESSION: Uneventful post Josi [id number]
[2019-04-13] MEDS ORDERED: PT OWN MED DRAWER 7, Y5N ONE (10:10)
[2019-04-13] MEDS: LIDOCAINE 5% TOPICAL PATCH TP SCH (10:11)
[2019-04-13] MEDS: MAGNESIUM OXIDE 400 MG TABLET (FP) PO SCH ×2 (10:13→21:25)
[2019-04-13] MEDS: metoPROLOL SUCCINATE 25 MG TAB.SR.24H (FP) PO SCH (10:13)
[2019-04-13] MEDS: LISINOPRIL 20 MG TABLET (FP) PO SCH (10:13)
[2019-04-13] MEDS: PANTOPRAZOLE 40 MG TABLET PO SCH (10:13)
[2019-04-13] MEDS: DOCUSATE SODIUM 100 MG CAPSULE (FP) PO SCH (10:13)
[2019-04-13] MEDS: FLUoxetine HCL 20 MG CAPSULE PO SCH (10:13)
[2019-04-13] MEDS: POLYETHYLENE GLYCOL 3350 119 GM BTL PO SCH (10:14)
[2019-04-13] MEDS: busPIRone HCL 10 MG TABLET (FP) PO SCH ×2 (10:14→21:26)
[2019-04-13] MEDS: oxyCODONE HCL 5 MG TABLET PO PRN ×2 (10:19→21:24)
[2019-04-13 10:54] LABS: BASO % 0.9 % (0-2.0); EOS % 4.5 % (0-4.5); HEMATOCRIT 37.1 % (32.4-45.2); HEMOGLOBIN 12.3 GM/dL (10.7-15.3); LYMPH % 28.1 % (8-40); MCH 28.7 pg (25.7-33.7); MCHC 33.1 g/dl (32.0-36.0); MEAN CELL VOLUME 86.5 fl (80-96); MEAN PLT VOLUME 11.7 fl (7.5-11.1); MONO % 8.5 % (3.8-10.2); PLATELET COUNT 74 K/MM3 (134-434); RBC 4.29 M/mm3 (3.60-5.2); RDW 17.1 % (11.6-15.6); WHITE BLOOD COUNT 6.3 K/mm3 (4.0-10.0)
[2019-04-13 11:17] LABS: ALBUMIN 3.5 g/dl (3.4-5.0); BILIRUBIN,TOTAL 0.4 mg/dL (0.2-1); BLOOD UREA NITROGEN 13.6 mg/dL (7-18); CALCIUM 9.7 mg/dL (8.5-10.1); CREATININE 0.9 mg/dL (0.55-1.3); MAGNESIUM 1.9 mg/dL (1.8-2.4); TOT PROT 6.9 g/dl (6.4-8.2)
--- NOTE | 2019-04-13 18:42 | PN ---
Progress Note (short form) - Note Progress Note: Patient seen and examined Feels ok Last Vital Signs Temp Pulse Resp BP Pulse Ox 97.7 F 68 18 112/74 96 04/13/19 13:42 04/13/19 13:42 04/13/19 13:42 04/13/19 13:42 04/13/19 09:00 Cor: RSR, No murmurs, No gallops Lungs: Clear to P&A Abd: Soft, Normal bowel sounds, No organomegaly Ext:No significant edema Abnormal Lab Results 04/10/19 04/13/19 04/13/19 08:13 10:30 10:30 RDW 17.1 H Plt Count 74 L MPV 11.7 H Anion Gap 5 L Random Glucose 185 H Alkaline Phosphatase 139 H ANTHONY Screen Positive H ANTHONY Nuclear Dot Pattern 1:640 H Home Medication List Medication Instructions Recorded Confirmed Type Fluoxetine HCl [Prozac -] 20 mg PO DAILY 04/04/18 04/03/19 History Fluticasone/Salmeterol [Advair 1 each IH BID 04/04/18 04/03/19 History 250-50 Diskus] Gabapentin [Neurontin -] 800 mg PO TID 04/04/18 04/03/19 History Metoprolol Succinate [Toprol XL -] 25 mg PO DAILY 04/04/18 04/03/19 History Polyethylene Glycol 3350 [Miralax 17 gm PO DAILY 04/04/18 04/03/19 History 255 gm Btl -] metFORMIN HCL [Metformin ER 500 mg PO BID 04/04/18 04/03/19 History Gastric] Lisinopril 20 mg PO DAILY 07/06/18 04/03/19 History Ammonium Lactate [Skin Treatment] 400 gm TP 04/03/19 History Bimatoprost [Lumigan] 1 drop IO DAILY 04/03/19 04/03/19 History Famotidine 20 mg PO BID 04/03/19 04/03/19 History Insulin Glargine,Hum.rec.anlog 58 unit SQ BID 04/03/19 04/03/19 History [Lantus] Insulin Lispro [Humalog] 6 unit SQ TID 04/03/19 04/03/19 History Magnesium Oxide [Magox 400] 400 mg PO TID 04/03/19 04/03/19 History Mirtazapine [Remeron -] 7.5 mg PO DAILY 04/03/19 04/03/19 History Amitriptyline HCl [Elavil -] 50 mg PO HS 04/08/19 04/08/19 History Buspirone HCl 30 mg PO BID 04/08/19 04/08/19 History Active Medications Generic Name Dose Route Start Last Admin Trade Name Freq PRN Reason Stop Dose Admin Albuterol Sulfate 1 amp 04/03/19 20:07 04/03/19 22:13 Ventolin 0.083% Nebulizer Soln - NEB 1 amp Q4H PRN Administration SHORT OF BREATH/WHEEZING Amitriptyline HCl 50 mg 04/11/19 22:00 04/12/19 21:10 Elavil - PO 50 mg HS CHINMAY Administration Atorvastatin Calcium 80 mg 04/04/19 22:00 04/12/19 21:05 Lipitor - PO 80 mg HS CHINMAY Administration Buspirone HCl 30 mg 04/11/19 22:00 04/13/19 10:14 Buspar - PO 30 mg BID CHINMAY Administration Docusate Sodium 100 mg 04/03/19 20:15 04/13/19 10:13 Colace - PO 100 mg DAILY CHINMAY Administration Fluoxetine HCl 20 mg 04/04/19 10:00 04/13/19 10:13 Prozac - PO 20 mg DAILY CHINMAY Administration Insulin Aspart 1 vial 04/06/19 16:30 04/13/19 16:08 Novolog Vial Sliding Scale - SQ 4 units ACHS CHINMAY Administration Protocol Insulin Detemir 10 units 04/12/19 22:00 04/13/19 06:26 Levemir Vial SQ 10 units BID@0700,2200 [facility]INMAY Administration Lidocaine 1 patch 04/11/19 13:00 04/13/19 10:11 Lidoderm Patch - TP 1 patch DAILY [facility]MAY Administration Lisinopril 20 mg 04/04/19 10:00 04/13/19 10:13 Prinivil PO 20 mg DAILY CH[facility]MAY Administration Magnesium Oxide 400 mg 04/07/19 10:00 04/13/19 10:13 Mag-Ox - PO 400 mg BID CHINMAY Administration Metoprolol Succinate 25 mg 04/04/19 10:00 04/13/19 10:13 Toprol Xl - PO 25 mg DAILY CHINMAY Administration Miscellaneous 1 each 04/11/19 22:00 04/12/19 21:19 Lidoderm Patch Removal MC 1 each DAILY@2200 [facility]INMAY Administration Ondansetron HCl 4 mg 04/03/19 17:13 Zofran Injection IVPUSH Q6H PRN NAUSEA AND/OR VOMITING Oxycodone HCl 5 mg 04/03/19 17:13 Roxicodone - PO Q4H PRN PAIN LEVEL 1-5 Oxycodone HCl 10 mg 04/03/19 17:13 04/13/19 10:19 Roxicodone - PO 10 mg Q4H PRN Administration PAIN LEVEL 6-10 Pantoprazole Sodium 40 mg 04/03/19 20:15 04/13/19 10:13 Protonix - PO 40 mg DAILY CHINMAY Administration Polyethylene Glycol 17 gm 04/09/19 15:00 04/13/19 10:14 Miralax (For Daily Use) - PO 17 gm DAILY [facility]INMAY Administration Promethazine HCl 12.5 mg 04/03/19 17:13 Phenergan Injection - IVPUSH Q6H PRN NAUSEA-FOR RESCUE AFTER 15 MIN Senna 1 tab 04/03/19 22:00 04/12/19 21:05 Senna - PO 1 tab HS CHINMAY Administration A/P 59 yo female admitted for urologic surgery with dr braxton on 04/03 noted to have Thrombocytoopenia (new) recently in hospital 03/02 to 03/07 for UGI bleed requiring ICU admit, 3 unit PRBC, s/p EGD with esophagitic and multiple gastric ulcers treated for aspiration pneumonia as well Past hx of DVT Past hx of GI bleed HIT negative new onst thrombocytopenia -- + antiplatelet abs ? ITP Seen by ID --no obvious infection B ---- will dose B12 folate/TSH --normal Peripheral blood flow revealing a B-Cell process, either indolent of systemic low level disease. CD20+, CD5+ and CD23+ and CD10-. 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 ? CLL. Platelets stable at this time. She will need to be ruled out of active malignancy by obtaining a PET/CT Scan and a bone marrow biopsy both of them outpatient. At this time her thrombocytopenia is stable Iron deficiency --mild anemia . will dose venofer 2nd dose CT chest --no pathology check CT a/p Discussed these findings in detail with patient and her daughter. Gave them phone nos. to follow up closely in the office for outpatient w/u
[2019-04-13] MEDS ORDERED: IRON SUCROSE INJECTION 200 MG in SODIUM CHLORIDE 100 ML IVPB ONE (20:30)
[2019-04-13] MEDS ORDERED: INSULIN (NOVOLOG) ASPART 100 UNITS/ML 10ML VIAL ONE (21:02)
[2019-04-13] MEDS: ATORVASTATIN CA 80 MG TABLET (FP) PO SCH (21:25)
[2019-04-13] MEDS: SENNOSIDES 8.6MG TABLET (FP) PO SCH (21:25)
[2019-04-13] MEDS: AMITRIPTYLINE HCL 25 MG TABLET PO SCH (21:26)
[2019-04-13] MEDS: LIDOCAINE PATCH REMOVAL MC SCH (21:29)
[2019-04-14] MEDS: INSULIN (LEVEMIR) 100 UNITS/ML UNITS SQ SCH ×2 (06:39→21:52)
[2019-04-14] MEDS: INSULIN SLIDING SCALE (NOVOLOG) 1 VIAL SQ SCH ×4 (06:39→21:51)
--- NOTE | 2019-04-14 08:27 | PN ---
Progress Note (short form) - Note Progress Note: Seen by hematology and reuesting pt to have Chest/Abdomen/pelvis CT before discharge. Pt refusing. Exlplained why scan are necessary and will not agree. Placed in dc paper to have scan schedule when she sees Dr Curtis/Peng in office. Medically stable for discharge to home with close follow up Problem List - Problems (1) History of DVT (deep vein thrombosis) Code(s): Z86.718 - PERSONAL HISTORY OF OTHER VENOUS THROMBOSIS AND EMBOLISM (2) Hx pulmonary embolism Code(s): Z86.711 - PERSONAL HISTORY OF PULMONARY EMBOLISM (3) Cystocele Code(s): [id number] - (4) Diabetes Code(s): E11.9 - TYPE 2 DIABETES MELLITUS WITHOUT COMPLICATIONS (5) HLD (hyperlipidemia) Code(s): E78.5 - HYPERLIPIDEMIA, UNSPECIFIED (6) History of CVA (cerebrovascular accident) Code(s): Z86.73 - PRSNL HX OF TIA (TIA), AND CEREB INFRC W/O RESID DEFICITS (7) Hypertension Code(s): I10 - ESSENTIAL (PRIMARY) HYPERTENSION (8) Thrombocytopenia Code(s): D69.6 - THROMBOCYTOPENIA, UNSPECIFIED (9) Prophylactic measure Code(s): Z29.9 - ENCOUNTER FOR PROPHYLACTIC MEASURES, UNSPECIFIED (10) Hemangioma of liver Code(s): D18.03 - HEMANGIOMA OF INTRA-ABDOMINAL STRUCTURES Visit type - Emergency Visit Emergency Visit: Yes ED Registration Date: 04/03/19 Care time: The patient presented to the Emergency Department on the above date and was hospitalized for further evaluation of their emergent condition. - New Patient This patient is new to me today: No - Critical Care Critical Care patient: No - Discharge Referral Referred to [facility] Med P.C.: No
[2019-04-14] MEDS ORDERED: PT OWN MED DRAWER 7, Y5N ONE (09:41)
[2019-04-14] MEDS: PANTOPRAZOLE 40 MG TABLET PO SCH (09:44)
[2019-04-14] MEDS: MAGNESIUM OXIDE 400 MG TABLET (FP) PO SCH ×2 (09:44→21:52)
[2019-04-14] MEDS: LIDOCAINE 5% TOPICAL PATCH TP SCH (09:44)
[2019-04-14] MEDS: busPIRone HCL 10 MG TABLET (FP) PO SCH ×2 (09:44→21:52)
[2019-04-14] MEDS: LISINOPRIL 20 MG TABLET (FP) PO SCH (09:44)
[2019-04-14] MEDS: metoPROLOL SUCCINATE 25 MG TAB.SR.24H (FP) PO SCH (09:45)
[2019-04-14] MEDS: FLUoxetine HCL 20 MG CAPSULE PO SCH (09:45)
[2019-04-14] MEDS: DOCUSATE SODIUM 100 MG CAPSULE (FP) PO SCH (09:45)
[2019-04-14] MEDS: POLYETHYLENE GLYCOL 3350 119 GM BTL PO SCH (09:45)
[2019-04-14] MEDS: oxyCODONE HCL 5 MG TABLET PO PRN ×3 (09:56→21:58)
[2019-04-14 10:08] LABS: DRVVT - 42.7 sec (0.0-47.0)
[2019-04-14 10:42] LABS: EOS % 3.5 % (0-4.5); HEMATOCRIT 36.8 % (32.4-45.2); HEMOGLOBIN 12.1 GM/dL (10.7-15.3); LYMPH % 23.7 % (8-40); MCH 28.3 pg (25.7-33.7); MCHC 32.9 g/dl (32.0-36.0); MEAN CELL VOLUME 85.9 fl (80-96); MEAN PLT VOLUME 11.1 fl (7.5-11.1); MONO % 9.3 % (3.8-10.2); NEUT % 62.5 % (42.8-82.8); PLATELET COUNT 77 K/MM3 (134-434); RBC 4.29 M/mm3 (3.60-5.2); RDW 17.3 % (11.6-15.6); WHITE BLOOD COUNT 6.5 K/mm3 (4.0-10.0)
[2019-04-14] MEDS ORDERED: BISACODYL 5 MG TABLET.DR (FP) PO ONE (11:00)
[2019-04-14] MEDS ORDERED: MAGNESIUM CITRATE 300 ML BOTTLE PO ONE (11:00)
[2019-04-14 15:22] LABS: ANISOCYTOSIS 1+; MACROCYTOSIS 0; OVALOCYTE 1+; PLATELET ESTIMATE DECREASED
--- NOTE | 2019-04-14 16:18 | HOSP ---
Physical Examination Vital Signs: Vital Signs Temperature 97.9 F 04/14/19 15:53 Pulse Rate 72 04/14/19 15:53 Respiratory Rate 20 04/14/19 15:53 Blood Pressure 149/75 04/14/19 15:53 O2 Sat by Pulse Oximetry (%) 96 04/14/19 09:00 Labs: CBC, BMP 04/14/19 10:10 04/13/19 10:30 Hospitalist Encounter Assessment: Patient refusing CT scans. Explained importance of follow up CT scan and continues to refuse. Dr Olivo aware and will have scans as outpatient. Patient then discharge and not able to leave because of weather and no ride home. Spoke to ROBYN
[2019-04-14] MEDS: AMITRIPTYLINE HCL 25 MG TABLET PO SCH (21:52)
[2019-04-14] MEDS: LIDOCAINE PATCH REMOVAL MC SCH (21:52)
[2019-04-14] MEDS: SENNOSIDES 8.6MG TABLET (FP) PO SCH (21:52)
[2019-04-14] MEDS: ATORVASTATIN CA 80 MG TABLET (FP) PO SCH (21:52)
[2019-04-15] MEDS: INSULIN (LEVEMIR) 100 UNITS/ML UNITS SQ SCH ×2 (06:41→22:02)
[2019-04-15] MEDS: INSULIN SLIDING SCALE (NOVOLOG) 1 VIAL SQ SCH ×4 (06:42→22:03)
--- NOTE | 2019-04-15 07:52 | PN ---
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 Sifuentes and was found to have thrombocytopenia Seen by hematology and requesting pt to have Chest/Abdomen/pelvis CT before discharge. Pt refusing. Explained why scan are necessary and will not agree. Placed in dc paper to have scan schedule when she sees Dr Curtis/Peng in office. Patient states she has not had a BM since surgery. PE Constitutional: Yes: Well Nourished, No Distress, Calm Eyes: Yes: WNL, Conjunctiva Clear HENT: Yes: WNL, Atraumatic, Normocephalic Neck: Yes: WNL, Supple, Trachea Midline Cardiovascular: Yes: WNL, Regular Rate and Rhythm Respiratory: Yes: WNL, Regular, CTA Bilaterally Gastrointestinal: Yes: WNL, Normal Bowel Sounds ...Rectal Exam: Yes: Deferred Genitourinary: Yes: WNL, Vaginal Bleeding (light) Breast(s): Yes: WNL Musculoskeletal: Yes: WNL Extremities: Yes: WNL Edema: No Peripheral Pulses WNL: Yes Peripheral Pulses: Left Radial: 2+, Right Radial: 2+, Left Doralis Pedis: 2+, Right Dorsalis Pedis: 2+, Left Femoral: 2+, Right Femoral: 2+ Integumentary: Yes: WNL Neurological: Yes: WNL, Alert, Oriented ...Motor Strength: WNL Psychiatric: Yes: WNL Problem List - Problems (1) History of DVT (deep vein thrombosis) Assessment/Plan: off eliquis closely monitor Code(s): Z86.718 - PERSONAL HISTORY OF OTHER VENOUS THROMBOSIS AND EMBOLISM (2) Hx pulmonary embolism Assessment/Plan: closely monitor Code(s): Z86.711 - PERSONAL HISTORY OF PULMONARY EMBOLISM (3) Cystocele Assessment/Plan: Patient is s/p vaginal exploration and cystocele repair on 04/03/2019 urology outpatient follow up Code(s): XGL6162 - (4) Diabetes Assessment/Plan: BGM AC/HS with novolog sliding scale well controlled diabetic diet Code(s): E11.9 - TYPE 2 DIABETES MELLITUS WITHOUT COMPLICATIONS (5) HLD (hyperlipidemia) Assessment/Plan: c/w atorvastatin Code(s): E78.5 - HYPERLIPIDEMIA, UNSPECIFIED (6) History of CVA (cerebrovascular accident) Assessment/Plan: c/w statin no asa r/t recent surgery Code(s): Z86.73 - PRSNL HX OF TIA (TIA), AND CEREB INFRC W/O RESID DEFICITS (7) Hypertension Assessment/Plan: c/w lisinipril,metoprolol Code(s): I10 - ESSENTIAL (PRIMARY) HYPERTENSION (8) Thrombocytopenia Assessment/Plan: platelets 75 thrombocytopenia of unknown etiology patient is a high risk for bleeding, workup for thrombocytopenia pending being ruled out for lupus by rheumatology. will need referral to hematology and rheumatology when discharged she will need to be ruled out of active malignancy (CLL/SLL, Mantle Cell Lymphoma, etc) by obtaining a PET/CT Scan and a bone marrow biopsy both of them outpatient. Code(s): D69.6 - THROMBOCYTOPENIA, UNSPECIFIED (9) Prophylactic measure Assessment/Plan: FEN Fluids: adequate PO intake Electrolytes: monitor & replete as needed Nutrition: diabetic diet DVT scd oob/ambulation Dispo Maintain as inpatient full code discharge planning Code(s): Z29.9 - ENCOUNTER FOR PROPHYLACTIC MEASURES, UNSPECIFIED (10) Hemangioma of liver Assessment/Plan: echogenic area in right lobe of liver most likely a hemangioma follow up MRI as outpatient Code(s): D18.03 - HEMANGIOMA OF INTRA-ABDOMINAL STRUCTURES (11) Constipation Assessment/Plan: no BM since surgery aggressive bowel regimine additional lactuolse given gave dose of methylnaltrexone today given prolonged opoid use ordered for movantik as outpatient can be dc'd when has BM Code(s): K59.00 - CONSTIPATION, UNSPECIFIED Visit type - Emergency Visit Emergency Visit: Yes ED Registration Date: 04/03/19 Care time: The patient presented to the Emergency Department on the above date and was hospitalized for further evaluation of their emergent condition. - New Patient This patient is new to me today: No - Critical Care Critical Care patient: No - Discharge Referral Referred to [facility] No
[2019-04-15] MEDS ORDERED: LACTULOSE 20 GM/30 ML UDC (FOR ORAL USE ONLY) PO ONE (09:22)
[2019-04-15] MEDS ORDERED: Methylnaltrexone Bromide 12 MG/0.6 ML KIT SQ SCH (10:00)
[2019-04-15] MEDS ORDERED: PT OWN MED DRAWER 7, Y5N ONE (10:26)
[2019-04-15] MEDS: PANTOPRAZOLE 40 MG TABLET PO SCH (10:28)
[2019-04-15] MEDS: MAGNESIUM OXIDE 400 MG TABLET (FP) PO SCH ×2 (10:29→22:03)
[2019-04-15] MEDS: metoPROLOL SUCCINATE 25 MG TAB.SR.24H (FP) PO SCH (10:29)
[2019-04-15] MEDS: LISINOPRIL 20 MG TABLET (FP) PO SCH (10:29)
[2019-04-15] MEDS: FLUoxetine HCL 20 MG CAPSULE PO SCH (10:29)
[2019-04-15] MEDS: busPIRone HCL 10 MG TABLET (FP) PO SCH ×2 (10:30→22:00)
[2019-04-15] MEDS: LIDOCAINE 5% TOPICAL PATCH TP SCH (10:30)
[2019-04-15] MEDS: POLYETHYLENE GLYCOL 3350 119 GM BTL PO SCH ×2 (10:31)
[2019-04-15] MEDS: DOCUSATE SODIUM 100 MG CAPSULE (FP) PO SCH (10:32)
[2019-04-15] MEDS ORDERED: INSULIN (NOVOLOG) ASPART 100 UNITS/ML 10ML VIAL ONE (11:23)
[2019-04-15] MEDS: oxyCODONE HCL 5 MG TABLET PO PRN ×3 (11:25→22:11)
[2019-04-15 21:12] LABS: BASO % 1.2 % (0-2.0); EOS % 4.4 % (0-4.5); HEMATOCRIT 35.7 % (32.4-45.2); HEMOGLOBIN 11.6 GM/dL (10.7-15.3); MCH 28.2 pg (25.7-33.7); MCHC 32.5 g/dl (32.0-36.0); MEAN CELL VOLUME 86.9 fl (80-96); MEAN PLT VOLUME 11.3 fl (7.5-11.1); MONO % 8.5 % (3.8-10.2); NEUT % 62.9 % (42.8-82.8); PLATELET COUNT 79 K/MM3 (134-434); RDW 17.1 % (11.6-15.6); WHITE BLOOD COUNT 7.2 K/mm3 (4.0-10.0)
[2019-04-15 21:52] LABS: MACROCYTOSIS 1+
[2019-04-15 21:54] LABS: OVALOCYTE 1+
[2019-04-15 21:55] LABS: PLATELET ESTIMATE MOD DECREASED
[2019-04-15] MEDS: ATORVASTATIN CA 80 MG TABLET (FP) PO SCH (22:02)
[2019-04-15] MEDS: LIDOCAINE PATCH REMOVAL MC SCH (22:02)
[2019-04-15] MEDS: AMITRIPTYLINE HCL 25 MG TABLET PO SCH (22:02)
[2019-04-15] MEDS: SENNOSIDES 8.6MG TABLET (FP) PO SCH (22:03)
[2019-04-16] MEDS: INSULIN SLIDING SCALE (NOVOLOG) 1 VIAL SQ SCH ×4 (06:32→22:14)
[2019-04-16] MEDS: INSULIN (LEVEMIR) 100 UNITS/ML UNITS SQ SCH ×2 (06:32→22:14)
[2019-04-16] MEDS: oxyCODONE HCL 5 MG TABLET PO PRN ×5 (06:39→23:26)
[2019-04-16 08:32] LABS: BASO % 0.9 % (0-2.0); EOS % 4.7 % (0-4.5); HEMATOCRIT 36.6 % (32.4-45.2); LYMPH % 26.6 % (8-40); MCH 28.4 pg (25.7-33.7); MEAN CELL VOLUME 86.3 fl (80-96); MEAN PLT VOLUME 11.3 fl (7.5-11.1); MONO % 7.5 % (3.8-10.2); NEUT % 60.3 % (42.8-82.8); PLATELET COUNT 94 K/MM3 (134-434); RBC 4.23 M/mm3 (3.60-5.2); RDW 17.2 % (11.6-15.6); WHITE BLOOD COUNT 7.1 K/mm3 (4.0-10.0)
[2019-04-16 09:01] LABS: ALBUMIN 3.7 g/dl (3.4-5.0); BILIRUBIN,TOTAL 0.4 mg/dL (0.2-1); BLOOD UREA NITROGEN 18.6 mg/dL (7-18); CALCIUM 9.6 mg/dL (8.5-10.1); CREATININE 1.1 mg/dL (0.55-1.3); MAGNESIUM 2.2 mg/dL (1.8-2.4); TOT PROT 7.4 g/dl (6.4-8.2)
[2019-04-16] MEDS: LIDOCAINE 5% TOPICAL PATCH TP SCH (10:13)
[2019-04-16] MEDS: DOCUSATE SODIUM 100 MG CAPSULE (FP) PO SCH (10:14)
[2019-04-16] MEDS: MAGNESIUM OXIDE 400 MG TABLET (FP) PO SCH ×2 (10:14→22:14)
[2019-04-16] MEDS: LISINOPRIL 20 MG TABLET (FP) PO SCH (10:15)
[2019-04-16] MEDS: PANTOPRAZOLE 40 MG TABLET PO SCH (10:15)
[2019-04-16] MEDS: metoPROLOL SUCCINATE 25 MG TAB.SR.24H (FP) PO SCH (10:15)
[2019-04-16] MEDS: POLYETHYLENE GLYCOL 3350 119 GM BTL PO SCH ×2 (10:16)
[2019-04-16] MEDS: busPIRone HCL 10 MG TABLET (FP) PO SCH ×2 (10:17→22:13)
[2019-04-16] MEDS: FLUoxetine HCL 20 MG CAPSULE PO SCH (10:19)
--- NOTE | 2019-04-16 10:32 | PN ---
Physical Exam: SUBJECTIVE: Patient seen and examined at the bedside. denies any pain, but states she continues to have vaginal bleeding and had to change her pads 6 times overnight. OBJECTIVE: pad with moderate amt of blood, also saw that patient had 3 small clots on toilet paper after urinating constipation x 7 days, on bowel regimen for abd/ct pelvis today platelets [address]/pelvis with contrast pending. patient appears slightly pallorous with orbital hyperpigmentation Patient is a 59 year old female with a significant past medical history of CVA with right sided sided residual deficit, DM II (on home insulin), HTN, HLD, morbid obesity, peptic ulcer disease UGIB requiring sclerotherapy in 02/2019 at [facility], past DVT(1988) and PE (1990) and recently taken off of Eliquis due to UGIB requiring ICU hospitalization She is s/p cystocele repair and removal of adhesions POD #[address] Sifuentes and was found to have thrombocytopenia. Seen by hematology and per hematology shows peripheral blood flow revealing a b-cell process (either indolent of systemic low level disease) , ?CLL. Patient to have pet scan outpatient and a bone marrow biopsy. Period Temp Pulse Resp BP Sys/Stokes Pulse Ox Last 24 Hr 97.7 F-98.1 F 60-78 20-22 98-120/54-76 96 GENERAL: The patient is awake, alert, and fully oriented, in no acute distress. tolerating room air. eating well. HEAD: Normal with no signs of trauma. orbital hyperpigmentation. EYES: PERRL, extraocular movements intact, sclera anicteric, conjunctiva clear. No ptosis. ENT: Ears normal, nares patent, oropharynx clear without exudates, moist mucous membranes. NECK: Trachea midline, full range of motion, supple. LUNGS: Breath sounds equal, clear to auscultation bilaterally, no wheezes HEART: Regular rate and rhythm ABDOMEN: Soft, nontender, nondistended, normoactive bowel sounds EXTREMITIES: no edema. NEUROLOGICAL: Normal speech, gait not observed. PSYCH: Normal mood, normal affect. SKIN: Warm, dry, normal turgor, no rashes or lesions noted Laboratory Results - last 24 hr 04/15/19 04/15/19 04/16/19 11:20 20:56 08:12 WBC 7.2 7.1 RBC 4.10 4.23 Hgb 11.6 12.0 Hct 35.7 36.6 MCV 86.9 86.3 MCH 28.2 28.4 MCHC 32.5 33.0 RDW 17.1 H 17.2 H Plt Count 79 L 94 L MPV 11.3 H 11.3 H Absolute Neuts (auto) 4.5 4.3 Total Counted 100 Neutrophils % 62.9 60.3 Neutrophils % (Manual) 60.0 Band Neutrophils % 2.0 Lymphocytes % 23.0 26.6 Lymphocytes % (Manual) 10.0 D Monocytes % 8.5 7.5 Monocytes % (Manual) 10 Eosinophils % 4.4 4.7 H Eosinophils % (Manual) 7.0 H Basophils % 1.2 0.9 Basophils % (Manual) 1.0 Nucleated RBC % 0 0 Differential Comment Man diff performed Platelet Estimate Mod decreased Platelet Comment Slide scanned. Polychromasia 1+ Poikilocytosis 1+ Microcytosis 1+ Macrocytosis 1+ Ovalocytes 1+ Sodium Potassium Chloride Carbon Dioxide Anion Gap BUN Creatinine Est GFR (CKD-EPI)AfAm Est GFR (CKD-EPI)NonAf POC Glucometer 247 Random Glucose Calcium Magnesium Total Bilirubin AST ALT Alkaline Phosphatase Total Protein Albumin 04/16/19 08:12 WBC RBC Hgb Hct MCV MCH MCHC RDW Plt Count MPV Absolute Neuts (auto) Total Counted Neutrophils % Neutrophils % (Manual) Band Neutrophils % Lymphocytes % Lymphocytes % (Manual) Monocytes % Monocytes % (Manual) Eosinophils % Eosinophils % (Manual) Basophils % Basophils % (Manual) Nucleated RBC % Differential Comment Platelet Estimate Platelet Comment Polychromasia Poikilocytosis Microcytosis Macrocytosis Ovalocytes Sodium 135 L Potassium 4.0 Chloride 100 Carbon Dioxide 31 Anion Gap 4 L BUN 18.6 H Creatinine 1.1 Est GFR (CKD-EPI)AfAm 63.64 Est GFR (CKD-EPI)NonAf 54.91 POC Glucometer Random Glucose 243 H Calcium 9.6 Magnesium 2.2 Total Bilirubin 0.4 AST 17 ALT 23 Alkaline Phosphatase 161 H Total Protein 7.4 Albumin 3.7 Active Medications Generic Name Dose Route Start Last Admin Trade Name Freq PRN Reason Stop Dose Admin Albuterol Sulfate 1 amp 04/03/19 20:07 04/03/19 22:13 Ventolin 0.083% Nebulizer Soln - NEB 1 amp Q4H PRN Administration SHORT OF BREATH/WHEEZING Amitriptyline HCl 50 mg 04/11/19 22:00 04/15/19 22:02 Elavil - PO 50 mg HS [facility] Administration Atorvastatin Calcium 80 mg 04/04/19 22:00 04/15/19 22:02 Lipitor - PO 80 mg HS [facility] Administration Buspirone HCl 30 mg 04/11/19 22:00 04/16/19 10:17 Buspar - PO 30 mg BID [facility] Administration Docusate Sodium 300 mg 04/15/19 09:23 04/16/19 10:14 Colace - PO 300 mg DAILY [facility] Administration Fluoxetine HCl 20 mg 04/04/19 10:00 04/16/19 10:19 Prozac - PO 20 mg DAILY [facility] Administration Insulin Aspart 1 vial 04/06/19 16:30 04/16/19 06:32 Novolog Vial Sliding Scale - SQ Not Given ACHS [facility] Protocol Insulin Detemir 10 units 04/12/19 22:00 04/16/19 06:32 Levemir Vial SQ Not Given BID@0700,2200 [facility] Lidocaine 1 patch 04/11/19 13:00 04/16/19 10:13 Lidoderm Patch - TP 1 patch DAILY [facility] Administration Lisinopril 20 mg 04/04/19 10:00 04/16/19 10:15 Prinivil PO 20 mg DAILY [facility] Administration Magnesium Oxide 400 mg 04/07/19 10:00 04/16/19 10:14 Mag-Ox - PO 400 mg BID [facility] Administration Methylnaltrexone [place] 12 mg 04/15/19 10:00 04/15/19 11:58 Relistor - SQ 12 mg Q2D@1000 [facility] Administration Metoprolol Succinate 25 mg 04/04/19 10:00 04/16/19 10:15 Toprol Xl - PO 25 mg DAILY [facility] Administration Miscellaneous 1 each 04/11/19 22:00 04/15/19 22:02 Lidoderm Patch Removal MC 1 each DAILY@2200 [facility] Administration Ondansetron HCl 4 mg 04/03/19 17:13 Zofran Injection IVPUSH Q6H PRN NAUSEA AND/OR VOMITING Oxycodone HCl 5 mg 04/03/19 17:13 Roxicodone - PO Q4H PRN PAIN LEVEL 1-5 Oxycodone HCl 10 mg 04/03/19 17:13 04/16/19 10:17 Roxicodone - PO 10 mg Q4H PRN Administration PAIN LEVEL 6-10 Pantoprazole Sodium 40 mg 04/03/19 20:15 04/16/19 10:15 Protonix - PO 40 mg DAILY [facility] Administration Polyethylene Glycol 17 gm 04/09/19 15:00 04/16/19 10:16 Miralax (For Daily Use) - PO Not Given DAILY [facility] Polyethylene Glycol 17 gm 04/15/19 10:00 04/16/19 10:16 Miralax (For Daily Use) - PO Not Given DAILY [facility] Promethazine HCl 12.5 mg 04/03/19 17:13 Phenergan Injection - IVPUSH Q6H PRN NAUSEA-FOR RESCUE AFTER 15 MIN Senna 1 tab 04/03/19 22:00 04/15/19 22:03 Senna - PO 1 tab HS [facility] Administration ASSESSMENT/PLAN: Problem List - Problems (1) B-cell abnormality Assessment/Plan: per hematology, peripheral blood flow revealing a b-cell process, either indolent of systemic low level disease. patient to be ruled out of active malignancy by obtaining a PET/CT Scan and a bone marrow biopsy as an outpatient. Informed of findings by specifications writer. Code(s): D72.9 - DISORDER OF WHITE BLOOD CELLS, UNSPECIFIED (2) Thrombocytopenia Assessment/Plan: platelets 94 thrombocytopenia of unknown etiology, but now found to have possible low grade lymphoma. patient is a high risk for bleeding, had massive bleed 02/2019 at [facility] and now off all anticoagulation. Was previously on eliquis for CVA. wll need referral to hematology and rheumatology when discharged Code(s): D69.6 - THROMBOCYTOPENIA, UNSPECIFIED (3) Cystocele Assessment/Plan: Patient is s/p vaginal exploration and cystocele repair on 04/03/2019 camacho removed by urologist and patient is voiding without difficulty now having vaginal bleeding with clots. hmg/hct stable. for abd ct today Code(s): RKP2277 - (4) Diabetes Assessment/Plan: maintain bgms <180 fasting on novolog ss Code(s): E11.9 - TYPE 2 DIABETES MELLITUS WITHOUT COMPLICATIONS (5) History of CVA (cerebrovascular accident) Assessment/Plan: on lipitor 80 hs not on asa due to recent history of upper gi bleed physical therapy for right sided weakness Code(s): Z86.73 - PRSNL HX OF TIA (TIA), AND CEREB INFRC W/O RESID DEFICITS (6) DVT (deep venous thrombosis) Assessment/Plan: was on eliquis but stopped recently at [facility] due to acute upper gi bleed. Code(s): I82.409 - ACUTE EMBOLISM AND THOMBOS UNSP DEEP VN UNSP LOWER EXTREMITY Qualifiers: Laterality: unspecified laterality (7) Pulmonary embolism Assessment/Plan: was on eliquis but stopped recently at [facility] due to acute upper gi bleed Code(s): I26.99 - OTHER PULMONARY EMBOLISM WITHOUT ACUTE COR PULMONALE (8) Hypertension Assessment/Plan: controlled on Metoprolol, Lisinopril Code(s): I10 - ESSENTIAL (PRIMARY) HYPERTENSION (9) HLD (hyperlipidemia) Assessment/Plan: on lipitor 80 Code(s): E78.5 - HYPERLIPIDEMIA, UNSPECIFIED (10) DVT prophylaxis Assessment/Plan: SCDs only, had recent ugib last month and now with thrombocytopenia Code(s): Z29.9 - ENCOUNTER FOR PROPHYLACTIC MEASURES, UNSPECIFIED (11) Prophylactic measure Assessment/Plan: fen diabetic diet repeat labs in a.m. monitor K full code protonix daily Code(s): Z29.9 - ENCOUNTER FOR PROPHYLACTIC MEASURES, UNSPECIFIED Visit type - Emergency Visit Emergency Visit: Yes ED Registration Date: 04/03/19 Care time: The patient presented to the Emergency Department on the above date and was hospitalized for further evaluation of their emergent condition. - New Patient This patient is new to me today: No - Critical Care Critical Care patient: No - Discharge Referral Referred to [facility] No
[2019-04-16 12:42] LABS: ANISOCYTOSIS 1+; MACROCYTOSIS 0; OVALOCYTE 1+; PLATELET ESTIMATE DECREASED
[2019-04-16] MEDS ORDERED: IRON SUCROSE INJECTION 200 MG in SODIUM CHLORIDE 90 ML IVPB ONE (13:09)
--- NOTE | 2019-04-16 14:31 | PN ---
Progress Note (short form) - Note Progress Note: Patient seen and examined c/o vaginal bleeding Last Vital Signs Temp Pulse Resp BP Pulse Ox 98.3 F 76 20 103/72 100 04/16/19 10:00 04/16/19 10:00 04/16/19 10:00 04/16/19 10:00 04/16/19 09:00 Cor: RSR, No murmurs, No gallops Lungs: Clear to P&A Abd: Soft, Normal bowel sounds, No organomegaly Ext:No significant edema Abnormal Lab Results 04/15/19 04/16/19 04/16/19 20:56 08:12 08:12 RDW 17.1 H 17.2 H Plt Count 79 L 94 L MPV 11.3 H 11.3 H Eosinophils % 4.7 H Eosinophils % (Manual) 7.0 H Sodium 135 L Anion Gap 4 L BUN 18.6 H Random Glucose 243 H Alkaline Phosphatase 161 H Active Medications Albuterol Sulfate (Ventolin 0.083% Nebulizer Soln -) 1 amp NEB Q4H PRN PRN Reason: SHORT OF BREATH/WHEEZING Last Admin: 04/03/19 22:13 Dose: 1 amp Amitriptyline HCl (Elavil -) 50 mg PO HS [facility] Last Admin: 04/15/19 22:02 Dose: 50 mg Atorvastatin Calcium (Lipitor -) 80 mg PO HS [facility] Last Admin: 04/15/19 22:02 Dose: 80 mg Buspirone HCl (Buspar -) 30 mg PO BID [facility] Last Admin: 04/16/19 10:17 Dose: 30 mg Docusate Sodium (Colace -) 300 mg PO DAILY [facility] Last Admin: 04/16/19 10:14 Dose: 300 mg Fluoxetine HCl (Prozac -) 20 mg PO DAILY [facility] Last Admin: 04/16/19 10:19 Dose: 20 mg Insulin Aspart (Novolog Vial Sliding Scale -) 1 vial SQ ACHS [facility]; Protocol Last Admin: 04/16/19 12:17 Dose: Not Given Insulin Detemir (Levemir Vial) 10 units SQ BID@0700,2200 [facility] Last Admin: 04/16/19 06:32 Dose: Not Given Lidocaine (Lidoderm Patch -) 1 patch TP DAILY [facility] Last Admin: 04/16/19 10:13 Dose: 1 patch Lisinopril (Prinivil) 20 mg PO DAILY [facility] Last Admin: 04/16/19 10:15 Dose: 20 mg Magnesium Oxide (Mag-Ox -) 400 mg PO BID [facility] Last Admin: 04/16/19 10:14 Dose: 400 mg Methylnaltrexone [place] (Relistor -) 12 mg SQ Q2D@1000 [facility] Last Admin: 04/15/19 11:58 Dose: 12 mg Metoprolol Succinate (Toprol Xl -) 25 mg PO DAILY [facility] Last Admin: 04/16/19 10:15 Dose: 25 mg Miscellaneous (Lidoderm Patch Removal) 1 each MC DAILY@2200 [facility] Last Admin: 04/15/19 22:02 Dose: 1 each Ondansetron HCl (Zofran Injection) 4 mg IVPUSH Q6H PRN PRN Reason: NAUSEA AND/OR VOMITING Oxycodone HCl (Roxicodone -) 5 mg PO Q4H PRN PRN Reason: PAIN LEVEL 1-5 Oxycodone HCl (Roxicodone -) 10 mg PO Q4H PRN PRN Reason: PAIN LEVEL 6-10 Last Admin: 04/16/19 10:17 Dose: 10 mg Pantoprazole Sodium (Protonix -) 40 mg PO DAILY [facility] Last Admin: 04/16/19 10:15 Dose: 40 mg Polyethylene Glycol (Miralax (For Daily Use) -) 17 gm PO DAILY [facility] Last Admin: 04/16/19 10:16 Dose: Not Given Polyethylene Glycol (Miralax (For Daily Use) -) 17 gm PO DAILY [facility] Last Admin: 04/16/19 10:16 Dose: Not Given Promethazine HCl (Phenergan Injection -) 12.5 mg IVPUSH Q6H PRN PRN Reason: NAUSEA-FOR RESCUE AFTER 15 MIN Senna (Senna -) 1 tab PO HS [facility] Last Admin: 04/15/19 22:03 Dose: 1 tab A/P 59 yo female admitted for urologic surgery, cystocele repair with dr braxton on noted to have Thrombocytoopenia (new) recently in hospital 03/02 to 03/07 for UGI bleed requiring ICU admit, 3 unit PRBC, s/p EGD with esophagitic and multiple gastric ulcers treated for aspiration pneumonia as well Past hx of DVT Past hx of GI bleed HIT negative new onst thrombocytopenia -- + antiplatelet abs ? ITP Seen by ID --no obvious infection B 12---- will dose B12 folate/TSH --normal Peripheral blood flow revealing a B-Cell process, either indolent of systemic low level disease. CD20+, CD5+ and CD23+ and CD10-. 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 ? CLL. Platelets stable at this time. She will need to be ruled out of active malignancy by obtaining a PET/CT Scan and a bone marrow biopsy both of them outpatient. At this time her thrombocytopenia is stable Iron deficiency --mild anemia . will dose venofer 3rd dose CT chest --no pathology check CT a/p ? hemangioma rt. hepatic lobe -- MRI recommended vaginal bleeding -- for CT a/p, [employer] consult Discussed these findings in detail with patient and her daughter on 03/1719. Gave them phone nos. to follow up closely in the office for outpatient w/u
[2019-04-16] MEDS: AMITRIPTYLINE HCL 25 MG TABLET PO SCH (22:13)
[2019-04-16] MEDS: SENNOSIDES 8.6MG TABLET (FP) PO SCH (22:14)
[2019-04-16] MEDS: ATORVASTATIN CA 80 MG TABLET (FP) PO SCH (22:14)
[2019-04-16] MEDS: LIDOCAINE PATCH REMOVAL MC SCH (22:14)
[2019-04-17] MEDS: INSULIN (LEVEMIR) 100 UNITS/ML UNITS SQ SCH ×2 (06:15→21:45)
[2019-04-17] MEDS: INSULIN SLIDING SCALE (NOVOLOG) 1 VIAL SQ SCH ×4 (06:15→21:46)
[2019-04-17 08:58] LABS: EOS % 5.7 % (0-4.5); HEMOGLOBIN 10.9 GM/dL (10.7-15.3); LYMPH % 26.8 % (8-40); MCH 28.6 pg (25.7-33.7); MCHC 32.9 g/dl (32.0-36.0); MEAN CELL VOLUME 86.8 fl (80-96); MEAN PLT VOLUME 11.7 fl (7.5-11.1); MONO % 8.4 % (3.8-10.2); NEUT % 58.1 % (42.8-82.8); PLATELET COUNT 83 K/MM3 (134-434); RDW 16.8 % (11.6-15.6)
[2019-04-17 09:13] LABS: ALBUMIN 3.2 g/dl (3.4-5.0); BILIRUBIN,TOTAL 0.3 mg/dL (0.2-1); BLOOD UREA NITROGEN 19.6 mg/dL (7-18); CALCIUM 9.2 mg/dL (8.5-10.1); CREATININE 1.1 mg/dL (0.55-1.3); MAGNESIUM 2.1 mg/dL (1.8-2.4); TOT PROT 6.7 g/dl (6.4-8.2)
[2019-04-17] MEDS: metoPROLOL SUCCINATE 25 MG TAB.SR.24H (FP) PO SCH (10:15)
[2019-04-17] MEDS: DOCUSATE SODIUM 100 MG CAPSULE (FP) PO SCH (10:15)
[2019-04-17] MEDS: PANTOPRAZOLE 40 MG TABLET PO SCH (10:15)
[2019-04-17] MEDS: FLUoxetine HCL 20 MG CAPSULE PO SCH (10:15)
[2019-04-17] MEDS: LISINOPRIL 20 MG TABLET (FP) PO SCH (10:16)
[2019-04-17] MEDS: MAGNESIUM OXIDE 400 MG TABLET (FP) PO SCH ×2 (10:16→21:44)
[2019-04-17] MEDS: oxyCODONE HCL 5 MG TABLET PO PRN ×3 (10:17→21:51)
[2019-04-17] MEDS: busPIRone HCL 10 MG TABLET (FP) PO SCH ×2 (10:17→21:45)
[2019-04-17] MEDS: POLYETHYLENE GLYCOL 3350 119 GM BTL PO SCH ×2 (10:18)
[2019-04-17] MEDS: LIDOCAINE 5% TOPICAL PATCH TP SCH (10:23)
[2019-04-17 12:50] LABS: ANISOCYTOSIS 0; MACROCYTOSIS 0; PLATELET ESTIMATE DECREASED
--- NOTE | 2019-04-17 15:53 | PN ---
Physical Exam: SUBJECTIVE: Patient seen and examined at the bedside. reports feeling better today, less vaginal bleeding. only had 3 pads changed today. 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 She is s/p cystocele repair and removal of adhesions on 04/03/[address] Sifuentes and was found to have thrombocytopenia on routine labs. Seen by hematology and per hematology shows peripheral blood flow revealing a b-cell process (either indolent of systemic low level disease), ?CLL. Patient to have pet scan outpatient and a bone marrow biopsy. abd/pelvis ct 04/17/2019: (1) mild hepatomegaly with suspected right lobe hepatic cyst and hemangioma. sonographic f/u recommended. (2) fat containing lower pole left renal mass consistent with an angiomyolipoma. (3) no acute pathology within the abdomen or pelvis. Vital Signs Period Temp Pulse Resp BP Sys/Stokes Pulse Ox Last 24 Hr 97.6 F-97.9 F 62-71 20-20 100-120/54-69 100-100 GENERAL: The patient is awake, alert, and fully oriented, in no acute distress. tolerating room air. eating well. HEAD: Normal with no signs of trauma. orbital hyperpigmentation. EYES: PERRL, extraocular movements intact, sclera anicteric, conjunctiva clear. No ptosis. ENT: Ears normal, nares patent, oropharynx clear without exudates, moist mucous membranes. NECK: Trachea midline, full range of motion, supple. LUNGS: Breath sounds equal, clear to auscultation bilaterally, no wheezes HEART: Regular rate and rhythm ABDOMEN: Soft, nontender, nondistended, normoactive bowel sounds EXTREMITIES: no edema. NEUROLOGICAL: Normal speech, gait not observed. PSYCH: Normal mood, normal affect. SKIN: Warm, dry, normal turgor, no rashes or lesions noted Laboratory Results - last 24 hr 04/17/19 04/17/19 08:02 08:02 WBC 7.0 RBC 3.80 Hgb 10.9 Hct 33.0 MCV 86.8 MCH 28.6 MCHC 32.9 RDW 16.8 H Plt Count 83 L MPV 11.7 H Absolute Neuts (auto) 4.1 Neutrophils % 58.1 Neutrophils % (Manual) 49.5 Band Neutrophils % 0.0 Lymphocytes % 26.8 Lymphocytes % (Manual) 17.8 D Monocytes % 8.4 Monocytes % (Manual) 10 D Eosinophils % 5.7 H Eosinophils % (Manual) 3.0 Basophils % 1.0 Basophils % (Manual) 1.0 Myelocytes % (Man) 0 Promyelocytes % (Man) 0 Blast Cells % (Manual) 0 Nucleated RBC % 0 Metamyelocytes 0 Hypochromia 0 Platelet Estimate Decreased Platelet Comment Present Polychromasia 0 Poikilocytosis 0 Anisocytosis 0 Microcytosis 0 Macrocytosis 0 Sodium 135 L Potassium 4.0 Chloride 101 Carbon Dioxide 29 Anion Gap 4 L BUN 19.6 H Creatinine 1.1 Est GFR (CKD-EPI)AfAm 63.64 Est GFR (CKD-EPI)NonAf 54.91 Random Glucose 289 H Calcium 9.2 Magnesium 2.1 Total Bilirubin 0.3 AST 15 ALT 21 Alkaline Phosphatase 153 H Total Protein 6.7 Albumin 3.2 L Active Medications Generic Name Dose Route Start Last Admin Trade Name Freq PRN Reason Stop Dose Admin Albuterol Sulfate 1 amp 04/03/19 20:07 04/03/19 22:13 Ventolin 0.083% Nebulizer Soln - NEB 1 amp Q4H PRN Administration SHORT OF BREATH/WHEEZING Amitriptyline HCl 50 mg 04/11/19 22:00 04/16/19 22:13 Elavil - PO 50 mg HS CHINMAY Administration Atorvastatin Calcium 80 mg 04/04/19 22:00 04/16/19 22:14 Lipitor - PO 80 mg HS CHINMAY Administration Buspirone HCl 30 mg 04/11/19 22:00 04/17/19 10:17 Buspar - PO 30 mg BID CHINMAY Administration Docusate Sodium 300 mg 04/15/19 09:23 04/17/19 10:15 Colace - PO 300 mg DAILY CHINMAY Administration Fluoxetine HCl 20 mg 04/04/19 10:00 04/17/19 10:15 Prozac - PO 20 mg DAILY CHINMAY Administration Insulin Aspart 1 vial 04/06/19 16:30 04/17/19 10:23 Novolog Vial Sliding Scale - SQ Not Given ACHS [facility], [facility]1983 Protocol Insulin Detemir 10 units 04/12/19 22:00 04/17/19 06:15 Levemir Vial SQ Not Given BID@0700,2200 [facility] Lidocaine 1 patch 04/11/19 13:00 04/17/19 10:23 Lidoderm Patch - TP 1 patch DAILY CHINMAY Administration Lisinopril 20 mg 04/04/19 10:00 04/17/19 10:16 Prinivil PO 20 mg DAILY CHINMAY Administration Magnesium Oxide 400 mg 04/07/19 10:00 04/17/19 10:16 Mag-Ox - PO 400 mg BID CHINMAY Administration Metoprolol Succinate 25 mg 04/04/19 10:00 04/17/19 10:15 Toprol Xl - PO 25 mg DAILY CHINMAY Administration Miscellaneous 1 each 04/11/19 22:00 04/16/19 22:14 Lidoderm Patch Removal MC 1 each DAILY@2199 CHINMAY Administration Ondansetron HCl 4 mg 04/03/19 17:13 Zofran Injection IVPUSH Q6H PRN NAUSEA AND/OR VOMITING Oxycodone HCl 5 mg 04/03/19 17:13 Roxicodone - PO Q4H PRN PAIN LEVEL 1-5 Oxycodone HCl 10 mg 04/03/19 17:13 04/17/19 10:17 Roxicodone - PO 10 mg Q4H PRN Administration PAIN LEVEL 6-10 Pantoprazole Sodium 40 mg 04/03/19 20:15 04/17/19 10:15 Protonix - PO 40 mg DAILY CHINMAY Administration Polyethylene Glycol 17 gm 04/09/19 15:00 04/17/19 10:18 Miralax (For Daily Use) - PO 17 gm DAILY CHINMAY Administration Polyethylene Glycol 17 gm 04/15/19 10:00 04/17/19 10:18 Miralax (For Daily Use) - PO Not Given DAILY CHINMAY Promethazine HCl 12.5 mg 04/03/19 17:13 Phenergan Injection - IVPUSH Q6H PRN NAUSEA-FOR RESCUE AFTER 15 MIN Senna 1 tab 04/03/19 22:00 04/16/19 22:14 Senna - PO 1 tab HS CHINMAY Administration ASSESSMENT/PLAN: Problem List - Problems (1) B-cell abnormality Assessment/Plan: per hematology, peripheral blood flow revealing a b-cell process, either indolent of systemic low level disease. patient to be ruled out of active malignancy by obtaining a PET/CT Scan and a bone marrow biopsy as an outpatient. Informed of findings by fishing game warden. Code(s): D72.9 - DISORDER OF WHITE BLOOD CELLS, UNSPECIFIED (2) Thrombocytopenia Assessment/Plan: platelets 83 thrombocytopenia of unknown etiology, but now found to have possible low grade lymphoma. Code(s): D69.6 - THROMBOCYTOPENIA, UNSPECIFIED (3) Cystocele Assessment/Plan: Patient is s/p vaginal exploration and cystocele repair on 04/03/2019 camacho removed by urologist and patient is voiding without difficulty now having vaginal bleeding with clots, but lessening amt. hmg/hct stable. abd/pelvis w/o acute pathology Code(s): AFP6234 - (4) Diabetes Assessment/Plan: maintain bgms <180 fasting on novolog ss Code(s): E11.9 - TYPE 2 DIABETES MELLITUS WITHOUT COMPLICATIONS (5) History of CVA (cerebrovascular accident) Assessment/Plan: on lipitor 80 hs not on asa due to recent history of upper gi bleed physical therapy for right sided weakness Code(s): Z86.73 - PRSNL HX OF TIA (TIA), AND CEREB INFRC W/O RESID DEFICITS (6) DVT (deep venous thrombosis) Assessment/Plan: was on eliquis but stopped recently at [facility] due to acute upper gi bleed. Code(s): I82.409 - ACUTE EMBOLISM AND THOMBOS UNSP DEEP VN UNSP LOWER EXTREMITY Qualifiers: Laterality: unspecified laterality (7) Pulmonary embolism Assessment/Plan: was on eliquis but stopped recently at [facility] due to acute upper gi bleed Code(s): I26.99 - OTHER PULMONARY EMBOLISM WITHOUT ACUTE COR PULMONALE (8) Hypertension Assessment/Plan: controlled on Metoprolol, Lisinopril Code(s): I10 - ESSENTIAL (PRIMARY) HYPERTENSION (9) HLD (hyperlipidemia) Assessment/Plan: on lipitor 80 Code(s): E78.5 - HYPERLIPIDEMIA, UNSPECIFIED (10) DVT prophylaxis Assessment/Plan: SCDs only Code(s): Z29.9 - ENCOUNTER FOR PROPHYLACTIC MEASURES, UNSPECIFIED (11) Prophylactic measure Assessment/Plan: fen diabetic diet repeat labs in a.m. monitor K full code protonix daily Code(s): Z29.9 - ENCOUNTER FOR PROPHYLACTIC MEASURES, UNSPECIFIED Visit type - Emergency Visit Emergency Visit: Yes ED Registration Date: 04/03/19 Care time: The patient presented to the Emergency Department on the above date and was hospitalized for further evaluation of their emergent condition. - New Patient This patient is new to me today: No - Critical Care Critical Care patient: No - Discharge Referral Referred to [facility] Med P.C.: No
[2019-04-17 17:45] VITALS: BMI 34.8
--- NOTE | 2019-04-17 18:15 | DS ---
Physical Exam: SUBJECTIVE: Patient seen and examined at the bedside. informed by primary RN that patient was seen by Dr. Sifuentes today. Per patient, she will follow up with him as an outpatient as well as see a special programs director as an outpatient. OBJECTIVE: discharge home with outpatient f/u with hematology, urology patient has a PCP at [facility] Patient is a 59 year old female with a significant past medical history of CVA with right sided sided residual deficit, DM II (on home insulin), HTN, HLD, morbid obesity, peptic ulcer disease UGIB requiring sclerotherapy in 02/2019 at [facility], past DVT(1988) and PE (1990) and recently taken off of Eliquis due to UGIB requiring ICU hospitalization. She is s/p cystocele repair and removal of adhesions on 04/03/[address] Sifuentes and was found to have thrombocytopenia on routine labs. Seen by hematology and per hematology shows peripheral blood flow revealing a b-cell process (either indolent of systemic low level disease), ?CLL. Patient to have pet scan outpatient and a bone marrow biopsy. She had vaginal bleeding that initially resolved post op, but returned in the last 3 days. Vaginal bleeding has decreased in frequency, but she had some clots noted. Urology notified and cleared patient for d/c with outpatient follow up. Patient also to see SHOE WORKER as outpatient. Her hmg/hct are stable. abd/pelvis ct 04/17/2019: (1) mild hepatomegaly with suspected right lobe hepatic cyst and hemangioma. sonographic f/u recommended. (2) fat containing lower pole left renal mass consistent with an angiomyolipoma. (3) no acute pathology within the abdomen or pelvis. Vital Signs Period Temp Pulse Resp BP Sys/Stokes Pulse Ox Last 24 Hr 97.6 F-97.9 F 62-71 20-20 100-120/54-69 100-100 PHYSICAL EXAM GENERAL: The patient is awake, alert, and fully oriented, in no acute distress. tolerating room air. eating well. HEAD: Normal with no signs of trauma. orbital hyperpigmentation. EYES: PERRL, extraocular movements intact, sclera anicteric, conjunctiva clear. No ptosis. ENT: Ears normal, nares patent, oropharynx clear without exudates, moist mucous membranes. NECK: Trachea midline, full range of motion, supple. LUNGS: Breath sounds equal, clear to auscultation bilaterally, no wheezes HEART: Regular rate and rhythm ABDOMEN: Soft, nontender, nondistended, normoactive bowel sounds EXTREMITIES: no edema. NEUROLOGICAL: Normal speech, gait not observed. PSYCH: Normal mood, normal affect. SKIN: Warm, dry, normal turgor, no rashes or lesions noted LABS Laboratory Results - last 24 hr 04/17/19 04/17/19 08:02 08:02 WBC 7.0 RBC 3.80 Hgb 10.9 Hct 33.0 MCV 86.8 MCH 28.6 MCHC 32.9 RDW 16.8 H Plt Count 83 L MPV 11.7 H Absolute Neuts (auto) 4.1 Neutrophils % 58.1 Neutrophils % (Manual) 49.5 Band Neutrophils % 0.0 Lymphocytes % 26.8 Lymphocytes % (Manual) 17.8 D Monocytes % 8.4 Monocytes % (Manual) 10 D Eosinophils % 5.7 H Eosinophils % (Manual) 3.0 Basophils % 1.0 Basophils % (Manual) 1.0 Myelocytes % (Man) 0 Promyelocytes % (Man) 0 Blast Cells % (Manual) 0 Nucleated RBC % 0 Metamyelocytes 0 Hypochromia 0 Platelet Estimate Decreased Platelet Comment Present Polychromasia 0 Poikilocytosis 0 Anisocytosis 0 Microcytosis 0 Macrocytosis 0 Sodium 135 L Potassium 4.0 Chloride 101 Carbon Dioxide 29 Anion Gap 4 L BUN 19.6 H Creatinine 1.1 Est GFR (CKD-EPI)AfAm 63.64 Est GFR (CKD-EPI)NonAf 54.91 Random Glucose 289 H Calcium 9.2 Magnesium 2.1 Total Bilirubin 0.3 AST 15 ALT 21 Alkaline Phosphatase 153 H Total Protein 6.7 Albumin 3.2 L HOSPITAL COURSE: Date of Admission:04/03/19 Date of Discharge: 04/17/19 Minutes to complete discharge: 45 Discharge Summary Problems reviewed: Yes Reason For Visit: FEMALE STRESS INCONTINENCE Current Active Problems B-cell abnormality (Acute) Constipation (Acute) Cystocele (Acute) DVT (deep venous thrombosis) (Acute) DVT prophylaxis (Acute) Diabetes (Acute) HLD (hyperlipidemia) (Acute) Hemangioma of liver (Acute) History of CVA (cerebrovascular accident) (Acute) History of DVT (deep vein thrombosis) (Acute) Hx pulmonary embolism (Acute) Hypertension (Acute) Prophylactic measure (Acute) Pulmonary embolism (Acute) Thrombocytopenia (Acute) Hospital Course: HOSPITAL COURSE: Date of Admission:04/03/19 Date of Discharge: 04/13/19 Problem List - Problems (1) History of DVT (deep vein thrombosis) Assessment/Plan: off eliquis closely monitor with filament shaper after dc Code(s): Z86.718 - PERSONAL HISTORY OF OTHER VENOUS THROMBOSIS AND EMBOLISM (2) Hx pulmonary embolism Assessment/Plan: closely monitor Code(s): Z86.711 - PERSONAL HISTORY OF PULMONARY EMBOLISM (3) Cystocele Assessment/Plan: Patient is s/p vaginal exploration and cystocele repair on 04/03/2019 urology outpatient follow up with Dr Sifuentes Code(s): HEZ7382 - (4) Diabetes Assessment/Plan: BGM AC/HS with novolog sliding scale during stay Resume long acting insulin on dc well controlled diabetic diet Code(s): E11.9 - TYPE 2 DIABETES MELLITUS WITHOUT COMPLICATIONS (5) HLD (hyperlipidemia) Assessment/Plan: c/w atorvastatin Code(s): E78.5 - HYPERLIPIDEMIA, UNSPECIFIED (6) History of CVA (cerebrovascular accident) Assessment/Plan: c/w statin no asa r/t GIB Code(s): Z86.73 - PRSNL HX OF TIA (TIA), AND CEREB INFRC W/O RESID DEFICITS (7) Hypertension Assessment/Plan: c/w lisinipril,metoprolol Code(s): I10 - ESSENTIAL (PRIMARY) HYPERTENSION (8) Thrombocytopenia Assessment/Plan: platelets 75 todat thrombocytopenia of unknown etiology patient is a high risk for bleeding, workup for thrombocytopenia pending being ruled out for lupus by rheumatology. will need referral to hematology and rheumatology when discharged she will need to be ruled out of active malignancy (CLL/SLL, Mantle Cell Lymphoma, etc) by obtaining a PET/CT Scan and a bone marrow biopsy both of them outpatient. (9) Prophylactic measure Assessment/Plan: FEN Fluids: adequate PO intake Electrolytes: stable Nutrition: diabetic diet DVT oob/ambulation Dispo Maintain as inpatient full code discharge planning Code(s): Z29.9 - ENCOUNTER FOR PROPHYLACTIC MEASURES, UNSPECIFIED Visit type Medically stable for discharge to home with close follow up with Chemical Lab Supervisor Condition: Improved - Instructions Diet, Activity, Other Instructions: DISCHARGE YOUR VISIT You came to the hospital because you had a cystocele repair and lysis of adhesions with Dr Sifuentes. After the surgery your platelet count dropped. A hematological workup was done and you need to be followed closely with Dr Khoury/ Kirsten in the office. You will need to have a bone marrow biposy and a PET /CT scan as an outpatient. An ultrasound was done that showed a lesion in the right part of your liver. This is most likely a benign hemangioma (non cancerous ) but you will need to have an MRI with contrast to follow this closely. You also need to have a CT scan of your abdomen and chest-you can schedule this hem you see Dr Curtis MEDICATIONS Please continue to take your home medications as prescribed. There was some changes made to your medications STOP the following NO motrin, ibuprofen, eleve ot any non steroidal antiimflammatory (NSAIDS) NO aspirin NO eliquis ot any blood thinners DIET Continue your home diet ADDITIONAL CARE Please make an appointment to see your primary care provider, 2 week from today. Call to make an appointment with Dr Khoury/Dr Curtis for follow up. Call Dr Sifuentes for a post-op appointment ADDITIONAL INFORMATION Please call 911 or come directly to the emergency department if you experience unusual headache, vision change, shortness of breath, chest pain, numbness, tingling, loss of alertness/awareness, loss of function, unusual bleeding or any alarming symptoms. Thank you for allowing me to care for you. David Carpenter, [facility], [facility] [phone] Referrals: Joann Kohler MD [Staff Physician] - Enrique Khoury MD [Staff Physician] - 1 Week (Call for appoitment with Dr Khoury/Kirsten for 1 week) Travis Sifuentes MD [Staff Physician] - (Call for appoitment for post-op apponitment) Bill Alberts MD [Staff Physician] - Disposition: HOME - Home Medications Comprehensive Discharge Medication List: Ambulatory Orders Albuterol Sulfate Inhaler - [Ventolin HFA Inhaler -] 2 inh IH Q6H #1 inh Fluoxetine HCl [Prozac -] 20 mg PO DAILY 04/04/18 Fluticasone/Salmeterol [Advair 250-50 Diskus] 1 each IH BID 04/04/18 Gabapentin [Neurontin -] 800 mg PO TID 04/04/18 Metoprolol Succinate [Toprol XL -] 25 mg PO DAILY 04/04/18 Polyethylene Glycol 3350 [Miralax 255 gm Btl -] 17 gm PO DAILY 04/04/18 metFORMIN HCL [Metformin ER Gastric] 500 mg PO BID 04/04/18 Lisinopril 20 mg PO DAILY 07/06/18 Cyanocobalamin (Vitamin B-12) [B-12] 1,000 mcg PO DAILY 30 Days #30 tablet.er Ferrous Sulfate [Feosol] 325 mg PO BID 30 Days #60 tablet 07/07/18 Amitriptyline HCl [Elavil -] 50 mg PO HS #30 tablet 07/08/18 Atorvastatin Ca [Lipitor] 80 mg PO HS 30 Days tablet 07/08/18 Butalb/Acetaminophen/Caffeine [Fioricet 50-300-40 mg Capsule] 1 each PO Q8H PRN 4 Days #10 capsule MDD 3 tabs 07/08/18 Ammonium Lactate [Skin Treatment] 400 gm TP 04/03/19 Bimatoprost [Lumigan] 1 drop IO DAILY 04/03/19 Famotidine 20 mg PO BID 04/03/19 Insulin Glargine,Hum.rec.anlog [Lantus] 58 unit SQ BID 04/03/19 Insulin Lispro [Humalog] 6 unit SQ TID 04/03/19 Magnesium Oxide [Magox 400] 400 mg PO TID 04/03/19 Mirtazapine [Remeron -] 7.5 mg PO DAILY 04/03/19 Amitriptyline HCl [Elavil -] 50 mg PO HS 04/08/19 Buspirone HCl 30 mg PO BID 04/08/19 Atorvastatin Ca [Lipitor] 80 mg PO HS tablet 04/13/19 Docusate Sodium [Colace -] 100 mg PO DAILY capsule 04/13/19 Fluoxetine HCl [Prozac -] 20 mg PO DAILY capsule 04/13/19 Insulin (Levemir) [Levemir Vial] 10 units SQ BID@0700,2200 units 04/13/19 Insulin Sliding Scale [Novolog Vial Sliding Scale -] 1 vial SQ ACHS units 04/13 Lidocaine 5% Patch [Lidoderm -] 1 patch TP DAILY #30 patch 04/13/19 Lisinopril [Prinivil] 20 mg PO DAILY tablet 04/13/19 Magnesium Oxide [Mag-Ox -] 400 mg PO BID #0 tablet 04/13/19 Metoprolol Succinate [Toprol XL -] 25 mg PO DAILY tab.sr.24h 04/13/19 Pantoprazole Sodium [Protonix -] 40 mg PO DAILY tablet.ec 04/13/19 Polyethylene Glycol 3350 [Miralax 119 gm Btl -] 17 gm PO DAILY bottle 04/13/19 Sennosides [Senna -] 1 tab PO HS tablet 04/13/19 oxyCODONE HCL [Roxicodone -] 10 mg PO Q6H PRN #30 tablet MDD 40mg 04/13/19 Naloxegol Oxalate [Movantik] 25 mg PO DAILY #30 tablet 04/15/19 Problem List - Problems (1) B-cell abnormality Assessment/Plan: per hematology, peripheral blood flow revealing a b-cell process, either indolent of systemic low level disease. patient to be ruled out of active malignancy by obtaining a PET/CT Scan and a bone marrow biopsy as an outpatient. Informed of findings by filament shaper. Code(s): D72.9 - DISORDER OF WHITE BLOOD CELLS, UNSPECIFIED (2) Thrombocytopenia Assessment/Plan: platelets 83 thrombocytopenia of unknown etiology, but now found to have possible low grade lymphoma. Code(s): D69.6 - THROMBOCYTOPENIA, UNSPECIFIED (3) Cystocele Assessment/Plan: Patient is s/p vaginal exploration and cystocele repair on 04/03/2019 camacho removed by urologist and patient is voiding without difficulty now having vaginal bleeding with clots, but lessening amt. hmg/hct stable. abd/pelvis w/o acute pathology patient agrees to see Dr. Sifuentes as an outpatient. Also has a order entry administrator physician she will follow up with. Code(s): OWF4535 - (4) Diabetes Assessment/Plan: maintain bgms <180 fasting on novolog ss Code(s): E11.9 - TYPE 2 DIABETES MELLITUS WITHOUT COMPLICATIONS (5) History of CVA (cerebrovascular accident) Assessment/Plan: on lipitor 80 hs not on asa due to recent history of upper gi bleed physical therapy for right sided weakness Code(s): Z86.73 - PRSNL HX OF TIA (TIA), AND CEREB INFRC W/O RESID DEFICITS (6) DVT (deep venous thrombosis) Assessment/Plan: was on eliquis but stopped recently at [facility] due to acute upper gi bleed. Code(s): I82.409 - ACUTE EMBOLISM AND THOMBOS UNSP DEEP VN UNSP LOWER EXTREMITY Qualifiers: Laterality: unspecified laterality (7) Pulmonary embolism Assessment/Plan: was on eliquis but stopped recently at [facility] due to acute upper gi bleed Code(s): I26.99 - OTHER PULMONARY EMBOLISM WITHOUT ACUTE COR PULMONALE (8) Hypertension Assessment/Plan: controlled on Metoprolol, Lisinopril Code(s): I10 - ESSENTIAL (PRIMARY) HYPERTENSION (9) HLD (hyperlipidemia) Assessment/Plan: on lipitor 80 Code(s): E78.5 - HYPERLIPIDEMIA, UNSPECIFIED (10) DVT prophylaxis Assessment/Plan: SCDs only Code(s): Z29.9 - ENCOUNTER FOR PROPHYLACTIC MEASURES, UNSPECIFIED (11) Prophylactic measure Assessment/Plan: fen diabetic diet repeat labs in a.m. monitor K full code protonix daily Code(s): Z29.9 - ENCOUNTER FOR PROPHYLACTIC MEASURES, UNSPECIFIED This patient is new to me today: No Emergency Visit: Yes ED Registration Date: 04/03/19 Care time: The patient presented to the Emergency Department on the above date and was hospitalized for further evaluation of their emergent condition. Critical Care patient: No - Discharge Referral Referred to [facility] Med P.C.: No
[2019-04-17] MEDS: LIDOCAINE PATCH REMOVAL MC SCH (21:44)
[2019-04-17] MEDS: ATORVASTATIN CA 80 MG TABLET (FP) PO SCH (21:44)
[2019-04-17] MEDS: AMITRIPTYLINE HCL 25 MG TABLET PO SCH (21:45)
--- NOTE | 2019-04-17 22:45 | PN ---
DATE OF DICTATION: 04/17/2019 INDICATION: Patient is a 59-year-old female who underwent a cystocele and lysis of vaginal adhesions 1 week earlier. She became an inpatient due to thrombocytopenia as well as possible pulmonary embolism. A CAT scan revealed hemangioma of the liver. There was also a fat containing left lower pole renal mass indicative of angiomyolipoma. The patient's white count is 7000, hemoglobin and hematocrit is 10.9 over 33, platelets are 83,000. BUN and creatinine are 19 over 1.1. The patient's vital signs are stable with a blood pressure of 101/60 and a temperature of 98.8. Her urine output is clear and is averaging 80 mL a minute. Pelvic exam reveals normal vaginal roof with no active bleeding. The meatus is adequate. IMPRESSION: At present there is no postoperative bleeding. Patient states that she is passing clots per vagina. Must rule out endometrial or uterine dysfunctional bleeding. Will ask obstetrics/gynecology for consult. There is no acute genitourinary problem at present. RICHARD CHAMBERS M.D. [id number]
[2019-04-17] MEDS: SENNOSIDES 8.6MG TABLET (FP) PO SCH (23:00)
[2019-04-18] MEDS: INSULIN (LEVEMIR) 100 UNITS/ML UNITS SQ SCH (06:18)
[2019-04-18] MEDS: INSULIN SLIDING SCALE (NOVOLOG) 1 VIAL SQ SCH ×2 (06:19→11:34)
[2019-04-18] MEDS ORDERED: INSULIN (NOVOLOG) ASPART 100 UNITS/ML 10ML VIAL ONE (10:49)
[2019-04-18] MEDS ORDERED: PT OWN MED DRAWER 7, Y5N ONE (10:49)
[2019-04-18] MEDS: LIDOCAINE 5% TOPICAL PATCH TP SCH (10:51)
[2019-04-18] MEDS: PANTOPRAZOLE 40 MG TABLET PO SCH (10:52)
[2019-04-18] MEDS: oxyCODONE HCL 5 MG TABLET PO PRN (10:53)
[2019-04-18] MEDS: MAGNESIUM OXIDE 400 MG TABLET (FP) PO SCH (10:53)
[2019-04-18] MEDS: FLUoxetine HCL 20 MG CAPSULE PO SCH (10:53)
[2019-04-18] MEDS: metoPROLOL SUCCINATE 25 MG TAB.SR.24H (FP) PO SCH (10:53)
[2019-04-18] MEDS: busPIRone HCL 10 MG TABLET (FP) PO SCH (10:54)
[2019-04-18] MEDS: POLYETHYLENE GLYCOL 3350 119 GM BTL PO SCH ×2 (10:54→10:55)
[2019-04-18] MEDS: DOCUSATE SODIUM 100 MG CAPSULE (FP) PO SCH (10:54)
[2019-04-18] MEDS: LISINOPRIL 20 MG TABLET (FP) PO SCH (10:54)
[2019-04-18 12:16] VITALS: BP 104/62; PULSE 70; TEMP 98.6
--- NOTE | 2019-04-25 23:40 | OP ---
DATE OF OPERATION: 04/03/2019 PREOPERATIVE DIAGNOSIS: Cystocele and vaginal adhesions. POSTOPERATIVE DIAGNOSIS: Cystocele and vaginal adhesions. OPERATIVE PROCEDURE: Lysis of adhesions and cystocele repair. ANESTHESIA: General. DESCRIPTION OF PROCEDURE: Under above-stated anesthesia, patient was prepped and draped in the usual sterile manner. She is placed in the dorsal lithotomy position. A weighted vaginal speculum was placed on the floor of the vagina. Stay sutures were placed on either side of the labia majora. A Campbell catheter was inserted. Inspection of the vagina revealed thick fibrous tissue in the posterior vault both on the right and left side. There was also a grade 3 midline cystocele. The vaginal vestibule was dry and atrophic. An incision was made from the mid urethra down to the cervical os. This was carried down through skin and subcutaneous tissue using both blunt and sharp dissection. A right and left flap was performed. Inspection of the roof of the vagina revealed the bladder to be prolapsed; therefore, the base of the bladder was plicated with 3-0 Vicryl suture ligatures. The tendinous arch on the right and left side were palpated, and therefore 2-0 Vicryl sutures were placed in the right and left side, and tendinous arches were approximated, therefore lifting the vaginal roof. Excess vaginal mucosa was excised. Adhesions in the posterior wall were also lysed with Metzenbaum scissors. Palpation felt the disappearance of the adhesions. The roof of the vagina was then closed using 3-0 Vicryl suture ligatures. No active bleeding was noted. A 1-inch iodoform gauze was placed for vaginal packing. The Campbell was connected to a leg bag. The patient tolerated the procedure well. She returned to the recovery room in good condition. Josi [id number]
== END 2019-04-18 11:06 | disposition home or self-care (01) | DRG 909 ==
LOC: SUATTDRO 12:00 → JASU-SURG 12:00 → JASUSAT 12:00 → J6S 20:01 → JASUSAT 20:02 → J6S 20:02
PROVIDERS: ADMIT Urology; ATTEND Nurse Practitioner Family
PROC: 0JQC0ZZ Repair Pelvic Region Subcutaneous Tissue and Fascia, Open Approach (ICD-10-PCS; 2019-04-03)
PROC: 0TSC0ZZ Reposition Bladder Neck, Open Approach (ICD-10-PCS; 2019-04-03)
PROC: 0UN Female Reproductive System, Release (ICD-10-PCS; principal; 2019-04-03 14:00)
DX: T81.89XA Other complications of procedures, not elsewhere classified, initial encounter (principal); D69.6 Thrombocytopenia, unspecified; N89.5 Stricture and atresia of vagina; F17.210 Nicotine dependence, cigarettes, uncomplicated; D50.0 Iron deficiency anemia secondary to blood loss (chronic); N81.10 Cystocele, unspecified; K76.9 Liver disease, unspecified; E11.9 Type 2 diabetes mellitus without complications; I10 Essential (primary) hypertension; E78.5 Hyperlipidemia, unspecified; D50.9 Iron deficiency anemia, unspecified; K59.09 Other constipation; E66.8 Other obesity; Z68.34 Body mass index [BMI] 34.0-34.9, adult; F32.9 Major depressive disorder, single episode, unspecified; Y83.8 Other surgical procedures as the cause of abnormal reaction of the patient, or of later complication, without mention of misadventure at the time of the procedure; Z87.11 Personal history of peptic ulcer disease; Z86.711 Personal history of pulmonary embolism; Z86.718 Personal history of other venous thrombosis and embolism
CPT/HCPCS: 36415; 71045-TC-FY; 71250-TC; 74177-TC; 76700-TC; 80048; 80053; 81003; 82542; 82607; 82746; 82784; 82947; 82962; 83036; 83516; 83615; 83735; 83883; 84155; 84165; 84439; 84443; 85025; 85032; 85384; 85610; 85613; 85651; 85730; 85732; 86022; 86038; 86140; 86160; 86162; 86225; 86235; 86334; 86431; 87086; 87186; 87389; 94010; 94640; 94760; 97116-GP; 97162-GP; J0131; J1756; J7030; Q9967

== ENCOUNTER 2019-05-07 18:49 | Emergency (ER) | payer OTHER ==
[2019-05-07 19:21] VITALS: BP 144/76; PULSE 92; TEMP 98; BMI 33.6
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
[2019-05-07] MEDS ORDERED: ACETAMINOPHEN 325 MG TABLET (FP) ONE ×2 (23:18→23:32)
[2019-05-07] MEDS ORDERED: ACETAMINOPHEN 500 MG TABLET (FP) PO ONE (23:22)
--- NOTE | 2019-05-07 23:54 | PDOC ---
Documentation entered by Mervat Glynn SCRIBE, acting as scribe for Angelika Camp MD. Angelika Camp MD: This documentation has been prepared by the Renard wong Xhesika, SCRIBE, under my direction and personally reviewed by me in its entirety. I confirm that the documentation accurately reflects all work, treatment, procedures, and medical decision making performed by me. Attending Attestation - Resident Resident Name: Martha Wood - ED Attending Attestation I have performed the following: I have examined & evaluated the patient, The case was reviewed & discussed with the resident, I agree w/resident's findings & plan, Exceptions are as noted - HPI HPI: 05/07/19 20:36 The patient is a 59 year old female with a significant PMH of CVA with R sided residual deficits, IDDM, HTN, HLD, past DVT (1988) and PE (but taken off Eliquis due to UGIB requiring ICU hospitalization), CLL who presents to the emergency department from home with R sided head pain s/p mechanical fall earlier today. Patient reports she walks with a walker at baseline, but today she was walking unassisted, tripped and fell hitting the right side of her head and back. Patient is unsure of any LOC. Pt reports chronic SOB. The patient denies chest pain, headache and dizziness. Denies fever, chills, cough, nausea, vomiting, diarrhea and constipation. Allergies: NKDA - Physicial Exam PE: 05/07/19 23:54 59-year-old female looking older than stated age stated she had a mechanical fall today hitting her head and her right hand and leg Past medical history significant for prior CVA with residual right-sided weakness 05/07/19 23:54 Head no scalp lacerations or forehead hematomas evident Neck no midline cervical vertebral tenderness Lungs clear to auscultation bilaterally CVS regular rate and rhythm S1-S2 Abdomen protuberant but soft Extremities no pitting edema Skin warm and dry Neuro patient is alert but her family members state that she is not making sense she is discussing other family members and her own mother who years ago and this is not like her - Medical Decision Making 05/08/19 02:19 Patient was encouraged to stay because family members thought she was more confused than she typically is at baseline ROS was positive for chronic right-sided weakness and also chronic right hand and leg pain CAT scan did not show any acute intracranial pathology Patient initially refused all blood work and Eventually she left AGAINST MEDICAL ADVICE
--- NOTE | 2019-05-08 13:03 | EKG ---
Test Reason : Blood Pressure : / mmHG Vent. Rate : 080 BPM Atrial Rate : 080 BPM P-R Int : 142 ms QRS Dur : 090 ms QT Int : 380 ms P-R-T Axes : 050 -08 019 degrees QTc Int : 438 ms POOR DATA QUALITY, INTERPRETATION MAY BE ADVERSELY AFFECTED NORMAL SINUS RHYTHM NORMAL ECG WHEN COMPARED WITH ECG OF 06-JUL-2018 12:04, NO SIGNIFICANT CHANGE WAS FOUND Confirmed by Felix Schultz MD ([id number]) on 05/08/2019 1:02:40 PM Referred By: Confirmed By:Felix Schultz MD
== END 2019-05-08 00:19 | disposition left against medical advice (07) ==
LOC: JER 18:49
DX: Z04.3 Encounter for examination and observation following other accident (principal); R41.0 Disorientation, unspecified; I10 Essential (primary) hypertension; E78.00 Pure hypercholesterolemia, unspecified; E11.9 Type 2 diabetes mellitus without complications; K21.9 Gastro-esophageal reflux disease without esophagitis; I69.351 Hemiplegia and hemiparesis following cerebral infarction affecting right dominant side; Z79.4 Long term (current) use of insulin; Z86.718 Personal history of other venous thrombosis and embolism; Z86.711 Personal history of pulmonary embolism; R06.02 Shortness of breath; R42 Dizziness and giddiness; C91.10 Chronic lymphocytic leukemia of B-cell type not having achieved remission; F17.210 Nicotine dependence, cigarettes, uncomplicated; J45.909 Unspecified asthma, uncomplicated; E66.01 Morbid (severe) obesity due to excess calories; Z68.33 Body mass index [BMI] 33.0-33.9, adult; R26.2 Difficulty in walking, not elsewhere classified; Z99.89 Dependence on other enabling machines and devices; W01.198A Fall on same level from slipping, tripping and stumbling with subsequent striking against other object, initial encounter; Z91.81 History of falling; Y93.01 Activity, walking, marching and hiking; Y92.89 Other specified places as the place of occurrence of the external cause
CPT/HCPCS: 70450-TC; 93005; 93010; 99284-25

== ENCOUNTER 2019-05-09 05:46 | Day surgery (SDC) | payer OTHER ==
[2019-05-09] MEDS ORDERED: IRON SUCROSE INJECTION 200 MG in SODIUM CHLORIDE 100 ML IVPB ONE (10:30)
[2019-05-09] MEDS ORDERED: CYANOCOBALAMIN (VITAMIN B-12) 1000 MCG/1 ML VIAL IM ONE (12:32)
[2019-05-09 15:32] VITALS: TEMP 97.4
[2019-05-09 15:41] VITALS: BP 112/76; PULSE 89
== END 2019-05-09 13:35 | disposition home or self-care (01) ==
LOC: JONCNONCHE 05:46 → J7W 12:30 → JONCNONCHE 13:35
PROVIDERS: ATTEND Internal Medicine Hematology & Oncology
PROC: 3E033GC Introduction of Other Therapeutic Substance into Peripheral Vein, Percutaneous Approach (ICD-10-PCS; principal; 2019-05-09)
DX: D50.9 Iron deficiency anemia, unspecified (principal)
CPT/HCPCS: 96365; J1756

== ENCOUNTER 2019-05-16 05:50 | Day surgery (SDC) | payer OTHER ==
[2019-05-16] MEDS ORDERED: HYDROCORTISONE SOD SUCCINATE 100 MG/2 ML VIAL IVPB PRN (12:30)
[2019-05-16] MEDS ORDERED: diphenhydrAMINE HCL 50 MG CAPSULE PO PRN (12:30)
[2019-05-16] MEDS ORDERED: IRON SUCROSE INJECTION 200 MG in SODIUM CHLORIDE 100 ML IVPB ONE (13:00)
[2019-05-16 15:27] VITALS: TEMP 98.1
[2019-05-16 15:31] VITALS: BP 134/79; PULSE 84
== END 2019-05-16 14:00 | disposition home or self-care (01) ==
LOC: JONCNONCHE 05:50 → J7W 12:23 → JONCNONCHE 14:00
PROVIDERS: ATTEND Internal Medicine Hematology & Oncology
PROC: 3E033GC Introduction of Other Therapeutic Substance into Peripheral Vein, Percutaneous Approach (ICD-10-PCS; principal; 2019-05-16)
DX: D50.9 Iron deficiency anemia, unspecified (principal); C83.00 Small cell B-cell lymphoma, unspecified site; I10 Essential (primary) hypertension; E78.00 Pure hypercholesterolemia, unspecified; I48.91 Unspecified atrial fibrillation; E11.9 Type 2 diabetes mellitus without complications; G40.909 Epilepsy, unspecified, not intractable, without status epilepticus; M19.90 Unspecified osteoarthritis, unspecified site; F41.9 Anxiety disorder, unspecified; J45.909 Unspecified asthma, uncomplicated; F32.9 Major depressive disorder, single episode, unspecified; K21.9 Gastro-esophageal reflux disease without esophagitis; K76.0 Fatty (change of) liver, not elsewhere classified; Z86.718 Personal history of other venous thrombosis and embolism; Z86.73 Personal history of transient ischemic attack (TIA), and cerebral infarction without residual deficits
CPT/HCPCS: 36415; 82728; 83036; 83540; 83550; 96365; J1756

== ENCOUNTER 2019-05-23 05:40 | Day surgery (SDC) | payer OTHER ==
[2019-05-23] MEDS ORDERED: diphenhydrAMINE HCL 25 MG CAPSULE (FP) PO ONE (10:00)
[2019-05-23] MEDS ORDERED: IRON SUCROSE INJECTION 200 MG in SODIUM CHLORIDE 100 ML IVPB ONE (10:00)
[2019-05-23] MEDS ORDERED: HYDROCORTISONE SOD SUCCINATE 100 MG/2 ML VIAL IVPUSH ONE (10:00)
[2019-05-23 15:24] LABS: ALBUMIN 3.8 g/dl (3.4-5.0); BILIRUBIN,TOTAL 0.4 mg/dL (0.2-1); CREATININE 0.9 mg/dL (0.55-1.3); POTASSIUM 3.8 mmol/L (3.5-5.1); TOT PROT 7.4 g/dl (6.4-8.2)
[2019-05-23 16:29] VITALS: BP 126/75; PULSE 87; TEMP 98.6
== END 2019-05-23 15:10 | disposition home or self-care (01) ==
LOC: JONCNONCHE 05:40 → J7W 13:15 → JONCNONCHE 15:10
PROVIDERS: ATTEND Internal Medicine Hematology & Oncology
PROC: 3E033GC Introduction of Other Therapeutic Substance into Peripheral Vein, Percutaneous Approach (ICD-10-PCS; principal; 2019-05-23)
DX: D50.9 Iron deficiency anemia, unspecified (principal)
CPT/HCPCS: 36415; 80053; 96365; J1756